=== PATIENT | female | born 1950 | race African-American/Black ===

== ENCOUNTER 2018-08-30 22:57 | Emergency (ER) | payer OTHER ==
[2018-08-31] MEDS ORDERED: FENTANYL CITR 100 MCG/2 ML ONE (00:19)
[2018-08-31 00:21] LABS: Basophils % 0.9 % (0-1.3); MPV 9.3 fL (7.6-11.3); RBC Red Blood Cell Count 4.08 M/uL (3.86-4.86)
[2018-08-31 00:29] LABS: Absolute Lymphocytes (CBC) 1.2 K/uL (0.7-4.9); Eosinophils % 2.1 % (0-4.4); Hematocrit 35.6 % (36.0-45.0); Monocytes % 8.2 % (3.3-12.3)
[2018-08-31 00:35] LABS: Albumin 3.1 g/dL (3.4-5.0); Bilirubin Direct 0.1 mg/dL (0-0.2); Bilirubin Total 0.3 mg/dL (0.2-1.0); Potassium 4.3 mmol/L (3.5-5.1)
--- NOTE | 2018-08-31 02:41 | EDPHYS ---
Physician Documentation [facility] Name: Cory Mancuso Age: 68 yrs Sex: Female : 1950 Arrival Date: 08/30/2018 Time: 22:59 Bed 15 Private MD: ED Physician Ricardo Roberts HPI: 08/31 05:17 This 68 yrs old Black Female presents to ER via Wheelchair with complaints of Abd Pain gs > 50 y/o. 05:17 The patient presents with abdominal pain in the lower abdomen. Onset: The gs symptoms/episode began/occurred 1 week(s) ago, and became persistent. Associated signs and symptoms: Pertinent positives: constipation, Pertinent negatives: fever, vomiting. The symptoms are described as crampy. Modifying factors: The symptoms are alleviated by nothing, the symptoms are aggravated by nothing. Severity of pain: At its worst the pain was moderate in the emergency department the pain is unchanged. The patient has experienced similar episodes in the past, a few times. The patient has been recently seen by a physician: with similar presenting complaints. Historical: - Allergies: 08/30 23:04 tramadol; la1 - PMHx: 23:04 Diabetes - NIDDM; CHF; Dialysis; Hypertension; High Cholesterol; la1 - Immunization history:: Adult Immunizations up to date. - Social history:: Smoking status: Patient/guardian denies using tobacco. - Ebola Screening: : No symptoms or risks identified at this time. ROS: 08/31 05:17 All other systems are negative. gs Exam: 05:17 Head/Face: Normocephalic, atraumatic. Eyes: Pupils equal round and reactive to light, gs extra-ocular motions intact. Lids and lashes normal. Conjunctiva and sclera are non-icteric and not injected. Cornea within normal limits. Periorbital areas with no swelling, redness, or edema. ENT: Nares patent. No nasal discharge, no septal abnormalities noted. Tympanic membranes are normal and external auditory canals are clear. Oropharynx with no redness, swelling, or masses, exudates, or evidence of obstruction, uvula midline. Mucous membranes moist. Neck: Trachea midline, no thyromegaly or masses palpated, and no cervical lymphadenopathy. Supple, full range of motion without nuchal rigidity, or vertebral point tenderness. No Meningismus. Chest/axilla: Normal chest wall appearance and motion. Nontender with no deformity. No lesions are appreciated. Cardiovascular: Regular rate and rhythm with a normal S1 and S2. No gallops, murmurs, or rubs. Normal PMI, no JVD. No pulse deficits. Respiratory: Lungs have equal breath sounds bilaterally, clear to auscultation and percussion. No rales, rhonchi or wheezes noted. No increased work of breathing, no retractions or nasal flaring. Back: No spinal tenderness. No costovertebral tenderness. Full range of motion. Skin: Warm, dry with normal turgor. Normal color with no rashes, no lesions, and no evidence of cellulitis. MS/ Extremity: Pulses equal, no cyanosis. Neurovascular intact. Full, normal range of motion. Neuro: Awake and alert, GCS 15, oriented to person, place, time, and situation. Cranial nerves II-XII grossly intact. Motor strength 5/5 in all extremities. Sensory grossly intact. Cerebellar exam normal. Normal gait. 05:17 Constitutional: The patient appears alert, awake. 05:17 Abdomen/GI: Palpation: mild abdominal tenderness, in all quadrants, rebound tenderness, is not appreciated. Vital Signs: 08/30 23:04 BP 219 / 96; Pulse 74; Resp 16; Temp 97.6; Pulse Ox 98% on R/A; Weight 55.34 kg; Height la1 5 ft. 5 in. (165.10 cm); Pain 10/10; 08/31 00:18 BP 212 / 94; Pulse 69; Resp 18; Pulse Ox 95% on R/A; ea 02:11 BP 208 / 96; Pulse 70; Resp 18; Pulse Ox 98% on R/A; ea 03:00 BP 187 / 65; Pulse 67; Resp 18; Temp 97.8; Pulse Ox 99% ; ea 08/30 23:04 Body Mass Index 20.30 (55.34 kg, 165.10 cm) la1 MDM: 00:01 Patient medically screened. 05:17 Data reviewed: vital signs, nurses notes, old medical records, lab test result(s), gs radiologic studies. Counseling: I had a detailed discussion with the patient and/or guardian regarding: the historical points, exam findings, and any diagnostic results supporting the discharge/admit diagnosis, the need for outpatient follow up. Response to treatment: the patient's symptoms have markedly improved after treatment, and as a result, I will discharge patient. 08/30 23:58 Order name: Basic Metabolic Panel; Complete Time: 00:40 ea 08/30 23:58 Order name: CBC with Diff; Complete Time: 00:40 ea 08/30 23:58 Order name: Creatinine for Radiology; Complete Time: 00:40 ea 08/30 23:58 Order name: Hepatic Function; Complete Time: 00:40 ea 08/30 23:58 Order name: Lipase; Complete Time: 00:40 ea 08/31 00:02 Order name: CT Stone Protocol 08/30 23:58 Order name: IV Saline Lock; Complete Time: 23:59 08/30 23:58 Order name: Labs collected and sent; Complete Time: 23:59 ea Administered Medications: 00:12 Drug: fentaNYL (PF) 50 mcg Route: IVP; Site: left forearm; ea 01:00 Follow up: Response: No adverse reaction; Pain is decreased ea 02:37 Drug: Dulcolax Suppository 10 mg Route: OR; ea 02:50 Follow up: Response: No adverse reaction ea 02:45 Drug: morphine 2 mg Route: IVP; Site: left forearm; ea 02:50 Follow up: Response: No adverse reaction; Medication administered at discharge. ea Disposition: 08/31/18 02:40 Discharged to Home. Impression: Constipation. - Condition is Stable. - Discharge Instructions: Constipation, Adult, [id number]. - Prescriptions for Miralax 17 gram/dose Oral - take 1 packet by ORAL route 2 times per day for 5 days then once daily dilute powder in 8 ounces of water or juice; 1 bottle. - Medication Reconciliation Form, Thank You Letter, Antibiotic Education, Prescription Opioid Use form. - Follow up: Benjamin Santos MD; When: 2 - 3 days; Reason: Re-evaluation by your physician. Signatures: Dispatcher [employer] EDEzekiel Rivera RN RN la1 Antunez, Elena, RN RN ea Starr, Gregory, MD MD gs Corrections: (The following items were deleted from the chart) 03:18 02:40 08/31/2018 02:40 Discharged to Home. Impression: Constipation. Condition is ea Stable. Forms are Medication Reconciliation Form, Thank You Letter, Antibiotic Education, Prescription Opioid Use. Follow up: Benjamin Santos; When: 2 - 3 days; Reason: Re-evaluation by your physician. gs
--- NOTE | 2018-08-31 02:41 | ER ---
Nurse's Notes [facility] Name: Cory Mancuso Age: 68 yrs Sex: Female : 1950 Arrival Date: 08/30/2018 Time: 22:59 Bed 15 Private MD: Diagnosis: Constipation Presentation: 08/30 23:02 Presenting complaint: Patient states: I was released from [facility] for la1 constipation on 08/29/2018 and told them I was hurting then but they still let me go. My whole abd is hurting badly again. Transition of care: patient was not received from another setting of care. Onset of symptoms was August 30, 2018. Risk Assessment: Do you want to hurt yourself or someone else? Patient reports no desire to harm self or others. Initial Sepsis Screen: Does the patient meet any 2 criteria? No. Patient's initial sepsis screen is negative. Does the patient have a suspected source of infection? No. Patient's initial sepsis screen is negative. Care prior to arrival: None. 23:02 Method Of Arrival: Wheelchair la1 23:02 Acuity: SHAKILA 2 la1 Historical: - Allergies: 23:04 tramadol; la1 - PMHx: 23:04 Diabetes - NIDDM; CHF; Dialysis; Hypertension; High Cholesterol; la1 - Immunization history:: Adult Immunizations up to date. - Social history:: Smoking status: Patient/guardian denies using tobacco. - Ebola Screening: : No symptoms or risks identified at this time. Screenin:33 Abuse screen: Denies threats or abuse. Nutritional screening: No deficits noted. ea Tuberculosis screening: No symptoms or risk factors identified. Fall Risk None identified. Assessment: 23:30 General: Appears uncomfortable, Behavior is restless. Pain: Complains of pain in right ea upper quadrant and left upper quadrant Pain radiates to posterior aspect of right lateral abdomen and anterior aspect of right lateral abdomen Pain currently is 10 out of 10 on a pain scale. Quality of pain is described as crampy, Pain began 2-3 days ago. Neuro: Level of Consciousness is awake, alert, obeys commands, Oriented to person, place, time, situation. Cardiovascular: Patient's skin is warm and dry. Respiratory: Airway is patent Respiratory effort is even, unlabored, Respiratory pattern is regular, symmetrical. GI: Abdomen is non-distended, Bowel sounds present X 4 quads. Derm: Skin is dry, Skin is normal, Skin temperature is warm. 08/31 00:18 Reassessment: Patient and/or family updated on plan of care and expected duration. Pain ea level reassessed. Patient is alert, oriented x 3, equal unlabored respirations, skin warm/dry/pink. Patient states symptoms have improved. 01:15 Reassessment: Patient and/or family updated on plan of care and expected duration. Pain ea level reassessed. Patient is alert, oriented x 3, equal unlabored respirations, skin warm/dry/pink. Awaiting on CT results. 02:58 Reassessment: Patient and/or family updated on plan of care and expected duration. Pain ea level reassessed. Patient is alert, oriented x 3, equal unlabored respirations, skin warm/dry/pink. Discharge instruction given to patient and family, verbalized the understanding of instruction. Pt left ED via wheelchair per family, pt tolerating well. Pt reports pain has decreased. Vital Signs: 08/30 23:04 BP 219 / 96; Pulse 74; Resp 16; Temp 97.6; Pulse Ox 98% on R/A; Weight 55.34 kg; Height la1 5 ft. 5 in. (165.10 cm); Pain 10/10; 08/31 00:18 BP 212 / 94; Pulse 69; Resp 18; Pulse Ox 95% on R/A; ea 02:11 BP 208 / 96; Pulse 70; Resp 18; Pulse Ox 98% on R/A; ea 03:00 BP 187 / 65; Pulse 67; Resp 18; Temp 97.8; Pulse Ox 99% ; ea 08/30 23:04 Body Mass Index 20.30 (55.34 kg, 165.10 cm) la1 ED Course: 08/30 22:59 Patient arrived in ED. as 23:03 Triage completed. la1 23:04 Arm band placed on left wrist. la1 23:24 Meseret Torres, REGINA is Primary Nurse. ea 23:33 Ricardo Roberts MD is Attending Physician. gs 23:33 Patient has correct armband on for positive identification. Bed in low position. Call ea light in reach. Side rails up X2. Pulse ox on. NIBP on. 23:33 Patient maintains SpO2 saturation greater than 95% on room air. ea 23:59 Inserted saline lock: 22 gauge in left forearm, using aseptic technique. ea 08/31 00:35 Notified ED physician of a critical lab result(s). creat 7.04. fc 01:24 CT Stone Protocol In Process Unspecified. EDMS 02:40 Benjamin Santos MD is Referral Physician. gs 02:58 IV discontinued, intact, bleeding controlled, No redness/swelling at site. Pressure ea dressing applied. 03:17 No provider procedures requiring assistance completed. ea Administered Medications: 00:12 Drug: fentaNYL (PF) 50 mcg Route: IVP; Site: left forearm; ea 01:00 Follow up: Response: No adverse reaction; Pain is decreased ea 02:37 Drug: Dulcolax Suppository 10 mg Route: LA; ea 02:50 Follow up: Response: No adverse reaction ea 02:45 Drug: morphine 2 mg Route: IVP; Site: left forearm; ea 02:50 Follow up: Response: No adverse reaction; Medication administered at discharge. ea Outcome: 02:40 Discharge ordered by . gs 03:17 Discharged to home via wheelchair, with family. ea 03:17 Condition: stable 03:17 Discharge instructions given to patient, Instructed on discharge instructions, follow up and referral plans. medication usage, Demonstrated understanding of instructions, follow-up care, medications, Prescriptions given X 1. 03:18 Patient left the ED. ea Signatures: Dispatcher [employer] EDCA Shari Parker RN RN fc Martinez, Amelia as Attema, Lee, RN RN la1 Antunez, Elena, RN RN ea Starr, Gregory, MD MD
[2018-08-31] MEDS ORDERED: BISACODYL 10 MG RECTAL SUPP ONE (02:48)
[2018-08-31] MEDS ORDERED: MORPHINE 2 MG/ML SYR ONE (03:05)
--- NOTE | 2018-09-01 11:16 | RAD REPORT ---
EXAM DESCRIPTION: CT abdomen and pelvis without IV contrast CLINICAL HISTORY: 60-year-old female with constipation and abdominal pain TECHNIQUE: Axial CT imaging of the abdomen and pelvis was performed without intravenous contrast. Sagittal and coronal reconstructed images were then performed. The CT study is performed according to ALARA (as low as reasonably achievable) or ALARA/IMAGE GENTLY, with automatic adjustment of mA and/o r kV according to patient size. Performed on: 08/31/2018 at 12:59 AM COMPARISON: None. FINDINGS: Lung bases: The lung bases are clear. There is bibasilar atelectasis and/or fibrosis. Ther e is a small to moderate pericardial effusion which measures approximately 1.1 cm in diameter anterio rly and 1.2 cm posteriorly. Liver: The liver is normal in size and configuration. No focal hepatic abnormalities are appreciated on this unenhanced scan. Liver attenuation is within normal limits. Spleen: The spleen is normal is size, configuration and attenuation. There is an approximately 1.4 x 1.5 cm focal area of decreased attenuation within the posterior spleen. This is nonspecific. This cou ld represent an incidental hemangioma. Evaluation is limited without intravenous contrast. Gallbladder and bile duct: The gallbladder is well visualized and is likely surgically absent. Ther e is mild dilatation of the common bile duct likely physiologic in nature following a cholecystectomy . Pancreas: The pancreas is grossly normal in size and configuration. Adrenal Glands: The right adrenal gland is grossly normal in size and configuration. There may be mil d generalized fullness of the left adrenal gland which is not well delineated on this examination. Kidneys: The kidneys are normal in size and configuration. There is no evidence of hydronephrosis. Th ere is a punctate nonobstructing calcification in the upper pole of the right kidney. There is a subt le area of increased attenuation along the anterior cortex of the midpole of the right kidney which i s nonspecific and could be related to a hyperdense cyst. Stomach: The stomach is grossly normal. There is no definite hiatal hernia. Bowel: The bowel gas pattern is non specific and non obstructive. There is moderate fecal residue sca ttered throughout the colon. Appendix: The appendix is normal. Free air: There is no evidence of free air. Free fluid: There is no evidence of free fluid. Vasculature: The aorta is normal in caliber and contour. There are moderate atherosclerotic calcifica tions along the abdominal aorta and major proximal branch vessels. The inferior vena cava is grossly unremarkable. Lymphadenopathy: No pathologic lymphadenopathy is identified. Bladder: The bladder is well distended and smooth in contour. Reproductive: The uterus is surgically absent. Bones: No acute osseous abnormalities are identified. Soft tissues: No focal soft tissue abnormalities are identified. There is a small fat-containing vent ral umbilical hernia. IMPRESSION: 1. Small to moderate pericardial effusion. 2. Moderate fecal residue scattered throughout the colon. The bowel gas pattern is nonspecific and no nobstructive. 3. Moderate atherosclerotic calcifications. 4. Suspect prior cholecystectomy and hysterectomy. 5. Approximately 1.5 cm nonspecific focal area of decreased attenuation within the posterior spleen. This could represent an incidental hemangioma. Evaluation is limited without intravenous contrast. 6. Punctate nonobstructing right renal calculus and possible hyperdense cyst along the anterior joe x of the midpole of the right kidney. Again, evaluation is limited without intravenous contrast. Electronically signed by: Arely Dhillon DO 08/31/2018 1:43 AM CDT Due to temporary technical issues with the PACS/Fluency reporting system, reports are being signed by the in house radiologist as a courtesy to ensure prompt reporting. The interpreting radiologist is f ully responsible for the content of the report.
== END 2018-08-31 03:18 | disposition home or self-care (01) ==
LOC: ER 22:57
DX: K59.00 Constipation, unspecified (principal); E11.9 Type 2 diabetes mellitus without complications; I11.0 Hypertensive heart disease with heart failure; I50.9 Heart failure, unspecified; E78.00 Pure hypercholesterolemia, unspecified
CPT/HCPCS: 85025; 80048; 36415; 80076; 83690; 76377; 74176; 96375; 96374; 99284; J3010; J2270

== ENCOUNTER 2019-01-27 10:20 | Observation (INO) | payer OTHER ==
[2019-01-27] MEDS ORDERED: MORPHINE 2 MG/ML SYR ONE (10:46)
[2019-01-27] MEDS ORDERED: PANTOPRAZOLE 40 MG INJ ONE (10:46)
[2019-01-27] MEDS ORDERED: ONDANSETRON 4 MG/2 ML VIAL ONE (10:46)
--- OUTSIDE RECORDS SUMMARY | 2019-01-27 11:15 | XMS REPORT | Continuity of Care Document ---
:1950 Author Organization [facility] Address [address] [place] [address] Phone Unavailable Care Team Providers Name Role Phone PHYSICIAN, NO Primary Care Physician Unavailable Insurance Providers Guarantor Komal Smith Address [address] [place] [address] Email NONE Payer Medicare Policy Number [id number] Subscriber's Name Komal Smith Relationship Self / Same As Patient Group Number NA Group Name NA Payer [facility] Policy Number [id number] Subscriber's Name Komal Smith Relationship Self / Same As Patient Group Number NA Group Name NA Payer Medicaid Policy Number [id number] Subscriber's Name Komal Smith Relationship Self / Same As Patient Group Number NA Group Name NA Advance Directives Directive Response Recorded Date/Time Advance Directives No 07/10/14 6:33pm Advance Directive on File No 01/17/18 11:46am Directive to Physicians/Living Will No 07/10/14 6:33pm Health Care Proxy No 07/10/14 6:33pm Organ Donor No 07/10/14 6:33pm Medical Power of Employment Educational Coord No 07/10/14 6:33pm Chief Complaint and Reason for Visit Chief Complaint General Complaint Reason for Visit HTN (hypertension) Hyperglycemia Chronic renal failure Problems Medical Problem Onset Date Status Abnormal renal function test Unknown Acute Acute on chronic renal insufficiency Unknown Acute Anxiety Unknown Chronic CAD (coronary artery disease) Unknown CKD (chronic kidney disease) stage 3, GFR 30-59 ml/min Unknown Chronic Cellulitis of left ankle Unknown Acute Clostridium difficile diarrhea Unknown Constipation Unknown Acute Dehydration Unknown Acute Diabetes mellitus Unknown Chronic Diarrhea Unknown Resolved Gastroenteritis Unknown Resolved HLD (hyperlipidemia) Unknown Chronic HTN (hypertension) Unknown Chronic Hematuria Unknown Acute Hyperglycemia Unknown Acute Hyperglycemia Unknown Acute Hypoglycemia Unknown Acute Hypokalemia Unknown Acute [id number] Unknown Acute Uncontrolled diabetes mellitus Unknown Acute Past Problems Medical Problem Onset Date Status Abdominal pain Unknown Acute Acute on chronic renal insufficiency Unknown Acute CHF (congestive heart failure) Unknown Acute Chronic renal failure Unknown Acute Congestive heart failure Unknown Acute Constipation Unknown Acute Dizzy Unknown Acute Hyperglycemia due to type 2 diabetes mellitus Unknown Acute Ketonuria Unknown Acute Malaise Unknown Acute Nausea Unknown Acute Nausea & vomiting Unknown Acute Nausea & vomiting Unknown Acute Renal failure Unknown Acute Renal insufficiency Unknown Acute UTI (urinary tract infection) Unknown Acute UTI (urinary tract infection) Unknown Acute Medications Current Home Medications Medication Dose Units Route Directions Days Qty Instructions Start Date Acetaminophen 1 Tab ORAL Twice Daily As 90 W/ Codeine #3 * Needed Tablet (Tylenol Codeine #3 300MG/30MG *) 1 Tab Tab Atorvastatin * 80 Mg ORAL Bedtime (Lipitor 80 Mg*) 80 Mg Tab Carvedilol 25 Mg ORAL Twice Daily 60 09/25/ (Coreg *) 25 Mg With Meals for Tablet 18 Tab Hypertension Clopidogrel 1 Tab ORAL Daily 90 Bisulfate Tablet (Plavix 75 Mg *) 75 Mg Tab Furosemide 1 Tab ORAL Twice A Day 90 (Lasix 20 Mg*) Tablet 20 Mg Tab Insulin 20 Units SUBCUTANEOUS Daily for 30 10/17/ Glargine Diabetes Days 18 (Lantus Solostar) 100 Unit/Ml Inj Metronidazole 1 Tab ORAL Twice A Day 20 10/18/ (Flagyl 500 for Colitis Tablet 18 Mg*) 500 Mg Tab Nifedipine 90 Mg ORAL Daily (Nifediac Cc 90 Mg*) 90 Mg Tab Past Home Medications Medication Directions Ordered Status Carvedilol (Coreg *) 3.125 Mg Tab, Twice A Day 06/08/12 Discontinued 3.125 Mg Oral Ciprofloxacin Hcl (Ciprofloxacin Twice A Day for Uti 03/29/17 Discontinued Hcl 250 Mg) 250 Mg Tab, 1 Tab Oral Clopidogrel Bisulfate (Plavix 75 Daily Discontinued Mg *) 75 Mg Tab, 75 Mg Oral Clotrimazole (Topical) Discontinued (Clotrimazole 1% Topical) 1 % Cre, Insulin Asp Prt/Insulin Aspart * Every Morning Discontinued (Novolog Mix 70/30 Flexpen *) Inj, 100 Units Subcutaneous Insulin Asp Prt/Insulin Aspart * Every Evening Discontinued (Novolog Mix 70/30 Flexpen *) Inj, 75 Units Subcutaneous Insulin Asp Prt/Insulin Aspart * Three Times Daily Before 04/21/13 Discontinued (Novolog Mix 70/30 Flexpen *) Inj, Meals 25 Units Subcutaneous Insulin Aspart (Novolog Mix 70/30 Before Breakfast Discontinued 100 Units/Ml Insulin *) 100 Units/ Inj, 15 Subcutaneous Insulin Glargine (Lantus Solostar) Every Morning Discontinued 100 Unit/Ml Inj, 50 Units Subcutaneous Insulin Human Isoph/Insulin Twice A Day Insulin Discontinued Regular (Novolin 70/30 100 Units/Ml Insulin *) 100 Units/ Inj, 15 UnitsSubcutaneous Insulin Human Isoph/Insulin Bedtime Discontinued Regular (Novolin 70/30 100 Units/Ml Insulin *) 100 Units/ Inj, 10Subcutaneous Labetalol Hcl (Trandate 200 Mg *) Twice A Day Discontinued 200 Mg Tab, 200 Mg Oral Lisinopril (Lisinopril/Hctz Daily Discontinued 20/12.5 Mg) 1 Tab Tab, 1 Tab Oral Lisinopril (Lisinopril 10 Mg) 10 Daily for Hypertension 03/29/17 Discontinued Mg Tab, 1 Tab Oral Lisinopril (Lisinopril/Hctz Daily Discontinued 20/12.5 Mg) 1 Tab Tab, 1 Tab Oral Lisinopril (Zestril/Prinivil *) 10 Daily Discontinued Mg Tab, 0 Oral Lisinopril & Hydrochlorothiazi * Daily Discontinued (Lisinopril/Hctz 20/25 Mg *) 1 Tab Tab, 1 Tab Oral Lisinopril & Hydrochlorothiazi * Daily Discontinued (Lisinopril/Hctz 20/25 Mg *) 1 Tab Tab, 1 Tab Oral Metformin Hcl (Glucophage *) 500 Twice A Day Discontinued Mg Tab, 0 Oral Metoprolol Tartrate (Lopressor *) Once Daily Discontinued 50 Mg Tab, 100 Mg Oral Nifedipine (Nifedipine 10 Mg Daily Discontinued (Procardia) *) 10 Mg Cap, 0 Oral Potassium Chloride (Potassium Daily Discontinued Chloride Cr 10 Meq) 10 Meq Tab, 10 Meq Oral Sodium Bicarbonate 325 Mg Tab, 325 Twice A Day for Acidosis 09/25/17 Discontinued Mg Oral Sodium Bicarbonate 325 Mg Tab, 325 Four Times Daily for Acidosis 09/25/17 Discontinued Mg Oral Social History Social History Problem Response Recorded Date/Time Onset Date Status Hx Physical Abuse No 01/17/2018 11:46am Not Applicable Not Applicable Smoking Status Start Date Stop Date Never smoker Hospital Discharge Instructions No hospital discharge instruction information available. Plan of Care Discharge Date 01/17/18 1:49pm Instructions/Education Provided Hyperglycemia, [id number] Chronic Kidney Disease, Adult, [id number] Hypertension, [id number] Forms Provided Prescription Opioid Use Portal Welcome Letter Prescriptions See Medication Section Referrals NO PHYSICIAN Additional Instructions/Education GO DIRECTLY TO DIALYSIS FOR TREATMENT Functional Status No functional status information available. Allergies, Adverse Reactions, Alerts Allergen Type Severity Reaction Status Last Updated Tramadol ([id number]) Allergy Severe Active 07/12/14 Immunizations No immunization information available. Vital Signs Acute Vital Signs Vital Response Date/Time Blood Pressure 193/87 mm Hg 01/17/2018 1:56pm Pulse Pulse Rate (adult) 61 beats per minute (60 - 100) 01/17/2018 1:56pm Respiratory Rate 18 breaths per minute (10 - 24) 01/17/2018 1:56pm Temperature Source Oral 01/17/2018 1:56pm Height 5 ft 5 in 01/17/2018 11:46am Weight 155 lb 01/17/2018 11:46am Body Mass Index 25.8 kg/m^2 01/17/2018 11:46am Results Laboratory Results Test Name Result Units Flags Reference Collection Result Comments Date/Time Date/Time White Blood Count 4.1 K/ul 4.0-11.5 01/17/2018 01/17/2018 12:35pm 12:39pm Red Blood Count 3.81 M/ul 3.80-5.20 01/17/2018 01/17/2018 12:35pm 12:39pm Hemoglobin 10.3 g/dl L 10.5-15.7 01/17/2018 01/17/2018 12:35pm 12:39pm Hematocrit 32.8 % L 34.0-50.0 01/17/2018 01/17/2018 12:35pm 12:39pm Mean Corpuscular 85.9 fl 78-98 01/17/2018 01/17/2018 Volume 12:35pm 12:39pm Mean Corpuscular 26.9 pg 26.2-33.4 01/17/2018 01/17/2018 Hemoglobin 12:35pm 12:39pm Mean Corpuscular 31.3 g/dl L 31.5-36.2 01/17/2018 01/17/2018 Hemoglobin Concent 12:35pm 12:39pm Red Cell 13.6 % 11.5-15.5 01/17/2018 01/17/2018 Distribution Width 12:35pm 12:39pm Platelet Count 85 K/ul L 137-338 01/17/2018 01/17/2018 12:35pm 12:39pm Mean Platelet 13.5 fl H 8.4-11.8 01/17/2018 01/17/2018 Volume 12:35pm 12:39pm Neutrophils (%) 58.1 % 44.4-80.1 01/17/2018 01/17/2018 (Auto) 12:35pm 12:39pm Lymphocytes (%) 33.0 % 10.0-50.0 01/17/2018 01/17/2018 (Auto) 12:35pm 12:39pm Monocytes (%) 5.6 % 3.6-12.04 01/17/2018 01/17/2018 (Auto) 12:35pm 12:39pm Eosinophils (%) 2.2 % 0.0-5.41 01/17/2018 01/17/2018 (Auto) 12:35pm 12:39pm Basophils (%) 1.1 % H 0.0-0.79 01/17/2018 01/17/2018 (Auto) 12:35pm 12:39pm POC Capillary 284 mg/dL H 70.0 - 110 01/17/2018 01/17/2018 Blood Glucose 1:26pm 1:27pm (Chem) Random Glucose 393 mg/dL H 82-115 01/17/2018 01/17/2018 12:35pm 1:05pm Blood Urea 55 mg/dL H 8-23 01/17/2018 01/17/2018 Nitrogen 12:35pm 1:05pm Serum Osmolality 300 280-300 01/17/2018 01/17/2018 12:35pm 1:05pm Creatinine 5.6 mg/dL H* 0.50-0.90 01/17/2018 01/17/2018 Results have been broadcasted to patient's location and 12:35pm 1:05pm called to ([facility] IN ER). By OZZY VIVAS 01/17/18 @[id number] Results read back for confirmation. Glomerular 9.16 L 01/17/2018 01/17/2018 GFR RESULTS ARE REPORTED IN mL /min/1.73m2. Filtration Rate 12:35pm 1:05pm Calc Normal GFR: >60mL/min Moderately decreased GFR: 30-59 mL/min Severely decreased GFR: 15-29 mL/min Kidney Failure (or Dialysis): <15 mL/min The calculated eGFR is not valid for patients younger than 18 years or older than 75 years. BUN/Creatinine 9.8 L 12-01/17/2018 01/17/2018 Ratio 12:35pm 1:05pm Sodium Level 134 mmol/L L 135-145 01/17/2018 01/17/2018 12:35pm 1:05pm Potassium Level 4.0 mmol/L 3.5-5.2 01/17/2018 01/17/2018 12:35pm 1:05pm Chloride Level 97 mmol/L L 98-108 01/17/2018 01/17/2018 12:35pm 1:05pm Carbon Dioxide 25 mmol/L 21-32 01/17/2018 01/17/2018 Level 12:35pm 1:05pm Anion Gap 16.0 mEq/L 12-01/17/2018 01/17/2018 12:35pm 1:05pm Calcium Level 8.8 mg/dL 8.8-10.2 01/17/2018 01/17/2018 12:35pm 1:05pm Total Protein 6.9 g/dL 6.6-8.7 01/17/2018 01/17/2018 12:35pm 1:05pm Albumin 3.4 g/dL L 3.5-5.2 01/17/2018 01/17/2018 12:35pm 1:05pm Globulin 3.5 gm/dL 01/17/2018 01/17/2018 12:35pm 1:05pm Albumin/Globulin 1.0 >1.0 01/17/2018 01/17/2018 Ratio 12:35pm 1:05pm Total Bilirubin 0.5 mg/dL 0.0-1.2 01/17/2018 01/17/2018 12:35pm 1:05pm Aspartate Amino 14 U/L L 15-32 01/17/2018 01/17/2018 Transf (AST/SGOT) 12:35pm 1:05pm Alanine 14 U/L 0-33 01/17/2018 01/17/2018 Aminotransferase 12:35pm 1:05pm (ALT/SGPT) Total Alkaline 108 U/L H 35-105 01/17/2018 01/17/2018 Phosphatase 12:35pm 1:05pm Procedures No procedure information available. Encounters Encounter Location Arrival/Admit Date Discharge/Depart Date Attending Provider Departed [place] 01/17/18 11:41am 01/17/18 1:49pm ANJALI MARTIN [facility] Recent Diagnosis
--- OUTSIDE RECORDS SUMMARY | 2019-01-27 11:15 | XMS REPORT ---
:1950 [facility] Address [address] [place] [address] Care Team Providers Name Role Phone DR JULI MCNAMARA Unavailable Unavailable Problems This patient has no known problems. Allergies, Adverse Reactions, Alerts This patient has no known allergies or adverse reactions. Medications This patient has no known medications. Encounters Start End Encounter Admission Attending Care Care Encounter Date/Time Date/Time Type Type Clinicians Facility Department ID 2017-11-08 2017-11-15 Inpatient C JULI MCNAMARA [facility] TELE [id number] 12:46:00 19:06:00 Results Test Description Test Time Test Comments Text Results Atomic Results Result Comments GLUCOMETER GLUCOSE- LAB USE ONLY 2017-11-15 11:11:00 Test Item Value Reference Range Comments GLUCOMETER (test code=GMG) 191 mg/dL 70-100 Meter ID: [id number]: 9527 JONATHAN LATHON GLUCOMETER GLUCOSE- LAB USE [id number] 05:26:00 Test Item Value Reference Range Comments GLUCOMETER (test code=GMG) 130 mg/dL 70-100 CLEANED METERMeter ID: [id number]: [id number] ALEN MAYELA GLUCOMETER GLUCOSE- LAB USE [id number] 20:08:00 Test Item Value Reference Range Comments GLUCOMETER (test code=GMG) 120 mg/dL 70-100 Meter ID: [id number]: 4074 ALEN MAYELA GLUCOMETER GLUCOSE- LAB USE [id number] 15:55:00 Test Item Value Reference Range Comments GLUCOMETER (test code=GMG) 195 mg/dL 70-100 Meter ID: [id number]: [id number] GROVER RUNNOLLS GLUCOMETER GLUCOSE- LAB USE [id number] 11:05:00 Test Item Value Reference Range Comments GLUCOMETER (test code=GMG) 227 mg/dL 70-100 Meter ID: [id number]: [id number] GROVER BALDWIN CBC (INCLUDES AUTOMATED DIFFERENTIAL)2017-11-14 10:39:00 Test Item Value Reference Range Comments WBC (test code=WBC) 4.5 10\S\3/uL 4.5-11.0 RBC (test code=RBC) 3.00 10\S\6/uL 3.80-5.80 HGB (test code=HBG) 8.1 g/dL 12.0-15.5 HCT (test code=HCT) 26.3 % 35.0-44.0 MCV (test code=MCV) 87.7 fL 81.0-99.0 MCH (test code=MCH) 27.0 pg 27.0-31.0 MCHC (test code=MCHC) 30.8 g/dL 32.0-36.0 RDW (test code=RDW) 14.8 % 11.5-14.5 PLT (test code=PLT) 97 10\S\3/uL 130-400 MPV (test code=MPV) 12.1 fL 9.4-12.4 NEUTROP # (test code=NE#) 2.8 10\S\3/uL 1.6-8.0 LYMPH # (test code=LY#) 1.1 10\S\3/uL 1.1-3.5 MONOCYTE # (test code=MO#) 0.4 10\S\3/uL 0.0-1.1 EOSINOPH # (test code=EO#) 0.2 10\S\3/uL 0.0-0.7 BASOPHIL # (test code=BA#) 0.0 10\S\3/uL 0.0-0.3 IG # (test code=IG#) 0.03 10\S\3/uL 0.00-0.06 NRBC # (test code=NRBC#) 0.00 10\S\3/uL 0.00-0.01 NEUTROPH % (test code=NE%) 62.4 % 35.0-73.0 LYMPH % (test code=LY%) 24.7 % 20.0-55.0 MONO % (test code=MO%) 8.7 % 2.5-10.0 EOSINOPH % (test code=EO%) 3.3 % 0.0-5.0 BASOPHIL % (test code=BA%) 0.2 % 0.0-2.0 IG % (test code=IG%) 0.7 % 0.0-0.8 NRBC% (test code=NRBC%) 0.0 % 0.0-0.2 MANDIFF (test code=MDIFF) NO NO RBC MORPH (test code=RBCMOR) NORMAL GLUCOMETER GLUCOSE- LAB USE [id number] 05:31:00 Test Item Value Reference Range Comments GLUCOMETER (test code=GMG) 119 mg/dL 70-100 CLEANED METERMeter ID: [id number]: [id number] ALEN MAYELA GLUCOMETER GLUCOSE- LAB USE [id number] 20:44:00 Test Item Value Reference Range Comments GLUCOMETER (test code=GMG) 192 mg/dL 70-100 CLEANED METERMeter ID: [id number]: 4074 ALEN MAYELA GLUCOMETER GLUCOSE- LAB USE [id number] 16:44:00 Test Item Value Reference Range Comments GLUCOMETER (test code=GMG) 123 mg/dL 70-100 Meter ID: [id number]: 9527 JONATHAN LATHON GLUCOMETER GLUCOSE- LAB USE [id number] 12:19:00 Test Item Value Reference Range Comments GLUCOMETER (test code=GMG) 193 mg/dL 70-100 Meter ID: [id number]: 9527 JONATHAN LATHON BASIC METABOLIC [id number] 08:44:00 Test Item Value Reference Range Comments GLUCOSE (test code=06D) 161 mg/dL 75-100 SODIUM (test code=01A) 141 mmol/L 136-145 POTASSIUM (test code=01B) 3.3 mmol/L 3.6-5.1 CHLORIDE (test code=04A) 108 mmol/L 98-107 CO2 (test code=02A) 22 mmol/L 22-32 ANION GAP (test code=ANG) 14.3 mmol/L BUN (test code=05D) 44 mg/dL 7-18 CREATININE (test code=03E) 3.9 mg/dL 0.4-1.1 BUN/CREA (test code=BCR) 11 12-20 CALCIUM (test code=09D) 8.2 mg/dL 8.3-9.5 PRO TIME AND [id number] 08:20:00 Test Item Value Reference Range Comments PT (test code=TT) 11.0 s 9.8-13.6 INR (test code=INR) 1.0 INRH (test code=INRH) SUGGESTED THERAPEUTIC RANGE FOR INR: 2.5 - 3.5 For Patients with Prosthetic Valves or Patients with recurrent Thromboembolic Events 2.0 - 3.0 For Most Other Applications PTT (test code=PTT) 30.2 s 20.2-38.0 PTTH (test code=PTTH) To monitor the effectiveness of heparin, we offer the Anti-Xa (Heparin Assay). It can be used for either unfractionated or LMW Heparin. Order Code is ANTI-XA CBC (INCLUDES AUTOMATED DIFFERENTIAL)2017-11-13 08:13:00 Test Item Value Reference Range Comments WBC (test code=WBC) 4.4 10\S\3/uL 4.5-11.0 RBC (test code=RBC) 3.37 10\S\6/uL 3.80-5.80 HGB (test code=HBG) 9.2 g/dL 12.0-15.5 HCT (test code=HCT) 29.1 % 35.0-44.0 MCV (test code=MCV) 86.4 fL 81.0-99.0 MCH (test code=MCH) 27.3 pg 27.0-31.0 MCHC (test code=MCHC) 31.6 g/dL 32.0-36.0 RDW (test code=RDW) 14.6 % 11.5-14.5 PLT (test code=PLT) 103 10\S\3/uL 130-400 MPV (test code=MPV) 12.3 fL 9.4-12.4 NEUTROP # (test code=NE#) 3.1 10\S\3/uL 1.6-8.0 LYMPH # (test code=LY#) 0.8 10\S\3/uL 1.1-3.5 MONOCYTE # (test code=MO#) 0.4 10\S\3/uL 0.0-1.1 EOSINOPH # (test code=EO#) 0.1 10\S\3/uL 0.0-0.7 BASOPHIL # (test code=BA#) 0.0 10\S\3/uL 0.0-0.3 IG # (test code=IG#) 0.02 10\S\3/uL 0.00-0.06 NRBC # (test code=NRBC#) 0.00 10\S\3/uL 0.00-0.01 NEUTROPH % (test code=NE%) 69.4 % 35.0-73.0 LYMPH % (test code=LY%) 18.8 % 20.0-55.0 MONO % (test code=MO%) 7.9 % 2.5-10.0 EOSINOPH % (test code=EO%) 2.9 % 0.0-5.0 BASOPHIL % (test code=BA%) 0.5 % 0.0-2.0 IG % (test code=IG%) 0.5 % 0.0-0.8 NRBC% (test code=NRBC%) 0.0 % 0.0-0.2 MANDIFF (test code=MDIFF) NO NO RBC MORPH (test code=RBCMOR) NORMAL GLUCOMETER GLUCOSE- LAB USE [id number] 05:20:00 Test Item Value Reference Range Comments GLUCOMETER (test code=GMG) 159 mg/dL 70-100 Meter ID: [id number]: 9541 [facility] GLUCOMETER GLUCOSE- LAB USE [id number] 20:23:00 Test Item Value Reference Range Comments GLUCOMETER (test code=GMG) 150 mg/dL 70-100 Meter ID: [id number]: 9541 [facility] GLUCOMETER GLUCOSE- LAB USE [id number] 11:38:00 Test Item Value Reference Range Comments GLUCOMETER (test code=GMG) 193 mg/dL 70-100 Meter ID: [id number]: 9527 [facility] GLUCOMETER GLUCOSE- LAB USE [id number] 04:55:00 Test Item Value Reference Range Comments GLUCOMETER (test code=GMG) 160 mg/dL 70-100 Meter ID: [id number]: 9541 [facility] GLUCOMETER GLUCOSE- LAB USE [id number] 20:51:00 Test Item Value Reference Range Comments GLUCOMETER (test code=GMG) 190 mg/dL 70-100 Meter ID: [id number]: 9541 [facility] GLUCOMETER GLUCOSE- LAB USE [id number] 16:39:00 Test Item Value Reference Range Comments GLUCOMETER (test code=GMG) 139 mg/dL 70-100 Meter ID: [id number]: 9543 FRANCESCO TEJADA HEPATITIS B CORE ANTIBODY,[id number] 14:52:00 Test Item Value Reference Range Comments HEPATITIS B CORE AB TOTAL REACTIVE NON-REACTIVE TEST PERFORMED AT:[facility] (test ngmg=[id number]) [facility] [address] [id number] RICHARDS M.D. INSERT TUNNELED CV ACCESS [id number] 14:21:52EXAMINATION: TUNNELED DIALYSIS CATHETER PLACEMENT.LOCATION: .HISTORY: Renal failure syndromeSEDATION: Under physician supervision, Versed and Fentanyl were administeredintravenously for moderate sedation. Pulse oximetry, heart rate, and BP werecontinuously monitored by an independent trained observer present. Thephysician spent 30 minutes of face to face sedation time with the patient.RADIATION DOSE: FLUOROSCOPY TIME: 5 seconds with 1 total number of images.ANTIBIOTICS: None. Not indicated.TECHNIQUE: The risks, benefits, and alternatives were discussed and informedconsent was obtained. Prior to beginning the procedure, Bentley Protocol wasused to confirm the patient's identity and planned procedure. Maximum sterilebarriers including cap, mask, hand hygiene, sterile gloves, sterile gown, largesterile drape and cutaneous antisepsis were used.The skin over the left internal jugular vein was sterilely prepped, draped, andinfiltrated with lidocaine.Prior to the procedure, the target vessel was evaluated by ultrasound. Animage of the patent vessel was recorded and saved to PACS. After sterile prep,this vessel was accessed with a micropuncture needle using real-time ultrasoundguidance. Aguidewire and catheter were then passed centrally using fluoroscopicguidance. The intravascular length from the access site to the right atriumwas assessed.After infiltrating the skin in the subclavicular region with lidocaine, a shorttransverse incision was made and the tunneled dialysis catheter was tunneled tothe access site and inserted through a peel-away sheath. The catheter wasflushed and secured to the skin. The incision in the lower neck was closed using 2-0 Vicryl suture. A steriledressing was applied.ESTIMATED BLOOD LOSS: Less than 30 milliliters.COMPLICATIONS: None.DISCHARGED TO: Inpatient unitFINDINGS: Ultrasound demonstrates a patent left internal jugular vein.The final fluoroscopic image demonstrates the catheter with its tip at thecavoatrial junction / upper right atrium. No complications are seen.IMPRESSION: Successful tunneled dialysis catheter placement via the leftinternal jugular vein vein.PLAN: The catheter is ready for immediate use. When treatment is completed,removal can be scheduled by calling Interventional Radiology.CBC ( INCLUDES AUTOMATED DIFFERENTIAL)2017-11-11 05:47:00 Test Item Value Reference Range Comments WBC (test code=WBC) 4.0 10\S\3/uL 4.5-11.0 RBC (test code=RBC) 3.04 10\S\6/uL 3.80-5.80 HGB (test code=HBG) 8.2 g/dL 12.0-15.5 HCT (test code=HCT) 26.0 % 35.0-44.0 MCV (test code=MCV) 85.5 fL 81.0-99.0 MCH (test code=MCH) 27.0 pg 27.0-31.0 MCHC (test code=MCHC) 31.5 g/dL 32.0-36.0 RDW (test code=RDW) 14.3 % 11.5-14.5 PLT (test code=PLT) 105 10\S\3/uL 130-400 MPV (test code=MPV) 13.8 fL 9.4-12.4 NEUTROP # (test code=NE#) 2.3 10\S\3/uL 1.6-8.0 LYMPH # (test code=LY#) 1.1 10\S\3/uL 1.1-3.5 MONOCYTE # (test code=MO#) 0.3 10\S\3/uL 0.0-1.1 EOSINOPH # (test code=EO#) 0.2 10\S\3/uL 0.0-0.7 BASOPHIL # (test code=BA#) 0.0 10\S\3/uL 0.0-0.3 IG # (test code=IG#) 0.04 10\S\3/uL 0.00-0.06 NRBC # (test code=NRBC#) 0.00 10\S\3/uL 0.00-0.01 NEUTROPH % (test code=NE%) 57.9 % 35.0-73.0 LYMPH % (test code=LY%) 28.0 % 20.0-55.0 MONO % (test code=MO%) 8.4 % 2.5-10.0 EOSINOPH % (test code=EO%) 4.2 % 0.0-5.0 BASOPHIL % (test code=BA%) 0.5 % 0.0-2.0 IG % (test code=IG%) 1.0 % 0.0-0.8 NRBC% (test code=NRBC%) 0.0 % 0.0-0.2 MANDIFF (test code=MDIFF) NO NO RBC MORPH (test code=RBCMOR) NORMAL GLUCOMETER GLUCOSE- LAB USE [id number] 05:38:00 Test Item Value Reference Range Comments GLUCOMETER (test code=GMG) 110 mg/dL 70-100 CLEANED METERMeter ID: [id number]: 9276 GURVINDER STEVENSON PRO TIME AND [id number] 05:30:00 Test Item Value Reference Range Comments PT (test code=TT) 11.4 s 9.8-13.6 INR (test code=INR) 1.0 INRH (test code=INRH) SUGGESTED THERAPEUTIC RANGE FOR INR: 2.5 - 3.5 For Patients with Prosthetic Valves or Patients with recurrent Thromboembolic Events 2.0 - 3.0 For Most Other Applications PTT (test code=PTT) 35.0 s 20.2-38.0 PTTH (test code=PTTH) To monitor the effectiveness of heparin, we offer the Anti-Xa (Heparin Assay). It can be used for either unfractionated or LMW Heparin. Order Code is ANTI-XA BASIC METABOLIC [id number] 05:29:00 Test Item Value Reference Range Comments GLUCOSE (test code=06D) 99 mg/dL 75-100 SODIUM (test code=01A) 144 mmol/L 136-145 POTASSIUM (test code=01B) 3.9 mmol/L 3.6-5.1 CHLORIDE (test code=04A) 112 mmol/L 98-107 CO2 (test code=02A) 20 mmol/L 22-32 ANION GAP (test code=ANG) 15.9 mmol/L BUN (test code=05D) 90 mg/dL 7-18 CREATININE (test code=03E) 6.0 mg/dL 0.4-1.1 BUN/CREA (test code=BCR) 15 12-20 CALCIUM (test code=09D) 8.1 mg/dL 8.3-9.5 GLUCOMETER GLUCOSE- LAB USE [id number] 22:32:00 Test Item Value Reference Range Comments GLUCOMETER (test code=GMG) 120 mg/dL 70-100 CLEANED METERMeter ID: [id number]: 4736 CATHERINE DYE GLUCOMETER GLUCOSE- LAB USE [id number] 20:42:00 Test Item Value Reference Range Comments GLUCOMETER (test code=GMG) 170 mg/dL 70-100 CLEANED METERMeter ID: [id number]: 9276 GURVINDER STEVENSON GLUCOMETER GLUCOSE- LAB USE [id number] 16:13:00 Test Item Value Reference Range Comments GLUCOMETER (test code=GMG) 146 mg/dL 70-100 Meter ID: [id number]: 9287 FRANCISCA OPENA GLUCOMETER GLUCOSE- LAB USE [id number] 10:45:00 Test Item Value Reference Range Comments GLUCOMETER (test code=GMG) 197 mg/dL 70-100 Meter ID: [id number]: 9287 FRANCISCA OPENA GLUCOMETER GLUCOSE- LAB USE [id number] 06:40:00 Test Item Value Reference Range Comments GLUCOMETER (test code=GMG) 141 mg/dL 70-100 CLEANED METERMeter ID: [id number]: 4736 CATHERINE DYE GLUCOMETER GLUCOSE- LAB USE [id number] 21:27:00 Test Item Value Reference Range Comments GLUCOMETER (test code=GMG) 168 mg/dL 70-100 CLEANED METERMeter ID: [id number]: 4736 CATHERINE DYE GLUCOMETER GLUCOSE- LAB USE [id number] 20:42:00 Test Item Value Reference Range Comments GLUCOMETER (test code=GMG) 157 mg/dL 70-100 CLEANED METERMeter ID: [id number]: 9276 GURVINDER STEVENSON GLUCOMETER GLUCOSE- LAB USE [id number] 16:27:00 Test Item Value Reference Range Comments GLUCOMETER (test code=GMG) 116 mg/dL 70-100 Meter ID: [id number]: 9287 FRANCISCA OPENA GLUCOMETER GLUCOSE- LAB USE [id number] 10:34:00 Test Item Value Reference Range Comments GLUCOMETER (test code=GMG) 198 mg/dL 70-100 Meter ID: [id number]: 9287 FRANCISCA OPENA HEPATITIS B SURFACE [id number] 09:50:00 Test Item Value Reference Range Comments HBSAB (test code=HBSAB) NON-REACTIVE REACTIVE CBC WITH MANUAL [id number] 09:15:00 Test Item Value Reference Range Comments WBC (test code=WBC) 4.3 10\S\3/uL 4.5-11.0 RBC (test code=RBC) 3.05 10\S\6/uL 3.80-5.80 HGB (test code=HBG) 8.3 g/dL 12.0-15.5 HCT (test code=HCT) 25.9 % 35.0-44.0 MCV (test code=MCV) 84.9 fL 81.0-99.0 MCH (test code=MCH) 27.2 pg 27.0-31.0 MCHC (test code=MCHC) 32.0 g/dL 32.0-36.0 RDW (test code=RDW) 14.2 % 11.5-14.5 PLT (test code=PLT) 110 10\S\3/uL 130-400 MPV (test code=MPV) 13.4 fL 9.4-12.4 NEUTROP # (test code=NE#) 2.5 10\S\3/uL 1.6-8.0 LYMPH # (test code=LY#) 1.2 10\S\3/uL 1.1-3.5 MONOCYTE # (test code=MO#) 0.4 10\S\3/uL 0.0-1.1 EOSINOPH # (test code=EO#) 0.2 10\S\3/uL 0.0-0.7 BASOPHIL # (test code=BA#) 0.0 10\S\3/uL 0.0-0.3 IG # (test code=IG#) 0.02 10\S\3/uL 0.00-0.06 NRBC # (test code=NRBC#) 0.00 10\S\3/uL 0.00-0.01 NEUTROPH % (test code=NE%) 59.2 % 35.0-73.0 LYMPH % (test code=LY%) 27.4 % 20.0-55.0 MONO % (test code=MO%) 8.9 % 2.5-10.0 EOSINOPH % (test code=EO%) 3.5 % 0.0-5.0 BASOPHIL % (test code=BA%) 0.5 % 0.0-2.0 IG % (test code=IG%) 0.5 % 0.0-0.8 NRBC% (test code=NRBC%) 0.0 % 0.0-0.2 MAN DIFF (test code=HMDIFF) MANUAL DIFFERENTIAL SEG (test code=SEG) 71 % 42-75 BAND (test code=BAND) 0 % 0-8 LYMPH (test code=LYMPH) 20 % 20-51 MONO (test code=MONO) 4 % 3-11 EOS (test code=EOS) 5 % 0-10 BASO (test code=BASO) 0 % 0-2 RBC MORPH (test code=RBCMORN) NORMAL NORMAL PLT EST (test code=PLTEST) DECREASED ADEQUATE PLT MORPH (test code=PLTMOR) LARGE (4-7 um) NORMAL HEPATITIS B SURFACE [id number] 08:31:00 Test Item Value Reference Range Comments HBSAG (test code=HBSAG) NON-REACTIVE NON-REACTIVE XR CHEST 1 VIEW [id number] 07:35:42EXAM: Portable chest x-rayLocation: [id number]: NoneINDICATION: N18.6: END STAGE RENAL DISEASEDISCUSSION:Central vascular congestion and mild interstitial opacity are noted. Noconsolidation is seen. A right-sided pleural effusion is not excluded. Thecardiac silhouette is within normal limits. No acute bony abnormalities areidentified.IMPRESSION:1. Central vascular congestion. Mild interstitial opacity could reflectsuperimposed mild pulmonary edema or viral/atypical pneumonia.2. No evidence of pneumonia. A right-sided pleural effusion is not excluded.[id number] 07:23:00 Test Item Value Reference Range Comments FERRITIN (test code=A19) 151.8 ng/mL 8.0-252.0 IRON/TIBC/IRON [id number] 07:23:00 Test Item Value Reference Range Comments IRON (test code=46B) 41 ug/dL 50-170 TIBC (test code=79B) 226 ug/dL 250-400 FE% SAT (test code=ISAT) 18.1 % 15.0-50.0 BASIC METABOLIC [id number] 06:31:00 Test Item Value Reference Range Comments GLUCOSE (test code=06D) 126 mg/dL 75-100 SODIUM (test code=01A) 142 mmol/L 136-145 POTASSIUM (test code=01B) 4.2 mmol/L 3.6-5.1 CHLORIDE (test code=04A) 110 mmol/L 98-107 CO2 (test code=02A) 20 mmol/L 22-32 ANION GAP (test code=ANG) 16.2 mmol/L BUN (test code=05D) 80 mg/dL 7-18 CREATININE (test code=03E) 6.3 mg/dL 0.4-1.1 BUN/CREA (test code=BCR) 13 12-20 CALCIUM (test code=09D) 8.0 mg/dL 8.3-9.5 PRO TIME AND [id number] 06:30:00 Test Item Value Reference Range Comments PT (test code=TT) 11.5 s 9.8-13.6 INR (test code=INR) 1.0 INRH (test code=INRH) SUGGESTED THERAPEUTIC RANGE FOR INR: 2.5 - 3.5 For Patients with Prosthetic Valves or Patients with recurrent Thromboembolic Events 2.0 - 3.0 For Most Other Applications PTT (test code=PTT) 32.9 s 20.2-38.0 PTTH (test code=PTTH) To monitor the effectiveness of heparin, we offer the Anti-Xa (Heparin Assay). It can be used for either unfractionated or LMW Heparin. Order Code is ANTI-XA GLUCOMETER GLUCOSE- LAB USE [id number] 05:15:00 Test Item Value Reference Range Comments GLUCOMETER (test code=GMG) 138 mg/dL 70-100 CLEANED METERMeter ID: [id number]: [id number] GURVINDER STEVENSON GLUCOMETER GLUCOSE- LAB USE [id number] 20:44:00 Test Item Value Reference Range Comments GLUCOMETER (test code=GMG) 171 mg/dL 70-100 CLEANED METERMeter ID: [id number]: 4736 CATHERINE DYE GLUCOMETER GLUCOSE- LAB USE [id number] 16:28:00 Test Item Value Reference Range Comments GLUCOMETER (test code=GMG) 216 mg/dL 70-100 Meter ID: [id number]: 9287 FRANCISCA CASTILLO
--- OUTSIDE RECORDS SUMMARY | 2019-01-27 11:15 | XMS REPORT | Continuity of Care Document ---
:1950 Author Organization [facility] Address [address] [place] [address] Phone Unavailable Care Team Providers Name Role Phone MAHAMED MORTON MD Primary Care Physician Insurance Providers Guarantor Komal Smith Address [address] [address] Email NONE Payer Medicare Policy Number [id number] Subscriber's Name Komal Smith Relationship Self / Same As Patient Group Number NA Group Name NA Payer [facility] Policy Number [id number] Subscriber's Name Komal Smith Relationship Self / Same As Patient Group Number NA Group Name NA Payer Medicaid Policy Number [id number] Subscriber's Name Komal Smith Relationship Self / Same As Patient Group Number NA Group Name NA Advance Directives Directive Response Recorded Date/Time Advance Directives No 07/10/14 6:33pm Advance Directive on File No 02/03/18 3:55pm Directive to Physicians/Living Will No 07/10/14 6:33pm Health Care Proxy No 07/10/14 6:33pm Organ Donor No 07/10/14 6:33pm Medical Power of Double End Tenoner Setter No 07/10/14 6:33pm Patient/Family Given Education Material R/T Y - 02/03/18..AW 02/03/18 4:48pm Directives? Chief Complaint and Reason for Visit Chief Complaint General Complaint Reason for Visit Hypertension, uncontrolled Diabetes mellitus ESRD on dialysis Problems Medical Problem Onset Date Status Abnormal renal function test Unknown Acute Acute on chronic renal insufficiency Unknown Acute Anxiety Unknown Chronic CAD (coronary artery disease) Unknown CKD (chronic kidney disease) stage 3, GFR 30-59 ml/min Unknown Chronic Cellulitis of left ankle Unknown Acute Clostridium difficile diarrhea Unknown Constipation Unknown Acute Dehydration Unknown Acute Diabetes mellitus Unknown Chronic Diarrhea Unknown Resolved ESRD on dialysis Unknown Acute Gastroenteritis Unknown Resolved HLD (hyperlipidemia) Unknown Chronic HTN (hypertension) Unknown Chronic Hematuria Unknown Acute Hyperglycemia Unknown Acute Hyperglycemia Unknown Acute Hypertension, uncontrolled Unknown Acute Hypoglycemia Unknown Acute Hypokalemia Unknown Acute [id number] Unknown Acute Uncontrolled diabetes mellitus Unknown Acute [...] Onset Date Status Hx Physical Abuse No 02/03/2018 3:55pm Not Applicable Not Applicable Smoking Status Start Date Stop Date Never smoker Hospital Discharge Instructions No hospital discharge instruction information available. Plan of Care Discharge Date 02/03/18 8:27pm Instructions/Education Provided Hypertension, [id number] End-Stage Kidney Disease Diabetes Mellitus and Nutrition Forms Provided Prescription Opioid Use Portal Welcome Letter Prescriptions See Medication Section Referrals MAHAMED MORTON MD Address: NEPHROLOGY [address] [address] Additional Instructions/Education see your doctor to have a review of your hypertension meds; within 2-3 days. Functional Status No functional status information available. Allergies, Adverse Reactions, Alerts Allergen Type Severity Reaction Status Last Updated Tramadol ([id number]) Allergy Severe Active 07/12/14 Immunizations No immunization information available. Vital Signs Acute Vital Signs Vital Response Date/Time Blood Pressure 124/65 mm Hg 02/03/2018 8:31pm Pulse Pulse Rate (adult) 62 beats per minute (60 - 100) 02/03/2018 8:31pm Respiratory Rate 15 breaths per minute (10 - 24) 02/03/2018 8:31pm Temperature Source Oral 02/03/2018 8:31pm Height 5 ft 5 in 02/03/2018 3:55pm Weight 154 lb 02/03/2018 3:55pm Body Mass Index 25.6 kg/m^2 02/03/2018 3:55pm Results Laboratory Results Test Name Result Units Flags Reference Collection Result Comments Date/Time Date/Time Total Protein 6.9 g/dL 6.6-8.7 01/17/2018 01/17/2018 [...] H 35-105 01/17/2018 01/17/2018 Phosphatase 12:35pm 1:05pm White Blood Count 5.3 K/ul 4.0-11.5 02/03/2018 02/03/2018 5:45pm 5:55pm Red Blood Count 4.82 M/ul 3.80-5.20 02/03/2018 02/03/2018 5:45pm 5:55pm Hemoglobin 12.9 g/dl 10.5-15.7 02/03/2018 02/03/2018 5:45pm 5:55pm Hematocrit 40.4 % # 34.0-50.0 02/03/2018 02/03/2018 5:45pm 5:55pm Mean Corpuscular 83.7 fl 78-98 02/03/2018 02/03/2018 Volume 5:45pm 5:55pm Mean Corpuscular 26.7 pg 26.2-33.4 02/03/2018 02/03/2018 Hemoglobin 5:45pm 5:55pm Mean Corpuscular 31.9 g/dl 31.5-36.2 02/03/2018 02/03/2018 Hemoglobin Concent 5:45pm 5:55pm Red Cell 14.1 % 11.5-15.5 02/03/2018 02/03/2018 Distribution Width 5:45pm 5:55pm Platelet Count 138 K/ul 137-338 02/03/2018 02/03/2018 5:45pm 5:55pm Mean Platelet 10.1 fl 8.4-11.8 02/03/2018 02/03/2018 Volume 5:45pm 5:55pm Neutrophils (%) 69.3 % 44.4-80.1 02/03/2018 02/03/2018 (Auto) 5:45pm 5:55pm Lymphocytes (%) 23.9 % 10.0-50.0 02/03/2018 02/03/2018 (Auto) 5:45pm 5:55pm Monocytes (%) 4.6 % 3.6-12.04 02/03/2018 02/03/2018 (Auto) 5:45pm 5:55pm Eosinophils (%) 1.2 % 0.0-5.41 02/03/2018 02/03/2018 (Auto) 5:45pm 5:55pm Basophils (%) 1.0 % H 0.0-0.79 02/03/2018 02/03/2018 (Auto) 5:45pm 5:55pm POC Capillary 197 mg/dL H 70.0 - 110 02/03/2018 02/03/2018 Blood Glucose 4:05pm 4:05pm (Chem) Random Glucose 209 mg/dL H 82-115 02/03/2018 02/03/2018 6:21pm 6:48pm Blood Urea 51 mg/dL H 8-23 02/03/2018 02/03/2018 Nitrogen 6:21pm 6:48pm Serum Osmolality 286 280-300 02/03/2018 02/03/2018 6:21pm 6:48pm Creatinine 4.9 mg/dL H* 0.50-0.90 02/03/2018 02/03/2018 Results have been broadcasted to patient's location and 6:21pm 6:48pm called to ([facility]). By BRIDGET GEORGE 02/03/18 @0455 Results read back for confirmation. Glomerular 10.69 L 02/03/2018 02/03/2018 GFR RESULTS ARE REPORTED IN mL/min/1.73m2. Filtration Rate 6:21pm 6:48pm Calc Normal GFR: >60mL/min Moderately decreased GFR: 30-59 mL/min Severely decreased GFR: 15-29 mL/min Kidney Failure (or Dialysis): <15 mL/min The calculated eGFR is not valid for patients younger than 18 years or older than 75 years. BUN/Creatinine 10.4 L 12-20 02/03/2018 02/03/2018 Ratio 6:21pm 6:48pm Sodium Level 133 mmol/L L 135-145 02/03/2018 02/03/2018 6:21pm 6:48pm Potassium Level 3.9 mmol/L 3.5-5.2 02/03/2018 02/03/2018 6:21pm 6:48pm Chloride Level 97 mmol/L L 98-108 02/03/2018 02/03/2018 6:21pm 6:48pm Carbon Dioxide 17 mmol/L L 21-32 02/03/2018 02/03/2018 Level 6:21pm 6:48pm Anion Gap 22.9 mEq/L H 12-20 02/03/2018 02/03/2018 6:21pm 6:48pm Calcium Level 8.4 mg/dL L 8.8-10.2 02/03/2018 02/03/2018 6:21pm 6:48pm Procedures Procedure Status Date Provider(s) EMERGENCY DEPT VISIT Completed 01/17/18 ASSAY GLUCOSE BLOOD QUANT Completed 01/17/18 ASSAY GLUCOSE BLOOD QUANT Completed 01/17/18 COMPLETE CBC W/AUTO DIFF WBC Completed 01/17/18 ROUTINE VENIPUNCTURE Completed 01/17/18 COMPREHEN METABOLIC PANEL Completed 01/17/18 INSULIN PER 5 UNITS INJ Completed 01/17/18 Encounters Encounter Location Arrival/Admit Date Discharge/Depart Date Attending Provider Registered [place] 02/03/18 3:18pm BERNABE GONZALEZ MD [facility] Departed [place] 01/17/18 11:41am 01/17/18 1:49pm ANJALI MARTIN [facility] Recent Diagnosis
--- OUTSIDE RECORDS SUMMARY | 2019-01-27 11:16 | XMS REPORT | Continuity of Care Document ---
:1950 Author Organization [facility] Address [address] [place] [address] Phone Unavailable Care Team Providers Name Role Phone MAHAMED MORTON MD Primary Care Physician Insurance Providers Guarantor Komal Smith Address [address] [address] Email NONE Payer Medicare Policy Number [id number] Subscriber's Name Komal Smith Relationship Self / Same As Patient Group Number NA Group Name NA Payer [facility] Policy Number [id number] Subscriber's Name Komal Smith Relationship Self / Same As Patient Group Number NA Group Name NA Payer Medicaid Policy Number [id number] Subscriber's Name Komal Smith Relationship Self / Same As Patient Group Number NA Group Name NA Advance Directives Directive Response Recorded Date/Time Advance Directives No 07/10/14 6:33pm Advance Directive on File No 03/05/18 1:52pm Directive to Physicians/Living Will No 07/10/14 6:33pm Health Care Proxy No 07/10/14 6:33pm Organ Donor No 07/10/14 6:33pm Medical Power of Forestry Patrolman No 07/10/14 6:33pm Patient/Family Given Education Material R/T Y - 03/05/18..AW 03/05/18 4:47pm Directives? Chief Complaint and Reason for Visit Chief Complaint General Complaint Reason for Visit Labile hypertension ESRD on dialysis Problems Medical Problem Onset [...] Acute Hypoglycemia Unknown Acute Hypokalemia Unknown Acute [id number] Unknown Acute Uncontrolled diabetes mellitus Unknown Acute Past Problems Medical Problem Onset Date Status Abdominal pain Unknown Acute Acute on chronic renal insufficiency Unknown Acute CHF (congestive heart failure) Unknown Acute Chronic renal failure Unknown Acute Congestive heart failure Unknown Acute Constipation Unknown Acute Dizzy Unknown Acute ESRD on dialysis Unknown Acute ESRD on dialysis Unknown Acute Hyperglycemia due to type 2 diabetes mellitus Unknown Acute Hypertension, uncontrolled Unknown Acute Ketonuria Unknown Acute Labile hypertension Unknown Acute Malaise Unknown Acute Nausea Unknown [...] Onset Date Status Hx Physical Abuse No 03/05/2018 1:52pm Not Applicable Not Applicable Smoking Status Start Date Stop Date Never smoker Hospital Discharge Instructions No hospital discharge instruction information available. Plan of Care Discharge Date 03/05/18 5:20pm Instructions/Education Provided Hypertension Forms Provided Prescription Opioid Use Portal Welcome Letter Prescriptions See Medication Section Referrals MAHAMED MORTON MD Address: NEPHROLOGY [address] [place] [address] Additional Instructions/Education YOU MUST SEE YOUR PCP OR CLERK CARRIER ( WITHIN 2-3 DAYS) FOR REVIEW ON YOUR BLOOD PRESSURE MEDICATIONS & FOR CONTINUITY OF CARE. NO BLOOD PRESSURE MEDICINE TODAY AT HOME SINCE BLOOD PRESSURE NOW CONTROLLED. RECOMMENCE YOUR BLOOD PRESSURE MEDICATIONS TOMORROW. Functional Status No functional status information available. Allergies, Adverse Reactions, Alerts Allergen Type Severity Reaction Status Last Updated Tramadol ([id number]) Allergy Severe Active 07/12/14 Immunizations No immunization information available. Vital Signs Acute Vital Signs Vital Response Date/Time Blood Pressure 127/58 mm Hg 03/05/2018 5:43pm Pulse Pulse Rate (adult) 68 beats per minute (60 - 100) 03/05/2018 5:43pm Respiratory Rate 16 breaths per minute (10 - 24) 03/05/2018 5:43pm Temperature Source Oral 03/05/2018 5:43pm Height 5 ft 5 in 03/05/2018 1:52pm Weight 146 lb 03/05/2018 1:52pm Body Mass Index 24.3 kg/m^2 03/05/2018 1:52pm Results Laboratory Results Test Name Result Units [...] called to ([facility]). By BRIDGET GEORGE 02/03/18 @7048 Results read back for confirmation. Glomerular 10.69 [...] INSULIN PER 5 UNITS INJ Completed 01/17/18 EMERGENCY DEPT VISIT Completed 02/03/18 THER/PROPH/DIAG INJ IV PUSH Completed 02/03/18 TX/PRO/DX INJ NEW DRUG ADDON Completed 02/03/18 ASSAY GLUCOSE BLOOD QUANT Completed 02/03/18 COMPLETE CBC W/AUTO DIFF WBC Completed 02/03/18 ROUTINE VENIPUNCTURE Completed 02/03/18 METABOLIC PANEL TOTAL CA Completed 02/03/18 METABOLIC PANEL TOTAL CA Completed 02/03/18 Encounters Encounter Location Arrival/Admit Date Discharge/Depart Date Attending Provider Departed [place] 03/05/18 1:43pm 03/05/18 5:20pm BERNABE GONZALEZ MD [facility] Departed [place] 02/03/18 3:18pm 02/03/18 8:27pm BERNABE GONZALEZ MD [facility] Departed [place] 01/17/18 11:41am 01/17/18 1:49pm ANJALI MARTIN [facility] Recent Diagnosis
--- OUTSIDE RECORDS SUMMARY | 2019-01-27 11:16 | XMS REPORT | Continuity of Care Document ---
:1950 Author Organization [facility] Address [address] [place] [address] Phone Unavailable Care Team Providers Name Role Phone PHYSICIAN, NO Primary Care Physician Unavailable Insurance Providers Guarantor Komal Smith Address [address] [address] Email NONE Payer Medicare Policy Number [id number] Subscriber's Name Komal Smith Relationship Self / Same As Patient Group Number NA Group Name NA Payer [facility] Policy Number [id number] Subscriber's Name Komal Smith Relationship Self / Same As Patient Group Number NA Group Name NA Advance Directives Directive Response Recorded Date/Time Advance Directives No 07/10/14 6:33pm Advance Directive on File No 04/04/18 7:25am Directive to Physicians/Living Will No 07/10/14 6:33pm Health Care Proxy No 07/10/14 6:33pm Organ Donor No 07/10/14 6:33pm Medical Power of Order Builder Loader No 07/10/14 6:33pm Patient/Family Given Education Material R/T Y - 04/04/18...[place] 04/04/18 9:27am Directives? Chief Complaint and Reason for Visit Chief Complaint Female Urogenital Problems Reason for Visit Urinary tract infectious disease Hypertension, uncontrolled Diabetes mellitus ESRD on dialysis [id number] Hemorrhage of cyst of [place] kidney Problems Medical Problem Onset Date Status Abnormal [...] Acute Hypoglycemia Unknown Acute Hypokalemia Unknown Acute [id number] Unknown Acute Uncontrolled diabetes mellitus Unknown Acute Past Problems Medical Problem Onset Date Status Abdominal pain Unknown Acute Acute on chronic renal insufficiency Unknown Acute CHF (congestive heart failure) Unknown Acute Chronic renal failure Unknown Acute Congestive heart failure Unknown Acute Constipation Unknown Acute Dizzy Unknown Acute ESRD on dialysis Unknown Acute ESRD on dialysis Unknown Acute ESRD on dialysis Unknown Acute Hemorrhage of cyst of [place] kidney Unknown Acute Hyperglycemia due to type 2 diabetes mellitus Unknown Acute Hypertension, uncontrolled Unknown Acute Hypertension, uncontrolled Unknown Acute Ketonuria Unknown Acute Labile hypertension Unknown Acute Malaise Unknown Acute Nausea Unknown Acute Nausea & vomiting Unknown Acute Nausea & vomiting Unknown Acute Renal cyst, right Unknown Acute Renal failure Unknown Acute Renal insufficiency Unknown Acute UTI (urinary tract infection) Unknown Acute UTI (urinary tract infection) Unknown Acute Upper respiratory infection Unknown Acute Urinary tract infectious disease Unknown Acute Medications Current Home Medications Medication Dose Units Route Directions Days Qty Instructions Start Date Atorvastatin * 80 Mg ORAL Bedtime (Lipitor *) 80 Mg Tab Carvedilol 25 Mg ORAL Twice Daily 60 09/25/ (Coreg *) 25 With Meals for Tablet 18 Mg Tab Hypertension Clopidogrel 1 Tab ORAL Daily 90 Bisulfate Tablet (Plavix 75 Mg *) 75 Mg Tab Furosemide 1 Tab ORAL Twice A Week 90 (Lasix 20 Mg*) Tablet 20 Mg Tab Hydroxyzine 1 Tab ORAL Every 8 Hours 30 30 Hcl (Atarax 50 for Anxiety Days Tablet Mg*) 50 Mg Tab Insulin 20 Units SUBCUTANEOUS Daily for 30 08/16/ Glargine Diabetes Days 18 (Lantus Solostar) 100 Unit/Ml Inj Isosorbide 1 Tab ORAL Twice A Day 30 30 Dinitrate for Chest Pain Days Tablet (Isosorbide Dinitrate 30 Mg*) 30 Mg Tab Labetalol Hcl 1 Tab ORAL Twice A Day 30 60 (Trandate 200 Days Tablet Mg*) 200 Mg Tab Trimethoprim/S 1 Tab ORAL Twice A Day 7 Days 14 // ulfamethoxazol for Infection Tablet 19 e (Bactrim Ds *) 800/160 Mg Tab Past Home Medications Medication Directions Ordered Status Acetaminophen W/ Codeine #3 * Twice Daily As Needed Discontinued (Tylenol Codeine #3 300MG/30MG *) 1 Tab Tab, 1 Tab Oral Azithromycin (Zithromax Z-Kumar) 250 As Directed for Sinus Allergy 03/28/18 Discontinued Mg Tab, 1 Dpr Oral Carvedilol (Coreg *) 3.125 Mg Tab, Twice [...] Discontinued 50 Mg Tab, 100 Mg Oral Metronidazole (Flagyl *) 500 Mg Twice A Day for Colitis 10/18/17 Discontinued Tab, 1 Tab Oral Nifedipine (Nifediac Cc 90 Mg*) 90 Daily Discontinued Mg Tab, 90 Mg Oral Nifedipine (Nifedipine 10 Mg Daily [...] Onset Date Status Hx Physical Abuse No 04/04/2018 7:25am Not Applicable Not Applicable Smoking Status Start Date Stop Date Never smoker Hospital Discharge Instructions No hospital discharge instruction information available. Plan of Care Discharge Date 04/04/18 3:01pm Instructions/Education Provided Hypertension Diabetes Mellitus and Nutrition Forms Provided Portal Welcome Letter Prescriptions See Medication Section Referrals NO PHYSICIAN Additional Instructions/Education BACTRIM-DS Rx. YOU MUST SEE YOUR ROLL FORMING SUPERVISOR, WITHIN 5 DAYS, FOR REVIEW OF HEMATURIA & RIGHT KIDNEY CYST NOTED CT SCAN OF ABDOMEN. CONTINUE YOUR SCHEDULED DIALYSIS & TAKE YOUR PRIOR HOME MEDS BEFORE Functional Status No functional status information available. Allergies, Adverse Reactions, Alerts Allergen Type Severity Reaction Status Last Updated Tramadol ([id number]) Allergy Severe Active 07/12/14 Immunizations No immunization information available. Vital Signs Acute Vital Signs Vital Response Date/Time Blood Pressure 161/77 mm Hg 04/04/2018 3:04pm Pulse Pulse Rate (adult) 71 beats per minute (60 - 100) 04/04/2018 3:04pm Respiratory Rate 16 breaths per minute (10 - 24) 04/04/2018 3:04pm Temperature Source Oral 04/04/2018 3:04pm Height 5 ft 5 in 04/04/2018 7:25am Weight 155 lb 04/04/2018 7:25am Body Mass Index 25.8 kg/m^2 04/04/2018 7:25am Results Laboratory Results Test Name Result Units Flags Reference Collection Result Comments Date/Time Date/Time White Blood Count 6.8 K/ul 4.0-11.5 04/04/2018 04/04/2018 8:08am 8:12am Red Blood Count 4.50 M/ul 3.80-5.20 04/04/2018 04/04/2018 8:08am 8:12am Hemoglobin 11.1 g/dl 10.5-15.7 04/04/2018 04/04/2018 8:08am 8:12am Hematocrit 37.0 % 34.0-50.0 04/04/2018 04/04/2018 8:08am 8:12am Mean Corpuscular 82.2 fl 78-98 04/04/2018 04/04/2018 Volume 8:08am 8:12am Mean Corpuscular 24.7 pg L 26.2-33.4 04/04/2018 04/04/2018 Hemoglobin 8:08am 8:12am Mean Corpuscular 30.0 g/dl L 31.5-36.2 04/04/2018 04/04/2018 Hemoglobin Concent 8:08am 8:12am Red Cell 13.9 % 11.5-15.5 04/04/2018 04/04/2018 Distribution Width 8:08am 8:12am Platelet Count 168 K/ul 137-338 04/04/2018 04/04/2018 8:08am 8:12am Mean Platelet 8.2 fl L 8.4-11.8 04/04/2018 04/04/2018 Volume 8:08am 8:12am Neutrophils (%) 75.8 % 44.4-80.1 04/04/2018 04/04/2018 (Auto) 8:08am 8:12am Lymphocytes (%) 14.2 % 10.0-50.0 04/04/2018 04/04/2018 (Auto) 8:08am 8:12am Monocytes (%) 7.6 % 3.6-12.04 04/04/2018 04/04/2018 (Auto) 8:08am 8:12am Eosinophils (%) 1.3 % 0.0-5.41 04/04/2018 04/04/2018 (Auto) 8:08am 8:12am Basophils (%) 1.1 % H 0.0-0.79 04/04/2018 04/04/2018 (Auto) 8:08am 8:12am Urine Color RED A 04/04/2018 04/04/2018 8:08am 8:17am Urine Appearance TURBID CLEAR 04/04/2018 04/04/2018 8:08am 8:17am Urine Glucose NEGATIVE NEGATIVE 04/04/2018 04/04/2018 8:08am 8:17am Urine Bilirubin LARGE H NEGATIVE 04/04/2018 04/04/2018 8:08am 8:17am Urine Ketones SMALL, 15 H NEGATIVE 04/04/2018 04/04/2018 MG/DL 8:08am 8:17am Urine Specific 1.015 1.003-1.030 04/04/2018 04/04/2018 [place] 8:08am 8:17am Urine Blood LARGE H NEGATIVE 04/04/2018 04/04/2018 8:08am 8:17am Urine pH 7.000 5-9 04/04/2018 04/04/2018 8:08am 8:17am Urine Protein 3+ (>300 H NEGATIVE 04/04/2018 04/04/2018 mg/dL) 8:08am 8:17am Urine Urobilinogen >=8.0 E.U./dL 0.2-1.0 04/04/2018 04/04/2018 8:08am 8:17am Urine Nitrate POSITIVE NEGATIVE 04/04/2018 04/04/2018 8:08am 8:17am Urine Leukocyte 3+ LARGE H NEGATIVE 04/04/2018 04/04/2018 Esterase 8:08am 8:17am Urine RBC TOO /hpf H 0-5 04/04/2018 04/04/2018 NUMEROUS 8:08am 8:17am TO CNT Urine WBC UNABLE TO /hpf 0-5 04/04/2018 04/04/2018 REPORT 8:08am 8:17am Urine Epithelial UNABLE TO /hpf 0-5 04/04/2018 04/04/2018 Cells REPORT 8:08am 8:17am Urine Bacteria U /hpf None Detect 04/04/2018 04/04/2018 8:08am 8:17am Urine Culture NO 04/04/2018 04/04/2018 Reflexed 8:08am 8:17am Random Glucose 249 mg/dL H 82-115 04/04/2018 04/04/2018 8:08am 8:30am Blood Urea 48 mg/dL H 8-23 04/04/2018 04/04/2018 Nitrogen 8:08am 8:30am Serum Osmolality 293 280-300 04/04/2018 04/04/2018 8:08am 8:31am Creatinine 7.5 mg/dL #H* 0.50-0.90 04/04/2018 04/04/2018 Results have been broadcasted to patient's location and 8:08am 8:30am called to ([facility]). By SMITH SANCHEZ 04/04/18 @0825 Results read back for confirmation. Glomerular 6.54 L 04/04/2018 04/04/2018 GFR RESULTS ARE REPORTED IN mL /min/1.73m2. Filtration Rate 8:08am 8:30am Calc Normal GFR: >60mL/min Moderately decreased GFR: 30-59 mL/min Severely decreased GFR: 15-29 mL/min Kidney Failure (or Dialysis): <15 mL/min The calculated eGFR is not valid for patients younger than 18 years or older than 75 years. BUN/Creatinine 6.4 L 02-2004/04/2018 04/04/2018 Ratio 8:08am 8:30am Sodium Level 136 mmol/L 135-145 04/04/2018 04/04/2018 8:08am 8:30am Potassium Level 4.2 mmol/L 3.5-5.2 04/04/2018 04/04/2018 8:08am 8:30am Chloride Level 92 mmol/L L 98-108 04/04/2018 04/04/2018 8:08am 8:30am Carbon Dioxide 23 mmol/L 21-32 04/04/2018 04/04/2018 Level 8:08am 8:30am Anion Gap 25.2 mEq/L H 12-20 04/04/2018 04/04/2018 8:08am 8:31am Calcium Level 8.6 mg/dL L 8.8-10.2 04/04/2018 04/04/2018 8:08am 8:30am Total Protein 7.9 g/dL 6.6-8.7 04/04/2018 04/04/2018 8:08am 8:30am Albumin 3.4 g/dL L 3.5-5.2 04/04/2018 04/04/2018 8:08am 8:30am Globulin 4.5 gm/dL 04/04/2018 04/04/2018 8:08am 8:31am Albumin/Globulin 0.8 >1.0 04/04/2018 04/04/2018 Ratio 8:08am 8:31am Total Bilirubin 0.4 mg/dL 0.0-1.2 04/04/2018 04/04/2018 8:08am 8:30am Aspartate Amino 10 U/L L 15-32 04/04/2018 04/04/2018 Transf (AST/SGOT) 8:08am 8:30am Alanine 10 U/L 0-33 04/04/2018 04/04/2018 Aminotransferase 8:08am 8:30am (ALT/SGPT) Total Alkaline 88 U/L 35-105 04/04/2018 04/04/2018 Phosphatase 8:08am 8:30am POC Capillary 197 mg/dL H 70.0 - 110 02/03/2018 02/03/2018 Blood Glucose 4:05pm 4:05pm (Chem) Procedures Procedure Status Date Provider(s) EMERGENCY DEPT VISIT Completed 03/05/18 THER/PROPH/DIAG INJ SC/IM Completed 03/05/18 EMERGENCY DEPT VISIT Completed 03/28/18 X-RAY EXAM CHEST 1 VIEW Completed 03/28/18 INFLUENZA ASSAY W/OPTIC Completed 03/28/18 EMERGENCY DEPT VISIT Completed 02/03/18 THER/PROPH/DIAG INJ IV PUSH Completed 02/03/18 TX/PRO/DX INJ NEW DRUG ADDON Completed 02/03/18 ASSAY GLUCOSE BLOOD QUANT Completed 02/03/18 COMPLETE CBC W/AUTO DIFF WBC Completed 02/03/18 ROUTINE VENIPUNCTURE Completed 02/03/18 METABOLIC PANEL TOTAL CA Completed 02/03/18 METABOLIC PANEL TOTAL CA Completed 02/03/18 X-ray of chest, single view Completed 03/28/18 RAMIN TUBBS NP Non-obstetrical transvaginal ultrasound of pelvis Completed 04/04/18 BERNABE GONZALEZ MD US renal Completed 04/04/[address] abdomen without then with contrast Completed 04/04/18 BERNABE GONZALEZ MD Encounters Encounter Location Arrival/Admit Date Discharge/Depart Date Attending Provider Departed [place] 04/04/18 7:20am 04/04/18 3:01pm BERNABE GONZALEZ MD [facility] Departed [place] 03/28/18 10:23am 03/28/18 1:02pm JAYDEN MENDEZ [facility] Departed [place] 03/05/18 1:43pm 03/05/18 5:20pm BERNABE GONZALEZ MD [facility] Departed [place] 02/03/18 3:18pm 02/03/18 8:27pm BERNABE GONZALEZ MD [facility] Recent Diagnosis
--- OUTSIDE RECORDS SUMMARY | 2019-01-27 11:16 | XMS REPORT | Continuity of Care Document ---
:1950 Author Organization [facility] Address [address] [place] [address] Phone Unavailable Care Team Providers Name Role Phone MAHAMED MORTON MD Primary Care Physician Insurance Providers Guarantor Komal Smith Address [address] [phone] Email NONE Payer Medicare Policy Number [id number] Subscriber's Name Komal Smith Relationship Self / Same As Patient Group Number NA Group Name NA Payer [facility] Policy Number [id number] Subscriber's Name Komal Smith Relationship Self / Same As Patient Group Number NA Group Name NA Payer Medicaid Policy Number [id number] Subscriber's Name Komal Smith Relationship Self / Same As Patient Group Number NA Group Name NA Advance Directives Directive Response Recorded Date/Time Advance Directives No 07/10/14 6:33pm Advance Directive on File No 03/28/18 10:30am Directive to Physicians/Living Will No 07/10/14 6:33pm Health Care Proxy No 07/10/14 6:33pm Name of Surrogate/Decision Maker NA 03/28/18 11:05am Organ Donor No 07/10/14 6:33pm Medical Power of Dust Collector Ore Crushing No 07/10/14 6:33pm Patient/Family Given Education Material R/T Y - KR....03/28/18 03/28/18 11: 05am Directives? Chief Complaint and Reason for Visit Chief Complaint General Complaint Reason for Visit Upper respiratory infection Problems Medical Problem Onset Date Status Abnormal [...] Acute Hypoglycemia Unknown Acute Hypokalemia Unknown Acute [id number] Unknown Acute Uncontrolled diabetes mellitus Unknown Acute [...] Unknown Acute Upper respiratory infection Unknown Acute Medications Current Home Medications Medication Dose Units Route Directions Days Qty Instructions Start Date Acetaminophen 1 Tab ORAL Twice Daily As 90 W/ Codeine #3 * Needed Tablet (Tylenol Codeine #3 300MG/30MG *) 1 Tab Tab Atorvastatin * 80 Mg ORAL Bedtime (Lipitor 80 Mg*) 80 Mg Tab Azithromycin 1 Dpr ORAL As Directed 5 Days 6 2 the first 03/28/ (Zithromax for Sinus Tablet day followed Z-Kumar) 250 Mg Allergy by 1 for days Tab 2-5 Carvedilol 25 Mg ORAL Twice Daily 60 [...] Onset Date Status Hx Physical Abuse No 03/28/2018 10:30am Not Applicable Not Applicable Smoking Status Start Date Stop Date Never smoker Hospital Discharge Instructions No hospital discharge instruction information available. Plan of Care Discharge Date 03/28/18 1:02pm Instructions/Education Provided Upper Respiratory Infection, Adult, Easy-to- Read Forms Provided Prescription Opioid Use Portal Welcome Letter Prescriptions See Medication Section Referrals MAHAMED MORTON MD Address: [place] [address] Additional Instructions/Education TAKE ALL MEDICATIONS PRESCRIBED ZPAK DIRECTED USE TYLENOL DIRECTED FOR PAIN/FEVER. RETURN TO THE ER IF YOUR SYMPTOMS WORSEN Functional Status No functional status information available. Allergies, Adverse Reactions, Alerts Allergen Type Severity Reaction Status Last Updated Tramadol ([id number]) Allergy Severe Active 07/12/14 Immunizations No immunization information available. Vital Signs Acute Vital Signs Vital Response Date/Time Blood Pressure 181/88 mm Hg 03/28/2018 1:02pm Pulse Pulse Rate (adult) 67 beats per minute (60 - 100) 03/28/2018 1:02pm Respiratory Rate 18 breaths per minute (10 - 24) 03/28/2018 1:02pm Temperature Source Oral 03/28/2018 1:02pm Height 5 ft 5 in 03/28/2018 10:30am Weight 151 lb 03/28/2018 10:30am Body Mass Index 25.1 kg/m^2 03/28/2018 10:30am Results Laboratory Results Test Name Result Units Flags Reference Collection Result Comments Date/Time Date/Time White Blood 5.3 K/ul 4.0-11.5 02/03/2018 02/03/2018 Count 5:45pm 5:55pm Red Blood Count 4.82 M/ul 3.80-5.20 02/03/2018 02/03/2018 5:45pm 5:55pm Hemoglobin 12.9 g/dl 10.5-15.7 02/03/2018 02/03/2018 5:45pm 5:55pm Hematocrit 40.4 % # 34.0-50.0 02/03/2018 02/03/2018 5:45pm 5:55pm Mean 83.7 fl 78-98 02/03/2018 02/03/2018 Corpuscular 5:45pm 5:55pm Volume Mean 26.7 pg 26.2-33.4 02/03/2018 02/03/2018 Corpuscular 5:45pm 5:55pm Hemoglobin Mean 31.9 g/dl 31.5-36.2 02/03/2018 02/03/2018 Corpuscular 5:45pm 5:55pm Hemoglobin Concent Red Cell 14.1 % 11.5-15.5 02/03/2018 02/03/2018 Distribution 5:45pm 5:55pm Width Platelet Count 138 K/ul 137-338 02/03/2018 02/03/2018 [...] 8-23 02/03/2018 02/03/2018 Nitrogen 6:21pm 6:48pm Serum 286 280-300 02/03/2018 02/03/2018 Osmolality 6:21pm 6:48pm Creatinine 4.9 mg/dL H* 0.50-0.90 02/03/2018 02/03/2018 Results have been broadcasted to patient's location and 6:21pm 6:48pm called to (LATONIA). By BRIDGET GEORGE 02/03/18 @1846 Results read back for confirmation. Glomerular 10.69 L 02/03/2018 02/03/2018 GFR RESULTS ARE REPORTED IN mL/min/1.73m2. Filtration Rate 6:21pm 6:48pm Calc Normal GFR: >60mL/min Moderately decreased GFR: 30-59 mL/min Severely decreased GFR: 15-29 mL/min Kidney Failure (or Dialysis): <15 mL/min The calculated eGFR is not valid for patients younger than 18 years or older than 75 years. BUN/Creatinine 10.4 L 02-2002/03/2018 02/03/2018 Ratio 6:21pm 6:48pm Sodium Level 133 mmol/L L 135-145 02/03/2018 02/03/2018 6:21pm 6:48pm Potassium Level 3.9 mmol/L 3.5-5.2 02/03/2018 02/03/2018 6:21pm 6:48pm Chloride Level 97 mmol/L L 98-108 02/03/2018 02/03/2018 6:21pm 6:48pm Carbon Dioxide 17 mmol/L L 21-32 02/03/2018 02/03/2018 Level 6:21pm 6:48pm Anion Gap 22.9 mEq/L H -02/03/2018 02/03/2018 6:21pm 6:48pm Calcium Level 8.4 mg/dL L 8.8-10.2 02/03/2018 02/03/2018 6:21pm 6:48pm Procedures Procedure Status Date Provider(s) EMERGENCY DEPT VISIT Completed 03/05/18 THER/PROPH/DIAG INJ SC/IM Completed 03/05/18 EMERGENCY DEPT VISIT Completed 02/03/18 THER/PROPH/DIAG INJ IV PUSH Completed 02/03/18 TX/PRO/DX INJ NEW DRUG ADDON Completed 02/03/18 ASSAY GLUCOSE BLOOD QUANT Completed 02/03/18 COMPLETE CBC W/AUTO DIFF WBC Completed 02/03/18 ROUTINE VENIPUNCTURE Completed 02/03/18 METABOLIC PANEL TOTAL CA Completed 02/03/18 METABOLIC PANEL TOTAL CA Completed 02/03/18 X-ray of chest, single view Completed 03/28/18 RAMIN TUBBS [place] Encounters Encounter Location Arrival/Admit Date Discharge/Depart Date Attending Provider Departed [place] 03/28/18 10:23am 03/28/18 1:02pm JAYDEN MENDEZ [facility] Departed [place] 03/05/18 1:43pm 03/05/18 5:20pm BERNABE GONZALEZ MD [facility] Departed [place] 02/03/18 3:18pm 02/03/18 8:27pm BERNABE GONZALEZ MD [facility] Recent Diagnosis
--- NOTE | 2019-01-27 11:17 | RAD REPORT ---
EXAM DESCRIPTION: RAD - Chest Single View - 01/27/2019 11:07 am CLINICAL HISTORY: COUGH Chest pain. COMPARISON: No comparisons FINDINGS: Portable technique limits examination quality. The lungs are underinflated with linear subsegmental atelectasis in both lower lobes. The heart is mi ldly enlarged in size. Right-sided venous catheter has tip in the right atrium.
--- OUTSIDE RECORDS SUMMARY | 2019-01-27 11:17 | XMS REPORT | Continuity of Care Document ---
:1950 Author Organization [facility] Address [address] [place] [address] Phone Unavailable Care Team Providers Name Role Phone PHYSICIAN, NO Primary Care Physician Unavailable Insurance Providers Guarantor Cory Smith Address [address] [address] Email NONE Payer Medicare Policy Number [id number] Subscriber's Name Cory Smith Relationship Self / Same As Patient Group Number NA Group Name NA Payer [facility] Policy Number [id number] Subscriber's Name Cory Smith Relationship Self / Same As Patient Group Number NA Group Name NA Payer Medicaid Policy Number [id number] Subscriber's Name Cory Smith Relationship Self / Same As Patient Group Number NA Group Name NA Advance Directives Directive Response Recorded Date/Time Advance Directives No 07/10/14 6:33pm Advance Directive on File No 07/25/18 4:51pm Directive to Physicians/Living Will No 07/10/14 6:33pm Health Care Proxy No 07/10/14 6:33pm Organ Donor No 07/10/14 6:33pm Medical Power of Sales Appointment Coordinator No 07/10/14 6:33pm Patient/Family Given Education Material R/T Y - 07/25/18..MA 07/25/18 4: 51pm Directives? Chief Complaint and Reason for Visit Chief Complaint Abdominal/GI/Nausea/Vomiting Reason for Visit Abdominal pain Esophagitis Problems Medical Problem Onset Date Status Abnormal [...] Acute Hypoglycemia Unknown Acute Hypokalemia Unknown Acute [id number] Unknown Acute Uncontrolled diabetes mellitus Unknown Acute Past Problems Medical Problem Onset Date Status Abdominal pain Unknown Acute Abdominal pain Unknown Acute Acute on chronic renal insufficiency Unknown Acute CHF (congestive heart failure) Unknown Acute Chronic renal failure Unknown Acute Congestive heart failure Unknown Acute Constipation Unknown Acute Degenerative arthritis of knee Unknown Acute Dizzy Unknown Acute ESRD (end stage renal disease) on dialysis Unknown Acute ESRD on dialysis Unknown Acute ESRD on dialysis Unknown Acute ESRD on dialysis Unknown Acute ESRD on dialysis Unknown Acute Esophagitis Unknown Acute Hemorrhage of cyst of [place] kidney Unknown Acute Hyperglycemia due to type 2 diabetes mellitus Unknown Acute Hypertension, uncontrolled Unknown Acute Hypertension, uncontrolled Unknown Acute Ketonuria Unknown Acute Labile hypertension Unknown Acute Left knee pain Unknown Acute Malaise Unknown Acute Moderate hypertension control Unknown Acute Nausea Unknown Acute Nausea & vomiting Unknown Acute Nausea & vomiting Unknown Acute Orthostatic hypotension Unknown Acute Renal cyst, right Unknown Acute [...] Carvedilol 25 Mg ORAL Twice Daily 60 07// (Coreg *) 25 With Meals for Tablet 18 Mg Tab Hypertension Clopidogrel 1 Tab ORAL Daily 90 Bisulfate Tablet (Plavix 75 Mg *) 75 Mg Tab Esomeprazole 1 Cap ORAL Daily for 30 30 Cap 07/25/ Magnesium * Reflux Days 19 (Nexium *) 40 Mg Cap Furosemide 1 Tab ORAL Twice A Week [...] 200 Days Tablet Mg*) 200 Mg Tab Sucralfate 10 Ml ORAL Four Times 30 1.2 before food 07/25/ (Carafate *) 1 Daily for Days 19 Gm/10 Ml Laury Esophagitis Trimethoprim/S 1 Tab ORAL Twice A Day 7 Days 14 04/04/ ulfamethoxazol for Infection Tablet 19 e (Bactrim Ds *) 800/160 Mg Tab Past Home Medications Medication Directions Ordered Status Acetaminophen W/ Codeine #3 * Twice Daily As Needed Discontinued (Tylenol Codeine #3 300MG/30MG *) 1 Tab Tab, 1 Tab Oral Azithromycin (Zithromax Z-Kumar *) As Directed for Sinus Allergy 03/28/18 Discontinued 250 Mg Tab, 1 Dpr Oral Carvedilol (Coreg [...] Oral Nifedipine (Nifedipine 10 Mg Daily Discontinued (Procardia)) 10 Mg Cap, 0 Oral Potassium Chloride [...] Onset Date Status Hx Physical Abuse No 07/25/2018 4:51pm Not Applicable Not Applicable Smoking Status Start Date Stop Date Never smoker Hospital Discharge Instructions No hospital discharge instruction information available. Plan of Care Discharge Date 07/25/18 8:32pm Instructions/Education Provided Abdominal Pain, Adult, Lmrt-nx-Aesf Esophagitis Forms Provided Portal Welcome Letter Prescriptions See Medication Section Referrals NO PHYSICIAN Additional Instructions/Education Recommend that you take the Nexium 40 mg every morning, and also take Carafate 1 gm/ ten mL and take it 4 times daily to help protect your stomach. Recommend that you follow up with either Dr. Lomas or 1 of the other general surgeons to have an upper endoscopy scope performed on your upper GI tract. Functional Status No functional status information available. Allergies, Adverse Reactions, Alerts Allergen Type Severity Reaction Status Last Updated Tramadol ([id number]) Allergy Severe Active 07/12/14 Immunizations No immunization information available. Vital Signs Acute Vital Signs Vital Response Date/Time Blood Pressure 178/74 mm Hg 07/25/2018 8:30pm Pulse Pulse Rate (adult) 85 beats per minute (60 - 100) 07/25/2018 8:30pm Respiratory Rate 18 breaths per minute (10 - 24) 07/25/2018 8:30pm Temperature Source Oral 07/25/2018 8:30pm Height 5 ft 5 in 07/25/2018 4:51pm Weight 123.13 lb 07/25/2018 4:51pm Body Mass Index 20.5 kg/m^2 07/25/2018 4:51pm Results Laboratory Results Test Name Result Units Flags Reference Collection Result Comments Date/Time Date/Time White Blood Count 4.9 K/ul 4.0-11.5 07/25/2018 07/25/2018 5:44pm 5:51pm Red Blood Count 4.11 M/ul 3.80-5.20 07/25/2018 07/25/2018 5:44pm 5:51pm Hemoglobin 11.6 g/dl 10.5-15.7 07/25/2018 07/25/2018 5:44pm 5:51pm Hematocrit 37.5 % 34.0-50.0 07/25/2018 07/25/2018 5:44pm 5:51pm Mean Corpuscular 91.2 fl 78-98 07/25/2018 07/25/2018 Volume 5:44pm 5:51pm Mean Corpuscular 28.3 pg 26.2-33.4 07/25/2018 07/25/2018 Hemoglobin 5:44pm 5:51pm Mean Corpuscular 31.1 g/dl L 31.5-36.2 07/25/2018 07/25/2018 Hemoglobin Concent 5:44pm 5:51pm Red Cell 14.2 % 11.5-15.5 07/25/2018 07/25/2018 Distribution Width 5:44pm 5:51pm Platelet Count 132 K/ul L 137-338 07/25/2018 07/25/2018 5:44pm 5:51pm Mean Platelet 9.0 fl 8.4-11.8 07/25/2018 07/25/2018 Volume 5:44pm 5:51pm Neutrophils (%) 68.2 % 44.4-80.1 07/25/2018 07/25/2018 (Auto) 5:44pm 5:51pm Lymphocytes (%) 22.9 % 10.0-50.0 07/25/2018 07/25/2018 (Auto) 5:44pm 5:51pm Monocytes (%) 4.8 % 3.6-12.04 07/25/2018 07/25/2018 (Auto) 5:44pm 5:51pm Eosinophils (%) 2.4 % 0.0-5.41 07/25/2018 07/25/2018 (Auto) 5:44pm 5:51pm Basophils (%) 1.6 % H 0.0-0.79 07/25/2018 07/25/2018 (Auto) 5:44pm 5:51pm Random Glucose 161 mg/dL H 82-115 07/25/2018 07/25/2018 5:44pm 6:12pm Blood Urea 34 mg/dL H 8-23 07/25/2018 07/25/2018 Nitrogen 5:44pm 6:12pm Serum Osmolality 285 280-300 07/25/2018 07/25/2018 5:44pm 6:12pm Creatinine 5.0 mg/dL #H* 0.50-0.90 07/25/2018 07/25/2018 Results have been broadcasted to patient's location and 5:44pm 6:12pm called to (MARTINEZ Rowell.R.). By BRIDGET GEORGE 07/25/18 @1691 Results read back for confirmation. Glomerular 10.41 L 07/25/2018 07/25/2018 GFR RESULTS ARE REPORTED IN mL/min/1.73m2. Filtration Rate 5:44pm 6:12pm Calc Normal GFR: >60mL/min Moderately decreased GFR: 30-59 mL/min Severely decreased GFR: 15-29 mL/min Kidney Failure (or Dialysis): <15 mL/min The calculated eGFR is not valid for patients younger than 18 years or older than 75 years. BUN/Creatinine 6.8 L 12-20 07/25/2018 07/25/2018 Ratio 5:44pm 6:12pm Sodium Level 137 mmol/L 135-145 07/25/2018 07/25/2018 5:44pm 6:12pm Potassium Level 4.0 mmol/L 3.5-5.2 07/25/2018 07/25/2018 5:44pm 6:12pm Chloride Level 97 mmol/L L 98-108 07/25/2018 07/25/2018 5:44pm 6:12pm Carbon Dioxide 23 mmol/L 21-32 07/25/2018 07/25/2018 Level 5:44pm 6:12pm Anion Gap 21.0 mEq/L H 12-20 07/25/2018 07/25/2018 5:44pm 6:12pm Calcium Level 8.6 mg/dL L 8.8-10.2 07/25/2018 07/25/2018 5:44pm 6:12pm Total Protein 7.5 g/dL 6.6-8.7 07/25/2018 07/25/2018 5:44pm 6:12pm Albumin 3.8 g/dL 3.5-5.2 07/25/2018 07/25/2018 5:44pm 6:12pm Globulin 3.7 gm/dL 07/25/2018 07/25/2018 5:44pm 6:12pm Albumin/Globulin 1.0 >1.0 07/25/2018 07/25/2018 Ratio 5:44pm 6:12pm Total Bilirubin 0.3 mg/dL 0.0-1.2 07/25/2018 07/25/2018 5:44pm 6:12pm Aspartate Amino 18 U/L 15-32 07/25/2018 07/25/2018 Transf (AST/SGOT) 5:44pm 6:12pm Alanine 15 U/L 0-33 07/25/2018 07/25/2018 Aminotransferase 5:44pm 6:12pm (ALT/SGPT) Total Alkaline 87 U/L 35-105 07/25/2018 07/25/2018 Phosphatase 5:44pm 6:12pm Creatine Kinase 62 U/L 20-180 07/25/2018 07/25/2018 5:44pm 6:12pm Troponin I < 0.30 ng/mL 0.0-0.5 07/25/2018 07/25/2018 Published clinical studies have shown elevations of cTnI in 5:44pm 6:10pm patients with myocardial injury, as seen in unstable angina pectoris, cardiac contusions, and heart transplants. Elevations have also been seen in patients with rhabdomyolysis and polymyositis. Elevated troponin levels point to myocardial injury, but are not necessarily indicative of an ischemic mechanism. The term MD should be used when there is evidence of cardiac damage, as detected by marker proteins in a clinical setting consistent with myocardial ischemia. If the clinical circumstance suggests that an ischemic mechanism is unlikely, other causes of cardiac injury should be considered. For diagnostic purposes, the results should always be assessed in conjunction with the patient's medical history, clinical examination and other findings. Creatine Kinase MB 3.5 ng/ml 0.0-3.6 07/25/2018 07/25/2018 5:44pm 6:10pm DIAGNOSTIC CITERIA: CKMB CKMB RELATIVE INDEX SUGGESTIVE OF NON-AMI < or=5 N/A DANIEL ZONE (INCONCLUSIVE) > 5 < or=4 SUGGESTIVE OF AMI >5 > 4 Procedures Procedure Status Date Provider(s) Computed tomography of abdomen and pelvis Completed 07/25/18 JAYDEN MENDEZ MD without contrast Encounters Encounter Location Arrival/Admit Date Discharge/Depart Date Attending Provider Departed [place] 07/25/18 4:39pm 07/25/18 8:32pm JAYDEN MENDEZ [facility] Recent Diagnosis
--- OUTSIDE RECORDS SUMMARY | 2019-01-27 11:17 | XMS REPORT | Continuity of Care Document ---
:1950 Author Organization [facility] Address [address] [place] [address] Phone Unavailable Care Team Providers Name Role Phone PHYSICIAN, NO Primary Care Physician Unavailable Insurance Providers Guarantor Komal Smith Address [address] [address] Email NONE Payer Medicare Policy Number [id number] Subscriber's Name Komal Smith Relationship Self / Same As Patient Group Number NA Group Name NA Payer [facility] Policy Number [id number] Subscriber's Name Komal Smith Relationship Self / Same As Patient Group Number NA Group Name NA Payer Medicaid Policy Number [id number] Subscriber's Name Komal Smith Relationship Self / Same As Patient Group Number NA Group Name NA Advance Directives Directive Response Recorded Date/Time Advance Directives No 07/10/14 6:33pm Advance Directive on File No 04/30/18 9:04am Directive to Physicians/Living Will No 07/10/14 6:33pm Health Care Proxy No 07/10/14 6:33pm Organ Donor No 07/10/14 6:33pm Medical Power of Water Main Installer Helper No 07/10/14 6:33pm Patient/Family Given Education Material R/T Y - 04/30/18....SBM 04/30/18 9: 04am Directives? Chief Complaint and Reason for Visit Chief Complaint Extremity Pain/Injury Reason for Visit Moderate hypertension control Degenerative arthritis of knee ESRD on dialysis Left knee pain Problems Medical Problem Onset Date Status Abnormal [...] Acute Hypoglycemia Unknown Acute Hypokalemia Unknown Acute [id number] Unknown Acute Uncontrolled diabetes mellitus Unknown Acute Past Problems Medical Problem Onset Date Status Abdominal pain Unknown Acute Acute on chronic renal insufficiency Unknown Acute CHF (congestive heart failure) Unknown Acute Chronic renal failure Unknown Acute Congestive heart failure Unknown Acute Constipation Unknown Acute Degenerative arthritis of knee Unknown Acute Dizzy Unknown Acute ESRD on dialysis Unknown Acute ESRD on dialysis Unknown Acute ESRD on dialysis Unknown Acute ESRD on dialysis Unknown Acute Hemorrhage of cyst of [place] kidney Unknown Acute Hyperglycemia due to type [...] Onset Date Status Hx Physical Abuse No 04/30/2018 9:04am Not Applicable Not Applicable Smoking Status Start Date Stop Date Never smoker Hospital Discharge Instructions No hospital discharge instruction information available. Plan of Care Discharge Date 04/30/18 11:38am Instructions/Education Provided Hypertension, Pmxs-pr-Jedb Knee Pain, Adult, Xhdt-gl-Tomn Hemodialysis, Hlat-um-Xnpv Prescriptions See Medication Section Referrals NO PHYSICIAN Additional Instructions/Education ENSURE COMPLIANCE WITH YOUR BLOOD PRESSURE MEDS. CONTINUE YOUR SCHEDULED DIALYSIS SEE YOUR DOCTOR (WITHIN 2 DAYS) FOR FURTHER EVALUATION & CARE OF YOUR LEFT KNEE PAIN & ARTHRITIS Functional Status No functional status information available. Allergies, Adverse Reactions, Alerts Allergen Type Severity Reaction Status Last Updated Tramadol ([id number]) Allergy Severe Active 07/12/14 Immunizations No immunization information available. Vital Signs Acute Vital Signs Vital Response Date/Time Blood Pressure 100/60 mm Hg 04/30/2018 11:37am Pulse Pulse Rate (adult) 62 beats per minute (60 - 100) 04/30/2018 11:37am Respiratory Rate 20 breaths per minute (10 - 24) 04/30/2018 11:37am Temperature Source Oral 04/30/2018 11:37am Height 5 ft 5 in 04/30/2018 9:04am Weight 130 lb 04/30/2018 9:04am Body Mass Index 21.6 kg/m^2 04/30/2018 9:04am Results Laboratory Results Test Name Result Units [...] 8:17am Urine Specific 1.015 1.003-1.030 04/04/2018 04/04/2018 [place] 8:08am 8:17am Urine Blood LARGE H NEGATIVE [...] ([place] IN ED). By SMITH SANCHEZ 04/04/18 @0840 Results read back for confirmation. Glomerular 6.54 [...] U/L 35-105 04/04/2018 04/04/2018 Phosphatase 8:08am 8:30am Microbiology Results Procedure Source Organism/Result Collection Result Result Date/Time Date/Time Status Urine Culture Urine,Clean ESCHERICHIA COLI 04/04/2018 04/06/2018 Final [place]atch 8:08am 8:20am Procedures Procedure Status Date Provider(s) EMERGENCY DEPT VISIT Completed 03/05/18 THER/PROPH/DIAG INJ SC/IM Completed 03/05/18 EMERGENCY DEPT VISIT Completed 03/28/18 X-RAY EXAM CHEST 1 VIEW Completed 03/28/18 INFLUENZA ASSAY W/OPTIC Completed 03/28/18 EMERGENCY DEPT VISIT Completed 04/04/18 CT ABDOMEN W/O & W/DYE Completed 04/04/18 THER/PROPH/DIAG IV INF INIT Completed 04/04/18 TRANSVAGINAL US NON-OB Completed 04/04/18 COMPLETE CBC W/AUTO DIFF WBC Completed 04/04/18 URINE CULTURE/COLONY COUNT Completed 04/04/18 URINALYSIS AUTO W/SCOPE Completed 04/04/18 ROUTINE VENIPUNCTURE Completed 04/04/18 COMPREHEN METABOLIC PANEL Completed 04/04/18 CULTURE AEROBIC IDENTIFY Completed 04/04/18 MICROBE SUSCEPTIBLE AYLIN Completed 04/04/18 URINE BACTERIA CULTURE Completed 04/04/18 US EXAM ABDO BACK WALL CLARKE Completed 04/04/18 INJECTION, CEFTRIAXONE SODIUM, PER 250 MG Completed 04/04/18 X-ray of chest, single view Completed 03/28/18 RAMIN TUBBS NP Non-obstetrical transvaginal ultrasound of pelvis Completed 04/04/18 BERNABE GONZALEZ MD US renal Completed 04/04/[address] abdomen without then with contrast Completed 04/04/18 BERNABE GONZALEZ MD X-ray left knee, AP/lateral Completed 04/30/18 BERNABE GONZALEZ MD Encounters Encounter Location Arrival/Admit Date Discharge/Depart Date Attending Provider Departed [place] 04/30/18 8:56am 04/30/18 11:38am BERNABE GONZALEZ MD [facility] Departed [place] 04/04/18 7:20am 04/04/18 3:01pm BERNABE GONZALEZ MD [facility] Departed [place] 03/28/18 10:23am 03/28/18 1:02pm JAYDEN MENDEZ [facility] Departed [place] 03/05/18 1:43pm 03/05/18 5:20pm BERNABE GONZALEZ MD [facility] Recent Diagnosis
--- OUTSIDE RECORDS SUMMARY | 2019-01-27 11:17 | XMS REPORT | Continuity of Care Document ---
:1950 Author Organization [facility] Address [address] [place] [address] Phone Unavailable Care Team Providers Name Role Phone PHYSICIAN, NO Primary Care Physician Unavailable Insurance Providers Guarantor Komal Smith Address [address] [place] [phone] Email NONE Payer Medicare Policy Number [id number] Subscriber's Name Komal Smith Relationship Self / Same As Patient Group Number NA Group Name NA Payer [facility] Policy Number [id number] Subscriber's Name Komal Smith Relationship Self / Same As Patient Group Number NA Group Name NA Advance Directives Directive Response Recorded Date/Time Advance Directives No 07/10/14 6:33pm Advance Directive on File No 05/02/18 1:02pm Directive to Physicians/Living Will No 07/10/14 6:33pm Health Care Proxy No 07/10/14 6:33pm Organ Donor No 07/10/14 6:33pm Medical Power of Multi Slide Machine Tender No 07/10/14 6:33pm Patient/Family Given Education Material R/T Y - 05/02/18...MK 05/02/18 3: 23pm Directives? Chief Complaint and Reason for Visit Chief Complaint General Complaint Reason for Visit Orthostatic hypotension ESRD (end stage renal disease) on dialysis Problems Medical Problem Onset Date [...] Acute Hypoglycemia Unknown Acute Hypokalemia Unknown Acute [id number] Unknown Acute Uncontrolled diabetes mellitus Unknown Acute [...] dialysis Unknown Acute Hemorrhage of cyst of the [place] kidney Unknown Acute Hyperglycemia due to type [...] Onset Date Status Hx Physical Abuse No 05/02/2018 1:02pm Not Applicable Not Applicable Smoking Status Start Date Stop Date Never smoker Hospital Discharge Instructions No hospital discharge instruction information available. Plan of Care Discharge Date 05/02/18 4:01pm Instructions/Education Provided Orthostatic Hypotension Forms Provided Prescription Opioid Use Portal Welcome Letter Prescriptions See Medication Section Referrals NO PHYSICIAN Additional Instructions/Education FOLLOW UP WITH A PRIMARY CARE PROVIDER IN 2- 3 DAYS CONTINUE WITH DIALYSIS SCHEDULED CHANGE POSITIONS SLOWLY.CHECK YOUR BLOOD PRESSURE PRIOR TO TAKING HER DAILY BLOOD PRESSURE MEDICATIONS IF SYSTOLIC LESS THAN 110 DO NOT TAKE YOUR BLOOD PRESSURE MEDICATIONS THIS MAY CAUSE HYPOTENSION RESULTING IN THE CURRENT SYMPTOMS YOU ARE EXPERIENCING. RETURN TO THE ER IF YOUR SYMPTOMS WORSEN Functional Status No functional status information available. Allergies, Adverse Reactions, Alerts Allergen Type Severity Reaction Status Last Updated Tramadol ([id number]) Allergy Severe Active 07/12/14 Immunizations No immunization information available. Vital Signs Acute Vital Signs Vital Response Date/Time Blood Pressure 132/65 mm Hg 05/02/2018 4:21pm Pulse Pulse Rate (adult) 63 beats per minute (60 - 100) 05/02/2018 4:21pm Respiratory Rate 14 breaths per minute (10 - 24) 05/02/2018 4:21pm Temperature Source Oral 05/02/2018 1:02pm Height 5 ft 5 in 05/02/2018 1:02pm Weight 140 lb 05/02/2018 1:02pm Body Mass Index 23.3 kg/m^2 05/02/2018 1:02pm Results Laboratory Results Test Name Result Units Flags Reference Collection Result Comments Date/Time Date/Time White Blood Count 6.0 K/ul 4.0-11.5 05/02/2018 05/02/2018 1:37pm 1:50pm Red Blood Count 4.48 M/ul 3.80-5.20 05/02/2018 05/02/2018 1:37pm 1:50pm Hemoglobin 11.4 g/dl 10.5-15.7 05/02/2018 05/02/2018 1:37pm 1:50pm Hematocrit 38.1 % 34.0-50.0 05/02/2018 05/02/2018 1:37pm 1:50pm Mean Corpuscular 84.9 fl 78-98 05/02/2018 05/02/2018 Volume 1:37pm 1:50pm Mean Corpuscular 25.4 pg L 26.2-33.4 05/02/2018 05/02/2018 Hemoglobin 1:37pm 1:50pm Mean Corpuscular 29.9 g/dl L 31.5-36.2 05/02/2018 05/02/2018 Hemoglobin Concent 1:37pm 1:50pm Red Cell 17.3 % H 11.5-15.5 05/02/2018 05/02/2018 Distribution Width 1:37pm 1:50pm Platelet Count 145 K/ul 137-338 05/02/2018 05/02/2018 1:37pm 1:50pm Mean Platelet 8.7 fl 8.4-11.8 05/02/2018 05/02/2018 Volume 1:37pm 1:50pm Neutrophils (%) 70.1 % 44.4-80.1 05/02/2018 05/02/2018 (Auto) 1:37pm 1:50pm Lymphocytes (%) 21.1 % 10.0-50.0 05/02/2018 05/02/2018 (Auto) 1:37pm 1:50pm Monocytes (%) 6.4 % 3.6-12.04 05/02/2018 05/02/2018 (Auto) 1:37pm 1:50pm Eosinophils (%) 1.7 % 0.0-5.41 05/02/2018 05/02/2018 (Auto) 1:37pm 1:50pm Basophils (%) 0.8 % H 0.0-0.79 05/02/2018 05/02/2018 (Auto) 1:37pm 1:50pm Urine Color YELLOW 05/02/2018 05/02/2018 3:16pm 3:40pm Urine Appearance HAZY A CLEAR 05/02/2018 05/02/2018 3:16pm 3:40pm Urine Glucose NEGATIVE NEGATIVE 05/02/2018 05/02/2018 3:16pm 3:40pm Urine Bilirubin NEGATIVE NEGATIVE 05/02/2018 05/02/2018 3:16pm 3:40pm Urine Ketones NEGATIVE NEGATIVE 05/02/2018 05/02/2018 3:16pm 3:40pm Urine Specific 1.015 1.003-1.03 05/02/2018 05/02/2018 [place] 0 3:16pm 3:40pm Urine Blood NEGATIVE NEGATIVE 05/02/2018 05/02/2018 3:16pm 3:40pm Urine pH 5.000 5-9 05/02/2018 05/02/2018 3:16pm 3:40pm Urine Protein 2+ (100 H NEGATIVE 05/02/2018 05/02/2018 mg/dL) 3:16pm 3:40pm Urine Urobilinogen 0.2 E.U./dL 0.2-1.0 05/02/2018 05/02/2018 3:16pm 3:40pm Urine Nitrate NEGATIVE NEGATIVE 05/02/2018 05/02/2018 3:16pm 3:40pm Urine Leukocyte 1+ SMALL H NEGATIVE 05/02/2018 05/02/2018 Esterase 3:16pm 3:40pm Urine RBC 0-3 /hpf 0-5 05/02/2018 05/02/2018 3:16pm 3:40pm Urine WBC 6-10 /hpf H 0-5 05/02/2018 05/02/2018 3:16pm 3:40pm Urine Epithelial 11-25 /hpf H 0-5 05/02/2018 05/02/2018 Cells 3:16pm 3:40pm Urine Bacteria TRACE /hpf None 05/02/2018 05/02/2018 Detect 3:16pm 3:40pm Urine Casts COARSE /lpf None 05/02/2018 05/02/2018 GRANULAR Detect 3:16pm 3:40pm 0-5 Urine Culture NO. 05/02/2018 05/02/2018 >10 EPITHELIAL CELLS/HPF. INDICATIVE OF CONTAMINATED URINE. Reflexed CONTAMINAT 3:16pm 3:40pm CULTURE WILL NOT BE PERFORMED. PLEASE RECOLLECT IF CULTURE ED. IS DEEMED NECESSARY. Random Glucose 166 mg/dL H 82-115 05/02/2018 05/02/2018 1:37pm 2:06pm Blood Urea 47 mg/dL H 8-23 05/02/2018 05/02/2018 Nitrogen 1:37pm 2:06pm Serum Osmolality 296 280-300 05/02/2018 05/02/2018 1:37pm 2:06pm Creatinine 8.4 mg/dL H* 0.50-0.90 05/02/2018 05/02/2018 Results have been broadcasted to patient's location and 1:37pm 2:06pm called to (DOM SCHWARTZ). By KAMARI TRENT 05/02/18 @9086 Results read back for confirmation. Glomerular 5.74 L 05/02/2018 05/02/2018 GFR RESULTS ARE REPORTED IN mL /min/1.73m2. Filtration Rate 1:37pm 2:06pm Calc Normal GFR: >60mL/min Moderately decreased GFR: 30-59 mL/min Severely decreased GFR: 15-29 mL/min Kidney Failure (or Dialysis): <15 mL/min The calculated eGFR is not valid for patients younger than 18 years or older than 75 years. BUN/Creatinine 5.6 L 12-20 05/02/2018 05/02/2018 Ratio 1:37pm 2:06pm Sodium Level 140 mmol/L 135-145 05/02/2018 05/02/2018 1:37pm 2:06pm Potassium Level 3.7 mmol/L 3.5-5.2 05/02/2018 05/02/2018 1:37pm 2:06pm Chloride Level 94 mmol/L L 98-108 05/02/2018 05/02/2018 1:37pm 2:06pm Carbon Dioxide 25 mmol/L 21-32 05/02/2018 05/02/2018 Level 1:37pm 2:06pm Anion Gap 24.7 mEq/L H 12-20 05/02/2018 05/02/2018 1:37pm 2:06pm Calcium Level 8.9 mg/dL 8.8-10.2 05/02/2018 05/02/2018 1:37pm 2:06pm Total Protein 7.6 g/dL 6.6-8.7 05/02/2018 05/02/2018 1:37pm 2:06pm Albumin 3.6 g/dL 3.5-5.2 05/02/2018 05/02/2018 1:37pm 2:06pm Globulin 4.0 gm/dL 05/02/2018 05/02/2018 1:37pm 2:06pm Albumin/Globulin 0.9 >1.0 05/02/2018 05/02/2018 Ratio 1:37pm 2:06pm Total Bilirubin 0.4 mg/dL 0.0-1.2 05/02/2018 05/02/2018 1:37pm 2:06pm Aspartate Amino 12 U/L L 15-32 05/02/2018 05/02/2018 Transf (AST/SGOT) 1:37pm 2:06pm Alanine 12 U/L 0-33 05/02/2018 05/02/2018 Aminotransferase 1:37pm 2:06pm (ALT/SGPT) Total Alkaline 77 U/L 35-105 05/02/2018 05/02/2018 Phosphatase 1:37pm 2:06pm Microbiology Results Procedure Source Organism/Result Collection Result [...] CULTURE AEROBIC IDENTIFY Completed 04/04/18 MICROBE SUSCEPTIBLE YALIN Completed 04/04/18 URINE BACTERIA CULTURE Completed 04/04/18 US EXAM ABDO BACK WALL CLARKE Completed 04/04/18 INJECTION, CEFTRIAXONE SODIUM, PER 250 MG Completed 04/04/18 EMERGENCY DEPT VISIT Completed 04/30/18 X-RAY EXAM OF KNEE 1 OR 2 Completed 04/30/18 X-ray of chest, single view Completed 03/28/18 RAMIN TUBBS NP Non-obstetrical transvaginal ultrasound of pelvis Completed 04/04/18 BERNABE GONZALEZ MD US renal Completed 04/04/[address] abdomen without then with contrast Completed 04/04/18 BERNABE GONZALEZ MD X-ray left knee, AP/lateral Completed 04/30/18 BERNABE GONZALEZ MD Encounters Encounter Location Arrival/Admit Date Discharge/Depart Date Attending Provider Departed [place] 05/02/18 12:54pm 05/02/18 4:01pm JAYDEN MENDEZ [facility] Departed [place] 04/30/18 8:56am 04/30/18 11:38am BERNABE GONZALEZ MD [facility] Departed [place] 04/04/18 7:20am 04/04/18 3:01pm BERNABE GONZALEZ MD [facility] Departed [place] 03/28/18 10:23am 03/28/18 1:02pm JAYDEN MENDEZ [facility] Departed [place] 03/05/18 1:43pm 03/05/18 5:20pm BERNABE GONZALEZ MD [facility] Recent Diagnosis
--- OUTSIDE RECORDS SUMMARY | 2019-01-27 11:18 | XMS REPORT | Continuity of Care Document ---
:1950 Author Organization [facility] Address [address] [place] [address] Phone Unavailable Care Team Providers Name Role Phone FERNANDO HINOJOSA Primary Care Physician Insurance Providers Guarantor Cory Smith Address [address] [place] [address] Email NONE Payer Medicare Policy Number [id number] Subscriber's Name Cory Smith Marixa Relationship Self / Same As Patient Group Number NA Group Name NA Payer [facility] Policy Number [id number] Subscriber's Name Cory Smith Marixa Relationship Self / Same As Patient Group Number NA Group Name NA Payer Medicaid Policy Number [id number] Subscriber's Name Cory Smith Marixa Relationship Self / Same As Patient Group Number NA Group Name NA Advance Directives Directive Response Recorded Date/Time Advance Directives No 07/10/14 6:33pm Advance Directive on File No 08/03/18 11:06am Resuscitation Status Full Code 08/03/18 5:08pm Directive to Physicians/Living Will No 07/10/14 6:33pm Health Care Proxy No 07/10/14 6:33pm Organ Donor No 07/10/14 6:33pm Medical Power of Buffing Wheel Former Automatic No 07/10/14 6:33pm Patient/Family Given Education Material R/T Y - 08/03/18.....SBM 08/03/18 11:06am Directives? Chief Complaint and Reason for Visit Chief Complaint DIALYSIS, UTI Reason for Visit Diarrhea Diabetes mellitus Anxiety ESRD on dialysis Diabetes mellitus Abdominal pain Uncontrolled hypertension Problems Medical Problem Onset Date Status Abdominal pain Unknown Acute Abnormal renal function test Unknown Acute Acute on chronic renal insufficiency Unknown Acute Anxiety Unknown Chronic CAD (coronary artery disease) Unknown CKD (chronic kidney disease) stage 3, GFR 30-59 ml/min Unknown Chronic Cellulitis of left ankle Unknown Acute Clostridium difficile diarrhea Unknown Constipation Unknown Acute Dehydration Unknown Acute Diabetes mellitus Unknown Chronic Diarrhea Unknown Acute Gastroenteritis Unknown Resolved HLD (hyperlipidemia) Unknown Chronic HTN (hypertension) Unknown Chronic Hematuria Unknown Acute Hyperglycemia Unknown Acute Hyperglycemia Unknown Acute Hypoglycemia Unknown Acute Hypokalemia Unknown Acute [id number] Unknown Acute UTI (urinary tract infection) Unknown Uncontrolled diabetes mellitus Unknown Acute Uncontrolled hypertension Unknown Acute Past Problems Medical Problem Onset Date Status Abdominal pain Unknown Acute Abdominal pain Unknown Acute Acute on chronic renal insufficiency Unknown Acute CHF (congestive heart failure) Unknown Acute Chronic renal failure Unknown Acute Congestive heart failure Unknown Acute Constipation Unknown Acute Degenerative arthritis of knee Unknown Acute Dizzy Unknown Acute ESRD (end stage renal disease) on dialysis Unknown Acute ESRD needing dialysis Unknown Acute ESRD on dialysis Unknown Acute ESRD on dialysis Unknown Acute ESRD on dialysis Unknown Acute ESRD on dialysis Unknown Acute Esophagitis Unknown Acute Hemorrhage of cyst of [place] kidney Unknown Acute Hyperglycemia due to type [...] Upper respiratory infection Unknown Acute Urinary tract infection Unknown Acute Urinary tract infectious disease Unknown Acute Medications Current Home Medications Medication Dose Units Route Directions Days Qty Instructions Start Date Acetamin/Codeine 1 Tab ORAL Every 6 Hours 20 Tablet // 300/30 Mg * As Needed as 19 (Tylenol With needed for Codeine #3 300/30 Mg *) 300/30 Mg Tab Acetaminophen/Co 6.25 Ml ORAL Every 4 Hrs As 5 240 deine Phosphate Needed as Days Milliliter (Tylenol #3 *) needed for Pain 30 Mg/12.5 Ml Ml Carvedilol 25 Mg ORAL Twice Daily 60 Tablet 09/25/ (Coreg *) 25 Mg With Meals for 18 Tab Hypertension Ciprofloxacin 500 Mg ORAL Twice A Day for 7 14 Tablet 08/05/ Hcl (Cipro *) Infection Days 19 500 Mg Tab Clonidine Hcl 0.2 Mg ORAL Once Dose At 30 Tablet 08/05/ (Catapres *) 0.2 0400 as needed 19 Mg Tab for Elevated Bp Clonidine Hcl 1 Patch TOPICAL Every 7 Days 28 4 Patch (Catapres Tts-3 Days 0.3 Mg/24HR *) 0.3 Mg/24 Hr Dis Clopidogrel 1 Tab ORAL Daily 90 Tablet Bisulfate (Plavix 75 Mg *) 75 Mg Tab Ergocalciferol 1 Units ORAL Every 7 Days (Vitamin D) 50,000 Unit Cap Esomeprazole 1 Cap ORAL Daily for 30 30 Cap 07/25/ Magnesium * Reflux Days 19 (Nexium *) 40 Mg Cap Gabapentin 100 Mg ORAL Twice A Day (Neurontin *) 100 Mg Cap Hydralazine Hcl 50 Mg ORAL Three Times A 30 90 Tablet (Apresoline *) Day Days 50 Mg Tab Isosorbide 1 Tab ORAL Twice A Day for 30 30 Tablet Dinitrate Chest Pain Days (Isosorbide Dinitrate 30 Mg*) 30 Mg Tab Labetalol Hcl 1 Tab ORAL Twice A Day 30 60 Tablet (Trandate 200 Days Mg*) 200 Mg Tab Metronidazole 1 Tab ORAL Three Times A 7 21 Tablet 08/05/ (Flagyl *) 500 Day for Days 19 Mg Tab Enterocolitis Sucralfate 1 Gm ORAL Before Meals 30 120 Tablet (Carafate *) 1 And At Bedtime Days Gm Tab Past Home Medications Medication Directions Ordered Status Acetaminophen W/ Codeine #3 * Twice Daily As Needed Discontinued (Tylenol Codeine #3 300MG/30MG *) 1 Tab Tab, 1 Tab Oral Atorvastatin * (Lipitor *) 80 Mg Bedtime Discontinued Tab, 80 Mg Oral Azithromycin (Zithromax Z-Kumar *) As Directed [...] Discontinued (Clotrimazole 1% Topical) 1 % Cre, Furosemide (Lasix 20 Mg*) 20 Mg Twice A Week Discontinued Tab, 1 Tab Oral Hydroxyzine Hcl (Atarax 50 Mg*) 50 Every 8 Hours for Anxiety Discontinued Mg Tab, 1 Tab Oral Insulin Asp Prt/Insulin Aspart * Every Morning [...] Inj, 15 Subcutaneous Insulin Glargine (Lantus Solostar) Daily for Diabetes 10/17/17 Discontinued 100 Unit/Ml Inj, 20 Units Subcutaneous Insulin Glargine (Lantus Solostar) Every Morning [...] Daily for Acidosis 09/25/17 Discontinued Mg Oral Sucralfate (Carafate *) 1 Gm/10 Ml Four Times Daily for 07/25/18 Discontinued [place], 10 Ml Oral Esophagitis Sucralfate (Sucralfate 1 Gm) 1 Gm Three Times A Day Discontinued Tab, 1 Tab Oral Trimethoprim/Sulfamethoxazole Twice A Day for Infection 04/04/18 Discontinued (Bactrim Ds *) 800/160 Mg Tab, 1 Tab Oral Social History Social History Problem Response Recorded Date/Time Onset Date Status Hx Physical Abuse No 08/03/2018 11:13am Not Applicable Not Applicable Smoking Status Start Date Stop Date Never smoker Hospital Discharge Instructions No hospital discharge instruction information available. Plan of Care Discharge Date 08/05/18 4:55pm Disposition PATIENT DISCHARGE HOME OR SELF Instructions/Education Provided Urinary Tract Infection, Adult, [id number]-[id number] Ciprofloxacin tablets Clonidine tablets End-Stage Kidney Disease Metronidazole tablets or capsules Forms Provided Portal Welcome Letter Prescriptions See Medication Section Functional Status No functional status information available. Allergies, Adverse Reactions, Alerts Allergen Type Severity Reaction Status Last Updated Tramadol ([id number]) Allergy Intermediate Active 08/05/18 Immunizations No immunization information available. Vital Signs Acute Vital Signs Vital Response Date/Time Blood Pressure 140/70 mm Hg 08/05/2018 4:16pm Pulse Pulse Rate (adult) 66 beats per minute (60 - 100) 08/05/2018 4:16pm Respiratory Rate 18 breaths per minute (10 - 24) 08/05/2018 4:16pm Temperature Source Tympanic 08/05/2018 12:12pm Height 5 ft 5 in 08/03/2018 7:14am Weight 112.13 lb 08/05/2018 5:28am Body Mass Index 18.7 kg/m^2 08/05/2018 5:28am Results Laboratory Results Test Name Result Units Flags Reference Collection Result Comments Date/Time Date/Time White Blood Count 4.3 K/ul 4.0-11.5 08/05/2018 08/05/2018 3:40am 4:34am Red Blood Count 3.90 M/ul 3.80-5.20 08/05/2018 08/05/2018 3:40am 4:34am Hemoglobin 10.9 g/dl 10.5-15.7 08/05/2018 08/05/2018 3:40am 4:34am Hematocrit 35.6 % 34.0-50.0 08/05/2018 08/05/2018 3:40am 4:34am Mean Corpuscular 91.4 fl 78-98 08/05/2018 08/05/2018 Volume 3:40am 4:34am Mean Corpuscular 28.0 pg 26.2-33.4 08/05/2018 08/05/2018 Hemoglobin 3:40am 4:34am Mean Corpuscular 30.7 g/dl L 31.5-36.2 08/05/2018 08/05/2018 Hemoglobin Concent 3:40am 4:34am Red Cell 14.2 % 11.5-15.5 08/05/2018 08/05/2018 Distribution Width 3:40am 4:34am Platelet Count 120 K/ul L 137-338 08/05/2018 08/05/2018 3:40am 4:34am Mean Platelet 9.5 fl 8.4-11.8 08/05/2018 08/05/2018 Volume 3:40am 4:34am Neutrophils (%) 68.7 % 44.4-80.1 08/05/2018 08/05/2018 (Auto) 3:40am 4:34am Lymphocytes (%) 16.8 % 10.0-50.0 08/05/2018 08/05/2018 (Auto) 3:40am 4:34am Monocytes (%) 11.5 % 3.6-12.0 08/05/2018 08/05/2018 (Auto) 3:40am 4:34am Eosinophils (%) 1.6 % 0.0-5.4 08/05/2018 08/05/2018 (Auto) 3:40am 4:34am Basophils (%) 1.3 % H 0.0-0.79 08/05/2018 08/05/2018 (Auto) 3:40am 4:34am Urine Color YELLOW 08/03/2018 08/03/2018 7:47am 7:58am Urine Appearance CLOUDY A CLEAR 08/03/2018 08/03/2018 7:47am 7:58am Urine Glucose NEGATIVE NEGATIVE 08/03/2018 08/03/2018 7:47am 7:58am Urine Bilirubin NEGATIVE NEGATIVE 08/03/2018 08/03/2018 7:47am 7:58am Urine Ketones NEGATIVE NEGATIVE 08/03/2018 08/03/2018 7:47am 7:58am Urine Specific 1.020 1.003-1.03 08/03/2018 08/03/2018 [place] 0 7:47am 7:58am Urine Blood SMALL H NEGATIVE 08/03/2018 08/03/2018 7:47am 7:58am Urine pH 5.500 5-9 08/03/2018 08/03/2018 7:47am 7:58am Urine Protein 3+ (>300 H NEGATIVE 08/03/2018 08/03/2018 mg/dL) 7:47am 7:58am Urine Urobilinogen 0.2 E.U./d 0.2-1.0 08/03/2018 08/03/2018 L 7:47am 7:58am Urine Nitrate POSITIVE NEGATIVE 08/03/2018 08/03/2018 7:47am 7:58am Urine Leukocyte TRACE H NEGATIVE 08/03/2018 08/03/2018 Esterase 7:47am 7:58am Urine RBC 15-19 /hpf 0-5 08/03/2018 08/03/2018 7:47am 7:58am Urine WBC 15-19 /hpf H 0-5 08/03/2018 08/03/2018 7:47am 7:58am Urine Epithelial 0-5 /hpf 0-5 08/03/2018 08/03/2018 Cells 7:47am 7:58am Urine Bacteria LARGE /hpf H None 08/03/2018 08/03/2018 Detect 7:47am 7:58am Urine Culture YES 08/03/2018 08/03/2018 Reflexed 7:47am 7:58am Urine Crystals Calcium /hpf A None 08/03/2018 08/03/2018 oxalate Detect 7:47am 7:58am 4+ POC Capillary 107 mg/dL 70.0 - 110 08/05/2018 08/05/2018 Blood Glucose 11:52am 11:56am (Chem) Lactic Acid Level 1.27 mmoL/L 0.5-2.2 08/03/2018 08/03/2018 7:59am 8:24am Random Glucose 133 mg/dL H 82-115 08/05/2018 08/05/2018 3:40am 5:32am Blood Urea 71 mg/dL #H 8-23 08/05/2018 08/05/2018 Nitrogen 3:40am 5:32am Serum Osmolality 302 H 280-300 08/05/2018 08/05/2018 3:40am 5:32am Creatinine 6.8 mg/dL #H* 0.50-0.90 08/05/2018 08/05/2018 Results have been broadcasted to patient's location and 3:40am 5:32am called to (NOR[facility]). By ABNER MILLER 08/05/18 @0527 Results read back for confirmation. Glomerular 7.30 L 08/05/2018 08/05/2018 GFR RESULTS ARE REPORTED IN mL /min/1.73m2. Filtration Rate 3:40am 5:32am Calc Normal GFR: >60mL/min Moderately decreased GFR: 30-59 mL/min Severely decreased GFR: 15-29 mL/min Kidney Failure (or Dialysis): <15 mL/min The calculated eGFR is not valid for patients younger than 18 years or older than 75 years. BUN/Creatinine 10.4 L 12-20 08/05/2018 08/05/2018 Ratio 3:40am 5:32am Sodium Level 140 mmol/L 135-145 08/05/2018 08/05/2018 3:40am 5:32am Potassium Level 3.4 mmol/L L 3.5-5.2 08/05/2018 08/05/2018 3:40am 5:32am Chloride Level 100 mmol/L 98-108 08/05/2018 08/05/2018 3:40am 5:32am Carbon Dioxide 17 mmol/L L 21-32 08/05/2018 08/05/2018 Level 3:40am 5:32am Anion Gap 26.4 mEq/L H 12-20 08/05/2018 08/05/2018 3:40am 5:32am Calcium Level 7.6 mg/dL L 8.8-10.2 08/05/2018 08/05/2018 3:40am 5:32am Total Protein 6.4 g/dL L 6.6-8.7 08/05/2018 08/05/2018 3:40am 5:32am Albumin 3.1 g/dL L 3.5-5.2 08/05/2018 08/05/2018 3:40am 5:32am Globulin 3.3 gm/dL 08/05/2018 08/05/2018 3:40am 5:32am Albumin/Globulin 0.9 >1.0 08/05/2018 08/05/2018 Ratio 3:40am 5:32am Total Bilirubin < 0.3 mg/dL 0.0-1.2 08/05/2018 08/05/2018 3:40am 5:32am Aspartate Amino 13 U/L L 15-32 08/05/2018 08/05/2018 Transf (AST/SGOT) 3:40am 5:32am Alanine 10 U/L 0-33 08/05/2018 08/05/2018 Aminotransferase 3:40am 5:32am (ALT/SGPT) Lipase 10 U/L L 13-60 08/03/2018 08/03/2018 7:30am 8:00am EN-Jei-I-Type 60422 pg/mL H 0-125 08/05/2018 08/05/2018 Natriuretic 3:40am 5:04am Peptide Total Alkaline 66 U/L 35-105 08/05/2018 08/05/2018 Phosphatase 3:40am 5:32am Creatine Kinase 34 U/L 20-180 08/03/2018 08/03/2018 5:21pm 5:45pm Troponin I < 0.30 ng/mL 0.0-0.5 08/03/2018 08/03/2018 Published clinical studies have shown elevations of cTnI in 5:21pm 5:49pm patients with myocardial injury, as seen in unstable angina pectoris, cardiac contusions, and heart transplants. Elevations have also been seen in patients with rhabdomyolysis and polymyositis. Elevated troponin levels point to myocardial injury, but are not necessarily indicative of an ischemic mechanism. The term NH should be used when there is evidence [...] examination and other findings. Creatine Kinase MB 2.4 ng/ml 0.0-3.6 08/03/2018 08/03/2018 5:21pm 5:49pm DIAGNOSTIC CITERIA: CKMB CKMB RELATIVE INDEX SUGGESTIVE OF NON-AMI < or=5 N/A DANIEL ZONE (INCONCLUSIVE) > 5 < or=4 SUGGESTIVE OF AMI >5 > 4 Procedures Procedure Status Date Provider(s) EMERGENCY DEPT VISIT Completed 07/25/18 CT ABD & PELVIS W/O CONTRAST Completed 07/25/18 THER/PROPH/DIAG INJ IV PUSH Completed 07/25/18 TX/PRO/DX INJ NEW DRUG ADDON Completed 07/25/18 HYDRATE IV INFUSION ADD-ON Completed 07/25/18 COMPLETE CBC W/AUTO DIFF WBC Completed 07/25/18 CREATINE MB FRACTION Completed 07/25/18 ASSAY OF CK (CPK) Completed 07/25/18 ROUTINE VENIPUNCTURE Completed 07/25/18 ASSAY OF TROPONIN QUANT Completed 07/25/18 COMPREHEN METABOLIC PANEL Completed 07/25/18 TX/PRO/DX INJ SAME DRUG EMBEDDED DEVELOPER Completed 07/25/18 Completed 07/25/18 MORPHINE SULFATE INJECTION Completed 07/25/18 Computed tomography of abdomen and pelvis Completed 07/25/18 JAYDEN MENDEZ MD without contrast Computed tomography of abdomen and pelvis Completed 08/03/18 JAYDEN MENDEZ MD without contrast Encounters Encounter Location Arrival/Admit Date Discharge/Depart Date Attending Provider Discharged [place] 08/03/18 8:24am 08/05/18 4:55pm HAWK RUIZ Inpatient ([facility] Departed [place] 07/25/18 4:39pm 07/25/18 8:32pm JAYDEN MENDEZ [facility] Recent Diagnosis Diarrhea Diabetes mellitus Anxiety ESRD on dialysis Diabetes mellitus Abdominal pain Uncontrolled hypertension
--- OUTSIDE RECORDS SUMMARY | 2019-01-27 11:18 | XMS REPORT | Continuity of Care Document ---
:1950 Author Organization [facility] Address [address] [place] [address] Phone Unavailable Care Team Providers Name Role Phone FERNANDO HINOJOSA Primary Care Physician Insurance Providers Guarantor Cory Smith Address [address] [place] [phone] Email NONE Payer Medicare Policy Number [id number] Subscriber's Name Cory Smith Relationship Self / Same As Patient Group Number NA Group Name NA Payer [facility] Policy Number [id number] Subscriber's Name Cory Smith Relationship Self / Same As Patient Group Number NA Group Name NA Payer Medicaid Policy Number [id number] Subscriber's Name Cory Smith Relationship Self / Same As Patient Group Number NA Group Name NA Advance Directives Directive Response Recorded Date/Time Advance Directives No 07/10/14 6:33pm Advance Directive on File No 08/10/18 11:22pm Directive to Physicians/Living Will No 07/10/14 6:33pm Health Care Proxy No 07/10/14 6:33pm Organ Donor No 07/10/14 6:33pm Medical Power of Oil [employer] Drafter No 07/10/14 6:33pm Patient/Family Given Education Material R/T Y - 08/10/18..MA 08/11/18 12: 11am Directives? Chief Complaint and Reason for Visit Chief Complaint General Complaint Reason for Visit Abdominal pain Problems Medical Problem Onset Date Status Abdominal [...] Acute Hypoglycemia Unknown Acute Hypokalemia Unknown Acute [id number] Unknown Acute UTI (urinary tract infection) Unknown [...] Esophagitis Unknown Acute Hemorrhage of cyst of [place] kidney Unknown Acute Hyperglycemia due to type [...] Tab ORAL Every 6 Hours 20 Tablet 08/05/ 300/30 Mg * As Needed as 19 [...] Onset Date Status Hx Physical Abuse No 08/10/2018 11:22pm Not Applicable Not Applicable Smoking Status Start Date Stop Date Never smoker Hospital Discharge Instructions No hospital discharge instruction information available. Plan of Care Discharge Date 08/11/18 4:55am Instructions/Education Provided Abdominal Pain, Adult, Ejlf-[id number] Hypertension, Gvqc-sk-Bnsm Forms Provided Prescription Opioid Use Portal Welcome Letter Prescriptions See Medication Section Referrals FERNANDO HINOJOSA Address: [address] [place] [phone] Additional Instructions/Education TAKE MEDICATIONS PRESCRIBED. FOLLOW UP WITH PRIMARY CARE DOCTOR IN 2-3 DAYS. RETURN TO ER FOR ANY FURTHER EMERGENCIES. PRESCRIPTIONS: TYLENOL #3 ONE TO TWO TABLETS Q4H PRN #20 TABLETS PEPCID 40MG ONE TABLET QID #10 TABLETS ZOFRAN 4MG ODT ONE TO TWO TABLETS Q4H PRN #20 TABLETS Functional Status No functional status information available. Allergies, Adverse Reactions, Alerts Allergen Type Severity Reaction Status Last Updated Tramadol ([id number]) Allergy Intermediate Active 08/05/18 Immunizations No immunization information available. Vital Signs Acute Vital Signs Vital Response Date/Time Blood Pressure 173/75 mm Hg 08/11/2018 5:04am Pulse Pulse Rate (adult) 67 beats per minute (60 - 100) 08/11/2018 5:04am Respiratory Rate 11 breaths per minute (10 - 24) 08/11/2018 5:04am Temperature Source Oral 08/11/2018 5:04am Height 5 ft 5 in 08/10/2018 11:22pm Weight 123 lb 08/10/2018 11:22pm Body Mass Index 20.5 kg/m^2 08/10/2018 11:22pm Results Laboratory Results Test Name Result Units Flags Reference Collection Result Comments Date/Time Date/Time Urine Color YELLOW 08/03/2018 08/03/2018 7:47am 7:58am Urine Appearance CLOUDY A CLEAR 08/03/2018 08/03/2018 7:47am 7:58am Urine Glucose NEGATIVE NEGATIVE 08/03/2018 08/03/2018 7:47am 7:58am Urine Bilirubin NEGATIVE NEGATIVE 08/03/2018 08/03/2018 7:47am 7:58am Urine Ketones NEGATIVE NEGATIVE 08/03/2018 08/03/2018 7:47am 7:58am Urine Specific 1.020 1.003-1.03 08/03/2018 08/03/2018 [place] 0 7:47am 7:58am Urine Blood SMALL H [...] 1.27 mmoL/L 0.5-2.2 08/03/2018 08/03/2018 7:59am 8:24am HQ-Qbi-P-Type 64882 pg/mL H 0-125 08/05/2018 08/05/2018 Natriuretic 3:40am 5:04am Peptide White Blood Count 9.3 K/ul 4.0-11.5 08/11/2018 08/11/2018 12:42am 1:01am Red Blood Count 3.10 M/ul L 3.80-5.20 08/11/2018 08/11/2018 12:42am 1:01am Hemoglobin 8.5 g/dl L 10.5-15.7 08/11/2018 08/11/2018 12:42am 1:01am Hematocrit 27.4 % #L 34.0-50.0 08/11/2018 08/11/2018 12:42am 1:01am Mean Corpuscular 88.5 fl 78-98 08/11/2018 08/11/2018 Volume 12:42am 1:01am Mean Corpuscular 27.3 pg 26.2-33.4 08/11/2018 08/11/2018 Hemoglobin 12:42am 1:01am Mean Corpuscular 30.9 g/dl L 31.5-36.2 08/11/2018 08/11/2018 Hemoglobin Concent 12:42am 1:01am Red Cell 13.8 % 11.5-15.5 08/11/2018 08/11/2018 Distribution Width 12:42am 1:01am Platelet Count 232 K/ul 137-338 08/11/2018 08/11/2018 12:42am 1:01am Mean Platelet 8.4 fl 8.4-11.8 08/11/2018 08/11/2018 Volume 12:42am 1:01am Neutrophils (%) 77.2 % 44.4-80.1 08/11/2018 08/11/2018 (Auto) 12:42am 1:01am Lymphocytes (%) 14.8 % 10.0-50.0 08/11/2018 08/11/2018 (Auto) 12:42am 1:01am Monocytes (%) 6.7 % 3.6-12.0 08/11/2018 08/11/2018 (Auto) 12:42am 1:01am Eosinophils (%) 0.8 % 0.0-5.4 08/11/2018 08/11/2018 (Auto) 12:42am 1:01am Basophils (%) 0.5 % 0.0-0.79 08/11/2018 08/11/2018 (Auto) 12:42am 1:01am Random Glucose 183 mg/dL H 82-115 08/11/2018 08/11/2018 12:42am 1:22am Blood Urea 68 mg/dL H 8-23 08/11/2018 08/11/2018 Nitrogen 12:42am 1:22am Serum Osmolality 300 280-300 08/11/2018 08/11/2018 12:42am 1:22am Creatinine 6.9 mg/dL H* 0.50-0.90 08/11/2018 08/11/2018 Results have been broadcasted to patient's location and 12:42am 1:22am called to (LEONARDO). By PRICILA MCKINNEY 08/11/18 @0121 Results read back for confirmation. Glomerular 7.18 L 08/11/2018 08/11/2018 GFR RESULTS ARE REPORTED IN mL /min/1.73m2. Filtration Rate 12:42am 1:22am Calc Normal GFR: >60mL/min Moderately decreased GFR: 30-59 mL/min Severely decreased GFR: 15-29 mL/min Kidney Failure (or Dialysis): <15 mL/min The calculated eGFR is not valid for patients younger than 18 years or older than 75 years. BUN/Creatinine 9.9 L 12-20 08/11/2018 08/11/2018 Ratio 12:42am 1:22am Sodium Level 138 mmol/L 135-145 08/11/2018 08/11/2018 12:42am 1:22am Potassium Level 4.3 mmol/L 3.5-5.2 08/11/2018 08/11/2018 12:42am 1:22am Chloride Level 97 mmol/L L 98-108 08/11/2018 08/11/2018 12:42am 1:22am Carbon Dioxide 25 mmol/L 21-32 08/11/2018 08/11/2018 Level 12:42am 1:22am Anion Gap 20.3 mEq/L H 12-20 08/11/2018 08/11/2018 12:42am 1:22am Calcium Level 9.5 mg/dL 8.8-10.2 08/11/2018 08/11/2018 12:42am 1:22am Total Protein 7.7 g/dL 6.6-8.7 08/11/2018 08/11/2018 12:42am 1:22am Albumin 3.5 g/dL 3.5-5.2 08/11/2018 08/11/2018 12:42am 1:22am Globulin 4.2 gm/dL 08/11/2018 08/11/2018 12:42am 1:22am Albumin/Globulin 0.8 >1.0 08/11/2018 08/11/2018 Ratio 12:42am 1:22am Total Bilirubin < 0.3 mg/dL 0.0-1.2 08/11/2018 08/11/2018 12:42am 1:22am Aspartate Amino 14 U/L L 15-32 08/11/2018 08/11/2018 Transf (AST/SGOT) 12:42am 1:22am Alanine 11 U/L 0-33 08/11/2018 08/11/2018 Aminotransferase 12:42am 1:22am (ALT/SGPT) Lipase 24 U/L 13-60 08/11/2018 08/11/2018 12:42am 1:47am Total Alkaline 122 U/L H 35-105 08/11/2018 08/11/2018 Phosphatase 12:42am 1:22am Creatine Kinase 46 U/L 20-180 08/11/2018 08/11/2018 12:42am 1:22am Troponin I < 0.30 ng/mL 0.0-0.5 08/11/2018 08/11/2018 Published clinical studies have shown elevations of cTnI in 12:42am 1:19am patients with myocardial injury, as seen in unstable angina pectoris, cardiac contusions, and heart transplants. Elevations have also been seen in patients with rhabdomyolysis and polymyositis. Elevated troponin levels point to myocardial injury, but are not necessarily indicative of an ischemic mechanism. The term NJ should be used when there is evidence [...] examination and other findings. Creatine Kinase MB 2.6 ng/ml 0.0-3.6 08/11/2018 08/11/2018 12:42am 1:19am DIAGNOSTIC CITERIA: CKMB CKMB RELATIVE INDEX SUGGESTIVE OF NON-AMI < or=5 N/A DANIEL ZONE (INCONCLUSIVE) > 5 < or=4 SUGGESTIVE OF AMI >5 > 4 Myoglobin 122 ng/mL H 25-58 08/11/2018 08/11/2018 12:42am 1:18am Microbiology Results Procedure Source Organism/Result Collection Result Result Date/Time Date/Time Status Urine Culture Urine,Clean ESCHERICHIA COLI 08/03/2018 08/06/2018 Final Catch 7:47am 8:56am Procedures Procedure Status Date Provider(s) EMERGENCY DEPT [...] PANEL Completed 07/25/18 TX/PRO/DX INJ SAME DRUG LEARNING AND DEVELOPMENT DIRECTOR Completed 07/25/18 Completed 07/25/18 MORPHINE SULFATE INJECTION Completed 07/25/18 COMPLETE CBC W/AUTO DIFF WBC Completed 08/03/18 CREATINE MB FRACTION Completed 08/03/18 CREATINE MB FRACTION Completed 08/03/18 CLOSTRIDIUM AG IA Completed 08/03/18 ASSAY OF CK (CPK) Completed 08/03/18 ASSAY OF CK (CPK) Completed 08/03/18 URINE CULTURE/COLONY COUNT Completed 08/03/18 ASSAY GLUCOSE BLOOD QUANT Completed 08/03/18 ASSAY GLUCOSE BLOOD QUANT Completed 08/03/18 ASSAY GLUCOSE BLOOD QUANT Completed 08/03/18 ASSAY GLUCOSE BLOOD QUANT Completed 08/03/18 ASSAY OF LACTIC ACID Completed 08/03/18 ASSAY OF LIPASE Completed 08/03/18 OVA AND PARASITES SMEARS Completed 08/03/18 URINALYSIS AUTO W/SCOPE Completed 08/03/18 ROUTINE VENIPUNCTURE Completed 08/03/18 ASSAY OF TROPONIN QUANT Completed 08/03/18 ASSAY OF TROPONIN QUANT Completed 08/03/18 COMPREHEN METABOLIC PANEL Completed 08/03/18 SHIGA-LIKE TOXIN AG IA Completed 08/03/18 CULTURE AEROBIC IDENTIFY Completed 08/03/18 MICROBE SUSCEPTIBLE AYLIN Completed 08/03/18 FECES CULTURE AEROBIC BACT Completed 08/03/18 STOOL CULTR AEROBIC BACT EA Completed 08/03/18 STOOL CULTR AEROBIC BACT EA Completed 08/03/18 STOOL CULTR AEROBIC BACT EA Completed 08/03/18 URINE BACTERIA CULTURE Completed 08/03/18 LACTOFERRIN FECAL (QUAL) Completed 08/03/18 C DIFF AMPLIFIED PROBE Completed 08/03/18 C DIFF AMPLIFIED PROBE Completed 08/03/18 AGENT NOS ASSAY W/OPTIC Completed 08/03/18 STOOL CULTR AEROBIC BACT EA Completed 08/03/18 CT ABD & PELVIS W/O CONTRAST Completed 08/03/18 EMERGENCY DEPT VISIT Completed 08/03/18 EMERGENCY DEPT VISIT Completed 08/03/18 THER/PROPH/DIAG IV INF INIT Completed 08/03/18 TX/PRO/DX INJ NEW DRUG ADDON Completed 08/03/18 HYDRATE IV INFUSION ADD-ON Completed 08/03/18 ELECTROCARDIOGRAM TRACING Completed 08/03/18 TX/PRO/DX INJ NEW DRUG ADDON Completed 08/03/18 TX/PROPH/DG ADDL SEQ IV INF Completed 08/03/18 TX/PRO/DX INJ SAME DRUG LEARNING AND DEVELOPMENT DIRECTOR Completed 08/03/18 COMPLETE CBC W/AUTO DIFF WBC Completed 08/03/18 ASSAY GLUCOSE BLOOD QUANT Completed 08/03/18 ASSAY GLUCOSE BLOOD QUANT Completed 08/03/18 ASSAY GLUCOSE BLOOD QUANT Completed 08/03/18 ASSAY GLUCOSE BLOOD QUANT Completed 08/03/18 ROUTINE VENIPUNCTURE Completed 08/03/18 METABOLIC PANEL TOTAL CA Completed 08/03/18 TX/PROPH/DG ADDL SEQ IV INF Completed 08/03/18 TX/PRO/DX INJ SAME DRUG LEARNING AND DEVELOPMENT DIRECTOR Completed 08/03/18 COMPLETE CBC W/AUTO DIFF WBC Completed 08/03/18 ASSAY GLUCOSE BLOOD QUANT Completed 08/03/18 ASSAY GLUCOSE BLOOD QUANT Completed 08/03/18 ROUTINE VENIPUNCTURE Completed 08/03/18 COMPREHEN METABOLIC PANEL Completed 08/03/18 ASSAY OF NATRIURETIC PEPTIDE Completed 08/03/18 TX/PRO/DX INJ SAME DRUG LEARNING AND DEVELOPMENT DIRECTOR Completed 08/03/18 Completed 08/03/18 MORPHINE SULFATE INJECTION Completed 08/03/18 MORPHINE SULFATE INJECTION Completed 08/03/18 HOSPITAL OBSERVATION SERVICES PER HOUR Completed 08/03/18 Completed 08/03/18 DIALYSIS ON ESRD PT Completed 08/03/18 DIALYSIS ON ESRD PT Completed 08/03/18 Computed tomography of abdomen and pelvis Completed 07/25/18 JAYDEN MENDEZ MD without contrast Computed tomography of abdomen and pelvis Completed 08/03/18 JAYDEN MENDEZ MD without contrast Encounters Encounter Location Arrival/Admit Date Discharge/Depart Date Attending Provider Departed [facility] 08/10/18 10:58pm 08/11/18 4:55am ANDRE VARELA Emergency [facility] Discharged [facility] 08/03/18 8:24am 08/05/18 4:55pm HAWK RUIZ Inpatient (obs[facility] Departed [facility] 07/25/18 4:39pm 07/25/18 8:32pm JAYDEN MENDEZ Emergency Room [facility] Recent Diagnosis
--- OUTSIDE RECORDS SUMMARY | 2019-01-27 11:19 | XMS REPORT | Encounter Summary ---
:1950 Author Reason for Visit Follow up transitional care from hospital discharge admited on Instructions 1. Malignant hypertension 2. End stage renal failure on dialysis 3. Vitamin D deficiency calcium + phosphate, serum 4. Type II diabetes mellitus uncontrolled HbA1c (hemoglobin A1c), blood BMP, serum or plasma CBC lipid panel, serum TSH, serum or plasma lipid panel, blood 5. Chronic constipation constipation: care instructions Discussion Note Advised to take all medications as instructed monitor BP regularly keep a diary and bring next visit . Heart healthy diet discussed in detail . Plan of Care Patient Instructions We've given her Linzess 290 mg from office samples Lot # [id number] , Reminders Provider Appointments FOLLOW-UP PIERRE Mckeon 08/29/2018 9:00AM Lab Calcium + [facility] Phosphate, Serum 08/14/2018 [facility] (Labs) (Xray) HbA1C [facility] (Hemoglobin a1C), 08/14/2018 [facility] (Labs) Blood (Xray) BMP, Serum [facility] or Plasma 08/14/2018 [facility] (Labs) (Xray) Cbc [facility] 08/14/2018 [facility] (Labs) (Xray) Lipid Panel, [facility] Serum 08/14/2018 [facility] (Labs) (Xray) TSH, Serum [facility] or Plasma 08/14/2018 [facility] (Labs) (Xray) Lipid Panel, [facility] Blood 08/14/2018 [facility] (Labs) (Xray) Referral None recorded. Procedures None recorded. Surgeries None recorded. Imaging None recorded. Medications Name Start Date acetaminophen 300 mg-codeine 30 mg tablet atorvastatin 80 mg tablet carvedilol 25 mg tablet ciprofloxacin 500 mg tablet 08/14/2018 clonidine 0.2 mg/24 hr weekly transdermal patch clonidine HCl 0.2 mg tablet esomeprazole magnesium 40 mg capsule,delayed release famotidine 40 mg tablet furosemide 20 mg tablet hydralazine 50 mg tablet labetalol 200 mg tablet Lantus U-100 Insulin 100 unit/mL subcutaneous solution metronidazole 500 mg tablet nitrofurantoin macrocrystal 100 mg capsule sucralfate 1 gram tablet Medications Administered None recorded. Vitals Height Weight BMI Blood Pressure 65 in 116 lbs 9.6 oz 19.4 kg/m2 186/77 mm[Hg] Lab Results Date Name Specimen Result Interpretation Description Value Range Status Address 08/10/2018 CBC W/ Normal White 9.3 K/uL 4.0-11.5 Final [facility] Auto Diff Blood Count K/uL [facility] (Lab): [address] [place] [address] Low Red Blood 3.10 M/uL 3.80-5.20 Final [facility] Count M/uL [facility] (Lab): [address] [place] [address] Low Hemoglobin 8.5 g/dL 10.5-15.7 Final [facility] g/dL [facility] (Lab): [address] [place] [address] Normal Hematocrit 27.4 % 34.0-50.0 Final [facility] % [facility] (Lab): [address] [place] [address] Normal Mean 88.5 fL 78-98 fL Final [facility] Corpuscular [facility] Volume [facility] (Lab): [address] [place] [address] Normal Mean 27.3 pg 26.2-33.4 Final [facility] Corpuscular pg [facility] Hemoglobin [facility] (Lab): [address] [place] [address] Low Mean 30.9 g/dL 31.5-36.2 Final [facility] Corpuscular g/dL [facility] HGB [facility] (Lab): [address] [place] [address] Normal Red Cell 13.8 % 11.5-15.5 Final [facility] Distributio % [facility] n [facility] (Lab): [address] [place] [address] Normal Platelet 232 K/uL 137-338 Final [facility] Count K/uL [facility] (Lab): [address] [place] [address] Normal Mean 8.4 fL 8.4-11.8 Final [facility] Platelet fL [facility] (Lab): [address] [place] [address] Normal Neutrophil 77.2 % 44.4-80.1 Corrected [facility] s % % [facility] (Lab): [address] [place] [address] Normal Lymphocyte 14.8 % 10.0-50.0 Final [facility] % % [facility] (Lab): [address] [place] [address] [facility] % 6.7 % 3.6-12.0 Final [facility] % [facility] (Lab): [address] [place] [address] Normal Eos % 0.8 % 0.0-5.4 % Final [facility] (Lab): [address] [place] [address] Normal Basophil % 0.5 % 0.0-0.79 Final [facility] % [facility] (Lab): [address] [place] [address] 08/10/2018 Differenti Normal Neutrophil Incomplete [facility] al Panel, s [facility] Blood [facility] (Lab): [address] [place] [address] Normal Band Incomplete [facility] (Lab): [address] [place] [address] Normal Lymphocyte Incomplete [facility] (Lab): [address] [place] [address] Normal Atypical Incomplete [facility] Lymph [facility] (Lab): [address] [place] [address] Normal Monocyte Incomplete [facility] (Lab): [address] [place] [address] Normal Eosinophil Incomplete [facility] (Lab): [address] [place] [address] Normal Basophil Incomplete [facility] (Lab): [address] [place] [address] Normal Metamyeloc Incomplete [facility] yte [facility] (Lab): [address] [place] [address] Normal Myelocyte Incomplete [facility] (Lab): [address] [place] [address] Normal Platelet Incomplete [facility] Estimate [facility] (Lab): [address] [place] [address] Normal Platelet Incomplete [facility] Morphology [facility] (Lab): [address] [place] [address] Normal Poikilocyt Incomplete [facility] osis [facility] (Lab): [address] [place] [address] Normal Anisocytos Incomplete [facility] is [facility] (Lab): [address] [place] [address] Normal Macrocytos Incomplete [facility] is [facility] (Lab): [address] [place] [address] Normal Toxic Incomplete [facility] Granulation [facility] (Lab): [address] [place] [address] Normal Hypersegme Incomplete [facility] nted Polys [facility] (Lab): [address] [place] [address] Normal Smudge Incomplete [facility] Cells [facility] (Lab): [address] [place] [address] 08/10/2018 Troponin Normal Cardiac <0.30 0.0-0.5 Final [facility] I, Troponin I NG/mL NG/mL [facility] Cardiac, Medical Quant, Center Blood (Lab): [address] [place] [address] 08/10/2018 CK-mb, Normal Mass 2.6 NG/mL 0.0-3.6 Final [facility] Blood Creatinine NG/mL [facility] Kinase-mb [facility] (Lab): [address] [place] [address] 08/10/2018 Myoglobin, High Myoglobin 122 NG/mL 25-58 Final [facility] Serum or NG/mL [facility] Plasma [facility] (Lab): [address] [place] [address] 08/10/2018 CMP, Serum High Glucose 183 mg/dL 82-115 Final [facility] or Plasma mg/dL [facility] (Lab): [address] [place] [address] High Blood Urea 68 mg/dL 8-23 Final [facility] Nitrogen mg/dL [facility] (Lab): [address] [place] [address] Normal Osmolality 300 280-300 Final [facility] Calculated, [facility] Serum [facility] (Lab): [address] [place] [address] CRITICAL Creatinine 6.9 mg/dL 0.50-0.90 Final [facility] HIGH mg/dL [facility] (Lab): [address] [place] [address] Low Glomerular 7.18 Final [facility] Filtration [facility] (Lab): [address] [place] [address] Low BUN/creati 9.9 12-20 Final [facility] nine Ratio [facility] (Lab): [address] [place] [address] Normal Sodium 138 135-145 Final [facility] Level mmol/L mmol/L [facility] (Lab): [address] [place] [address] Normal Potassium 4.3 3.5-5.2 Final [facility] Level mmol/L mmol/L [facility] (Lab): [address] [place] [address] Low Chloride 97 mmol/L 98-108 Final [facility] Level mmol/L [facility] (Lab): [address] [place] [address] Normal Co2 25 mmol/L 21-32 Final [facility] mmol/L [facility] (Lab): [address] [place] [address] High Anion Gap 20.3 12-20 Final [facility] mEq/L mEq/L [facility] (Lab): [address] [place] [address] Normal Calcium 9.5 mg/dL 8.8-10.2 Final [facility] Level mg/dL [facility] (Lab): [address] [place] [address] Normal Total 7.7 g/dL 6.6-8.7 Final [facility] Protein g/dL [facility] (Lab): [address] [place] [address] Normal Albumin 3.5 g/dL 3.5-5.2 Final [facility] g/dL [facility] (Lab): [address] [place] [address] Normal Globulin 4.2 gm/dL Final [facility] (Lab): [address] [place] [address] Normal A/g Ratio 0.8 >1.0 Final [facility] (Lab): [address] [place] [address] Normal Bilirubin, <0.3 0.0-1.2 Final [facility] total mg/dL mg/dL [facility] (Lab): [address] [place] [address] Low AST/SGOT 14 U/L 15-32 U/L Final [facility] (Lab): [address] [place] [address] Normal ALT/SGPT 11 U/L 0-33 U/L Final [facility] (Lab): [address] [place] [address] High Alkaline 122 U/L 35-105 Final [facility] Phosphatase U/L [facility] (Lab): [address] [place] [address] 08/10/2018 CK Normal Creatine 46 U/L 20-180 Final [facility] (Creatine Kinase U/L [facility] Serum (Lab): [address] [place] [address] 08/10/2018 Lipase, Normal Lipase 24 U/L 13-60 U/L Final [facility] Serum or [facility] Plasma [facility] (Lab): [address] [place] [address] 08/04/2018 CBC W/ Low White 3.5 K/uL 4.0-11.5 Final [facility] Auto Diff Blood Count K/uL [facility] (Lab): [address] [place] [address] Low Red Blood 3.52 M/uL 3.80-5.20 Final [facility] Count M/uL [facility] (Lab): [address] [place] [address] Low Hemoglobin 10.0 g/dL 10.5-15.7 Final [facility] g/dL [facility] (Lab): [address] [place] [address] Low Hematocrit 32.2 % 34.0-50.0 Final [facility] % [facility] (Lab): [address] [place] [address] Normal Mean 91.3 fL 78-98 fL Final [facility] Corpuscular [facility] Volume [facility] (Lab): [address] [place] [address] Normal Mean 28.4 pg 26.2-33.4 Final [facility] Corpuscular pg [facility] Hemoglobin [facility] (Lab): [address] [place] [address] Low Mean 31.1 g/dL 31.5-36.2 Final [facility] Corpuscular g/dL [facility] (Lab): [address] [place] [address] Normal Red Cell 14.2 % 11.5-15.5 Final [facility] Distributio % [facility] n [facility] (Lab): [address] [place] [address] Low Platelet 91 K/uL 137-338 Final [facility] Count K/uL [facility] (Lab): [address] [place] [address] Normal Mean 10.0 fL 8.4-11.8 Final [facility] Platelet fL [facility] (Lab): [address] [place] [address] Normal Neutrophil 70.0 % 44.4-80.1 Corrected [facility] s % % [facility] (Lab): [address] [place] [address] Normal Lymphocyte 16.6 % 10.0-50.0 Final [facility] % % [facility] (Lab): [address] [place] [address] [facility] % 11.3 % 3.6-12.0 Final [facility] % [facility] (Lab): [address] [place] [address] Normal Eos % 0.5 % 0.0-5.4 % Final [facility] (Lab): [address] [place] [address] High Basophil % 1.7 % 0.0-0.79 Final [facility] % [facility] (Lab): [address] [place] [address] 08/04/2018 BMP, Serum High Glucose 144 mg/dL 82-115 Final [facility] or Plasma mg/dL [facility] (Lab): [address] [place] [address] CRITICAL Blood Urea 103 mg/dL 8-23 Final [facility] HIGH Nitrogen mg/dL [facility] (Lab): [address] [place] [address] High Osmolality 315 280-300 Final [facility] Calculated, [facility] Serum [facility] (Lab): [address] [place] [address] CRITICAL Creatinine 9.0 mg/dL 0.50-0.90 Final [facility] HIGH mg/dL [facility] (Lab): [address] [place] [address] Low Glomerular 5.28 Final [facility] Filtration [facility] (Lab): [address] [place] [address] Low BUN/creati 11.4 12-20 Final [facility] nine Ratio [facility] (Lab): [address] [place] [address] Normal Sodium 140 135-145 Final [facility] Level mmol/L mmol/L [facility] (Lab): [address] [place] [address] Normal Potassium 3.7 3.5-5.2 Final [facility] Level mmol/L mmol/L [facility] (Lab): [address] [place] [address] Normal Chloride 103 98-108 Final [facility] Level mmol/L mmol/L [facility] (Lab): [address] [place] [address] Low Co2 15 mmol/L 21-32 Final [facility] mmol/L [facility] (Lab): [address] [place] [address] High Anion Gap 25.7 12-20 Final [facility] mEq/L mEq/L [facility] (Lab): [address] [place] [address] Low Calcium 7.4 mg/dL 8.8-10.2 Final [facility] Level mg/dL [facility] (Lab): [address] [place] [address] 08/03/2018 CBC W/ Normal White 4.5 K/uL 4.0-11.5 Final [facility] Auto Diff Blood Count K/uL [facility] (Lab): [address] [place] [address] Normal Red Blood 4.06 M/uL 3.80-5.20 Final [facility] Count M/uL [facility] (Lab): [address] [place] [address] Normal Hemoglobin 11.2 g/dL 10.5-15.7 Final [facility] g/dL [facility] (Lab): [address] [place] [address] Normal Hematocrit 36.6 % 34.0-50.0 Final [facility] % [facility] (Lab): [address] [place] [address] Normal Mean 90.2 fL 78-98 fL Final [facility] Corpuscular [facility] (Lab): [address] [place] [address] Normal Mean 27.6 pg 26.2-33.4 Final [facility] Corpuscular pg [facility] Hemoglobin [facility] (Lab): [address] [place] [address] Low Mean 30.6 g/dL 31.5-36.2 Final [facility] Corpuscular g/dL [facility] (Lab): [address] [place] [address] Normal Red Cell 14.2 % 11.5-15.5 Final [facility] Distributio % [facility] n [facility] (Lab): [address] [place] [address] Low Platelet 101 K/uL 137-338 Final [facility] Count K/uL [facility] (Lab): [address] [place] [address] Normal Mean 9.3 fL 8.4-11.8 Final [facility] Platelet fL [facility] Volume [facility] (Lab): [address] [place] [address] High Neutrophil 80.7 % 44.4-80.1 Corrected [facility] s % % [facility] (Lab): [address] [place] [address] Normal Lymphocyte 10.4 % 10.0-50.0 Final [facility] % % [facility] (Lab): [address] [place] [address] [facility] % 7.9 % 3.6-12.04 Final [facility] % [facility] (Lab): [address] [place] [address] Normal Eos % 0.2 % 0.0-5.41 Final [facility] % [facility] (Lab): [address] [place] [address] High Basophil % 0.8 % 0.0-0.79 Final [facility] % [facility] (Lab): [address] [place] [address] 08/03/2018 Differenti Normal Neutrophil Incomplete [facility] al Panel, s [facility] Blood [facility] (Lab): [address] [place] [address] Normal Lymphocyte Incomplete [facility] (Lab): [address] [place] [address] Normal Monocyte Incomplete [facility] (Lab): [address] [place] [address] Normal Platelet Incomplete [facility] Estimate [facility] (Lab): [address] [place] [address] 08/03/2018 Urinalysis Normal Color, yellow Final [facility] , Complete Urine [facility] (Lab): [address] [place] [address] ABNORMAL Appearance cloudy clear Final [facility] , Urine [facility] (Lab): [address] [place] [address] Normal Urine negative negative Final [facility] Glucose [facility] (Lab): [address] [place] [address] Normal Bilirubin, negative negative Final [facility] Urine [facility] (Lab): [address] [place] [address] Normal Ketone, negative negative Final [facility] Urine [facility] (Lab): [address] [place] [address] Normal Specific 1.020 1.003-1.0 Final [facility] [place],uri 30 [facility] (Lab): [address] [place] [address] Blood small negative Final [facility] Urine [facility] (Lab): [address] [place] [address] Normal pH,urine 5.500 5-9 Final [facility]erm[facility] (Lab): [address] [place] [address] Protein =3+ (>300 negative Final [facility] Urine (UA) [facility] (Lab): [address] [place] [address] Normal Urobilinog 0.2 0.2-1.0 Final [facility] en, Urine E.U./dL E.U./dL [facility] [place] (Lab): [address] [place] [address] Normal Nitrate, positive negative Final [facility] Urine [facility] (Lab): [address] [place] [address] Urine trace negative Final [facility] Leukocyte [facility] (Lab): [address] [place] [address] Normal RBC, Urine =15-19 0-5 Final [facility] /[hpf] /[hpf] [facility] (Lab): [address] [place] [address] High WBC, Urine =15-19 0-5 Final [facility] /[hpf] /[hpf] [facility] [place] (Lab): [address] [place] [address] Normal Epithelial =0-5 0-5 Final [facility] Cell /[hpf] /[hpf] [facility] (Lab): [address] [place] [address] Bacteria, large none Final [facility] Urine /[hpf] detect Regional /[hpf] [facility] (Lab): [address] [place] [address] Normal Urine yes Final [facility] Culture [facility] (Lab): [address] [place] [address] ABNORMAL Urine calcium none Final [facility] Crystals oxalate 4 detect Regional /[hpf] /[hpf] [facility] (Lab): [address] [place] [address] 08/03/2018 CMP, Serum High Glucose 166 mg/dL 82-115 Final [facility] or Plasma mg/dL [facility] (Lab): [address] [place] [address] Normal Blood Urea 93 mg/dL 8-23 Final [facility] Nitrogen mg/dL [facility] (Lab): [address] [place] [address] High Osmolality 312 280-300 Final [facility] Calculated, [facility] Serum [facility] (Lab): [address] [place] [address] Normal Creatinine 8.8 mg/dL 0.50-0.90 Final [facility] mg/dL [facility] (Lab): [address] [place] [address] Low Glomerular 5.42 Final [facility] Filtration [facility] (Lab): [address] [place] [address] Low BUN/creati 10.6 12-20 Final [facility] nine Ratio [facility] (Lab): [address] [place] [address] Normal Sodium 140 135-145 Final [facility] Level mmol/L mmol/L [facility] (Lab): [address] [place] [address] Normal Potassium 3.5 3.5-5.2 Final [facility] Level mmol/L mmol/L [facility] (Lab): [address] [place] [address] Normal Chloride 101 98-108 Final [facility] Level mmol/L mmol/L [facility] (Lab): [address] [place] [address] Low Co2 19 mmol/L 21-32 Final [facility] mmol/L [facility] (Lab): [address] [place] [address] High Anion Gap 23.5 12-20 Final [facility] mEq/L mEq/L [facility] (Lab): [address] [place] [address] Low Calcium 8.5 mg/dL 8.8-10.2 Final [facility] Level mg/dL [facility] (Lab): [address] [place] [address] Normal Total 7.4 g/dL 6.6-8.7 Final [facility] Protein g/dL [facility] (Lab): [address] [place] [address] Normal Albumin 3.8 g/dL 3.5-5.2 Final [facility] g/dL [facility] (Lab): [address] [place] [address] Normal Globulin 3.6 gm/dL Final Jerm[facility] (Lab): [address] [place] [address] Normal A/g Ratio 1.1 >1.0 Final [facility]erm[facility] (Lab): [address] [place] [address] Normal Bilirubin, 0.4 mg/dL 0.0-1.2 Final [facility] total mg/dL [facility] (Lab): [address] [place] [address] Low AST/SGOT 12 U/L 15-32 U/L Final [facility] (Lab): [address] [place] [address] Normal ALT/SGPT 11 U/L 0-33 U/L Final [facility] (Lab): [address] [place] [address] Normal Alkaline 78 U/L 35-105 Final [facility] Phosphatase U/L [facility] , Total [facility] (Lab): [address] [place] [address] 08/03/2018 Lipase, Low Lipase 10 U/L 13-60 U/L Final [facility] Serum or [facility] Plasma [facility] (Lab): [address] [place] [address] 08/03/2018 CK Normal Creatine 46 U/L 20-180 Final [facility] (Creatine Kinase U/L Regional Kinase), [facility] Total, [place] Serum (Lab): [address] [place] [address] 08/03/2018 Troponin Normal Cardiac <0.30 0.0-0.5 Final [facility] I, Troponin I NG/mL NG/mL [facility] Cardiac, Medical Quant, Center Blood (Lab): [address] [place] [address] 08/03/2018 CK-mb, Normal Mass 2.9 NG/mL 0.0-3.6 Final [facility] Blood Creatinine NG/mL [facility] (Lab): [address] [place] [address] 08/03/2018 Lactic Normal Lactic 1.27 0.5-2.2 Final [facility] Acid, Acid mmol/L mmol/L [facility] Blood [facility] (Lab): [address] [place] [address] 08/03/2018 C Diff Results Final [facility] Toxin A+B, [facility] [facility] e, Stool Center (Lab): [address] [place] [address] 08/03/2018 Mcdiff Results Final Jermyn Toxin [facility] (Lab): [address] [place] [address] 08/03/2018 CK Normal Creatine 34 U/L 20-180 Final Jermyn (Creatine Kinase U/L Regional Kinase), Medical Total, [place] Serum (Lab): [address] [place] [address] 08/03/2018 Troponin Normal Cardiac <0.30 0.0-0.5 Final Jermyn I, Troponin I NG/mL NG/mL [facility] Cardiac, Medical Quant, Center Blood (Lab): [address] [place] [address] 08/03/2018 CK-mb, Normal Mass 2.4 NG/mL 0.0-3.6 Final Jermyn Blood Creatinine NG/mL [facility] (Lab): [address] [place] [address] 08/03/2018 Culture, Bacteria Final Jermyn Urine Ur Cult [facility] (Lab): [address] [place] [address] 08/03/2018 Wbc, Stool Results Final [facility] Center (Lab): [address] [place] [address] 08/03/2018 Antibiotic Susceptible Gentamicin <4 ug/mL Not Jermyn Sensitivit Islt Magdi Reported [facility] y Testing, Medical Isolate Center (Lab): [address] [place] [address] Resistant Ampicillin >16 ug/mL Not Jermyn Islt Magdi Reported [facility] (Lab): [address] [place] [address] Resistant Cefazolin >16 ug/mL Not Jermyn Islt Magdi Reported [facility] (Lab): [address] [place] [address] Resistant Tmp Smx =2/38 Not Jermyn Islt Magdi ug/mL Reported [facility] (Lab): [address] [place] [address] Resistant Tetracycli >8 ug/mL Not Jermyn ne Islt Magdi Reported [facility] (Lab): [address] [place] [address] Intermediate Amoxicilli =16/8 Not Jermyn n+clav Islt ug/mL Reported [facility] (Lab): [address] [place] [address] Resistant Tobramycin >8 ug/mL Not Jermyn Islt Magdi Reported [facility] (Lab): [address] [place] [address] Susceptible Nitrofuran <32 ug/mL Not Jermyn toin Islt Reported [facility] (Lab): [address] [place] [address] Resistant Cefepime <8 ug/mL Not Jermyn Islt Magdi Reported [facility] (Lab): [address] [place] [address] Resistant Levofloxac >4 ug/mL Not Jermyn in Islt Magdi Reported [facility] (Lab): [address] [place] [address] Susceptible Pip+tazo <16 ug/mL Not Jermyn Islt Magdi Reported [facility] (Lab): [address] [place] [address] Resistant Ciprofloxa >2 ug/mL Not Jermyn paola Islt Reported [facility] (Lab): [address] [place] [address] Susceptible Imipenem <4 ug/mL Not Jermyn Islt Magdi Reported [facility] (Lab): [address] [place] [address] Intermediate Ampicillin =16/8 Not Jermyn +sulbac ug/mL Reported [facility] (Lab): [address] [place] [address] Susceptible Ertapenem <2 ug/mL Not Jermyn Islt Magdi [facility] (Lab): [address] [place] [address] Resistant Aztreonam <8 ug/mL Not Jermyn Islt Magdi Reported [facility] (Lab): [address] [place] [address] Resistant [id number] >16 ug/mL Not Jermyn Reported [facility] (Lab): [address] [place] [address] Susceptible Meropenem <4 ug/mL Not Jermyn Islt Magdi Reported [facility] (Lab): [address] [place] [address] 08/03/2018 Ova + O+P Xxx final Final Jermyn Parasites, Micro report [facility] Unspecifie Medical d Specimen Center (Lab): [address] [place] [address] Allergies Code Code System Name Reaction Severity Status Onset 33380 RxNorm Tramadol Rash Moderate to Active Severe Problems Name Status Onset Date Source Diabetes Mellitus Active 08/14/2018 Hypertensive Disorder Active 08/14/2018 Renal Failure Syndrome Active 08/14/2018 Procedures Date Name Performed by Cataract Surgery Complex Information not available Cholecystectomy Information not available Appendectomy Information not available Hysterectomy Information not available Vaccine List Vaccine Type influenza, injectable, quadrivalent 03/04/2018 pneumococcal polysaccharide [id number] 03/04/2018 Social History Smoking Status Former Smoker Past Encounters 08/14/2018 Malignant Hypertension; End Stage Renal Failure on Dialysis; Vitamin D Deficiency; Type II Diabetes Mellitus Uncontrolled; Chronic Constipation PIERRE Mckeon: [address], [address], [place] [address], Ph. History of Present Illness Diabetes F/U Reported By: Patient HPI: Context: normal range of home blood sugars (in the low 100s), seeing eye doctor regularly, checking feet regularly, taking aspirin daily, not missing doses of medications, no side effects from medications. Associated Symptoms: no weight gain, no weight loss, no dizziness, no sweats, no headaches, no confusion, no increased thirst, no increased appetite, no increased urination, no blurred vision, no numbness of feet, no calluses on feet Constipation Reported By: Patient HPI: Quality: worsening, hard, straining, painful, decreased frequency. Severity: severe. Duration: present for 6-12 months. Onset/Timing: less than once a week. Context no recent opiates, no recent surgery, no anemia, normal toileting ability, no history of IBS, no history of Hirschsprung's, no family history of colon polyps or cancer, no history of Diverticulosis, no abnormal imaging, stress, history of chronic idiopathic constipation, history of colonoscopy. Alleviating Factors: ; get minimal relief with laxitives . Associated Symptoms: abdominal pain, excess gas, bloating, cramping Hypertension F/U Reported By: Patient HPI: Lifestyle: limiting/avoiding salt. Medications: taking medications as directed, no side effects from medication Note: Ms. Mancuso says that she is feeling ok since her discharge but need something to help her have aBM ; no BM in the last 6 days usually has to take a laxative but even they only help a liitle . Review of Systems General Adult ROS Reported By: Patient Constitutional: Constitutional: no fever, no night sweats, no significant weight gain, no significant weight loss, exercise intolerance Cardiovascular: Cardiovascular: no chest pain, no arm pain on exertion, no shortness of breath when walking, no shortness of breath when lying down, no palpitations, no known heart murmur Respiratory: Respiratory: no cough, no wheezing, no shortness of breath, no coughing up blood Gastrointestinal: Gastrointestinal: no abdominal pain, no vomiting, normal appetite, no diarrhea, not vomiting blood Genitourinary: Genitourinary: no incontinence, no difficulty urinating, no hematuria, no increased frequency Musculoskeletal: Musculoskeletal: no muscle aches, no muscle weakness, no arthralgias/joint pain, no back pain, no swelling in the extremities Psychiatric: Psych: no depression, feeling safe in relationship, no alcohol abuse Physical Exam General Adult Exam - Female Reported By: Patient Constitutional: General Appearance: healthy-appearing, well-nourished, well-developed. Level of Distress: NAD. Ambulation: ambulating normally Psychiatric: Insight: good judgement. Mental Status: active and alert, normal mood, normal affect. Orientation: to time, to place, to person. Memory: recent memory normal, remote memory normal Neck: Neck: supple, trachea midline, no masses, FROM, no carotid bruits. Lymph Nodes: no cervical LAD, no supraclavicular LAD, no axillary LAD, no inguinal LAD. Thyroid: no enlargement, non-tender, no nodules Lungs: Respiratory effort: no dyspnea. Percussion: no dullness, flatness, or hyperresonance. Auscultation: breath sounds normal, good air movement, CTA except as noted, no wheezing, no rales/crackles, no rhonchi Cardiovascular: Apical Impulse: not displaced. Heart Auscultation: RRR, normal S1, normal S2, no murmurs, no rubs, no gallops. Neck vessels: no carotid bruits. Pulses including femoral / pedal: normal throughout Abdomen: Bowel Sounds: normal. Inspection and Palpation: soft, non-distended, no tenderness, no guarding, no rebound tenderness, no masses, no CVA tenderness. Liver: non-tender, no hepatomegaly. Spleen: non-tender, no splenomegaly. Hernia: none palpable Neurologic: Gait and Station: normal gait, normal station. Cranial Nerves: grossly intact. Sensation: grossly intact, monofilament test intact. Coordination and Cerebellum: no tremor
--- OUTSIDE RECORDS SUMMARY | 2019-01-27 11:19 | XMS REPORT | Continuity of Care Document ---
:1950 Author Organization [facility] Address [address] [place] [address] Phone Unavailable Care Team Providers Name Role Phone FERNANDO HINOJOSA Primary Care Physician Insurance Providers Guarantor Cory Smith Address [address] [place] [address] Email NONE Payer Medicare Policy Number [id number] Subscriber's Name Cory Smith Relationship Self / Same As Patient Group Number NA Group Name NA Payer [facility] Policy Number [id number] Subscriber's Name Cory Smith Relationship Self / Same As Patient Group Number NA Group Name NA Advance Directives Directive Response Recorded Date/Time Advance Directives No 07/10/14 6:33pm Advance Directive on File No 08/18/18 7:45am Directive to Physicians/Living Will No 07/10/14 6:33pm Health Care Proxy No 07/10/14 6:33pm Organ Donor No 07/10/14 6:33pm Medical Power of Supervisor Gas Meter Repair No 07/10/14 6:33pm Patient/Family Given Education Material R/T Y - 08/18/18...[place] 08/18/18 8: 41am Directives? Chief Complaint and Reason for Visit Chief Complaint Trauma Reason for Visit Contusion of left chest wall ESRD on dialysis Left knee pain Hip pain, left Fall Musculoskeletal strain Problems Medical Problem Onset Date Status Abdominal [...] Acute Hypoglycemia Unknown Acute Hypokalemia Unknown Acute [id number] Unknown Acute UTI (urinary tract infection) Unknown Uncontrolled diabetes mellitus Unknown Acute Uncontrolled hypertension Unknown Acute Past Problems Medical Problem Onset Date Status Abdominal pain Unknown Acute Abdominal pain Unknown Acute Acute on chronic renal insufficiency Unknown Acute CHF (congestive heart failure) Unknown Acute Chronic renal failure Unknown Acute Congestive heart failure Unknown Acute Constipation Unknown Acute Contusion of left chest wall Unknown Acute Degenerative arthritis of knee Unknown Acute Dizzy Unknown Acute ESRD (end stage renal disease) on dialysis Unknown Acute ESRD needing dialysis Unknown Acute ESRD on dialysis Unknown Acute ESRD on dialysis Unknown Acute ESRD on dialysis Unknown Acute ESRD on dialysis Unknown Acute ESRD on dialysis Unknown Acute Esophagitis Unknown Acute Fall Unknown Acute Hemorrhage of cyst of [place] kidney Unknown Acute Hip pain, left Unknown Acute Hyperglycemia due to type 2 diabetes mellitus Unknown Acute Hypertension, uncontrolled Unknown Acute Hypertension, uncontrolled Unknown Acute Ketonuria Unknown Acute Labile hypertension Unknown Acute Left knee pain Unknown Acute Left knee pain Unknown Acute Malaise Unknown Acute Moderate hypertension control Unknown Acute Musculoskeletal strain Unknown Acute Nausea Unknown Acute Nausea & [...] Onset Date Status Hx Physical Abuse No 08/18/2018 7:45am Not Applicable Not Applicable Smoking Status Start Date Stop Date Never smoker Hospital Discharge Instructions No hospital discharge instruction information available. Plan of Care Discharge Date 08/18/18 10:40am Instructions/Education Provided Fall Prevention in the Home, [id number] Musculoskeletal Pain Chest Contusion, Adult Knee Pain, Adult, [id number] Forms Provided Portal Welcome Letter Prescriptions See Medication Section Referrals FERNANDO HINOJOSA Address: [address] [place] [address] Additional Instructions/Education CONTINUE YOUR DIALYSIS & PAIN MEDS. SEE YOUR PCP FOR RECHECK IF NOT BETTER WITHIN 4 DAYS Functional Status No functional status information available. Allergies, Adverse Reactions, Alerts Allergen Type Severity Reaction Status Last Updated Tramadol ([id number]) Allergy Intermediate Active 08/05/18 Immunizations No immunization information available. Vital Signs Acute Vital Signs Vital Response Date/Time Blood Pressure 180/66 mm Hg 08/18/2018 10:41am Pulse Pulse Rate (adult) 58 beats per minute (60 - 100) 08/18/2018 10:41am Respiratory Rate 18 breaths per minute (10 - 24) 08/18/2018 10:41am Temperature Source Oral 08/18/2018 7:45am Height 5 ft 5 in 08/18/2018 7:45am Weight 120 lb 08/18/2018 7:45am Body Mass Index 20.0 kg/m^2 08/18/2018 7:45am Results Laboratory Results Test Name Result Units Flags Reference Collection Result Comments Date/Time Date/Time Urine Color YELLOW 08/03/2018 08/03/2018 7:47am 7:58am Urine Appearance CLOUDY A CLEAR 08/03/2018 08/03/2018 7:47am 7:58am Urine Glucose NEGATIVE NEGATIVE 08/03/2018 08/03/2018 7:47am 7:58am Urine Bilirubin NEGATIVE NEGATIVE 08/03/2018 08/03/2018 7:47am 7:58am Urine Ketones NEGATIVE NEGATIVE 08/03/2018 08/03/2018 7:47am 7:58am Urine Specific 1.020 1.003-1.03 08/03/2018 08/03/2018 [place] 0 7:47am 7:58am Urine Blood SMALL H [...] 1.27 mmoL/L 0.5-2.2 08/03/2018 08/03/2018 7:59am 8:24am KS-Rna-U-Type 61858 pg/mL H 0-125 08/05/2018 08/05/2018 Natriuretic 3:40am 5:04am Peptide Total Protein 7.7 g/dL 6.6-8.7 08/11/2018 08/11/2018 [...] indicative of an ischemic mechanism. The term ND should be used when there is evidence [...] ng/mL H 25-58 08/11/2018 08/11/2018 12:42am 1:18am White Blood Count 7.3 K/ul 4.0-11.5 08/14/2018 08/14/2018 12:15pm 3:33pm Red Blood Count 4.28 M/ul 3.80-5.20 08/14/2018 08/14/2018 12:15pm 3:33pm Hemoglobin 11.8 g/dl 10.5-15.7 08/14/2018 08/14/2018 12:15pm 3:33pm Hematocrit 38.6 % # 34.0-50.0 08/14/2018 08/14/2018 12:15pm 3:33pm Mean Corpuscular 90.1 fl 78-98 08/14/2018 08/14/2018 Volume 12:15pm 3:33pm Mean Corpuscular 27.5 pg 26.2-33.4 08/14/2018 08/14/2018 Hemoglobin 12:15pm 3:33pm Mean Corpuscular 30.5 g/dl L 31.5-36.2 08/14/2018 08/14/2018 Hemoglobin Concent 12:15pm 3:33pm Red Cell 13.8 % 11.5-15.5 08/14/2018 08/14/2018 Distribution Width 12:15pm 3:33pm Platelet Count 150 K/ul 137-338 08/14/2018 08/14/2018 12:15pm 3:33pm Mean Platelet 8.0 fl L 8.4-11.8 08/14/2018 08/14/2018 Volume 12:15pm 3:33pm Neutrophils (%) 80.1 % 44.4-80.1 08/14/2018 08/14/2018 (Auto) 12:15pm 3:33pm Lymphocytes (%) 13.4 % 10.0-50.0 08/14/2018 08/14/2018 (Auto) 12:15pm 3:33pm Monocytes (%) 5.7 % 3.6-12.0 08/14/2018 08/14/2018 (Auto) 12:15pm 3:33pm Eosinophils (%) 0.6 % 0.0-5.4 08/14/2018 08/14/2018 (Auto) 12:15pm 3:33pm Basophils (%) 0.2 % 0.0-0.79 08/14/2018 08/14/2018 (Auto) 12:15pm 3:33pm Random Glucose 181 mg/dL H 82-115 08/14/2018 08/14/2018 12:15pm 3:51pm Blood Urea 52 mg/dL H 8-23 08/14/2018 08/14/2018 Nitrogen 12:15pm 3:51pm Serum Osmolality 293 280-300 08/14/2018 08/14/2018 12:15pm 3:51pm Creatinine 5.9 mg/dL H* 0.50-0.90 08/14/2018 08/14/2018 Results have been broadcasted to patient's location and 12:15pm 3:51pm called to ( LINDA. By KAMARI TRENT 08/14/18 @7896 Results read back for confirmation. Glomerular 8.60 L 08/14/2018 08/14/2018 GFR RESULTS ARE REPORTED IN mL /min/1.73m2. Filtration Rate 12:15pm 3:51pm Calc Normal GFR: >60mL/min Moderately decreased GFR: 30-59 mL/min Severely decreased GFR: 15-29 mL/min Kidney Failure (or Dialysis): <15 mL/min The calculated eGFR is not valid for patients younger than 18 years or older than 75 years. BUN/Creatinine 8.8 L 02-2008/14/2018 08/14/2018 Ratio 12:15pm 3:51pm Sodium Level 137 mmol/L 135-145 08/14/2018 08/14/2018 12:15pm 3:51pm Potassium Level 4.8 mmol/L 3.5-5.2 08/14/2018 08/14/2018 12:15pm 3:51pm Chloride Level 95 mmol/L L 98-108 08/14/2018 08/14/2018 12:15pm 3:51pm Carbon Dioxide 23 mmol/L 21-32 08/14/2018 08/14/2018 Level 12:15pm 3:51pm Anion Gap 23.8 mEq/L H -08/14/2018 08/14/2018 12:15pm 3:51pm Calcium Level 9.8 mg/dL 8.8-10.2 08/14/2018 08/14/2018 12:15pm 3:51pm Phosphorus Level 3.8 mg/dL 2.5-4.5 08/14/2018 08/14/2018 12:15pm 3:51pm Hemoglobin A1c 6.1 % H 4.0-6.0 08/14/2018 08/14/2018 12:15pm 3:40pm Cholesterol Level 176 mg/dL 150-200 08/14/2018 08/14/2018 12:15pm 3:51pm Triglycerides 190 mg/dL H <150 08/14/2018 08/14/2018 Level 12:15pm 3:51pm HDL Cholesterol 53 mg/dL L >65 08/14/2018 08/14/2018 HDL EXPECTED VALUES : 12:15pm 3:51pm FEMALES: >65 mg/dL NO RISK 45-65 mg/dL MODERATE RISK <45 mg/dL HIGH RISK MALES: >55 mg/dL NO RISK 35-55 mg/dL MODERATE RISK <35 mg/dL HIGH RISK LDL Cholesterol 94 mg/dL <100 08/14/2018 08/14/2018 LDL Expected Values : 12:15pm 3:51pm Optimal <100 mg/dL Near optimal/above optimal 100-129 mg/dL Borderline high 130-159 mg/dL High 160-189 mg/dL Very high >190 mg/dL Coronary Heart 3.320 08/14/2018 08/14/2018 NATIONAL CHOLESTEROL GUIDELINES Disease Risk Ratio 12:15pm 3:51pm [facility] ([facility]) guidelines for classificaton, testing and management of cholesterol levels in adults over 20 years of age. This new classification creates three categories of risk for coronary heart disease, regardless of age or sex, according to total and LDL cholesterols levels: Based on total cholesterol level Desirable <200 mg/dl Borderline-high 200-239 mg/dl High >=240 mg/dl Based on cholesterol ratio CHD RISK CHOL/HDL RATIO MALE FEMALE 0.5 x Average 3.4 3.3 1.0 x Average 5.0 4.4 2.0 x Average 9.6 7.1 3.0 x Average 13.5 11.0 Thyroid 2.26 uIU/mL 0.36-3.74 08/14/2018 08/14/2018 Stimulating 12:15pm 3:52pm Hormone (TSH) Microbiology Results Procedure Source Organism/Result Collection Result [...] PANEL Completed 07/25/18 TX/PRO/DX INJ SAME DRUG SUSHI CHEF Completed 07/25/18 Completed 07/25/18 MORPHINE SULFATE INJECTION [...] INF Completed 08/03/18 TX/PRO/DX INJ SAME DRUG SUSHI CHEF Completed 08/03/18 COMPLETE CBC W/AUTO DIFF WBC Completed 08/03/18 ASSAY GLUCOSE BLOOD QUANT Completed 08/03/18 ASSAY GLUCOSE BLOOD QUANT Completed 08/03/18 ASSAY GLUCOSE BLOOD QUANT Completed 08/03/18 ASSAY GLUCOSE BLOOD QUANT Completed 08/03/18 ROUTINE VENIPUNCTURE Completed 08/03/18 METABOLIC PANEL TOTAL CA Completed 08/03/18 TX/PROPH/DG ADDL SEQ IV INF Completed 08/03/18 TX/PRO/DX INJ SAME DRUG SUSHI CHEF Completed 08/03/18 COMPLETE CBC W/AUTO DIFF WBC Completed 08/03/18 ASSAY GLUCOSE BLOOD QUANT Completed 08/03/18 ASSAY GLUCOSE BLOOD QUANT Completed 08/03/18 ROUTINE VENIPUNCTURE Completed 08/03/18 COMPREHEN METABOLIC PANEL Completed 08/03/18 ASSAY OF NATRIURETIC PEPTIDE Completed 08/03/18 TX/PRO/DX INJ SAME DRUG SUSHI CHEF Completed 08/03/18 Completed 08/03/18 MORPHINE SULFATE INJECTION Completed 08/03/18 MORPHINE SULFATE INJECTION Completed 08/03/18 HOSPITAL OBSERVATION SERVICES PER HOUR Completed 08/03/18 Completed 08/03/18 DIALYSIS ON ESRD PT Completed 08/03/18 DIALYSIS ON ESRD PT Completed 08/03/18 EMERGENCY DEPT VISIT Completed 08/10/18 THER/PROPH/DIAG INJ IV PUSH Completed 08/10/18 TX/PRO/DX INJ NEW DRUG ADDON Completed 08/10/18 TX/PRO/DX INJ SAME DRUG SUSHI CHEF Completed 08/10/18 COMPLETE CBC W/AUTO DIFF WBC Completed 08/10/18 CREATINE MB FRACTION Completed 08/10/18 ASSAY OF CK (CPK) Completed 08/10/18 ASSAY OF LIPASE Completed 08/10/18 ASSAY OF MYOGLOBIN Completed 08/10/18 ROUTINE VENIPUNCTURE Completed 08/10/18 ASSAY OF TROPONIN QUANT Completed 08/10/18 COMPREHEN METABOLIC PANEL Completed 08/10/18 ELECTROCARDIOGRAM TRACING Completed 08/10/18 Completed 08/10/18 Completed 08/10/18 ASSAY THYROID STIM HORMONE Completed 08/14/18 LIPID PANEL Completed 08/14/18 GLYCOSYLATED HEMOGLOBIN TEST Completed 08/14/18 METABOLIC PANEL TOTAL CA Completed 08/14/18 COMPLETE CBC W/AUTO DIFF WBC Completed 08/14/18 ASSAY OF PHOSPHORUS Completed 08/14/18 ROUTINE VENIPUNCTURE Completed 08/14/18 Computed tomography of abdomen and pelvis Completed 07/25/18 JAYDEN MENDEZ MD without contrast Computed tomography of abdomen and pelvis Completed 08/03/18 JAYDEN MENDEZ MD without contrast X-ray of left knee, three views Completed 08/18/18 BERNABE GONZALEZ MD X-ray of left ribs, two views Completed 08/18/18 BERNABE GONZALEZ MD X-ray of pelvis and both hips Completed 08/18/18 BERNABE GONZALEZ MD Encounters Encounter Location Arrival/Admit Date Discharge/Depart Date Attending Provider Departed [place] 08/18/18 7:37am 08/18/18 10:40am BERNABE GONZALEZ MD Emergency Room Formerly [facility] Registered [place] 08/14/18 11:58am FERNANDO HINOJOSA [facility] Departed [place] 08/10/18 10:58pm 08/11/18 4:55am ANDRE VARELA Emergency Room [facility]ly [facility] Discharged [place] 08/03/18 8:24am 08/05/18 4:55pm HAWK RUIZ Inpatient (obs) Formerly [facility] Departed [place] 07/25/18 4:39pm 07/25/18 8:32pm JAYDEN MENDEZ Emergency Room [facility]ly [facility] Recent Diagnosis
--- OUTSIDE RECORDS SUMMARY | 2019-01-27 11:20 | XMS REPORT | Continuity of Care Document ---
:1950 Author Organization [facility] Address [address] [place] [address] Phone Unavailable Care Team Providers Name Role Phone FERNANDO HINOJOSA Primary Care Physician Insurance Providers Guarantor Shakeel Smith Address [address] [place] [address] Email NONE Payer Medicare Policy Number [id number] Subscriber's Name Sonia Smithdonnie Calvin Relationship Self / Same As Patient Group Number NA Group Name NA Payer [facility] Policy Number [id number] Subscriber's Name Sonia Smithdonnie Calvin Relationship Self / Same As Patient Group Number NA Group Name NA Payer Medicaid Policy Number [id number] Subscriber's Name BartolomeSoniadonnie Calvin Relationship Self / Same As Patient Group Number NA Group Name NA Advance Directives Directive Response Recorded Date/Time Advance Directives No 07/10/14 6:33pm Advance Directive on File No 08/26/18 6:32pm Resuscitation Status Full Code 08/27/18 12:34am Directive to Physicians/Living Will No 07/10/14 6:33pm Health Care Proxy No 07/10/14 6:33pm Name of Surrogate/Decision Maker NA 08/26/18 9:03am Organ Donor No 07/10/14 6:33pm Medical Power of Rpg Programmer No 07/10/14 6:33pm Patient/Family Given Education Material R/T Directives? No 08/26/18 6:32pm Chief Complaint and Reason for Visit Chief Complaint SBDOMINAL PAIN,CONSTIPATION BY DELAYED COLONIC TRA Reason for Visit Diabetes mellitus Abdominal pain Uncontrolled hypertension Constipation by delayed colonic transit ESRD (end stage renal disease) Problems Medical Problem Onset Date Status Abdominal pain Unknown Acute Abnormal renal function test Unknown Acute Acute on chronic renal insufficiency Unknown Acute Anxiety Unknown Chronic CAD (coronary artery disease) Unknown CKD (chronic kidney disease) stage 3, GFR 30-59 ml/min Unknown Chronic Cellulitis of left ankle Unknown Acute Clostridium difficile diarrhea Unknown Constipation Unknown Acute Constipation by delayed colonic transit Unknown Acute Dehydration Unknown Acute Diabetes mellitus Unknown Chronic Diarrhea Unknown Acute ESRD (end stage renal disease) Unknown Chronic Gastroenteritis Unknown Resolved HLD (hyperlipidemia) Unknown Chronic HTN (hypertension) Unknown Chronic Hematuria Unknown Acute Hyperglycemia Unknown Acute Hyperglycemia Unknown Acute Hypoglycemia Unknown Acute Hypokalemia Unknown Acute [id number] Unknown Acute UTI (urinary tract infection) Unknown [...] Fall Unknown Acute Hemorrhage of cyst of [place] kidney Unknown Acute Hip pain, left Unknown [...] Route Directions Days Qty Instructions Start Date Carvedilol 25 Mg ORAL Twice Daily 60 Tablet (Coreg *) 25 Mg With Meals for 8 Tab Hypertension Clonidine Hcl 0.2 Mg ORAL Once Dose At 30 Tablet (Catapres *) 0400 as needed 9 0.2 Mg Tab for Elevated Bp Esomeprazole 1 Cap ORAL Daily for 30 30 Cap Magnesium * Reflux Days 9 (Nexium *) 40 Mg Cap Famotidine 40 Mg ORAL Once Daily 30 30 Tablet (Pepcid *) 40 Days Mg Tab Hydralazine Hcl 50 Mg ORAL Three Times A 30 90 Tablet (Apresoline *) Day Days 50 Mg Tab Hydrocodone-Rui 1 Tab ORAL Twice Daily As 30 60 Tablet taminophen Needed as Days 9 10/325MG * needed for Pain ([place] 10/325MG *) 1 Tab Tab Labetalol Hcl 200 Mg ORAL Twice A Day (Trandate 200 Mg*) 200 Mg Tab Linaclotide * 1 Cap ORAL Daily 30 30 Cap (Linzess 290 Days Mcg *) 290 Mcg Cap Magnesium 5 Ml ORAL Twice A Day for 7 Days 100 Hydroxide (Milk Constipation Milliliter 9 Of Magnesia 400 Mg/5ML) 1 Laury Laury Metronidazole 1 Tab ORAL Three Times A 7 Days 21 Tablet (Flagyl *) 500 Day for 9 Mg Tab Enterocolitis Sucralfate 1 Gm ORAL Before Meals 30 120 Tablet (Carafate *) 1 And At Bedtime Days Gm Tab Past Home Medications Medication Directions Ordered Status Acetamin/Codeine 300/30 Mg * Every 6 Hours As Needed as 08/05/18 Discontinued (Tylenol With Codeine #3 300/30 Mg needed for *) 300/30 Mg Tab, 1 Tab Oral Acetaminophen W/ Codeine #3 * Twice Daily As Needed Discontinued (Tylenol Codeine #3 300MG/30MG *) 1 Tab Tab, 1 Tab Oral Acetaminophen/Codeine Phosphate Every 4 Hrs As Needed as Discontinued (Tylenol #3 *) 30 Mg/12.5 Ml Ml, needed for Pain 6.25 Ml Oral Atorvastatin * (Lipitor *) 80 Mg Bedtime Discontinued Tab, 80 Mg Oral Azithromycin (Zithromax Z-Kumar *) As Directed for Sinus Allergy 03/28/18 Discontinued 250 Mg Tab, 1 Dpr Oral Carvedilol (Coreg *) 3.125 Mg Tab, Twice A Day 06/08/12 Discontinued 3.125 Mg Oral Ciprofloxacin Hcl (Cipro *) 500 Mg Twice A Day for Infection 08/05/18 Discontinued Tab, 500 Mg Oral Ciprofloxacin Hcl (Ciprofloxacin Twice A Day for Uti 03/29/17 Discontinued Hcl 250 Mg) 250 Mg Tab, 1 Tab Oral Clonidine Hcl (Catapres Tts-3 0.3 Every 7 Days Discontinued Mg/24HR *) 0.3 Mg/24 Hr Dis, 1 Patch Topical Clopidogrel Bisulfate (Plavix 75 Daily Discontinued Mg *) 75 Mg Tab, 1 Tab Oral Clopidogrel Bisulfate (Plavix 75 Daily Discontinued Mg *) 75 Mg Tab, 75 Mg Oral Clotrimazole (Topical) Discontinued (Clotrimazole 1% Topical) 1 % Cre, Ergocalciferol (Vitamin D) 50,000 Every 7 Days Discontinued Unit Cap, 1 Units Oral Furosemide (Lasix 20 Mg*) 20 Mg Twice A Week Discontinued Tab, 1 Tab Oral Gabapentin (Neurontin *) 100 Mg Twice A Day Discontinued Cap, 100 Mg Oral Hydroxyzine Hcl (Atarax 50 Mg*) 50 [...] Units/Ml Insulin *) 100 Units/ Inj, 10Subcutaneous Isosorbide Dinitrate (Isosorbide Twice A Day for Chest Pain Discontinued Dinitrate 30 Mg*) 30 Mg Tab, 1 Tab Oral Labetalol Hcl (Trandate 200 Mg*) Twice A Day Discontinued 200 Mg Tab, 1 Tab Oral Labetalol Hcl (Trandate 200 Mg *) Twice [...] Onset Date Status Hx Physical Abuse No 08/26/2018 6:20pm Not Applicable Not Applicable Smoking Status Start Date Stop Date Never smoker Hospital Discharge Instructions No hospital discharge instruction information available. Plan of Care Discharge Date 08/28/18 8:06pm Disposition PATIENT DISCHARGE HOME OR SELF Instructions/Education Provided Acetaminophen; Hydrocodone tablets or capsules Abdominal Pain, Adult, [id number] Chronic Kidney Disease, Adult, [id number]-Iytv Constipation, Adult, [id number] Hypertension, Uhgs-ct-[id number] Diabetes Mellitus and Nutrition Aluminum Hydroxide; Magnesium Hydroxide oral suspension Forms Provided Portal Welcome Letter Prescriptions See Medication Section Care Plan and Goals OK TO DC IV AND DC HOME FOLLOW-UP WITH PRIMARY CARE PROVIDER IN 1-2 WEEKS FOLLOW-UP WITH NEPHROLOGY IN 1-2 WEEKS RETURN TO THE ER IF Symptoms worsen CALL DR. MERCADO AT [phone] IF ANY QUESTIONS REGARDING HOSPITAL STAY. PLEASE CALL THE FLOOR AT [phone] IF ANY MEDICATION OR NURSING QUESTIONS Functional Status No functional status information available. Allergies, Adverse Reactions, Alerts Allergen Type Severity Reaction Status Last Updated Tramadol ([id number]) Allergy Intermediate Active 08/05/18 Immunizations No immunization information available. Vital Signs Acute Vital Signs Vital Response Date/Time Blood Pressure 177/80 mm Hg 08/28/2018 7:59pm Pulse Pulse Rate (adult) 74 beats per minute (60 - 100) 08/28/2018 8:05pm Respiratory Rate 16 breaths per minute (10 - 24) 08/28/2018 8:05pm Temperature Source Oral 08/28/2018 7:25pm Height 5 ft 5 in 08/26/2018 8:09am Weight 115.38 lb 08/28/2018 4:25am Body Mass Index 19.1 kg/m^2 08/28/2018 4:25am Results Laboratory Results Test Name Result Units Flags Reference Collection Result Comments Date/Time Date/Time Urine Color YELLOW 08/03/2018 08/03/2018 7:47am 7:58am Urine Appearance CLOUDY A CLEAR 08/03/2018 08/03/2018 7:47am 7:58am Urine Glucose NEGATIVE NEGATIVE 08/03/2018 08/03/2018 7:47am 7:58am Urine Bilirubin NEGATIVE NEGATIVE 08/03/2018 08/03/2018 7:47am 7:58am Urine Ketones NEGATIVE NEGATIVE 08/03/2018 08/03/2018 7:47am 7:58am Urine Specific 1.020 1.003-1.03 08/03/2018 08/03/2018 [place] 0 7:47am 7:58am Urine Blood SMALL H [...] 08/03/2018 08/03/2018 oxalate Detect 7:47am 7:58am 4+ Lactic Acid Level 1.27 mmoL/L 0.5-2.2 08/03/2018 08/03/2018 7:59am 8:24am TQ-Aoj-I-Type 52172 pg/mL H 0-125 08/05/2018 08/05/2018 Natriuretic 3:40am 5:04am Peptide Creatine Kinase 46 U/L 20-180 08/11/2018 08/11/2018 [...] ng/mL H 25-58 08/11/2018 08/11/2018 12:42am 1:18am Phosphorus Level 3.8 mg/dL 2.5-4.5 08/14/2018 08/14/2018 [...] 08/14/2018 08/14/2018 Stimulating 12:15pm 3:52pm Hormone (TSH) White Blood Count 5.1 K/ul 4.0-11.5 08/28/2018 08/28/2018 10:01am 10:13am Red Blood Count 4.30 M/ul 3.80-5.20 08/28/2018 08/28/2018 10:01am 10:13am Hemoglobin 11.5 g/dl 10.5-15.7 08/28/2018 08/28/2018 10:01am 10:13am Hematocrit 38.0 % 34.0-50.0 08/28/2018 08/28/2018 10:01am 10:13am Mean Corpuscular 88.4 fl 78-98 08/28/2018 08/28/2018 Volume 10:01am 10:13am Mean Corpuscular 26.7 pg 26.2-33.4 08/28/2018 08/28/2018 Hemoglobin 10:01am 10:13am Mean Corpuscular 30.2 g/dl L 31.5-36.2 08/28/2018 08/28/2018 Hemoglobin Concent 10:01am 10:13am Red Cell 14.3 % 11.5-15.5 08/28/2018 08/28/2018 Distribution Width 10:01am 10:13am Platelet Count 178 K/ul 137-338 08/28/2018 08/28/2018 10:01am 10:13am Mean Platelet 8.0 fl L 8.4-11.8 08/28/2018 08/28/2018 Volume 10:01am 10:13am Neutrophils (%) 69.4 % 44.4-80.1 08/28/2018 08/28/2018 (Auto) 10:01am 10:13am Lymphocytes (%) 18.9 % 10.0-50.0 08/28/2018 08/28/2018 (Auto) 10:01am 10:13am Monocytes (%) 8.3 % 3.6-12.0 08/28/2018 08/28/2018 (Auto) 10:01am 10:13am Eosinophils (%) 2.5 % 0.0-5.4 08/28/2018 08/28/2018 (Auto) 10:01am 10:13am Basophils (%) 0.9 % H 0.0-0.79 08/28/2018 08/28/2018 (Auto) 10:01am 10:13am POC Capillary 195 mg/dL H 70.0 - 110 08/28/2018 08/28/2018 Blood Glucose 7:50pm 7:51pm (Chem) Random Glucose 207 mg/dL H 82-115 08/28/2018 08/28/2018 10:01am 10:44am Blood Urea 38 mg/dL H 8-23 08/28/2018 08/28/2018 Nitrogen 10:01am 10:44am Serum Osmolality 280 280-300 08/28/2018 08/28/2018 10:01am 10:44am Creatinine 5.2 mg/dL H* 0.50-0.90 08/28/2018 08/28/2018 Results have been broadcasted to patient's location and 10:01am 10:44am called to ([facility]). By KAMARI MARCINRobby 08/28/18 @7845 Results read back for confirmation. Glomerular 9.95 L 08/28/2018 08/28/2018 GFR RESULTS ARE REPORTED IN mL /min/1.73m2. Filtration Rate 10:01am 10:44am Calc Normal GFR: >60mL/min Moderately decreased GFR: 30-59 mL/min Severely decreased GFR: 15-29 mL/min Kidney Failure (or Dialysis): <15 mL/min The calculated eGFR is not valid for patients younger than 18 years or older than 75 years. BUN/Creatinine 7.3 L -08/28/2018 08/28/2018 Ratio 10:01am 10:44am Sodium Level 132 mmol/L L 135-145 08/28/2018 08/28/2018 10:01am 10:44am Potassium Level 5.1 mmol/L 3.5-5.2 08/28/2018 08/28/2018 10:01am 10:44am Chloride Level 94 mmol/L L 98-108 08/28/2018 08/28/2018 10:01am 10:44am Carbon Dioxide 22 mmol/L 21-32 08/28/2018 08/28/2018 Level 10:01am 10:44am Anion Gap 21.1 mEq/L H -08/28/2018 08/28/2018 10:01am 10:44am Calcium Level 8.7 mg/dL L 8.8-10.2 08/28/2018 08/28/2018 10:01am 10:44am Total Protein 7.6 g/dL 6.6-8.7 08/26/2018 08/26/2018 9:00am 9:35am Albumin 3.4 g/dL L 3.5-5.2 08/26/2018 08/26/2018 9:00am 9:35am Globulin 4.2 gm/dL 08/26/2018 08/26/2018 9:00am 9:35am Albumin/Globulin 0.8 >1.0 08/26/2018 08/26/2018 Ratio 9:00am 9:35am Total Bilirubin 0.4 mg/dL 0.0-1.2 08/26/2018 08/26/2018 9:00am 9:35am Aspartate Amino 14 U/L L 15-32 08/26/2018 08/26/2018 Transf (AST/SGOT) 9:00am 9:35am Alanine 11 U/L 0-33 08/26/2018 08/26/2018 Aminotransferase 9:00am 9:35am (ALT/SGPT) Lipase 16 U/L 13-60 08/26/2018 08/26/2018 9:00am 9:35am Total Alkaline 85 U/L 35-105 08/26/2018 08/26/2018 Phosphatase 9:00am 9:35am Microbiology Results Procedure Source Organism/Result Collection Result [...] PANEL Completed 07/25/18 TX/PRO/DX INJ SAME DRUG PLANT BREEDER Completed 07/25/18 Completed 07/25/18 MORPHINE SULFATE INJECTION [...] INF Completed 08/03/18 TX/PRO/DX INJ SAME DRUG PLANT BREEDER Completed 08/03/18 COMPLETE CBC W/AUTO DIFF WBC Completed 08/03/18 ASSAY GLUCOSE BLOOD QUANT Completed 08/03/18 ASSAY GLUCOSE BLOOD QUANT Completed 08/03/18 ASSAY GLUCOSE BLOOD QUANT Completed 08/03/18 ASSAY GLUCOSE BLOOD QUANT Completed 08/03/18 ROUTINE VENIPUNCTURE Completed 08/03/18 METABOLIC PANEL TOTAL CA Completed 08/03/18 TX/PROPH/DG ADDL SEQ IV INF Completed 08/03/18 TX/PRO/DX INJ SAME DRUG PLANT BREEDER Completed 08/03/18 COMPLETE CBC W/AUTO DIFF WBC Completed 08/03/18 ASSAY GLUCOSE BLOOD QUANT Completed 08/03/18 ASSAY GLUCOSE BLOOD QUANT Completed 08/03/18 ROUTINE VENIPUNCTURE Completed 08/03/18 COMPREHEN METABOLIC PANEL Completed 08/03/18 ASSAY OF NATRIURETIC PEPTIDE Completed 08/03/18 TX/PRO/DX INJ SAME DRUG PLANT BREEDER Completed 08/03/18 Completed 08/03/18 MORPHINE SULFATE INJECTION Completed 08/03/18 MORPHINE SULFATE INJECTION Completed 08/03/18 HOSPITAL OBSERVATION SERVICES PER HOUR Completed 08/03/18 Completed 08/03/18 DIALYSIS ON ESRD PT Completed 08/03/18 DIALYSIS ON ESRD PT Completed 08/03/18 EMERGENCY DEPT VISIT Completed 08/10/18 THER/PROPH/DIAG INJ IV PUSH Completed 08/10/18 TX/PRO/DX INJ NEW DRUG ADDON Completed 08/10/18 TX/PRO/DX INJ SAME DRUG PLANT BREEDER Completed 08/10/18 COMPLETE CBC W/AUTO DIFF WBC [...] PHOSPHORUS Completed 08/14/18 ROUTINE VENIPUNCTURE Completed 08/14/18 EMERGENCY DEPT VISIT Completed 08/18/18 X-RAY EXAM RIBS UNI 2 VIEWS Completed 08/18/18 X-RAY EXAM OF KNEE 3 Completed 08/18/18 X-RAY EXAM HIPS BI 2 VIEWS Completed 08/18/18 Computed tomography of abdomen and pelvis Completed 07/25/18 JAYDEN MENDEZ MD without contrast Computed tomography of abdomen and pelvis Completed 08/03/18 JAYDEN MENDEZ MD without contrast X-ray of left knee, three views Completed 08/18/18 BERNABE GONZALEZ MD X-ray of left ribs, two views Completed 08/18/18 BERNABE GONZALEZ MD X-ray of pelvis and both hips Completed 08/18/18 BERNABE GONZALEZ MD Computed tomography of abdomen and pelvis Completed 08/26/18 PASCUAL GARG MD without contrast Encounters Encounter Location Arrival/Admit Date Discharge/Depart Date Attending Provider Admitted [place] 08/26/18 2:15pm TRACY MERCADO [facility]patient (obs) [facility] Departed [place] 08/18/18 7:37am 08/18/18 10:40am BERNABE GONZALEZ MD Emergency Room [facility] Registered [place] 08/14/18 11:58am FERNANDO HINOJOSA [facility] Departed [place] 08/10/18 10:58pm 08/11/18 4:55am ANDRE VARELA Emergency Room [facility] Discharged [place] 08/03/18 8:24am 08/05/18 4:55pm HAWK RUIZ Inpatient (obs) [facility] Departed [place] 07/25/18 4:39pm 07/25/18 8:32pm JAYDEN MENDEZ [facility] Recent Diagnosis Diabetes mellitus Abdominal pain Uncontrolled hypertension Constipation by delayed colonic transit ESRD (end stage renal disease)
--- OUTSIDE RECORDS SUMMARY | 2019-01-27 11:21 | XMS REPORT | Encounter Summary ---
:1950 Author Reason for Visit Follow up transitional care from hospital discharge admited on Instructions 1. Drug-induced constipation Amitiza 24 mcg capsule 2. Hypertensive disorder 3. Renal failure syndrome 4. End stage renal failure on dialysis 5. Type 2 diabetes mellitus without complication Discussion Note: None recorded.Patient educational handouts: No information available. Plan of Care Reminders Provider Appointments FOLLOW-UP 09/10/2018 PIERRE Mckeon 2:30PM Lab None recorded. Referral None recorded. Procedures None recorded. Surgeries None recorded. Imaging None recorded. Medications Name Start Date Amitiza 24 mcg capsule Take 1 capsule twice a day by oral route as directed for 30 days. clonidine HCl 0.2 mg tablet esomeprazole magnesium 40 mg capsule,delayed release famotidine 40 mg tablet furosemide 20 mg tablet hydralazine 50 mg tablet hydrocodone 10 mg-acetaminophen 325 mg tablet labetalol 200 mg tablet Lantus U-100 Insulin 100 unit/mL subcutaneous solution metronidazole 500 mg tablet sucralfate 1 gram tablet Medications Administered None recorded. Vitals Height Weight BMI Blood Pressure 65 in 114 lbs 14.4 oz 19.1 kg/m2 117/70 mm[Hg] Lab Results Date Name Specimen Result Interpretation Description Value Range Status Address 08/28/2018 CBC W/ Auto Normal White Blood 5.1 4.0-11.5 Final [place] Diff Count K/uL K/uL [facility] (Lab): 104 [facility] Normal Red Blood 4.30 3.80-5.20 Final [place] Count M/uL M/uL [facility] (Lab): [address] [facility] Normal Hemoglobin 11.5 10.5-15.7 Final [place] g/dL g/dL [facility] (Lab): 104 [facility] Normal Hematocrit 38.0 34.0-50.0 Final [place] % % [facility] (Lab): 104 [facility] Normal Mean 88.4 78-98 fL Final [place] Corpuscular fL [facility] (Lab): [address] [place] [address] Normal Mean 26.7 26.2-33.4 Final [place] Corpuscular pg pg [facility] Hemoglobin [facility] (Lab): [address] [place] [address] Low Mean 30.2 31.5-36.2 Final [place] Corpuscular HGB g/dL g/dL [facility] (Lab): [address] [place] [address] Normal Red Cell 14.3 11.5-15.5 Final [place] Distribution % % [facility] (Lab): [address] [place] [address] Normal Platelet Count 178 137-338 Final [place] K/uL K/uL [facility] (Lab): [address] [place] [address] Low Mean Platelet 8.0 8.4-11.8 Final [place] Volume fL [facility] (Lab): [address] [place] [address] Normal Neutrophils % 69.4 44.4-80.1 Corrected [place] % % [facility] (Lab): [address] [place] [address] Normal Lymphocyte% 18.9 10.0-50.0 Final [place] % % [facility] (Lab): [address] [place] [address] Normal [place] % 8.3 % 3.6-12.0 Final [place] % [facility] (Lab): [address] [place] [address] Normal Eos % 2.5 % 0.0-5.4 % Final [place] [facility] (Lab): [address] [place] [address] High Basophil % 0.9 % 0.0-0.79 Final [place] % [facility] (Lab): [address] [place] [address] 08/28/2018 Differential Normal Neutrophils Incomplete [place] Panel, Blood [facility] (Lab): [address] [place] [address] Normal Lymphocyte Incomplete [facility] (Lab): [address] [place] [address] Normal Monocyte Incomplete [facility] (Lab): [address] [place] [address] Normal Eosinophil Incomplete [facility] (Lab): [address] [place] [address] Normal Nucleated Red Incomplete [place] Blood Cell [facility] (Lab): [address] [place] [address] Normal Platelet Incomplete [place] Estimate [facility] (Lab): [address] [place] [address] Normal Target Cells Incomplete [facility] (Lab): [address] [place] [address] Normal Giant Incomplete [place] Platelets [facility] (Lab): [address] [place] [address] Normal Sickle Cells Incomplete [place] [facility] (Lab): [address] [place] [address] 08/28/2018 BMP, Serum or High Glucose 207 82-115 Final [place] Plasma mg/dL mg/dL [facility] (Lab): [address] [place] [address] High Blood Urea 38 8-23 Final [place] Nitrogen mg/dL mg/dL [facility] (Lab): [address] [place] [address] Normal Osmolality 280 280-300 Final [place] Calculated, [facility] Serum [facility] (Lab): [address] [place] [address] CRITICAL Creatinine 5.2 0.50-0.90 Final [place] HIGH mg/dL mg/dL [facility] (Lab): [address] [place] [address] Low Glomerular 9.95 Final [place] Filtration Rate [facility] (Lab): [address] [place] [address] Low BUN/creatinine 7.3 12-20 Final [place] Ratio [facility] (Lab): [address] [place] [address] Low Sodium Level 132 135-145 Final [place] mmol/ mmol/L [facility] (Lab): [address] [place] [address] Normal Potassium 5.1 3.5-5.2 Final [place] Level mmol/ mmol/L [facility] (Lab): [address] [place] [address] Low Chloride Level 94 98-108 Final [place] mmol/ mmol/L [facility] (Lab): [address] [place] [address] Normal Co2 22 21-32 Final [place] mmol/ mmol/L [facility] (Lab): [address] [place] [address] High Anion Gap 21.1 12-20 Final [place] mEq/L mEq/L [facility] (Lab): [address] [place] [address] Low Calcium Level 8.7 8.8-10.2 Final [place] mg/dL mg/dL [facility] (Lab): [address] [place] [address] 08/26/2018 CBC W/ Auto Normal White Blood 5.4 4.0-11.5 Final [place] Diff Count K/uL K/uL [facility] (Lab): [address] [place] [address] Normal Red Blood 4.00 3.80-5.20 Final [place] Count M/uL M/uL [facility] (Lab): [address] [place] [address] Normal Hemoglobin 11.0 10.5-15.7 Final [place] g/dL g/dL [facility] (Lab): [address] [place] [address] Normal Hematocrit 36.0 34.0-50.0 Final [place] % % [facility] (Lab): [address] [place] [address] Normal Mean 89.9 78-98 fL Final [place] Corpuscular fL [facility] (Lab): [address] [place] [address] Normal Mean 27.5 26.2-33.4 Final [place] Corpuscular pg pg [facility] Hemoglobin [facility] (Lab): [address] [place] [address] Low Mean 30.6 31.5-36.2 Final [place] Corpuscular HGB g/dL g/dL [facility] Conc [facility] (Lab): [address] [place] [address] Normal Red Cell 14.4 11.5-15.5 Final [place] Distribution % % [facility] (Lab): [address] [place] [address] Normal Platelet Count 169 137-338 Final [place] K/uL K/uL [facility] (Lab): [address] [place] [address] Low Mean Platelet 8.0 8.4-11.8 Final [place] Volume fL fL [facility] (Lab): [address] [place] [address] Normal Neutrophils % 65.9 44.4-80.1 Corrected [place] % % [facility] (Lab): [address] [place] [address] Normal Lymphocyte% 24.1 10.0-50.0 Final [place] % % [facility] (Lab): [address] [place] [address] Normal [place] % 6.6 % 3.6-12.0 Final [place] % [facility] (Lab): [address] [place] [address] Normal Eos % 2.1 % 0.0-5.4 % Final [place] [facility] (Lab): [address] [place] [address] High Basophil % 1.2 % 0.0-0.79 Final [place] % [facility] (Lab): [address] [place] [address] 08/26/2018 CMP, Serum or High Glucose 152 82-115 Final [place] Plasma mg/dL mg/dL [facility] (Lab): [address] [place] [address] High Blood Urea 55 8-23 Final [place] Nitrogen mg/dL mg/dL [facility] (Lab): [address] [place] [address] Normal Osmolality 292 280-300 Final [place] Calculated, [facility] Serum [facility] (Lab): [address] [place] [address] CRITICAL Creatinine 6.4 0.50-0.90 Final [place] HIGH mg/dL mg/dL [facility] (Lab): [address] [place] [address] Low Glomerular 7.83 Final [place] Filtration Rate [facility] (Lab): [address] [place] [address] Low BUN/creatinine 8.6 12-20 Final [place] Ratio [facility] (Lab): [address] [place] [address] Normal Sodium Level 137 135-145 Final [place] mmol/ mmol/L [facility] (Lab): [address] [place] [address] Normal Potassium 4.7 3.5-5.2 Final [place] Level mmol/ mmol/L [facility] (Lab): [address] [place] [address] Low Chloride Level 96 98-108 Final [place] mmol/ mmol/L [facility] (Lab): [address] [place] [address] Normal Co2 22 21-32 Final [place] mmol/ mmol/L [facility] (Lab): [address] [place] [address] High Anion Gap 23.7 12-20 Final [place] mEq/L mEq/L [facility] (Lab): [address] [place] [address] Normal Calcium Level 8.9 8.8-10.2 Final [place] mg/dL mg/dL [facility] (Lab): [address] [place] [address] Normal Total Protein 7.6 6.6-8.7 Final [place] g/dL g/dL [facility] (Lab): [address] [place] [address] Low Albumin 3.4 3.5-5.2 Final [place] g/dL g/dL [facility] (Lab): [address] [place] [address] Normal Globulin 4.2 Final [place] gm/dL [facility] (Lab): [address] [place] [address] Normal A/g Ratio 0.8 >1.0 Final [place] [facility] (Lab): [address] [place] [address] Normal Bilirubin,tota 0.4 0.0-1.2 Final [place] l mg/dL mg/dL [facility] (Lab): [address] [place] [address] Low AST/SGOT 14 15-32 U/L Final [place] U/L [facility] (Lab): [address] [place] [address] Normal ALT/SGPT 11 0-33 U/L Final [place] U/L [facility] (Lab): [address] [place] [address] Normal Alkaline 85 35-105 Final [place] Phosphatase, U/L U/L [facility] Total [facility] (Lab): [address] [place] [address] 08/26/2018 Lipase, Serum Normal Lipase 16 13-60 U/L Final [place] or Plasma U/L [facility] (Lab): [address] [place] [address] 08/14/2018 CBC W/ Auto Normal White Blood 7.3 4.0-11.5 Final [place] Diff Count K/uL K/uL [facility] (Lab): [address] [place] [address] Normal Red Blood 4.28 3.80-5.20 Final [place] Count M/uL M/uL [facility] (Lab): [address] [place] [address] Normal Hemoglobin 11.8 10.5-15.7 Final [place] g/dL g/dL [facility] (Lab): [address] [place] [address] Normal Hematocrit 38.6 34.0-50.0 Final [place] % % [facility] (Lab): [address] [place] [address] Normal Mean 90.1 78-98 fL Final [place] Corpuscular fL [facility] Volume [facility] (Lab): [address] [place] [address] Normal Mean 27.5 26.2-33.4 Final [place] Corpuscular pg pg [facility] Hemoglobin [facility] (Lab): [address] [place] [address] Low Mean 30.5 31.5-36.2 Final [place] Corpuscular HGB g/dL g/dL [facility] Conc [facility] (Lab): [address] [place] [address] Normal Red Cell 13.8 11.5-15.5 Final [place] Distribution % % [facility] Width [facility] (Lab): [address] [place] [address] Normal Platelet Count 150 137-338 Final [place] K/uL K/uL [facility] (Lab): [address] [place] [address] Low Mean Platelet 8.0 8.4-11.8 Final [place] Volume fL fL [facility] (Lab): [address] [place] [address] Normal Neutrophils % 80.1 44.4-80.1 Corrected [place] % % [facility] (Lab): [address] [place] [address] Normal Lymphocyte% 13.4 10.0-50.0 Final [place] % % [facility] (Lab): [address] [place] [address] Normal [place] % 5.7 % 3.6-12.0 Final [place] % [facility] (Lab): [address] [place] [address] Normal Eos % 0.6 % 0.0-5.4 % Final [place] [facility] (Lab): [address] [place] [address] Normal Basophil % 0.2 % 0.0-0.79 Final [place] % [facility] (Lab): [address] [place] [address] 08/14/2018 Differential Normal Neutrophils Incomplete [facility] Blood [facility] (Lab): [address] [place] [address] Normal Lymphocyte Incomplete [facility] (Lab): [address] [place] [address] Normal Atypical Lymph Incomplete [facility] (Lab): [address] [place] [address] Normal Monocyte Incomplete [facility] (Lab): [address] [place] [address] Normal Eosinophil Incomplete [facility] (Lab): [address] [place] [address] Normal Platelet Incomplete [place] Estimate [facility] (Lab): [address] [place] [address] Normal Platelet Incomplete [place] Morphology [facility] (Lab): [address] [place] [address] Normal Smudge Cells Incomplete [facility] (Lab): [address] [place] [address] 08/14/2018 Hemoglobin High Hemoglobin a1C 6.1 % 4.0-6.0 % Final [place] a1C, [facility] [address] [place] [address] 08/14/2018 BMP, Serum or High Glucose 181 82-115 Final [place] Plasma mg/dL mg/dL [facility] (Lab): [address] [place] [address] High Blood Urea 52 8-23 Final [place] Nitrogen mg/dL mg/dL [facility] (Lab): [address] [place] [address] Normal Osmolality 293 280-300 Final [place] Calculated, [facility] Serum [facility] (Lab): [address] [place] [address] CRITICAL Creatinine 5.9 0.50-0.90 Final [place] HIGH mg/dL mg/dL [facility] (Lab): [address] [place] [address] Low Glomerular 8.60 Final [place] Filtration Rate [facility] (Lab): [address] [place] [address] Low BUN/creatinine 8.8 12-20 Final [place] Ratio [facility] (Lab): [address] [place] [address] Normal Sodium Level 137 135-145 Final [place] mmol/ mmol/L [facility] (Lab): [address] [place] [address] Normal Potassium 4.8 3.5-5.2 Final [place] Level mmol/ mmol/L [facility] (Lab): [address] [place] [address] Low Chloride Level 95 98-108 Final [place] mmol/ mmol/L [facility] (Lab): [address] [place] [address] Normal Co2 23 21-32 Final [place] mmol/ mmol/L [facility] (Lab): [address] [place] [address] High Anion Gap 23.8 12-20 Final [place] mEq/L mEq/L [facility] (Lab): [address] [place] [address] Normal Calcium Level 9.8 8.8-10.2 Final [place] mg/dL mg/dL [facility] (Lab): [address] [place] [address] 08/14/2018 Phosphorus, Normal Phosphorous 3.8 2.5-4.5 Final [place] Serum or Level mg/dL mg/dL [facility] Plasma [facility] (Lab): [address] [place] [address] 08/14/2018 Lipid Panel, Normal Cholesterol 176 150-200 Final [place] Serum Level mg/dL mg/dL [facility] (Lab): [address] [place] [address] High Triglycerides 190 <150 Final [place] Level mg/dL mg/dL [facility] (Lab): [address] [place] [address] Low HDL 53 >65 mg/dL Final [place] Cholesterol mg/dL [facility] (Lab): [address] [place] [address] Normal LDL 94 <100 Final [place] Cholesterol mg/dL mg/dL [facility] Direct [facility] (Lab): [address] [place] [address] Normal Cholesterol 3.320 Final [place] Risk Ratio [facility] (Lab): [address] [place] [address] 08/14/2018 TSH, Serum or Normal Thyroid 2.26 0.36-3.74 Final [place] Plasma Stimulating uIU/m uIU/mL [facility] (Lab): [address] [place] [address] 08/14/2018 Lipid Panel, No observation [place] Blood recorded. [facility]: [address] [place] [address] 08/10/2018 CBC W/ Auto Normal White Blood 9.3 4.0-11.5 Final [place] Diff Count K/uL K/uL [facility] (Lab): [address] [place] [address] Low Red Blood 3.10 3.80-5.20 Final [place] Count M/uL M/uL [facility] (Lab): [address] [place] [address] Low Hemoglobin 8.5 10.5-15.7 Final [place] g/dL g/dL [facility] (Lab): [address] [place] [address] Normal Hematocrit 27.4 34.0-50.0 Final [place] % % [facility] (Lab): [address] [place] [address] Normal Mean 88.5 78-98 fL Final [place] Corpuscular fL [facility] (Lab): [address] [place] [address] Normal Mean 27.3 26.2-33.4 Final [place] Corpuscular pg pg [facility] Hemoglobin [facility] (Lab): [address] [place] [address] Low Mean 30.9 31.5-36.2 Final [place] Corpuscular HGB g/dL g/dL [facility] Conc [facility] (Lab): [address] [place] [address] Normal Red Cell 13.8 11.5-15.5 Final [place] Distribution % % [facility] (Lab): [address] [place] [address] Normal Platelet Count 232 137-338 Final [place] K/uL K/uL [facility] (Lab): [address] [place] [address] Normal Mean Platelet 8.4 8.4-11.8 Final [place] Volume fL fL [facility] (Lab): [address] [place] [address] Normal Neutrophils % 77.2 44.4-80.1 Corrected [place] % % [facility] (Lab): [address] [place] [address] Normal Lymphocyte% 14.8 10.0-50.0 Final [place] % % [facility] (Lab): 104 [facility] Normal [place] % 6.7 % 3.6-12.0 Final [place] % [facility] (Lab): 104 [facility] Normal Eos % 0.8 % 0.0-5.4 % Final [facility] (Lab): [address] [place] [address] Normal Basophil % 0.5 % 0.0-0.79 Final [place] [facility] (Lab): [address] [place] [address] 08/10/2018 Differential Normal Neutrophils [facility] Blood [facility] (Lab): [address] [place] [address] Normal Band [facility] (Lab): [address] [place] [address] Normal Lymphocyte [facility] (Lab): [address] [place] [address] Normal Atypical Lymph [facility] (Lab): [address] [place] [address] Normal Monocyte [facility] (Lab): [address] [place] [address] Normal Eosinophil [facility] (Lab): [address] [place] [address] Normal Basophil [facility] (Lab): [address] [place] [address] Normal Metamyelocyte [facility] (Lab): [address] [place] [address] Normal Myelocyte [facility] (Lab): [address] [place] [address] Normal Platelet [facility] Estimate [facility] (Lab): [address] [place] [address] Normal Platelet [facility] Morphology [facility] (Lab): [address] [place] [address] Normal Poikilocytosis [facility] (Lab): [address] [place] [address] Normal Anisocytosis [facility] (Lab): [address] [place] [address] Normal Macrocytosis [facility] (Lab): [address] [place] [address] Normal Toxic [facility] (Lab): [address] [place] [address] Normal Hypersegmented [facility] (Lab): [address] [place] [address] Normal Smudge Cells [facility] (Lab): [address] [place] [address] 08/10/2018 Troponin I, Normal Cardiac <0.30 0.0-0.5 Final [place] Cardiac, Troponin I NG/mL NG/mL [facility] (Lab): [address] [place] [address] 08/10/2018 CK-mb, Blood Normal Mass 2.6 0.0-3.6 Final [place] Creatinine NG/mL NG/mL [facility] Kinase-mb [facility] (Lab): [address] [place] [address] 08/10/2018 Myoglobin, High Myoglobin 122 25-58 Final [place] Serum or NG/mL NG/mL [facility] Plasma [facility] (Lab): [address] [place] [address] 08/10/2018 CMP, Serum or High Glucose 183 82-115 Final [place] Plasma mg/dL mg/dL [facility] (Lab): [address] [place] [address] High Blood Urea 68 8-23 Final [place] Nitrogen mg/dL mg/dL [facility] (Lab): [address] [place] [address] Normal Osmolality 300 280-300 Final [place] Calculated, [facility] (Lab): [address] [place] [address] CRITICAL Creatinine 6.9 0.50-0.90 Final [place] HIGH mg/dL mg/dL [facility] (Lab): [address] [place] [address] Low Glomerular 7.18 Final [place] Filtration Rate [facility] (Lab): [address] [place] [address] Low BUN/creatinine 9.9 12-20 Final [place] Ratio [facility] (Lab): [address] [place] [address] Normal Sodium Level 138 135-145 Final [place] mmol/ mmol/L [facility] L [facility] (Lab): [address] [place] [address] Normal Potassium 4.3 3.5-5.2 Final [place] Level mmol/ mmol/L [facility] L [facility] (Lab): [address] [place] [address] Low Chloride Level 97 98-108 Final [place] mmol/ mmol/L [facility] L [facility] (Lab): [address] [place] [address] Normal Co2 25 21-32 Final [place] mmol/ mmol/L [facility] (Lab): [address] [place] [address] High Anion Gap 20.3 12-20 Final [place] mEq/L mEq/L [facility] (Lab): [address] [place] [address] Normal Calcium Level 9.5 8.8-10.2 Final [place] mg/dL mg/dL [facility] (Lab): [address] [place] [address] Normal Total Protein 7.7 6.6-8.7 Final [place] g/dL g/dL [facility] (Lab): [address] [place] [address] Normal Albumin 3.5 3.5-5.2 Final [place] g/dL g/dL [facility] (Lab): [address] [place] [address] Normal Globulin 4.2 Final [place] gm/dL [facility] (Lab): [address] [place] [address] Normal A/g Ratio 0.8 >1.0 Final [place] [facility] (Lab): [address] [place] [address] Normal Bilirubin,tota <0.3 0.0-1.2 Final [place] l mg/dL mg/dL [facility] (Lab): [address] [place] [address] Low AST/SGOT 14 15-32 U/L Final [place] U/L [facility] (Lab): [address] [place] [address] Normal ALT/SGPT 11 0-33 U/L Final [place] U/L [facility] (Lab): [address] [place] [address] High Alkaline 122 35-105 Final [place] Phosphatase, U/L U/L [facility] (Lab): [address] [place] [address] 08/10/2018 CK (Creatine Normal Creatine 46 20-180 Final [place] Kinase), Kinase U/L U/L [facility] (Lab): [address] [place] [address] 08/10/2018 Lipase, Serum Normal Lipase 24 13-60 U/L Final [place] or Plasma U/L [facility] (Lab): [address] [place] [address] 08/04/2018 CBC W/ Auto Low White Blood 3.5 4.0-11.5 Final [place] Diff Count K/uL K/uL [facility] (Lab): [address] [place] [address] Low Red Blood 3.52 3.80-5.20 Final [place] Count M/uL M/uL [facility] (Lab): [address] [place] [address] Low Hemoglobin 10.0 10.5-15.7 Final [place] g/dL g/dL [facility] (Lab): [address] [place] [address] Low Hematocrit 32.2 34.0-50.0 Final [place] % % [facility] (Lab): [address] [place] [address] Normal Mean 91.3 78-98 fL Final [place] Corpuscular fL [facility] Volume [facility] (Lab): [address] [place] [address] Normal Mean 28.4 26.2-33.4 Final [place] Corpuscular pg pg [facility] Hemoglobin [facility] (Lab): [address] [place] [address] Low Mean 31.1 31.5-36.2 Final [place] Corpuscular HGB g/dL g/dL [facility] Conc [facility] (Lab): [address] [place] [address] Normal Red Cell 14.2 11.5-15.5 Final [place] Distribution % % [facility] (Lab): [address] [place] [address] Low Platelet Count 91 137-338 Final [place] K/uL K/uL [facility] (Lab): [address] [place] [address] Normal Mean Platelet 10.0 8.4-11.8 Final [place] Volume fL fL [facility] (Lab): [address] [place] [address] Normal Neutrophils % 70.0 44.4-80.1 Corrected [place] % % [facility] (Lab): [address] [place] [address] Normal Lymphocyte% 16.6 10.0-50.0 Final [place] % % [facility] (Lab): [address] [place] [address] Normal [place] % 11.3 3.6-12.0 Final [place] % % [facility] (Lab): [address] [place] [address] Normal Eos % 0.5 % 0.0-5.4 % Final [place] [facility] (Lab): [address] [place] [address] High Basophil % 1.7 % 0.0-0.79 Final [place] % [facility] (Lab): [address] [place] [address] 08/04/2018 BMP, Serum or High Glucose 144 82-115 Final [place] Plasma mg/dL mg/dL [facility] (Lab): [address] [place] [address] CRITICAL Blood Urea 103 8-23 Final [place] HIGH Nitrogen mg/dL mg/dL [facility] (Lab): [address] [place] [address] High Osmolality 315 280-300 Final [place] Calculated, [facility] Serum [facility] (Lab): [address] [place] [address] CRITICAL Creatinine 9.0 0.50-0.90 Final [place] HIGH mg/dL mg/dL [facility] (Lab): [address] [place] [address] Low Glomerular 5.28 Final [place] Filtration Rate [facility] (Lab): [address] [place] [address] Low BUN/creatinine 11.4 12-20 Final [place] Ratio [facility] (Lab): [address] [place] [address] Normal Sodium Level 140 135-145 Final [place] mmol/ mmol/L [facility] (Lab): [address] [place] [address] Normal Potassium 3.7 3.5-5.2 Final [place] Level mmol/ mmol/L [facility] (Lab): [address] [place] [address] Normal Chloride Level 103 98-108 Final [place] mmol/ mmol/L [facility] (Lab): [address] [place] [address] Low Co2 15 21-32 Final [place] mmol/ mmol/L [facility] (Lab): [address] [place] [address] High Anion Gap 25.7 12-20 Final [place] mEq/L mEq/L [facility] (Lab): [address] [place] [address] Low Calcium Level 7.4 8.8-10.2 Final [place] mg/dL mg/dL [facility] (Lab): [address] [place] [address] Allergies Code Code System Name Reaction Severity Status Onset 48713 RxNorm Tramadol Rash Moderate to Active Severe [...] History Smoking Status Former Smoker Past Encounters 09/03/2018 Drug-induced Constipation; Hypertensive Disorder; Renal Failure Syndrome; End Stage Renal Failure on Dialysis; Type 2 Diabetes Mellitus without Complication PIERRE Mckeon: [address] [place] [address], [address], [place] [address], Ph. 08/14/2018 Malignant Hypertension; End Stage Renal Failure on Dialysis; Vitamin D Deficiency; Type II Diabetes Mellitus Uncontrolled; Chronic Constipation PIERRE Mckeon: [address], [address], [place] [address], Ph. History of Present Illness Constipation Reported By: Patient HPI: Quality: worsening, hard, straining, small amount, painful, decreased frequency, decreased amount. Severity: severe. Duration: present for 1-6 months. Onset/Timing: once a week. Context no recent surgery, normal toileting ability, no history of IBS, no history of chronic idiopathic constipation, no history of Hirschsprung's, no family history of colon polyps or cancer, recent opiates, stress, anemia, history of colonoscopy, history of Diverticulosis, abnormal imaging. Alleviating Factors: having bowel movement, Milk of Magnesia. Aggravating Factors: eating, stress. Associated Symptoms: no abdominal pain, no excess gas, no fever, no rash, no joint pain, no vomiting, no heartburn, no blood in stool, no mucus in stool, no black or tarry stools, weight loss (2.0 lbs), nausea, weakness, nutrient deficiency Note: Ms. Mancuso presents to the clinic following up hospital discharge for Abdominal pain which was unremakable except for retained stool throughout the colon , small bilateral pleural effusions and small pericardial effusion there is also a 10 mm lesion seen in the right kidney Review of Systems General Adult ROS Reported By: Patient Constitutional: Constitutional: no fever, no night sweats, no significant weight gain, weight loss (2.0 lbs), exercise intolerance Cardiovascular: Cardiovascular: no chest pain, no arm pain on exertion, no shortness of breath when walking, no shortness of breath when lying down, no palpitations, no known heart murmur Respiratory: Respiratory: no cough, no wheezing, no shortness of breath, no coughing up blood Gastrointestinal: Gastrointestinal: no abdominal pain, no vomiting, normal appetite, not vomiting blood, change in appetite Genitourinary: Genitourinary: no incontinence, no difficulty urinating, no hematuria, no increased frequency Musculoskeletal: Musculoskeletal: no muscle aches, no muscle weakness, no arthralgias/joint pain, no back pain, no swelling in the extremities Integumentary: Skin: no abnormal mole, no jaundice, no rashes Neurologic: Neurologic: no loss of consciousness, no seizures, no dizziness, no headaches, weakness Psychiatric: Psych: no depression, feeling safe in relationship, no alcohol abuse Endocrine: Endocrine: fatigue Hematologic/Lymphatic: Hematologic/Lymphatic no swollen glands, no bruising Allergic/Immunologic: Allergy/Immunologic: no runny nose, no sinus pressure, no itching, no hives, no frequent sneezing Physical Exam General Adult Exam - Female Reported By: Patient Constitutional: General Appearance: cachectic. Level of Distress: NAD. Ambulation: limited ambulation, ambulation with cane Psychiatric: Insight: good judgement. Mental Status: active [...] Spleen: non-tender, no splenomegaly. Hernia: none palpable Musculoskeletal:: Motor Strength and Tone: normal motor strength, normal tone. Joints, Bones, and Muscles: normal movement of all extremities, no bony abnormalities, no contractures, no malalignment, no tenderness. Extremities: no cyanosis, no edema, no varicosities, no palpable cord Neurologic: Gait and Station: normal gait, normal station. Cranial Nerves: grossly intact. Sensation: grossly intact. Reflexes: DTRs 2+ bilaterally throughout. Coordination and Cerebellum: no tremor Skin: Inspection and palpation: no rash, no lesions, no ulcer, no abnormal nevi, no induration, no nodules, no jaundice, decreased turgor. Nails: normal
--- OUTSIDE RECORDS SUMMARY | 2019-01-27 11:21 | XMS REPORT | Continuity of Care Document ---
:1950 Author Organization [facility] Address [address] [place] [address] Phone Unavailable Care Team Providers Name Role Phone FERNANDO HNIOJOSA Primary Care Physician Insurance Providers Guarantor Shakeel Smith Address [address] [place] [address] Email NONE Payer Medicare Policy Number [id number] Subscriber's Name Shakeel Smith Relationship Self / Same As Patient Group Number NA Group Name NA Payer [facility] Policy Number [id number] Subscriber's Name Shakeel Smith Relationship Self / Same As Patient Group Number NA Group Name [employer] Payer Medicaid Policy Number [id number] Subscriber's Name Shakeel Smith Relationship Self / Same As Patient Group Number NA Group Name NA Advance Directives Directive Response Recorded Date/Time Advance Directives No 07/10/14 6:33pm Advance Directive on File No 09/07/18 7:39am Directive to Physicians/Living Will No 07/10/14 6:33pm Health Care Proxy No 07/10/14 6:33pm Name of Surrogate/Decision Maker NA 09/07/18 8:03am Organ Donor No 07/10/14 6:33pm Medical Power of Facilities Coordinator No 07/10/14 6:33pm Patient/Family Given Education Material R/T Y - KR...09/07/18 09/07/18 8: 03am Directives? Chief Complaint and Reason for Visit Chief Complaint General Complaint Reason for Visit HTN (hypertension) [id number] Problems Medical Problem Onset Date Status Abdominal [...] Acute Hypoglycemia Unknown Acute Hypokalemia Unknown Acute [id number] Unknown Acute UTI (urinary tract infection) Unknown Uncontrolled diabetes mellitus Unknown Acute Uncontrolled hypertension Unknown Acute Past Problems Medical Problem Onset Date Status Abdominal pain Unknown Acute Abdominal pain Unknown Acute Acute on chronic renal insufficiency Unknown Acute Back spasm Unknown Acute CHF (congestive heart failure) Unknown Acute Chronic renal failure Unknown Acute Congestive heart failure Unknown Acute Constipation Unknown Acute Constipation by delayed colonic transit Unknown Acute Contusion of left chest wall [...] Fall Unknown Acute Hemorrhage of cyst of [place] Unknown Acute Hip pain, left Unknown [...] Days 9 10/325MG * needed for Pain ([place] 10/325MG *) 1 Tab Tab Labetalol Hcl 200 Mg ORAL Twice A Day (Trandate 200 Mg*) 200 Mg Tab Linaclotide * 1 Cap ORAL Daily 30 30 Cap (Linzess 290 Days Mcg *) 290 Mcg Cap Magnesium 5 Ml ORAL Twice A Day for 7 Days 100 Hydroxide (Milk Constipation Milliliter 9 Of Magnesia 400 Mg/5ML) 1 Laury Alury Metronidazole 1 Tab ORAL Three Times A [...] Onset Date Status Hx Physical Abuse No 09/07/2018 7:39am Not Applicable Not Applicable Smoking Status Start Date Stop Date Never smoker Hospital Discharge Instructions No hospital discharge instruction information available. Plan of Care Discharge Date 09/07/18 2:10pm Instructions/Education Provided Muscle Cramps and Spasms, Quos-ka-Elpr Hypertension, Vasy-xt-Xudf Forms Provided Prescription Opioid Use Portal Welcome Letter Prescriptions See Medication Section Referrals FERNANDO HINOJOSA Address: [place] [address] Additional Instructions/Education Valuim 5mg 1 tab every 6hrs as needed FOLLOW UP WITH PCP TOMORROW Functional Status No functional status information available. Allergies, Adverse Reactions, Alerts Allergen Type Severity Reaction Status Last Updated Tramadol ([id number]) Allergy Intermediate Active 08/05/18 Immunizations No immunization information available. Vital Signs Acute Vital Signs Vital Response Date/Time Blood Pressure 123/62 mm Hg 09/07/2018 2:11pm Pulse Pulse Rate (adult) 66 beats per minute (60 - 100) 09/07/2018 2:11pm Respiratory Rate 14 breaths per minute (10 - 24) 09/07/2018 2:11pm Temperature Source Oral 09/07/2018 7:39am Results Laboratory Results Test Name Result Units Flags Reference Collection Result Comments Date/Time Date/Time Urine Color YELLOW 08/03/2018 08/03/2018 7:47am 7:58am Urine Appearance CLOUDY A CLEAR 08/03/2018 08/03/2018 7:47am 7:58am Urine Glucose NEGATIVE NEGATIVE 08/03/2018 08/03/2018 7:47am 7:58am Urine Bilirubin NEGATIVE NEGATIVE 08/03/2018 08/03/2018 7:47am 7:58am Urine Ketones NEGATIVE NEGATIVE 08/03/2018 08/03/2018 7:47am 7:58am Urine Specific 1.020 1.003-1.03 08/03/2018 08/03/2018 [place] 0 7:47am 7:58am Urine Blood SMALL H [...] 1.27 mmoL/L 0.5-2.2 08/03/2018 08/03/2018 7:59am 8:24am UN-Uid-D-Type 62111 pg/mL H 0-125 08/05/2018 08/05/2018 Natriuretic 3:40am 5:04am Peptide Creatine Kinase 46 U/L 20-180 08/11/2018 08/11/2018 12:42am 1:22am Creatine Kinase MB 2.6 ng/ml 0.0-3.6 08/11/2018 [...] 08/14/2018 08/14/2018 Stimulating 12:15pm 3:52pm Hormone (TSH) POC Capillary 195 mg/dL H 70.0 - 110 08/28/2018 08/28/2018 Blood Glucose 7:50pm 7:51pm (Chem) Lipase 16 U/L 13-60 08/26/2018 08/26/2018 9:00am 9:35am White Blood Count 6.6 K/ul 4.0-11.5 09/07/2018 09/07/2018 8:30am 8:51am Red Blood Count 4.25 M/ul 3.80-5.20 09/07/2018 09/07/2018 8:30am 8:51am Hemoglobin 11.3 g/dL 10.5-15.7 09/07/2018 09/07/2018 8:30am 8:51am Hematocrit 38.4 % 34.0-50.0 09/07/2018 09/07/2018 8:30am 8:51am Mean Corpuscular 90.4 fl 86-100 09/07/2018 09/07/2018 Volume 8:30am 8:51am Mean Corpuscular 26.6 pg 26.2-33.4 09/07/2018 09/07/2018 Hemoglobin 8:30am 8:51am Mean Corpuscular 29.4 g/dL L 30-34 09/07/2018 09/07/2018 Hemoglobin Concent 8:30am 8:51am Red Cell 14.5 % 12.0-15.5 09/07/2018 09/07/2018 Distribution Width 8:30am 8:51am Platelet Count 179 K/uL 165-450 09/07/2018 09/07/2018 8:30am 8:51am Mean Platelet 10.5 fL 9.4-12.6 09/07/2018 09/07/2018 Volume 8:30am 8:51am Neutrophils (%) 78.0 % 44.4-80.1 09/07/2018 09/07/2018 (Auto) 8:30am 8:51am Immature 0.9 % H 0.0-0.4 09/07/2018 09/07/2018 Granulocyte % 8:30am 8:51am (Auto) Lymphocytes (%) 12.9 % 10.0-50.0 09/07/2018 09/07/2018 (Auto) 8:30am 8:51am Monocytes (%) 6.5 % 3.6-12.0 09/07/2018 09/07/2018 (Auto) 8:30am 8:51am Eosinophils (%) 1.2 % 0.0-5.4 09/07/2018 09/07/2018 (Auto) 8:30am 8:51am Basophils (%) 0.5 % 0.1-1.2 09/07/2018 09/07/2018 (Auto) 8:30am 8:51am Neutrophils # 5.15 K/uL 1.56-6.13 09/07/2018 09/07/2018 (Auto) 8:30am 8:51am Absolute Immature 0.1 K/uL H 0.0-0.03 09/07/2018 09/07/2018 Granulocyte (auto 8:30am 8:51am Lymphocytes # 0.9 K/uL L 1.18-3.74 09/07/2018 09/07/2018 (Auto) 8:30am 8:51am Monocytes # (Auto) 0.43 K/uL 0.24-0.86 09/07/2018 09/07/2018 8:30am 8:51am Eosinophils # 0.08 K/uL 0.04-0.36 09/07/2018 09/07/2018 (Auto) 8:30am 8:51am Basophils # (Auto) 0.03 K/uL 0.01-0.08 09/07/2018 09/07/2018 8:30am 8:51am Nucleated Red 0 /100 0-0.2 09/07/2018 09/07/2018 Blood Cells % WBC 8:30am 8:51am Nucleated Red 0 K/uL 0 09/07/2018 09/07/2018 Blood Cells # 8:30am 8:51am Random Glucose 259 mg/dL H 82-115 09/07/2018 09/07/2018 8:30am 9:33am Blood Urea 56 mg/dL H 8-23 09/07/2018 09/07/2018 Nitrogen 8:30am 9:33am Serum Osmolality 297 280-300 09/07/2018 09/07/2018 8:30am 9:33am Creatinine 7.1 mg/dL H* 0.50-0.90 09/07/2018 09/07/2018 Results have been broadcasted to patient's location and 8:30am 9:33am called to (NIA). By NAGI WREN 09/07/18 @0986 Results read back for confirmation. Glomerular 6.95 L 09/07/2018 09/07/2018 GFR RESULTS ARE REPORTED IN mL /min/1.73m2. Filtration Rate 8:30am 9:33am Calc Normal GFR: >60mL/min Moderately decreased GFR: 30-59 mL/min Severely decreased GFR: 15-29 mL/min Kidney Failure (or Dialysis): <15 mL/min The calculated eGFR is not valid for patients younger than 18 years or older than 75 years. BUN/Creatinine 7.9 L 12-09/07/2018 09/07/2018 Ratio 8:30am 9:33am Sodium Level 136 mmol/L 135-145 09/07/2018 09/07/2018 8:30am 9:33am Potassium Level 4.8 mmol/L 3.5-5.2 09/07/2018 09/07/2018 8:30am 9:33am Chloride Level 97 mmol/L L 98-108 09/07/2018 09/07/2018 8:30am 9:33am Carbon Dioxide 27 mmol/L 21-32 09/07/2018 09/07/2018 Level 8:30am 9:33am Anion Gap 16.8 mEq/L 12-09/07/2018 09/07/2018 8:30am 9:33am Calcium Level 10.0 mg/dL 8.8-10.2 09/07/2018 09/07/2018 8:30am 9:33am Total Protein 7.9 g/dL 6.6-8.7 09/07/2018 09/07/2018 8:30am 9:33am Albumin 3.6 g/dL 3.5-5.2 09/07/2018 09/07/2018 8:30am 9:33am Globulin 4.3 gm/dL 09/07/2018 09/07/2018 8:30am 9:33am Albumin/Globulin 0.8 >1.0 09/07/2018 09/07/2018 Ratio 8:30am 9:33am Total Bilirubin 0.3 mg/dL 0.0-1.2 09/07/2018 09/07/2018 8:30am 9:33am Aspartate Amino 15 U/L 15-32 09/07/2018 09/07/2018 Transf (AST/SGOT) 8:30am 9:33am Alanine 11 U/L 0-33 09/07/2018 09/07/2018 Aminotransferase 8:30am 9:33am (ALT/SGPT) Total Alkaline 137 U/L H 35-105 09/07/2018 09/07/2018 Phosphatase 8:30am 9:33am Troponin I < 0.30 ng/mL 0.0-0.5 09/07/2018 09/07/2018 Published clinical studies have shown elevations of cTnI in 8:30am 9:33am patients with myocardial injury, as seen in unstable angina pectoris, cardiac contusions, and heart transplants. Elevations have also been seen in patients with rhabdomyolysis and polymyositis. Elevated troponin levels point to myocardial injury, but are not necessarily indicative of an ischemic mechanism. The term NE should be used when there is evidence of cardiac damage, as detected by marker proteins in a clinical setting consistent with myocardial ischemia. If the clinical circumstance suggests that an ischemic mechanism is unlikely, other causes of cardiac injury should be considered. For diagnostic purposes, the results should always be assessed in conjunction with the patient's medical history, clinical examination and other findings. Microbiology Results Procedure Source Organism/Result Collection Result [...] PANEL Completed 07/25/18 TX/PRO/DX INJ SAME DRUG WELL DIGGER Completed 07/25/18 Completed 07/25/18 MORPHINE SULFATE INJECTION [...] INF Completed 08/03/18 TX/PRO/DX INJ SAME DRUG WELL DIGGER Completed 08/03/18 COMPLETE CBC W/AUTO DIFF WBC Completed 08/03/18 ASSAY GLUCOSE BLOOD QUANT Completed 08/03/18 ASSAY GLUCOSE BLOOD QUANT Completed 08/03/18 ASSAY GLUCOSE BLOOD QUANT Completed 08/03/18 ASSAY GLUCOSE BLOOD QUANT Completed 08/03/18 ROUTINE VENIPUNCTURE Completed 08/03/18 METABOLIC PANEL TOTAL CA Completed 08/03/18 TX/PROPH/DG ADDL SEQ IV INF Completed 08/03/18 TX/PRO/DX INJ SAME DRUG WELL DIGGER Completed 08/03/18 COMPLETE CBC W/AUTO DIFF WBC Completed 08/03/18 ASSAY GLUCOSE BLOOD QUANT Completed 08/03/18 ASSAY GLUCOSE BLOOD QUANT Completed 08/03/18 ROUTINE VENIPUNCTURE Completed 08/03/18 COMPREHEN METABOLIC PANEL Completed 08/03/18 ASSAY OF NATRIURETIC PEPTIDE Completed 08/03/18 TX/PRO/DX INJ SAME DRUG WELL DIGGER Completed 08/03/18 Completed 08/03/18 MORPHINE SULFATE INJECTION Completed 08/03/18 MORPHINE SULFATE INJECTION Completed 08/03/18 HOSPITAL OBSERVATION SERVICES PER HOUR Completed 08/03/18 Completed 08/03/18 DIALYSIS ON ESRD PT Completed 08/03/18 DIALYSIS ON ESRD PT Completed 08/03/18 EMERGENCY DEPT VISIT Completed 08/10/18 THER/PROPH/DIAG INJ IV PUSH Completed 08/10/18 TX/PRO/DX INJ NEW DRUG ADDON Completed 08/10/18 TX/PRO/DX INJ SAME DRUG WELL DIGGER Completed 08/10/18 COMPLETE CBC W/AUTO DIFF WBC [...] EXAM HIPS BI 2 VIEWS Completed 08/18/18 EMERGENCY DEPT VISIT Completed 08/26/18 CT ABD & PELVIS W/O CONTRAST Completed 08/26/18 THER/PROPH/DIAG INJ IV PUSH Completed 08/26/18 TX/PRO/DX INJ NEW DRUG ADDON Completed 08/26/18 ASSAY GLUCOSE BLOOD QUANT Completed 08/26/18 COMPLETE CBC W/AUTO DIFF WBC Completed 08/26/18 ASSAY OF LIPASE Completed 08/26/18 ROUTINE VENIPUNCTURE Completed 08/26/18 COMPREHEN METABOLIC PANEL Completed 08/26/18 TX/PRO/DX INJ SAME DRUG WELL DIGGER Completed 08/26/18 ASSAY GLUCOSE BLOOD QUANT Completed 08/26/18 ASSAY GLUCOSE BLOOD QUANT Completed 08/26/18 ASSAY GLUCOSE BLOOD QUANT Completed 08/26/18 ROUTINE VENIPUNCTURE Completed 08/26/18 TX/PRO/DX INJ SAME DRUG WELL DIGGER Completed 08/26/18 ASSAY GLUCOSE BLOOD QUANT Completed 08/26/18 ASSAY GLUCOSE BLOOD QUANT Completed 08/26/18 ASSAY GLUCOSE BLOOD QUANT Completed 08/26/18 ASSAY GLUCOSE BLOOD QUANT Completed 08/26/18 COMPLETE CBC W/AUTO DIFF WBC Completed 08/26/18 ROUTINE VENIPUNCTURE Completed 08/26/18 METABOLIC PANEL TOTAL CA Completed 08/26/18 Completed 08/26/18 Completed 08/26/18 MORPHINE SULFATE INJECTION Completed 08/26/18 MORPHINE SULFATE INJECTION Completed 08/26/18 HOSPITAL OBSERVATION SERVICES PER HOUR Completed 08/26/18 DIALYSIS ON ESRD PT Completed 08/26/18 MORPHINE SULFATE INJECTION Completed 08/26/18 MORPHINE SULFATE INJECTION Completed 08/26/18 MORPHINE SULFATE INJECTION Completed 08/26/18 MORPHINE SULFATE INJECTION Completed 08/26/18 Computed tomography of abdomen and pelvis Completed [...] Completed 08/26/18 PASCUAL GARG MD without contrast X-ray of chest, single view Completed 09/07/18 ANDRE VARELA Encounters Encounter Location Arrival/Admit Date Discharge/Depart Date Attending Provider Departed [place] 09/07/18 7:33am 09/07/18 2:10pm ANDRE VARELA [facility] Discharged [place] 08/26/18 2:15pm 08/28/18 8:06pm TRACY MERCADO Inpatient (obs) [facility] Departed [place] 08/18/18 7:37am 08/18/18 10:40am EBRNABE GONZALEZ MD Emergency Room [facility] Registered [place] 08/14/18 11:58am FERNANDO HINOJOSA [facility] Departed [place] 08/10/18 10:58pm 08/11/18 4:55am ANDRE VARELA Emergency Room [facility] Discharged [place] 08/03/18 8:24am 08/05/18 4:55pm HAWK RUIZ Inpatient (obs) [facility] Departed [place] 07/25/18 4:39pm 07/25/18 8:32pm JAYDEN MENDEZ [facility] Recent Diagnosis
[2019-01-27 11:22] LABS: Absolute Lymphocytes (CBC) 1.1 K/uL (0.7-4.9); Basophils % 0.6 % (0-1.3); Hematocrit 30.4 % (36.0-45.0); Lymphocytes % 13.9 % (15.3-44.8); MPV 8.5 fL (7.6-11.3); RBC Red Blood Cell Count 3.65 M/uL (3.86-4.86)
--- OUTSIDE RECORDS SUMMARY | 2019-01-27 11:22 | XMS REPORT | Continuity of Care Document ---
:1950 Author Organization [facility] Address [address] [place] [address] Phone Unavailable Care Team Providers Name Role Phone FERNANDO HINOJOSA Primary Care Physician Insurance Providers Guarantor Cory Smith Address [address] [place] [address] Email NONE Payer Medicare Policy Number [id number] Subscriber's Name Cory Smith Relationship Self / Same As Patient Group Number NA Group Name NA Payer [facility] Policy Number [id number] Subscriber's Name Cory Smith Relationship Self / Same As Patient Group Number NA Group Name [employer] Payer Medicaid Policy Number [id number] Subscriber's Name Cory Smith Relationship Self / Same As Patient Group Number NA Group Name NA Advance Directives Directive Response Recorded Date/Time Advance Directives No 07/10/14 6:33pm Advance Directive on File No 10/27/18 9:25am Directive to Physicians/Living Will No 07/10/14 6:33pm Health Care Proxy No 07/10/14 6:33pm Organ Donor No 07/10/14 6:33pm Medical Power of Dealer Sales Rep No 07/10/14 6:33pm Chief Complaint and Reason for Visit Chief Complaint General Complaint Reason for Visit Right-sided chest wall pain ESRD (end stage renal disease) on dialysis Problems Medical Problem Onset Date Status Abdominal [...] Acute Hypoglycemia Unknown Acute Hypokalemia Unknown Acute [id number] Unknown Acute Infectious diarrhea Unknown UTI (urinary tract infection) Unknown Uncontrolled diabetes [...] renal disease) on dialysis Unknown Acute ESRD (end stage renal disease) on dialysis Unknown Acute ESRD needing dialysis Unknown Acute ESRD on dialysis Unknown Acute ESRD on dialysis Unknown Acute ESRD on dialysis Unknown Acute ESRD on dialysis Unknown Acute ESRD on dialysis Unknown Acute Esophagitis Unknown Acute Fall Unknown Acute Hemorrhage of cyst of [place] kidney Unknown Acute Hip pain, left Unknown [...] failure Unknown Acute Renal insufficiency Unknown Acute Right-sided chest wall pain Unknown Acute UTI (urinary tract infection) Unknown [...] Days 9 10/325MG * needed for Pain ([place] 10/325MG *) 1 Tab Tab Labetalol Hcl [...] Onset Date Status Hx Physical Abuse No 10/27/2018 9:25am Not Applicable Not Applicable Smoking Status Start Date Stop Date Never smoker Hospital Discharge Instructions No hospital discharge instruction information available. Plan of Care Discharge Date 10/27/18 11:08am Instructions/Education Provided Chest Wall Pain, Hteq-[id number] Forms Provided Prescription Opioid Use Portal Welcome Letter Prescriptions See Medication Section Referrals FERNANDO HINOJOSA Address: [address] [place] [phone] Additional Instructions/Education take your talwin for pain follow up with PCP if no improvement in 2 days return for new or worsening of symptoms Functional Status No functional status information available. Allergies, Adverse Reactions, Alerts Allergen Type Severity Reaction Status Last Updated Tramadol ([id number]) Allergy Intermediate Active 08/05/18 Immunizations No immunization information available. Vital Signs Acute Vital Signs Vital Response Date/Time Blood Pressure 189/88 mm Hg 10/27/2018 11:07am Pulse Pulse Rate (adult) 72 beats per minute (60 - 100) 10/27/2018 11:07am Respiratory Rate 18 breaths per minute (10 - 24) 10/27/2018 11:07am Temperature Source Oral 10/27/2018 11:07am Height 5 ft 5 in 10/27/2018 9:25am Weight 170 lb 10/27/2018 9:25am Body Mass Index 28.3 kg/m^2 10/27/2018 9:25am Results Laboratory Results Test Name Result Units Flags Reference Collection Result Comments Date/Time Date/Time POC Capillary 195 mg/dL H 70.0 - 110 08/28/2018 08/28/2018 Blood Glucose 7:50pm 7:51pm (Chem) Lipase 16 U/L 13-60 08/26/2018 08/26/2018 9:00am 9:35am Troponin I < 0.30 ng/mL 0.0-0.5 09/07/2018 09/07/2018 Published clinical studies have shown elevations of cTnI in 8:30am 9:33am patients with myocardial injury, as seen in unstable angina pectoris, cardiac contusions, and heart transplants. Elevations have also been seen in patients with rhabdomyolysis and polymyositis. Elevated troponin levels point to myocardial injury, but are not necessarily indicative of an ischemic mechanism. The term PR should be used when there is evidence of cardiac damage, as detected by marker proteins in a clinical setting consistent with myocardial ischemia. If the clinical circumstance suggests that an ischemic mechanism is unlikely, other causes of cardiac injury should be considered. For diagnostic purposes, the results should always be assessed in conjunction with the patient's medical history, clinical examination and other findings. White Blood Count 5.5 K/ul 4.0-11.5 10/20/2018 10/20/2018 12:46pm 12:57pm Red Blood Count 3.63 M/ul L 3.80-5.20 10/20/2018 10/20/2018 12:46pm 12:57pm Hemoglobin 9.6 g/dL L 10.5-15.7 10/20/2018 10/20/2018 12:46pm 12:57pm Hematocrit 31.2 % L 34.0-50.0 10/20/2018 10/20/2018 12:46pm 12:57pm Mean Corpuscular 86.0 fl 86-100 10/20/2018 10/20/2018 Volume 12:46pm 12:57pm Mean Corpuscular 26.4 pg 26.2-33.4 10/20/2018 10/20/2018 Hemoglobin 12:46pm 12:57pm Mean Corpuscular 30.8 g/dL 30-34 10/20/2018 10/20/2018 Hemoglobin Concent 12:46pm 12:57pm Red Cell 15.0 % 12.0-15.5 10/20/2018 10/20/2018 Distribution Width 12:46pm 12:57pm Platelet Count 177 K/uL 165-450 10/20/2018 10/20/2018 12:46pm 12:57pm Mean Platelet 10.7 fL 9.4-12.6 10/20/2018 10/20/2018 Volume 12:46pm 12:57pm Neutrophils (%) 62.1 % 44.4-80.1 10/20/2018 10/20/2018 (Auto) 12:46pm 12:57pm Immature 0.5 % H 0.0-0.4 10/20/2018 10/20/2018 Granulocyte % 12:46pm 12:57pm (Auto) Lymphocytes (%) 18.3 % 10.0-50.0 10/20/2018 10/20/2018 (Auto) 12:46pm 12:57pm Monocytes (%) 8.9 % 3.6-12.0 10/20/2018 10/20/2018 (Auto) 12:46pm 12:57pm Eosinophils (%) 9.8 % H 0.0-5.4 10/20/2018 10/20/2018 (Auto) 12:46pm 12:57pm Basophils (%) 0.4 % 0.1-1.2 10/20/2018 10/20/2018 (Auto) 12:46pm 12:57pm Neutrophils # 3.44 K/uL 1.56-6.13 10/20/2018 10/20/2018 (Auto) 12:46pm 12:57pm Absolute Immature 0.0 K/uL 0.0-0.03 10/20/2018 10/20/2018 Granulocyte (auto 12:46pm 12:57pm Lymphocytes # 1.0 K/uL L 1.18-3.74 10/20/2018 10/20/2018 (Auto) 12:46pm 12:57pm Monocytes # (Auto) 0.49 K/uL 0.24-0.86 10/20/2018 10/20/2018 12:46pm 12:57pm Eosinophils # 0.54 K/uL H 0.04-0.36 10/20/2018 10/20/2018 (Auto) 12:46pm 12:57pm Basophils # (Auto) 0.02 K/uL 0.01-0.08 10/20/2018 10/20/2018 12:46pm 12:57pm Nucleated Red 0 /100 0-0.2 10/20/2018 10/20/2018 Blood Cells % WBC 12:46pm 12:57pm Nucleated Red 0 K/uL 0 10/20/2018 10/20/2018 Blood Cells # 12:46pm 12:57pm Random Glucose 169 mg/dL H 82-115 10/20/2018 10/20/2018 12:46pm 1:20pm Blood Urea 103 mg/dL #H* 8-23 10/20/2018 10/20/2018 Results have been broadcasted to patient's location and Nitrogen 12:46pm 1:20pm called to (DR NELSON). By KAMARI TRENT 10/20/18 @1316 Results read back for confirmation. Serum Osmolality 325 H 280-300 10/20/2018 10/20/2018 12:46pm 1:20pm Creatinine 8.5 mg/dL H* 0.50-0.90 10/20/2018 10/20/2018 Results have been broadcasted to patient's location and 12:46pm 1:20pm called to (DR NELSON). By KAMARI TRENT 10/20/18 @1316 Results read back for confirmation. Glomerular 5.65 L 10/20/2018 10/20/2018 GFR RESULTS ARE REPORTED IN mL /min/1.73m2. Filtration Rate 12:46pm 1:20pm Calc Normal GFR: >60mL/min Moderately decreased GFR: 30-59 mL/min Severely decreased GFR: 15-29 mL/min Kidney Failure (or Dialysis): <15 mL/min The calculated eGFR is not valid for patients younger than 18 years or older than 75 years. BUN/Creatinine 12.1 12-10/20/2018 10/20/2018 Ratio 12:46pm 1:20pm Sodium Level 145 mmol/L 135-145 10/20/2018 10/20/2018 12:46pm 1:20pm Potassium Level 4.0 mmol/L 3.5-5.2 10/20/2018 10/20/2018 12:46pm 1:20pm Chloride Level 106 mmol/L 98-108 10/20/2018 10/20/2018 12:46pm 1:20pm Carbon Dioxide 21 mmol/L 21-32 10/20/2018 10/20/2018 Level 12:46pm 1:20pm Anion Gap 22.0 mEq/L H 1210/20/2018 10/20/2018 12:46pm 1:20pm Calcium Level 8.8 mg/dL 8.8-10.2 10/20/2018 10/20/2018 12:46pm 1:20pm Total Protein 6.6 g/dL 6.6-8.7 10/20/2018 10/20/2018 12:46pm 1:20pm Albumin 2.9 g/dL L 3.5-5.2 10/20/2018 10/20/2018 12:46pm 1:20pm Globulin 3.7 gm/dL 10/20/2018 10/20/2018 12:46pm 1:20pm Albumin/Globulin 0.8 >1.0 10/20/2018 10/20/2018 Ratio 12:46pm 1:20pm Total Bilirubin 0.3 mg/dL 0.0-1.2 10/20/2018 10/20/2018 12:46pm 1:20pm Aspartate Amino 18 U/L 15-10/20/2018 10/20/2018 Transf (AST/SGOT) 12:46pm 1:20pm Alanine 6 U/L 0-33 10/20/2018 10/20/2018 Aminotransferase 12:46pm 1:20pm (ALT/SGPT) Total Alkaline 126 U/L H 35-105 10/20/2018 10/20/2018 Phosphatase 12:46pm 1:20pm Procedures Procedure Status Date Provider(s) EMERGENCY DEPT VISIT Completed 08/26/18 CT ABD & PELVIS W/O CONTRAST Completed 08/26/18 THER/PROPH/DIAG INJ IV PUSH Completed 08/26/18 TX/PRO/DX INJ NEW DRUG ADDON Completed 08/26/18 ASSAY GLUCOSE BLOOD QUANT Completed 08/26/18 COMPLETE CBC W/AUTO DIFF WBC Completed 08/26/18 ASSAY OF LIPASE Completed 08/26/18 ROUTINE VENIPUNCTURE Completed 08/26/18 COMPREHEN METABOLIC PANEL Completed 08/26/18 TX/PRO/DX INJ SAME DRUG HAY RAKE OPERATOR Completed 08/26/18 ASSAY GLUCOSE BLOOD QUANT Completed 08/26/18 ASSAY GLUCOSE BLOOD QUANT Completed 08/26/18 ASSAY GLUCOSE BLOOD QUANT Completed 08/26/18 ROUTINE VENIPUNCTURE Completed 08/26/18 TX/PRO/DX INJ SAME DRUG HAY RAKE OPERATOR Completed 08/26/18 ASSAY GLUCOSE BLOOD QUANT Completed [...] Completed 08/26/18 MORPHINE SULFATE INJECTION Completed 08/26/18 EMERGENCY DEPT VISIT Completed 09/07/18 THER/PROPH/DIAG INJ IV PUSH Completed 09/07/18 X-RAY EXAM CHEST 1 VIEW Completed 09/07/18 TX/PRO/DX INJ NEW DRUG ADDON Completed 09/07/18 COMPLETE CBC W/AUTO DIFF WBC Completed 09/07/18 ROUTINE VENIPUNCTURE Completed 09/07/18 ASSAY OF TROPONIN QUANT Completed 09/07/18 COMPREHEN METABOLIC PANEL Completed 09/07/18 TX/PRO/DX INJ SAME DRUG HAY RAKE OPERATOR Completed 09/07/18 ELECTROCARDIOGRAM TRACING Completed 09/07/18 COMPREHEN METABOLIC PANEL Completed 10/13/18 COMPLETE CBC W/AUTO DIFF WBC Completed 10/13/18 ROUTINE VENIPUNCTURE Completed 10/13/18 COMPREHEN METABOLIC PANEL Completed 10/20/18 COMPLETE CBC W/AUTO DIFF WBC Completed 10/20/18 ROUTINE VENIPUNCTURE Completed 10/20/18 Computed tomography of abdomen and pelvis Completed 08/26/18 PASCUAL GARG MD without contrast X-ray of chest, single view Completed 09/07/18 ANDRE VARELA X-ray of chest, single view Completed 10/27/18 ANJALI MARTIN MD Encounters Encounter Location Arrival/Admit Date Discharge/Depart Date Attending Provider Departed [place] 10/27/18 9:24am 10/27/18 11:08am ANJALI MARTIN Emergency Room [facility] Registered [place] 10/20/18 12:39pm MO NELSON [facility] Registered [place] 10/13/18 1:04pm MO NELSON [facility] Departed [place] 09/07/18 7:33am 09/07/18 2:10pm ANDRE VARELA [facility] Discharged [place] 08/26/18 2:15pm 08/28/18 8:06pm TRACY MERCADO Inpatient (obs) [facility] Recent Diagnosis
--- OUTSIDE RECORDS SUMMARY | 2019-01-27 11:22 | XMS REPORT | Continuity of Care Document ---
:1950 Author Organization [facility] Address [address] [place] [address] Phone Unavailable Care Team Providers Name Role Phone FERNANDO HINOJOSA Primary Care Physician Insurance Providers Guarantor Cory Smith Address [address] [place] [address] Email NONE Payer Medicare Policy Number [id number] Subscriber's Name Cory Smith Relationship Self / Same As Patient Group Number NA Group Name NA Payer [facility] Policy Number [id number] Subscriber's Name Cory Smith Relationship Self / Same As Patient Group Number NA Group Name [employer] Payer Medicaid Policy Number [id number] Subscriber's Name Cory Smith Relationship Self / Same As Patient Group Number NA Group Name NA Advance Directives Directive Response Recorded Date/Time Advance Directives No 07/10/14 6:33pm Advance Directive on File No 11/03/18 5:04pm Directive to Physicians/Living Will No 07/10/14 6:33pm Health Care Proxy No 07/10/14 6:33pm Organ Donor No 07/10/14 6:33pm Medical Power of Bow Making Machine Operator No 07/10/14 6:33pm Chief Complaint and Reason for Visit Chief Complaint General Complaint Reason for Visit Visit for wound check Problems Medical Problem Onset Date Status Abdominal [...] Acute Hypoglycemia Unknown Acute Hypokalemia Unknown Acute [id number] Unknown Acute Infectious diarrhea Unknown UTI (urinary [...] Fall Unknown Acute Hemorrhage of cyst of [place] kidney Unknown Acute Hip pain, left Unknown [...] Acute Urinary tract infectious disease Unknown Acute Visit for wound check Unknown Acute Medications Current Home Medications Medication Dose Units Route Directions Days Qty Instructions Start Date Acetamin/Codein 1 Tab ORAL Every 6 Hours 5 Days 15 Tablet Do not combine 11/03/ e 300/30 Mg * As Needed as with other 19 (Tylenol With needed for Pain products that Codeine #3 contain 300/30 Mg *) Tylenol 300/30 Mg Tab (acetaminophen ). Carvedilol 25 Mg ORAL Twice Daily 60 Tablet 09/25/ (Coreg *) 25 Mg With Meals for 18 Tab Hypertension Clonidine Hcl 0.2 Mg ORAL Once Dose At 30 Tablet 08/05/ (Catapres *) 0400 as needed 19 0.2 Mg Tab for Elevated Bp Esomeprazole 1 Cap ORAL Daily for 30 30 Cap 07/25/ Magnesium * Reflux Days 19 (Nexium *) 40 Mg Cap Famotidine 40 Mg ORAL Once Daily 30 30 Tablet (Pepcid *) 40 Days Mg Tab Hydralazine Hcl 50 Mg ORAL Three Times A 30 90 Tablet (Apresoline *) Day Days 50 Mg Tab Hydrocodone-Rui 1 Tab ORAL Twice Daily As 30 60 Tablet 08/28/ taminophen Needed as Days 19 10/325MG * needed for Pain ([place] 10/325MG *) 1 Tab Tab Labetalol Hcl 200 Mg ORAL Twice A Day (Trandate 200 Mg*) 200 Mg Tab Linaclotide * 1 Cap ORAL Daily 30 30 Cap (Linzess 290 Days Mcg *) 290 Mcg Cap Magnesium 5 Ml ORAL Twice A Day for 7 Days 100 08/28/ Hydroxide (Milk Constipation Milliliter 19 Of Magnesia 400 Mg/5ML) 1 Laury Laury Metronidazole 1 Tab ORAL Three Times A 7 Days 21 Tablet 08/05/ (Flagyl *) 500 Day for 19 Mg Tab Enterocolitis Sucralfate 1 Gm [...] Onset Date Status Hx Physical Abuse No 11/03/2018 5:04pm Not Applicable Not Applicable Smoking Status Start Date Stop Date Never smoker Hospital Discharge Instructions No hospital discharge instruction information available. Plan of Care Discharge Date 11/03/18 6:35pm Instructions/Education Provided Central Line, Adult, [id number] Forms Provided Prescription Opioid Use Portal Welcome Letter Prescriptions See Medication Section Referrals FERNANDO HINOJOSA Address: [place] [address] Additional Instructions/Education Tylenol #3 1 tab. every 4-6 hours as needed for pain FOLLOW UP WITH PCP IN 2 DAYS Functional Status No functional status information available. Allergies, Adverse Reactions, Alerts Allergen Type Severity Reaction Status Last Updated Tramadol ([id number]) Allergy Intermediate Active 08/05/18 Immunizations No immunization information available. Vital Signs Acute Vital Signs Vital Response Date/Time Blood Pressure 157/64 mm Hg 11/03/2018 6:35pm Pulse Pulse Rate (adult) 63 beats per minute (60 - 100) 11/03/2018 6:35pm Respiratory Rate 16 breaths per minute (10 - 24) 11/03/2018 6:35pm Temperature Source Oral 11/03/2018 6:35pm Results Laboratory Results Test Name Result Units Flags Reference Collection Result Comments Date/Time Date/Time Troponin I < 0.30 ng/mL 0.0-0.5 09/07/2018 09/07/2018 Published clinical studies have shown elevations of cTnI in 8:30am 9:33am patients with myocardial injury, as seen in unstable angina pectoris, cardiac contusions, and heart transplants. Elevations have also been seen in patients with rhabdomyolysis and polymyositis. Elevated troponin levels point to myocardial injury, but are not necessarily indicative of an ischemic mechanism. The term [place] should be used when there is evidence of cardiac damage, as detected by marker proteins in a clinical setting consistent with myocardial ischemia. If the clinical circumstance suggests that an ischemic mechanism is unlikely, other causes of cardiac injury should be considered. For diagnostic purposes, the results should always be assessed in conjunction with the patient's medical history, clinical examination and other findings. Total Protein 6.6 g/dL 6.6-8.7 10/20/2018 10/20/2018 12:46pm 1:20pm Albumin 2.9 g/dL L 3.5-5.2 10/20/2018 10/20/2018 12:46pm 1:20pm Globulin 3.7 gm/dL 10/20/2018 10/20/2018 12:46pm 1:20pm Albumin/Globulin 0.8 >1.0 10/20/2018 10/20/2018 Ratio 12:46pm 1:20pm Total Bilirubin 0.3 mg/dL 0.0-1.2 10/20/2018 10/20/2018 12:46pm 1:20pm Aspartate Amino 18 U/L 15-32 10/20/2018 10/20/2018 Transf (AST/SGOT) 12:46pm 1:20pm Alanine 6 U/L 0-33 10/20/2018 10/20/2018 Aminotransferase 12:46pm 1:20pm (ALT/SGPT) Total Alkaline 126 U/L H 35-105 10/20/2018 10/20/2018 Phosphatase 12:46pm 1:20pm White Blood Count 6.1 K/ul 4.0-11.5 11/03/2018 11/03/2018 5:30pm 5:46pm Red Blood Count 3.71 M/ul L 3.80-5.20 11/03/2018 11/03/2018 5:30pm 5:46pm Hemoglobin 9.9 g/dL L 10.5-15.7 11/03/2018 11/03/2018 5:30pm 5:46pm Hematocrit 32.3 % L 34.0-50.0 11/03/2018 11/03/2018 5:30pm 5:46pm Mean Corpuscular 87.1 fl 86-100 11/03/2018 11/03/2018 Volume 5:30pm 5:46pm Mean Corpuscular 26.7 pg 26.2-33.4 11/03/2018 11/03/2018 Hemoglobin 5:30pm 5:46pm Mean Corpuscular 30.7 g/dL 30-34 11/03/2018 11/03/2018 Hemoglobin Concent 5:30pm 5:46pm Red Cell 16.4 % H 12.0-15.5 11/03/2018 11/03/2018 Distribution Width 5:30pm 5:46pm Platelet Count 176 K/uL 165-450 11/03/2018 11/03/2018 5:30pm 5:46pm Mean Platelet 10.3 fL 9.4-12.6 11/03/2018 11/03/2018 Volume 5:30pm 5:46pm Neutrophils (%) 70.7 % 44.4-80.1 11/03/2018 11/03/2018 (Auto) 5:30pm 5:46pm Immature 0.5 % H 0.0-0.4 11/03/2018 11/03/2018 Granulocyte % 5:30pm 5:46pm (Auto) Lymphocytes (%) 12.7 % 10.0-50.0 11/03/2018 11/03/2018 (Auto) 5:30pm 5:46pm Monocytes (%) 6.4 % 3.6-12.0 11/03/2018 11/03/2018 (Auto) 5:30pm 5:46pm Eosinophils (%) 8.7 % H 0.0-5.4 11/03/2018 11/03/2018 (Auto) 5:30pm 5:46pm Basophils (%) 1.0 % 0.1-1.2 11/03/2018 11/03/2018 (Auto) 5:30pm 5:46pm Neutrophils # 4.28 K/uL 1.56-6.13 11/03/2018 11/03/2018 (Auto) 5:30pm 5:46pm Absolute Immature 0.0 K/uL 0.0-0.03 11/03/2018 11/03/2018 Granulocyte (auto 5:30pm 5:46pm Lymphocytes # 0.8 K/uL L 1.18-3.74 11/03/2018 11/03/2018 (Auto) 5:30pm 5:46pm Monocytes # (Auto) 0.39 K/uL 0.24-0.86 11/03/2018 11/03/2018 5:30pm 5:46pm Eosinophils # 0.53 K/uL H 0.04-0.36 11/03/2018 11/03/2018 (Auto) 5:30pm 5:46pm Basophils # (Auto) 0.06 K/uL 0.01-0.08 11/03/2018 11/03/2018 5:30pm 5:46pm Nucleated Red 0 /100 0-0.2 11/03/2018 11/03/2018 Blood Cells % WBC 5:30pm 5:46pm Nucleated Red 0 K/uL 0 11/03/2018 11/03/2018 Blood Cells # 5:30pm 5:46pm Random Glucose 179 mg/dL H 82-115 11/03/2018 11/03/2018 5:30pm 6:12pm Blood Urea 39 mg/dL #H 8-23 11/03/2018 11/03/2018 Nitrogen 5:30pm 6:12pm Serum Osmolality 292 280-300 11/03/2018 11/03/2018 5:30pm 6:12pm Creatinine 3.7 mg/dL H 0.50-0.90 11/03/2018 11/03/2018 5:30pm 6:12pm Glomerular 14.74 L 11/03/2018 11/03/2018 GFR RESULTS ARE REPORTED IN mL/min/1.73m2. Filtration Rate 5:30pm 6:12pm Calc Normal GFR: >60mL/min Moderately decreased GFR: 30-59 mL/min Severely decreased GFR: 15-29 mL/min Kidney Failure (or Dialysis): <15 mL/min The calculated eGFR is not valid for patients younger than 18 years or older than 75 years. BUN/Creatinine 10.5 L 12-11/03/2018 11/03/2018 Ratio 5:30pm 6:12pm Sodium Level 139 mmol/L 135-145 11/03/2018 11/03/2018 5:30pm 6:12pm Potassium Level 3.4 mmol/L L 3.5-5.2 11/03/2018 11/03/2018 5:30pm 6:12pm Chloride Level 99 mmol/L 98-108 11/03/2018 11/03/2018 5:30pm 6:12pm Carbon Dioxide 24 mmol/L 21-32 11/03/2018 11/03/2018 Level 5:30pm 6:12pm Anion Gap 19.4 mEq/L -11/03/2018 11/03/2018 5:30pm 6:12pm Calcium Level 8.3 mg/dL L 8.8-10.2 11/03/2018 11/03/2018 5:30pm 6:12pm Procedures Procedure Status Date Provider(s) EMERGENCY DEPT VISIT Completed 09/07/18 THER/PROPH/DIAG INJ IV PUSH Completed 09/07/18 X-RAY EXAM CHEST 1 VIEW Completed 09/07/18 TX/PRO/DX INJ NEW DRUG ADDON Completed 09/07/18 COMPLETE CBC W/AUTO DIFF WBC Completed 09/07/18 ROUTINE VENIPUNCTURE Completed 09/07/18 ASSAY OF TROPONIN QUANT Completed 09/07/18 COMPREHEN METABOLIC PANEL Completed 09/07/18 TX/PRO/DX INJ SAME DRUG HOME ASSESSMENT NURSE Completed 09/07/18 ELECTROCARDIOGRAM TRACING Completed 09/07/18 COMPREHEN METABOLIC PANEL Completed 10/13/18 COMPLETE CBC W/AUTO DIFF WBC Completed 10/13/18 ROUTINE VENIPUNCTURE Completed 10/13/18 COMPREHEN METABOLIC PANEL Completed 10/20/18 COMPLETE CBC W/AUTO DIFF WBC Completed 10/20/18 ROUTINE VENIPUNCTURE Completed 10/20/18 EMERGENCY DEPT VISIT Completed 10/27/18 X-RAY EXAM CHEST 1 VIEW Completed 10/27/18 X-ray of chest, single view Completed 09/07/18 ANDRE VARELA X-ray of chest, single view Completed 10/27/18 ANJALI MARTIN MD Encounters Encounter Location Arrival/Admit Date Discharge/Depart Date Attending Provider Departed [place] 11/03/18 5:05pm 11/03/18 6:35pm JAYDEN MENEDZ [facility] Departed [place] 10/27/18 9:24am 10/27/18 11:08am ANJALI MARTIN [facility] Registered [place] 10/20/18 12:39pm MO NELSON [facility] Registered [place] 10/13/18 1:04pm MO NELSON [facility] Departed [place] 09/07/18 7:33am 09/07/18 2:10pm ANDRE VARELA [facility] Recent Diagnosis
[2019-01-27 11:23] LABS: Protime INR 1.31
--- OUTSIDE RECORDS SUMMARY | 2019-01-27 11:23 | XMS REPORT | Encounter Summary ---
:1950 Author Care Team Providers Name Role Phone [place] Primary Care Provider [phone] [facility] OTHER [phone] Reason for Visit medication refill; Patient Returns to The Clinic following up HTN Instructions 1. Malignant hypertension 2. Persistent insomnia Restoril 15 mg capsule 3. Hyperlipidemia 4. End stage renal failure on dialysis 5. Malignant hypertensive chronic kidney disease Discussion Note Ms. Mancuso's daughter is going to monitor her blood pressure and kep a diary , we re-emphasize low sodium low cholesterol low fat heart and diabetic diet . Patient educational handouts: No information available. Plan of Care Reminders Provider Appointments Return to on or around Colten Osei, Office 11/20/2018 PA FOLLOW-UP 12/18/2018 [place]sei, 9:30AM PA Lab None recorded. Referral None recorded. Procedures None recorded. Surgeries None recorded. Imaging None recorded. Medications Name Start Date acetaminophen 300 mg-codeine 30 mg tablet Take 1 tablet every 8 hours by oral route as needed for 15 days. carvedilol 25 mg tablet Take 1 tablet twice a day by oral route as directed for 90 days. clonidine HCl 0.2 mg tablet Take 1 tablet 3 times a day by oral route as directed for 90 days. furosemide 20 mg tablet Klor-Con 10 mEq tablet,extended release Take 1 tablet every day by oral route. labetalol 200 mg tablet Lantus U-100 Insulin 100 unit/mL subcutaneous solution meropenem 500 mg intravenous solution Restoril 15 mg capsule Take 1 capsule every day by oral route at bedtime for 30 days. sucralfate 1 gram tablet Medications Administered None recorded. Vitals Height Weight BMI Blood Pressure 65 in 169/94 mm[Hg] Lab Results Date Name Specimen Result Interpretation Description Value Range Status Address 11/05/2018 CBC W/ Auto Normal White Blood 6.4 4.0-11.5 Final [place] Diff Count K/uL K/uL [facility] (Lab): [address] [facility] Low Red Blood 3.42 3.80-5.20 Final [place] Count M/uL M/uL [facility] (Lab): [address] [place] [address] Low Hemoglobin 9.2 10.5-15.7 Final [place] g/dL g/dL [facility] (Lab): [address] [place] [address] Low Hematocrit 29.3 34.0-50.0 Final [place] % % [facility] (Lab): [address] [place] [address] Low Mean 85.7 86-100 fL Final [place] Corpuscular fL [facility] (Lab): [address] [place] [address] Normal Mean 26.9 26.2-33.4 Final [place] Corpuscular pg pg [facility] Hemoglobin [facility] (Lab): [address] [place] [address] Normal Mean 31.4 30-34 Final [place] Corpuscular g/dL g/dL [facility] (Lab): [address] [place] [address] Red Cell 16.4 12.0-15.5 Final [place] Distribution % % [facility] (Lab): [address] [place] [address] Normal Platelet 180 165-450 Final [place] Count K/uL K/uL [facility] (Lab): [address] [place] [address] Normal Mean Platelet 11.3 9.4-12.6 Final [place] Volume fL fL [facility] (Lab): [address] [place] [address] Normal Neutrophils % 68.1 44.4-80.1 Corrected [place] % % [facility] (Lab): [address] [place] [address] Normal Ig% 0.3 % 0.0-0.4 % Corrected [place] [facility] (Lab): [address] [place] [address] Normal Lymphocyte% 16.8 10.0-50.0 Final [place] % % [facility] (Lab): [address] [place] [address] Normal Dickenson % 6.1 % 3.6-12.0 Final [place] % [facility] (Lab): [address] [place] [address] High Eos % 8.2 % 0.0-5.4 % Final [place] [facility] (Lab): [address] [place] [address] Normal Basophil % 0.5 % 0.1-1.2 % Final [place] [facility] (Lab): [address] [place] [address] Normal Absolute 4.38 1.56-6.13 Final [place] Neutrophil K/uL K/uL [facility] (Lab): [address] [place] [address] Normal Ig# 0.0 0.0-0.03 Corrected [place] K/uL K/uL [facility] (Lab): [address] [place] [address] Low Lymph # 1.1 1.18-3.74 Corrected [place] K/uL K/uL [facility] (Lab): [address] [place] [address] Normal Dickenson # 0.39 0.24-0.86 Final [place] K/uL K/uL [facility] (Lab): [address] [place] [address] High Eos # 0.53 0.04-0.36 Final [place] K/uL K/uL [facility] (Lab): [address] [place] [address] Normal Basophil # 0.03 0.01-0.08 Corrected [place] K/uL K/uL [facility] (Lab): [address] [place] [address] Normal Nrbc% 0 0-0.2 Final [place] /100 /100 WBC [facility] WBC [facility] (Lab): [address] [place] [address] Nrbc# 0 0 K/uL Final [place] K/uL [facility] (Lab): [address] [place] [address] 11/05/2018 CMP, Serum or High Glucose 180 82-115 Final [place] Plasma mg/dL mg/dL [facility] (Lab): [address] [place] [address] Normal Blood Urea 75 8-23 Final [place] Nitrogen mg/dL mg/dL [facility] (Lab): [address] [place] [address] High Osmolality 308 280-300 Final [place] Calculated, [facility] (Lab): [address] [place] [address] Normal Creatinine 6.4 0.50-0.90 Final [place] mg/dL mg/dL [facility] (Lab): [address] [place] [address] Low Glomerular 7.83 Final [place] Filtration [facility] (Lab): [address] [place] [address] Low BUN/creatinin 11.7 12-20 Final [place] e Ratio [facility] (Lab): [address] [place] [address] Normal Sodium Level 141 135-145 Final [place] mmol/ mmol/L [facility] (Lab): [address] [place] [address] Normal Potassium 4.0 3.5-5.2 Final [place] Level mmol/ mmol/L [facility] (Lab): [address] [place] [address] Normal Chloride 99 98-108 Final [place] Level mmol/ mmol/L [facility] (Lab): [address] [place] [address] Normal Co2 24 21-32 Final [place] mmol/ mmol/L [facility] (Lab): [address] [place] [address] High Anion Gap 22.0 12-20 Final [place] mEq/L mEq/L [facility] (Lab): [address] [place] [address] Normal Calcium Level 9.5 8.8-10.2 Final [place] mg/dL mg/dL [facility] (Lab): [address] [place] [address] Normal Total Protein 7.1 6.6-8.7 Final [place] g/dL g/dL [facility] (Lab): [address] [place] [address] Low Albumin 3.2 3.5-5.2 Final [place] g/dL g/dL [facility] (Lab): [address] [place] [address] Normal Globulin 3.9 Final [place] gm/dL [facility] (Lab): [address] [place] [address] Normal A/g Ratio 0.8 >1.0 Final [place] [facility] (Lab): [address] [place] [address] Normal Bilirubin,tot 0.3 0.0-1.2 Final [place] al mg/dL mg/dL [facility] (Lab): [address] [place] [address] Normal AST/SGOT 30 15-32 U/L Final [place] U/L [facility] (Lab): [address] [place] [address] Normal ALT/SGPT 17 0-33 U/L Final [place] U/L [facility] (Lab): [address] [place] [address] High Alkaline 156 35-105 Final [place] Phosphatase, U/L U/L [facility] (Lab): [address] [place] [address] 11/03/2018 CBC W/ Auto Normal White Blood 6.1 4.0-11.5 Final [place] Diff Count K/uL K/uL [facility] (Lab): [address] [place] [address] Red Blood 3.71 3.80-5.20 Final [place] Count M/uL M/uL [facility] (Lab): [address] [place] [address] Low Hemoglobin 9.9 10.5-15.7 Final [place] g/dL g/dL [facility] (Lab): [address] [place] [address] Low Hematocrit 32.3 34.0-50.0 Final [place] % % [facility] (Lab): [address] [place] [address] Normal Mean 87.1 86-100 fL Final [place] Corpuscular fL [facility] Volume [facility] (Lab): [address] [place] [address] Normal Mean 26.7 26.2-33.4 Final [place] Corpuscular pg pg [facility] Hemoglobin [facility] (Lab): [address] [place] [address] Normal Mean 30.7 30-34 Final [place] Corpuscular g/dL g/dL [facility] (Lab): [address] [place] [address] Red Cell 16.4 12.0-15.5 Final [place] Distribution % % [facility] (Lab): [address] [place] [address] Normal Platelet 176 165-450 Final [place] Count K/uL K/uL [facility] (Lab): [address] [place] [address] Normal Mean Platelet 10.3 9.4-12.6 Final [place] Volume fL fL [facility] (Lab): [address] [place] [address] Normal Neutrophils % 70.7 44.4-80.1 Corrected [place] % % [facility] (Lab): [address] [place] [address] Ig% 0.5 % 0.0-0.4 % Corrected [place] [facility] (Lab): [address] [place] [address] Normal Lymphocyte% 12.7 10.0-50.0 Final [place] % % [facility] (Lab): [address] [place] [address] Normal Dickenson % 6.4 % 3.6-12.0 Final [place] % [facility] (Lab): [address] [place] [address] Eos % 8.7 % 0.0-5.4 % Final [place] [facility] (Lab): [address] [place] [address] Normal Basophil % 1.0 % 0.1-1.2 % Final [place] [facility] (Lab): [address] [place] [address] Normal Absolute 4.28 1.56-6.13 Final [place] Neutrophil K/uL K/uL [facility] (Lab): [address] [place] [address] Normal Ig# 0.0 0.0-0.03 Corrected [place] K/uL K/uL [facility] (Lab): [address] [place] [address] Low Lymph # 0.8 1.18-3.74 Corrected [place] K/uL K/uL [facility] (Lab): [address] [place] [address] Normal Dickenson # 0.39 0.24-0.86 Final [place] K/uL K/uL [facility] (Lab): [address] [place] [address] High Eos # 0.53 0.04-0.36 Final [place] K/uL K/uL [facility] (Lab): [address] [place] [address] Normal Basophil # 0.06 0.01-0.08 Corrected [place] K/uL K/uL [facility] (Lab): [address] [place] [address] Normal Nrbc% 0 0-0.2 Final [place] /100 /100 WBC [facility] WBC [facility] (Lab): [address] [place] [address] Normal Nrbc# 0 0 K/uL Final [place] K/uL [facility] (Lab): [address] [place] [address] 11/03/2018 Differential Normal Neutrophils Incomplete [place] Panel, Blood [facility] (Lab): [address] [place] [address] Normal Band Incomplete [facility] (Lab): [address] [place] [address] Normal Lymphocyte Incomplete [facility] (Lab): [address] [place] [address] Normal Atypical Incomplete [place] Lymph [facility] (Lab): [address] [place] [address] Normal Monocyte Incomplete [facility] (Lab): [address] [place] [address] Normal Eosinophil Incomplete [facility] (Lab): [address] [place] [address] Normal Basophil Incomplete [facility] (Lab): [address] [place] [address] Normal Blasts Incomplete [facility] (Lab): [address] [place] [address] Normal Nucleated Red Incomplete [place] Blood Cell [facility] (Lab): [address] [place] [address] Normal Other Cell Incomplete [place] Type [facility] (Lab): [address] [place] [address] Normal Platelet Incomplete [place] Estimate [facility] (Lab): [address] [place] [address] Normal Platelet Incomplete [place] Morphology [facility] (Lab): [address] [place] [address] Normal Hypochromasia [facility] (Lab): [address] [place] [address] Normal Anisocytosis [facility] (Lab): [address] [place] [address] Normal Microcytosis [facility] (Lab): [address] [place] [address] Normal Toxic Incomplete [place] Granulation [facility] (Lab): [address] [place] [address] 11/03/2018 BMP, Serum or High Glucose 179 82-115 Final [place] Plasma mg/dL mg/dL [facility] (Lab): [address] [place] [address] Normal Blood Urea 39 8-23 Final [place] Nitrogen mg/dL mg/dL [facility] (Lab): [address] [place] [address] Normal Osmolality 292 280-300 Final [place] Calculated, [facility] (Lab): [address] [place] [address] High Creatinine 3.7 0.50-0.90 Final [place] mg/dL mg/dL [facility] (Lab): [address] [place] [address] Low Glomerular 14.74 Final [place] Filtration [facility] (Lab): [address] [place] [address] Low BUN/creatinin 10.5 12-20 Final [place] e Ratio [facility] (Lab): [address] [place] [address] Normal Sodium Level 139 135-145 Final [place] mmol/ mmol/L [facility] (Lab): [address] [place] [address] Low Potassium 3.4 3.5-5.2 Final [place] Level mmol/ mmol/L [facility] (Lab): [address] [place] [address] Normal Chloride 99 98-108 Final [place] Level mmol/ mmol/L [facility] (Lab): [address] [place] [address] Normal Co2 24 21-32 Final [place] mmol/ mmol/L [facility] (Lab): [address] [place] [address] Normal Anion Gap 19.4 12-20 Final [place] mEq/L mEq/L [facility] (Lab): [address] [place] [address] Low Calcium Level 8.3 8.8-10.2 Final [place] mg/dL mg/dL [facility] (Lab): [address] [place] [address] 10/20/2018 CBC W/ Auto Normal White Blood 5.5 4.0-11.5 Final [place] Diff Count K/uL K/uL [facility] (Lab): [address] [place] [address] Low Red Blood 3.63 3.80-5.20 Final [place] Count M/uL M/uL [facility] (Lab): [address] [place] [address] Low Hemoglobin 9.6 10.5-15.7 Final [place] g/dL g/dL [facility] (Lab): [address] [place] [address] Hematocrit 31.2 34.0-50.0 Final [place] % % [facility] (Lab): [address] [place] [address] Normal Mean 86.0 86-100 fL Final [place] Corpuscular fL [facility] Volume [facility] (Lab): [address] [place] [address] Normal Mean 26.4 26.2-33.4 Final [place] Corpuscular pg pg [facility] Hemoglobin [facility] (Lab): [address] [place] [address] Normal Mean 30.8 30-34 Final [place] Corpuscular g/dL g/dL [facility] (Lab): [address] [place] [address] Normal Red Cell 15.0 12.0-15.5 Final [place] Distribution % % [facility] (Lab): [address] [place] [address] Normal Platelet 177 165-450 Final [place] Count K/uL K/uL [facility] (Lab): [address] [place] [address] Normal Mean Platelet 10.7 9.4-12.6 Final [place] Volume fL fL [facility] (Lab): [address] [place] [address] Normal Neutrophils % 62.1 44.4-80.1 Corrected [place] % % [facility] (Lab): [address] [place] [address] High Ig% 0.5 % 0.0-0.4 % Corrected [place] [facility] (Lab): [address] [place] [address] Normal Lymphocyte% 18.3 10.0-50.0 Final [place] % % [facility] (Lab): [address] [place] [address] Normal Dickenson % 8.9 % 3.6-12.0 Final [place] % [facility] (Lab): [address] [place] [address] High Eos % 9.8 % 0.0-5.4 % Final [place] [facility] (Lab): [address] [place] [address] Normal Basophil % 0.4 % 0.1-1.2 % Final [facility] (Lab): [address] [place] [address] Normal Absolute 3.44 1.56-6.13 Final [place] Neutrophil K/uL K/uL [facility] (Lab): [address] [place] [address] Normal Ig# 0.0 0.0-0.03 Corrected [place] K/uL K/uL [facility] (Lab): [address] [place] [address] Low Lymph # 1.0 1.18-3.74 Corrected [place] K/uL K/uL [facility] (Lab): [address] [place] [address] Normal Dickenson # 0.49 0.24-0.86 Final [place] K/uL K/uL [facility] (Lab): [address] [place] [address] High Eos # 0.54 0.04-0.36 Final [place] K/uL K/uL [facility] (Lab): [address] [place] [address] Normal Basophil # 0.02 0.01-0.08 Corrected [place] K/uL K/uL [facility] (Lab): [address] [place] [address] Normal Nrbc% 0 0-0.2 Final [place] /100 /100 WBC [facility] WBC [facility] (Lab): [address] [place] [address] Normal Nrbc# 0 0 K/uL Final [place] K/uL [facility] (Lab): [address] [place] [address] 10/20/2018 Differential Normal Neutrophils Incomplete [place] Panel, Blood [facility] (Lab): [address] [place] [address] Normal Band Incomplete [facility] (Lab): [address] [place] [address] Normal Lymphocyte Incomplete [facility] (Lab): [address] [place] [address] Normal Monocyte Incomplete [facility] (Lab): [address] [place] [address] Normal Eosinophil Incomplete [facility] (Lab): [address] [place] [address] Normal Basophil Incomplete [facility] (Lab): [address] [place] [address] Normal Metamyelocyte Incomplete [facility] (Lab): [address] [place] [address] Normal Differential Incomplete [place] Comment [facility] (Lab): [address] [place] [address] Normal Platelet Incomplete [place] Estimate [facility] (Lab): [address] [place] [address] Normal Platelet Incomplete [place] Morphology [facility] (Lab): [address] [place] [address] Normal Polychromasia Incomplete [facility] (Lab): [address] [place] [address] Normal Spherocyte Incomplete [facility] (Lab): [address] [place] [address] Normal Schistocytes Incomplete [facility] (Lab): [address] [place] [address] Normal Target Cells Incomplete [facility] (Lab): [address] [place] [address] Normal Tear Drop Incomplete [place] Cells [facility] (Lab): [address] [place] [address] Normal Ovalocytes Incomplete [facility] (Lab): [address] [place] [address] Normal Dohle Bodies Incomplete [facility] (Lab): [address] [place] [address] Normal [place] Cells [facility] (Lab): [address] [place] [address] Normal Acanthocytes Incomplete [facility] (Lab): [address] [place] [address] Normal Differential Incomplete [place] comment-P [facility] (Lab): [address] [place] [address] 10/20/2018 CMP, Serum or High Glucose 169 82-115 Final [place] Plasma mg/dL mg/dL [facility] (Lab): [address] [place] [address] Normal Blood Urea 103 8-23 Final [place] Nitrogen mg/dL mg/dL [facility] (Lab): [address] [place] [address] High Osmolality 325 280-300 Final [place] Calculated, [facility] Serum [facility] (Lab): [address] [place] [address] CRITICAL Creatinine 8.5 0.50-0.90 Final [place] HIGH mg/dL mg/dL [facility] (Lab): [address] [place] [address] Low Glomerular 5.65 Final [place] Filtration [facility] (Lab): [address] [place] [address] Normal BUN/creatinin 12.1 12-20 Final [place] e Ratio [facility] (Lab): [address] [place] [address] Normal Sodium Level 145 135-145 Final [place] mmol/ mmol/L [facility] (Lab): [address] [place] [address] Normal Potassium 4.0 3.5-5.2 Final [place] Level mmol/ mmol/L [facility] (Lab): [address] [place] [address] Normal Chloride 106 98-108 Final [place] Level mmol/ mmol/L [facility] (Lab): [address] [place] [address] Normal Co2 21 21-32 Final [place] mmol/ mmol/L [facility] (Lab): [address] [place] [address] High Anion Gap 22.0 12-20 Final [place] mEq/L mEq/L [facility] (Lab): [address] [place] [address] Normal Calcium Level 8.8 8.8-10.2 Final [place] mg/dL mg/dL [facility] (Lab): [address] [place] [address] Normal Total Protein 6.6 6.6-8.7 Final [place] g/dL g/dL [facility] (Lab): [address] [place] [address] Low Albumin 2.9 3.5-5.2 Final [place] g/dL g/dL [facility] (Lab): [address] [place] [address] Normal Globulin 3.7 Final [place] gm/dL [facility] (Lab): [address] [place] [address] Normal A/g Ratio 0.8 >1.0 Final [place] [facility] (Lab): [address] [place] [address] Normal Bilirubin,tot 0.3 0.0-1.2 Final [place] al mg/dL mg/dL [facility] (Lab): [address] [place] [address] Normal AST/SGOT 18 15-32 U/L Final [place] U/L [facility] (Lab): [address] [place] [address] Normal ALT/SGPT 6 U/L 0-33 U/L Final [place] [facility] (Lab): [address] [place] [address] High Alkaline 126 35-105 Final [place] Phosphatase, U/L U/L [facility] (Lab): [address] [place] [address] Allergies Code Code System Name Reaction Severity Status Onset 8002 RxNorm [place] Other Active 71507 RxNorm Tramadol Rash Moderate to Active Severe Problems Name Status Onset Date Source Diabetes Mellitus Active 08/14/2018 Hypertensive Disorder Active 08/14/2018 Renal Failure Syndrome Active 08/14/2018 Procedures Date Name Performed by Cataract Surgery Complex Information not available Cholecystectomy Information not available Appendectomy Information not available Hysterectomy Information not available Vaccine List Vaccine Type influenza, injectable, quadrivalent 03/04/2018 pneumococcal polysaccharide PPV23 03/04/2018 Social History Tobacco Smoking Status Former Smoker Past Encounters 11/20/2018 Malignant Hypertension; Persistent Insomnia; Hyperlipidemia; End Stage Renal Failure on Dialysis; Malignant Hypertensive Chronic Kidney Disease PIERRE Mckeon: [address] [place] [address] [address], [place] [address], Ph. History of Present Illness Insomnia Reported By: Patient HPI: Severity: same, moderate. Duration: intermittent. Associated Symptoms: no anxiety, no snoring, no depression, no known sleep apnea, no pain, no dyspnea, no urinary frequency, legs do not feel restless Note: Ms. Mancuso is here with her daughter stating that she she feeling much better no more constipation , still having persistant Insomnia . Did not take BP med This morning . Review of Systems General Adult ROS Reported By: Patient Constitutional: Constitutional: no fever, no night sweats, exercise intolerance; having difficulty falling asleep and staying asleep Cardiovascular: Cardiovascular: no chest pain, no arm pain on exertion, no shortness of breath when walking, no shortness of breath when lying down, no palpitations, no known heart murmur Respiratory: Respiratory: no cough, no wheezing, no shortness of breath, no coughing up blood Gastrointestinal: Gastrointestinal: no abdominal pain, no vomiting, normal appetite, no diarrhea, not vomiting blood Musculoskeletal: Musculoskeletal: no muscle aches, no muscle weakness, no arthralgias/joint pain, no back pain, no swelling in the extremities Integumentary: Skin: no abnormal mole, no jaundice, no rashes; Poor turgor Neurologic: Neurologic: no loss of consciousness, no seizures, no dizziness, no headaches, weakness Psychiatric: Psych: no depression, feeling safe in relationship, no alcohol abuse Physical Exam General Adult Exam - Female Reported By: Patient Constitutional: General Appearance: cachectic. Level of Distress: NAD. Ambulation: limited ambulation Psychiatric: Insight: good judgement. Mental Status: active and alert, normal mood, normal affect. Orientation: to time, to place, to person. Memory: recent memory normal, remote memory normal Lungs: Respiratory effort: no dyspnea. Percussion: no dullness, flatness, or hyperresonance. Auscultation: breath sounds normal, good air movement, CTA except as noted, no wheezing, no rales/crackles, no rhonchi Cardiovascular: Apical Impulse: not displaced. Heart Auscultation: RRR, normal S1, normal S2, no murmurs, no rubs, no gallops. Neck vessels: no carotid bruits. Pulses including femoral / pedal: normal throughout Musculoskeletal:: Motor Strength and Tone: abnormal motor strength, hypotonicity. Joints, Bones, and Muscles: no bony abnormalities, no contractures, no malalignment, limited ROM. Extremities: no cyanosis, no edema, no varicosities, no palpable cord Neurologic: Gait and Station: ; Unable to stand and walk. Cranial Nerves: grossly intact. Sensation: grossly intact
--- OUTSIDE RECORDS SUMMARY | 2019-01-27 11:23 | XMS REPORT | Encounter Summary ---
:1950 Author Reason for Visit TCM (Transitional Care Management) Instructions 1. Persistent insomnia Restoril 15 mg capsule 2. Chronic thoracic back pain pentazocine 50 mg-naloxone 0.5 mg tablet 3. Malignant hypertension clonidine HCl 0.2 mg tablet carvedilol 25 mg tablet Discussion Note: None recorded.Patient educational handouts: No information available. Plan of Care Patient Instructions Increase water 2-3 L per Day Reminders Provider Appointments FOLLOW-UP 11/13/2018 PIERRE Mckeon 9:30AM Lab None recorded. Referral None recorded. Procedures [...] oral route as directed for 90 days. diazepam 5 mg tablet Take 1 tablet every day by oral route as needed. famotidine 40 mg tablet furosemide 20 mg tablet labetalol 200 mg tablet Lantus U-100 Insulin 100 unit/mL subcutaneous solution pentazocine 50 mg-naloxone 0.5 mg tablet Take 1 tablet every 6-8 hours by oral route as needed for 10 days. Restoril 15 mg capsule Take 1 capsule every day by oral route at bedtime for 30 days. sucralfate 1 gram tablet vancomycin 125 mg capsule vancomycin 250 mg capsule Medications Administered None recorded. Vitals Height Weight BMI Blood Pressure 65 in 193/96 mm[Hg] Lab Results Date Name Specimen Result Interpretation Description Value Range Status Address 10/20/2018 CBC W/ Auto Normal White Blood 5.5 4.0-11.5 Final [place] Diff Count K/uL K/uL [facility] (Lab): [address] [facility] Low Red Blood 3.63 3.80-5.20 Final [place] Count M/uL M/uL [facility] (Lab): [address] [place] [address] Low Hemoglobin 9.6 10.5-15.7 Final [place] g/dL g/dL [facility] (Lab): [address] [place] [address] Low Hematocrit 31.2 34.0-50.0 Final [place] % % [facility] (Lab): [address] [place] [address] Normal Mean 86.0 86-100 fL Final [place] Corpuscular fL [facility] Volume [facility] (Lab): [address] [place] [address] Normal Mean 26.4 26.2-33.4 Final [place] Corpuscular pg pg [facility] Hemoglobin [facility] (Lab): [address] [place] [address] Normal Mean 30.8 30-34 Final [place] Corpuscular g/dL g/dL [facility] (Lab): [address] [place] [address] Normal Red Cell 15.0 12.0-15.5 Final [place] Distribution % % [facility] Width [facility] (Lab): [address] [place] [address] Normal Platelet 177 165-450 Final [place] Count K/uL K/uL [facility] (Lab): [address] [place] [address] Normal Mean Platelet 10.7 9.4-12.6 Final [place] Volume fL fL [facility] (Lab): [address] [place] [address] Normal Neutrophils % 62.1 44.4-80.1 Corrected [place] % % [facility] (Lab): [address] [place] [address] Ig% 0.5 % 0.0-0.4 % Corrected [place] [facility] (Lab): [address] [place] [address] Normal Lymphocyte% 18.3 10.0-50.0 Final [place] % % [facility] (Lab): [address] [place] [address] Normal Toombs % 8.9 % 3.6-12.0 Final [place] % [facility] (Lab): [address] [place] [address] High Eos % 9.8 % 0.0-5.4 % Final [place] [facility] (Lab): [address] [place] [address] Normal Basophil % 0.4 % 0.1-1.2 % Final [place] [facility] (Lab): [address] [place] [address] Normal Absolute 3.44 1.56-6.13 Final [place] Neutrophil K/uL K/uL [facility] (Lab): [address] [place] [address] Normal Ig# 0.0 0.0-0.03 Corrected [place] K/uL K/uL [facility] (Lab): [address] [place] [address] Low Lymph # 1.0 1.18-3.74 Corrected [place] K/uL K/uL [facility] (Lab): [address] [place] [address] Normal Toombs # 0.49 0.24-0.86 Final [place] K/uL K/uL [facility] (Lab): [address] [place] [address] High Eos # 0.54 0.04-0.36 Final [place] K/uL K/uL [facility] (Lab): [address] [place] [address] Normal Basophil # 0.02 0.01-0.08 Corrected [place] K/uL K/uL [facility] (Lab): [address] [place] [address] Normal Nrbc% 0 0-0.2 Final [place] /100 /100 WBC [facility] WBC [facility] (Lab): [address] [place] [address] Normal Nrbc# 0 0 K/uL Final [place] K/uL [facility] (Lab): [address] [place] [address] 10/20/2018 Differential Normal Neutrophils Incomplete [place] Panel, Blood [facility] (Lab): [address] [place] [address] Normal Band Incomplete [facility] (Lab): [address] [place] [address] Normal Lymphocyte Incomplete [facility] (Lab): [address] [place] [address] Normal Monocyte Incomplete [facility] (Lab): [address] [place] [address] Normal Eosinophil Incomplete [facility] (Lab): [address] [place] [address] Normal Basophil Incomplete [facility] (Lab): [address] [place] [address] Normal Metamyelocyte Incomplete [facility] (Lab): [address] [place] [address] Normal Differential Incomplete [place] Comment [facility] (Lab): [address] [place] [address] Normal Platelet Incomplete [place] Estimate [facility] (Lab): [address] [place] [address] Normal Platelet Incomplete [place] Morphology [facility] (Lab): [address] [place] [address] Normal Polychromasia Incomplete [facility] (Lab): [address] [place] [address] Normal Spherocyte Incomplete [facility] (Lab): [address] [place] [address] Normal Schistocytes Incomplete [facility] (Lab): [address] [place] [address] Normal Target Cells Incomplete [facility] (Lab): [address] [place] [address] Normal Tear Drop Incomplete [place] Cells [facility] (Lab): [address] [place] [address] Normal Ovalocytes Incomplete [facility] (Lab): [address] [place] [address] Normal Dohle Bodies Incomplete [facility] (Lab): [address] [place] [address] Normal Gypsy Cells Incomplete [facility] (Lab): [address] [place] [address] Normal Acanthocytes Incomplete [facility] (Lab): [address] [place] [address] Normal Differential Incomplete [place] comment-P [facility] (Lab): [address] [place] [address] 10/20/2018 CMP, Serum or High Glucose 169 82-115 Final [place] Plasma mg/dL mg/dL [facility] (Lab): [address] [place] [address] Normal Blood Urea 103 8-23 Final [place] Nitrogen mg/dL mg/dL [facility] (Lab): [address] [place] [address] High Osmolality 325 280-300 Final [place] Calculated, [facility] Serum [facility] (Lab): [address] [place] [address] CRITICAL Creatinine 8.5 0.50-0.90 Final [place] HIGH mg/dL mg/dL [facility] (Lab): [address] [place] [address] Low Glomerular 5.65 Final [place] Filtration [facility] (Lab): [address] [place] [address] Normal BUN/creatinin 12.1 12-20 Final [place] e Ratio [facility] (Lab): [address] [place] [address] Normal Sodium Level 145 135-145 Final [place] mmol/ mmol/L [facility] L [facility] (Lab): [address] [place] [address] Normal Potassium 4.0 3.5-5.2 Final [place] Level mmol/ mmol/L [facility] (Lab): [address] [place] [address] Normal Chloride 106 98-108 Final [place] Level mmol/ mmol/L [facility] (Lab): [address] [place] [address] Normal Co2 21 21-32 Final [place] mmol/ mmol/L [facility] (Lab): [address] [place] [address] High Anion Gap 22.0 12-20 Final [place] mEq/L mEq/L [facility] (Lab): [address] [place] [address] Normal Calcium Level 8.8 8.8-10.2 Final [place] mg/dL mg/dL [facility] (Lab): [address] [place] [address] Normal Total Protein 6.6 6.6-8.7 Final [place] g/dL g/dL [facility] (Lab): [address] [place] [address] Low Albumin 2.9 3.5-5.2 Final [place] g/dL g/dL [facility] (Lab): [address] [place] [address] Normal Globulin 3.7 Final [place] gm/dL [facility] (Lab): [address] [place] [address] Normal A/g Ratio 0.8 >1.0 Final [place] [facility] (Lab): [address] [place] [address] Normal Bilirubin,tot 0.3 0.0-1.2 Final [place] al mg/dL mg/dL [facility] (Lab): [address] [place] [address] Normal AST/SGOT 18 15-32 U/L Final [place] U/L [facility] (Lab): [address] [place] [address] Normal ALT/SGPT 6 U/L 0-33 U/L [facility] [address] [place] [address] High Alkaline 126 35-105 Final [place] Phosphatase, U/L U/L [facility] (Lab): [address] [place] [address] 10/13/2018 CBC W/ Auto Normal White Blood 6.7 4.0-11.5 Final [place] Diff Count K/uL K/uL [facility] (Lab): [address] [place] [address] Low Red Blood 3.78 3.80-5.20 Final [place] Count M/uL M/uL [facility] (Lab): [address] [place] [address] Low Hemoglobin 9.9 10.5-15.7 Final [place] g/dL g/dL [facility] (Lab): [address] [place] [address] Low Hematocrit 32.4 34.0-50.0 Final [place] % % [facility] (Lab): [address] [place] [address] Low Mean 85.7 86-100 fL Final [place] Corpuscular fL [facility] ([facility]): [address] [place] [address] Normal Mean 26.2 26.2-33.4 Final [place] Corpuscular pg pg [facility] Hemoglobin [facility] (Lab): [address] [place] [address] Normal Mean 30.6 30-34 Final [place] Corpuscular g/dL g/dL [facility] (Lab): [address] [place] [address] Normal Red Cell 14.2 12.0-15.5 Final [place] Distribution % % [facility] Width [facility] (Lab): [address] [place] [address] Normal Platelet 167 165-450 Final [place] Count K/uL K/uL [facility] (Lab): [address] [place] [address] Normal Mean Platelet 10.4 9.4-12.6 Final [place] Volume fL fL [facility] (Lab): [address] [place] [address] Normal Neutrophils % 75.4 44.4-80.1 Corrected [place] % % [facility] (Lab): [address] [place] [address] High Ig% 0.9 % 0.0-0.4 % Corrected [place] [facility] (Lab): [address] [place] [address] Normal Lymphocyte% 12.5 10.0-50.0 Final [place] % % [facility] (Lab): [address] [place] [address] Normal Toombs % 5.4 % 3.6-12.0 Final [place] % [facility] (Lab): [address] [place] [address] Normal Eos % 5.4 % 0.0-5.4 % Final [place] [facility] (Lab): [address] [place] [address] Normal Basophil % 0.4 % 0.1-1.2 % Final [place] [facility] (Lab): [address] [place] [address] Normal Absolute 5.05 1.56-6.13 Final [place] Neutrophil K/uL K/uL [facility] Count [facility] (Lab): [address] [place] [address] High Ig# 0.1 0.0-0.03 Corrected [place] K/uL K/uL [facility] (Lab): [address] [place] [address] Low Lymph # 0.8 1.18-3.74 Corrected [place] K/uL K/uL [facility] (Lab): [address] [place] [address] Normal Toombs # 0.36 0.24-0.86 Final [place] K/uL K/uL [facility] (Lab): [address] [place] [address] Normal Eos # 0.36 0.04-0.36 Final [place] K/uL K/uL [facility] (Lab): [address] [place] [address] Normal Basophil # 0.03 0.01-0.08 Corrected [place] K/uL K/uL [facility] (Lab): [address] [place] [address] Normal Nrbc% 0 0-0.2 Final [place] /100 /100 WBC [facility] (Lab): [address] [place] [address] Normal Nrbc# 0 0 K/uL Final [place] K/uL [facility] (Lab): [address] [place] [address] 10/13/2018 CMP, Serum or High Glucose 204 82-115 Final [place] Plasma mg/dL mg/dL [facility] (Lab): [address] [place] [address] High Blood Urea 76 8-23 Final [place] Nitrogen mg/dL mg/dL [facility] (Lab): [address] [place] [address] High Osmolality 314 280-300 Final [place] Calculated, [facility] Serum [facility] (Lab): [address] [place] [address] CRITICAL Creatinine 8.0 0.50-0.90 Final [place] HIGH mg/dL mg/dL [facility] (Lab): [address] [place] [address] Low Glomerular 6.[address] [place] [address] [facility] (Lab): [address] [place] [address] Low BUN/creatinin 9.5 12-20 Final [place] e Ratio [facility] (Lab): [address] [place] [address] Normal Sodium Level 143 135-145 Final [place] mmol/ mmol/L [facility] L [facility] (Lab): [address] [place] [address] Normal Potassium 4.6 3.5-5.2 Final [place] Level mmol/ mmol/L [facility] L [facility] (Lab): [address] [place] [address] Normal Chloride 104 98-108 Final [place] Level mmol/ mmol/L [facility] L [facility] (Lab): [address] [place] [address] Low Co2 20 21-32 Final [place] mmol/ mmol/L [facility] (Lab): [address] [place] [address] High Anion Gap 23.6 12-20 Final [place] mEq/L mEq/L [facility] (Lab): [address] [place] [address] Low Calcium Level 8.4 8.8-10.2 Final [place] mg/dL mg/dL [facility] (Lab): [address] [place] [address] Low Total Protein 6.4 6.6-8.7 Final [place] g/dL g/dL [facility] (Lab): [address] [place] [address] Low Albumin 2.6 3.5-5.2 Final [place] g/dL g/dL [facility] (Lab): [address] [place] [address] Normal Globulin 3.8 Final [place] gm/dL [facility] (Lab): [address] [place] [address] Normal A/g Ratio 0.7 >1.0 Final [place] [facility] (Lab): [address] [place] [address] Normal Bilirubin,tot 0.3 0.0-1.2 Final [place] al mg/dL mg/dL [facility] (Lab): [address] [place] [address] Normal AST/SGOT 18 15-32 U/L Final [place] U/L [facility] (Lab): [address] [place] [address] Normal ALT/SGPT 6 U/L 0-33 U/L [facility] [address] [place] [address] High Alkaline 119 35-105 Final [place] Phosphatase, U/L U/L [facility] (Lab): [address] [place] [address] Allergies Code Code System Name Reaction Severity Status Onset 88481 RxNorm Tramadol Rash Moderate to Active Severe [...] Tobacco Smoking Status Former Smoker Past Encounters 10/16/2018 Persistent Insomnia; Chronic Thoracic Back Pain; Malignant Hypertension PIERRE Mckeon: [address] [place] [address], [address], [place] [address], Ph. History of Present Illness Hypertension F/U Reported By: Patient HPI: Associated Symptoms: no dizziness, no lightheadedness, no chest pain, no shortness of breath, no palpitations, no edema, no calf pain with exertion. Lifestyle: limiting/avoiding salt, not exercising regularly. Medications: taking medications as directed, no side effects from medication Back Pain Reported By: Patient HPI: Location: pain is not radiating. Quality: dull. Severity: worsening, pain level 8/10. Duration: acute. Alleviating Factors: rest. Aggravating Factors: movement/positioning, twisting, flexing back, extending back. Associated Symptoms: no fever, no weak limbs, no numbness of the legs/feet, no tingling, no incontinence, no shortness of breath Insomnia Reported By: Patient HPI: Quality: symptoms worse in the evening. Severity: worsening, moderate. Duration: frequent, present for 1 week. Onset/Timing: gradual onset. Associated Symptoms: anxiety, generalized pain Note: c/o Ms. Mancuso Presents to the clinic with c/o persistent Insomnia chronic upper back pain nd HTN . She was hospitalize earlier this month 09/26/18 and discharged on 10/29/18 with Chest and abdominalpain . states that she is feeling a lot better todayReview of Systems: ROS as noted in the HPI Review of Systems General Adult ROS Reported [...] no diarrhea, not vomiting blood Musculoskeletal: Musculoskeletal: muscle aches, back pain Integumentary: Skin: no abnormal mole, no jaundice, no rashes Neurologic: Neurologic: no loss of consciousness, no weakness, no numbness, no seizures, no dizziness, no headaches Psychiatric: Psych: no depression, feeling safe in relationship, no alcohol abuse Endocrine: Endocrine: no fatigue Physical Exam General Adult Exam - Female Reported By: Patient Constitutional: General Appearance: healthy-appearing, well-nourished, well-developed. Level of Distress: NAD. Ambulation: ambulating normally Lungs: Respiratory effort: no dyspnea. Percussion: no dullness, flatness, or hyperresonance. Auscultation: breath sounds normal, good air movement, CTA except as noted, no wheezing, no rales/crackles, no rhonchi Cardiovascular: Apical Impulse: not displaced. Heart Auscultation: RRR, normal S1, normal S2, no murmurs, no rubs, no gallops. Neck vessels: no carotid bruits. Pulses including femoral / pedal: normal throughout Musculoskeletal:: Motor Strength and Tone: normal motor strength, normal tone. Joints, Bones, and Muscles: normal movement of all extremities, no bony abnormalities, no contractures, no malalignment, tenderness. Extremities: no cyanosis, no edema, no varicosities, no palpable cord Skin: Inspection and palpation: no rash, no lesions, no ulcer, no abnormal nevi, no induration, no nodules, no jaundice, decreased turgor. Nails: normal Back: Thoracolumbar Appearance: normal curvature
--- OUTSIDE RECORDS SUMMARY | 2019-01-27 11:24 | XMS REPORT | Continuity of Care Document ---
:[address] [facility] Address [address] [place] [address] Allergies, Adverse Reactions, Alerts Allergen Type Severity Reaction Last Updated Verified Status Naloxone ([id number]) Allergy Unknown December 29, 2018 Yes Active Pentazocine Allergy Unknown December 29, 2018 Yes Active ([id number]) Tramadol ([id number]) Allergy Moderate August 05, 2018 Yes Active Medications Medication Status Dose Units Route Sig Qty Days Start End Date Instructions Date Acetamin/Co Discontinue 1 ORAL Every 6 15 November Do not combine with other products that contain Tylenol deine d Hours 2018 r , 300/30 Mg * As 6:06pm 2018 (acetaminophen). Needed as needed for Pain Carvedilol Discontinued 25 ORAL Twice Daily With Meals 60 September 25, 2017 for Hypertension 4:58pm (One-Time) Clonidine Hcl Active 0.2 ORAL Three Times A Day Esomeprazole Discontinued 1 ORAL Daily for 30 July Magnesium * Reflux 2018 2019 6:33pm Furosemide Active 20 ORAL Twice A Day 60 30 Hydrocodone-Acet Discontinued 1 ORAL Twice Daily 60 August aminophen As Needed as , 10/325MG * needed for 2018 2018 Pain 6:59pm Labetalol Hcl Active 200 ORAL Twice A Day Sucralfate Active 1 ORAL Four Times 120 30 Daily Temazepam Active 1 ORAL At Bedtime 30 30 As Needed as needed for Sleep Acetamin/Codeine Discontinued 1 ORAL Every 6 August 300/30 Mg * Hours As , Needed as 2018 2018 needed for 4:29pm Acetaminophen W/ Discontinued 1 ORAL Twice Daily Codeine #3 * As Needed y 2018 Acetaminophen/Co Discontinued 6.25 ORAL Every 4 Hrs 240 06 August deine Phosphate As Needed as , needed for 2019 Pain Atorvastatin Discontinued 80 ORAL Bedtime Maddie Calcium 2018 Azithromycin Discontinued 1 ORAL As Directed 6 Marchr 2 the for Sinus , y , first Allergy 2019 2018 day 12:43pm followe d by 1 for days 2-5 Carvedilol Discontinued 3.12 ORAL Twice A Day 60 June 5 7th, y 2012 11:21am Ciprofloxacin Discontinued 500 ORAL Twice A Day 14 August Hcl for , , Infection 2018 2018 3:17pm Ciprofloxacin Discontinued 1 ORAL Twice A Day 10 March Hcl for Uti , 2017 4:14pm Clonidine Hcl Discontinued 0.2 ORAL Once Dose At August 0400 as , , needed for 2018 2018 Elevated Bp 3:17pm Clonidine Hcl Discontinued 1 TOPICAL Every 7 Days 4 August 27, 2018 Clopidogrel Discontinued 1 ORAL Daily August Bisulfate 2018 Clopidogrel Discontinued 75 ORAL Daily March Bisulfate 2017 Clotrimazole Discontinued September (Topical) 2017 Ergocalciferol Discontinued 1 ORAL Every 7 Days August 27, 2018 Famotidine Discontinued 40 ORAL Once Daily December 24, 2018 Furosemide Discontinued 1 ORAL Twice A Week August 05, 2018 Gabapentin Discontinued 100 ORAL Twice A Day August 27, 2018 Hydralazine Hcl Discontinued 50 ORAL Three Times 90 31 December A 2018 Hydroxyzine Hcl Discontinued 1 ORAL Every August Hours for 2018 Insulin Asp Discontinued 100 SUBCUTANEOU Every September Prt/Insulin S Morning , Aspart * 2017 Insulin Asp Discontinued 75 SUBCUTANEOU Every September Prt/Insulin S Evening , Aspart * 2017 Insulin Asp Discontinued 25 SUBCUTANEOU Three Times 90 May Prt/Insulin S Daily Before y , Aspart * Meals 2013 2014 10:47am Insulin Aspart Discontinued 15 SUBCUTANEOU Before Februar S Breakfast y 2013 Insulin Glargine Discontinued 20 SUBCUTANEOU Daily for October * S Diabetes 2017 11:00am Insulin Glargine Discontinued 50 SUBCUTANEOU Every October * S Morning 2017 Insulin Human Discontinued 15 SUBCUTANEOU Twice A Day Februar Isoph/Insulin S Insulin y , Regular 2013 Insulin Human Discontinued 10 SUBCUTANEOU Bedtime Februar Isoph/Insulin S y , 2013 Isosorbide Discontinued 1 ORAL Twice A Day 30 31 August Dinitrate for Chest 2018 Labetalol Hcl Discontinued 1 ORAL Twice A Day 60 August 27, 2018 Labetalol Hcl Discontinued 200 ORAL Twice A Day June 01, 2014 Linaclotide * Discontinued 1 ORAL Daily 30 December 24, 2018 Lisinopril Discontinued 1 ORAL Daily September 25, 2017 Lisinopril Discontinued 1 ORAL Daily for March Hypertension 2017 1:17pm Lisinopril Discontinued 1 ORAL Daily March 29, 2017 Lisinopril Discontinued 0 ORAL Daily Februar y 2013 Lisinopril & Discontinued 1 ORAL Daily 30 September Hydrochlorothiaz * 2017 Lisinopril & Discontinued 1 ORAL Daily March Hydrochlorothiaz 2017 Magnesium Discontinued 5 ORAL Twice A Day 100 August Hydroxide for , Constipation 2018 2018 6:58pm Metformin Hcl Discontinued 0 ORAL Twice A Day 2013 Metoprolol Discontinued 100 ORAL Once Daily September Tartrate 2017 Metronidazole Discontinued 1 ORAL Three Times 21 August A Day for , Enterocoliti 2018 2018 s 3:17pm Metronidazole Discontinued 1 ORAL Twice A Day Octoberr for Colitis , y 2017 2:17pm Nifedipine Discontinued 90 ORAL Daily 2018 Nifedipine Discontinued 0 ORAL Daily 2013 Potassium Discontinued 10 ORAL Daily October Chloride 2017 Sodium Discontinued 325 ORAL Twice A Day 60 September Bicarbonate for Acidosis 2017 5:02pm Sodium Discontinued 325 ORAL Four Times 120 September Bicarbonate Daily for , Acidosis 2017 2017 4:58pm Sucralfate Discontinued 1 ORAL Before Meals 120 31 December And At , Bedtime 2018 Sucralfate Discontinued 10 ORAL Four Times 1.2 July before Daily for , food Esophagitis 2018 2018 6:33pm Sucralfate Discontinued 1 ORAL Three Times 90 31 August A Day 2018 Trimethoprim/Sul Discontinued 1 ORAL Twice A Day 14 7 August famethoxazole for y , , Infection 2018 2018 1:28pm Problems Active Problems Medical Problem Onset Date Status Abdominal pain Active Abnormal renal function test Active Acute on chronic renal insufficiency Active Anxiety Active CAD (coronary artery disease) Active CKD (chronic kidney disease) stage 3, GFR 30-59 ml/min Active Cellulitis of left ankle Active Clostridium difficile diarrhea Active Constipation Active Dehydration Active Diabetes mellitus Active Diarrhea Active ESRD (end stage renal disease) Active Gastroenteritis Resolved HLD (hyperlipidemia) Active HTN (hypertension) Active Hematuria Active Hyperglycemia Active Hyperglycemia Active Hypoglycemia Active Hypokalemia Active [id number] Active Infectious diarrhea Active Sacral decubitus ulcer Active UTI (urinary tract infection) Active Uncontrolled diabetes mellitus Active Uncontrolled hypertension Active Inactive/Resolved Problems Medical Problem Onset Date Status Abdominal pain Resolved Abdominal pain Resolved Acute on chronic renal insufficiency Resolved Back spasm Resolved CHF (congestive heart failure) Resolved Chronic renal failure Resolved Congestive heart failure Resolved Constipation Resolved Constipation by delayed colonic transit Resolved Contusion of left chest wall Resolved Degenerative arthritis of knee Resolved Diabetes Resolved Dialysis complication Resolved Dizzy Resolved ESRD (end stage renal disease) on dialysis Resolved ESRD (end stage renal disease) on dialysis Resolved ESRD needing dialysis Resolved ESRD on dialysis Resolved ESRD on dialysis Resolved ESRD on dialysis Resolved ESRD on dialysis Resolved ESRD on dialysis Resolved Esophagitis Resolved Fall Resolved Hemorrhage of cyst of [place] kidney Resolved Hip pain, left Resolved Hyperglycemia due to type 2 diabetes mellitus Resolved Hypertension, uncontrolled Resolved Hypertension, uncontrolled Resolved Ketonuria Resolved Labile hypertension Resolved Left knee pain Resolved Left knee pain Resolved Malaise Resolved Moderate hypertension control Resolved Musculoskeletal strain Resolved Nausea Resolved Nausea & vomiting Resolved Nausea & vomiting Resolved Orthostatic hypotension Resolved Pneumonia Resolved Renal cyst, right Resolved Renal failure Resolved Renal insufficiency Resolved Right-sided chest wall pain Resolved UTI (urinary tract infection) Resolved UTI (urinary tract infection) Resolved Upper respiratory infection Resolved Urinary tract infection Resolved Urinary tract infectious disease Resolved Visit for wound check Resolved Procedures Procedure Date Performed Status EMERGENCY DEPT VISIT November 03, 2018 completed COMPLETE CBC W/AUTO DIFF WBC November 03, 2018 completed ROUTINE VENIPUNCTURE November 03, 2018 completed METABOLIC PANEL TOTAL CA November 03, 2018 completed COMPREHEN METABOLIC PANEL November 05, 2018 completed COMPLETE CBC W/AUTO DIFF WBC November 05, 2018 completed ROUTINE VENIPUNCTURE November 05, 2018 completed MICROBE SUSCEPTIBLE AYLIN December 17, 2018 completed MICROBE SUSCEPTIBLE AYLIN December 17, 2018 completed MICROBE SUSCEPTIBLE AYILN December 17, 2018 completed CULTURE OTHR SPECIMN AEROBIC December 17, 2018 completed CULTURE AEROBIC IDENTIFY December 17, 2018 completed CULTURE AEROBIC IDENTIFY December 17, 2018 completed CULTURE AEROBIC IDENTIFY December 17, [address] thorax wo contrast December 24, 2018 completed Computed tomography of abdomen and pelvis without December 24, 2018 completed contrast X-ray of chest, single view December 26, 2018 completed Relevant Diagnostic Tests and/or Laboratory Data Laboratory Results Test Date/Time Result Interpretation Reference Result Comment Performing Range Site White Blood December 7.7 4.0-11.5 [facility], [address] [facility] Count 2018 12:07pm [place] [address] Red Blood Count December 4.10 3.80-5.20 [facility], [address] [facility] 2018 12:07pm [place] [address] Hemoglobin December 11.0 10.5-15.7 [facility], [address] [facility] 2018 12:07pm [place] [address] Hematocrit December 36.2 34.0-50.0 [facility], [address] [facility] 2018 12:07pm [place] [address] Mean December 88.3 86-100 [facility], [address] [facility] Corpuscular 2018 Volume 12:07pm [place] [address] Mean December 26.8 26.2-33.4 [facility], [address] [facility] Corpuscular 2018 Hemoglobin 12:07pm [place] [address] Mean December 30.4 30-34 [facility], [address] [facility] Corpuscular 2018 Hemoglobin 12:07pm [facility] [address] Concent Red Cell December 14.1 12.0-15.5 [facility], [address] [facility] Distribution 2018 Width 12:07pm [place] [address] Platelet Count December 264 165-450 [facility], [address] [facility] 2018 12:07pm [place] [address] Mean Platelet December 9.6 9.4-12.6 [facility], [address] [facility] Volume 2018 12:07pm [place] [address] Neutrophils (%) December 75.0 44.4-80.1 [facility], [address] [facility] (Auto) 2018 12:07pm [place] [address] Immature December 3.0 0.0-0.4 [facility], [address] [facility] Granulocyte % 2018 (Auto) 12:07pm [place] [address] Lymphocytes (%) December 12.1 10.0-50.0 [facility], [address] [facility] (Auto) 2018 12:07pm [place] [address] Monocytes (%) December 6.9 3.6-12.0 [facility], [address] [facility] (Auto) 2018 12:07pm [facility] [address] Eosinophils (%) December 2.3 0.0-5.4 [facility], [address] [facility] (Auto) 2018 12:07pm [place] [address] Basophils (%) December 0.7 0.1-1.2 [facility], [address] [facility] (Auto) 2018 12:07pm [place] [address] Neutrophils # October 5.77 1.56-6.13 [facility], [address] [facility] [address] (Auto) 2018 12:07pm [place] [address] Absolute October 0.2 0.0-0.03 [facility], [address] [facility] Immature 2018 Granulocyte 12:07pm [facility] [address] (auto Lymphocytes # October 0.9 1.18-3.74 [facility], [address] [facility] (Auto) 2018 12:07pm [place] [address] Monocytes # December 0.53 0.24-0.86 [facility], [address] [facility] (Auto) 2018 12:07pm [place] [address] Eosinophils # December 0.18 0.04-0.36 [facility], [address] [facility] (Auto) 2018 12:07pm [place] [address] Basophils # October 0.05 0.01-0.08 [facility], [address] [facility] (Auto) 2018 12:07pm [facility] [address] Nucleated Red October 0 0-0.2 [facility], [address] [place] [address] Blood Cells % 2018 12:07pm [facility] [address] Nucleated Red October 0 0 [facility], [address] [place] [address] Blood Cells # 2018 12:07pm [facility] [address] Prothrombin December 11.3 10.3-12.3 THERAPEUTIC [facility], [address] [place] [address] Time 2018 LEVEL: 1.5 to 8:20am 1.9 times [place] [address] normal range of PT Prothromb Time December 1.05 Recommended [facility], [address] [place] [address] International 2018 therapeutic Ratio 8:20am range for [place] [address] patients receiving warfarin (coumadin) therapy: INR is 2.0 to 3.0Recommended range for patients with mechanical prosthetic heart valves: INR is 2.5 to 3.5 Activated December 35.6 22.5-37.0 [facility], [address] [facility] Partial 2018 Thromboplast 8:20am [facility] [address] Time Urine Color October [facility], 104 2018 8:19pm [facility] [address] Urine October TURBID CLEAR [facility], 104 Appearance 2018 8:19pm [facility] [address] Urine Glucose October NEGATIVE NEGATIVE [facility], 104 (UA) 2018 8:19pm [facility] [address] Urine Bilirubin October SMALL NEGATIVE [facility], 104 2018 8:19pm [facility] [address] Urine Ictotest December NEGATIVE NEGATIVE [facility], 104 2018 8:19pm [facility] [address] Urine Ketones December NEGATIVE NEGATIVE [facility], 104 2018 8:19pm [facility] [address] Urine Specific October 1.020 1.003-1.03 [facility], 104 2018 0 8:19pm [facility] [address] Urine Blood October LARGE NEGATIVE [facility], 104 2018 8:19pm [facility] [address] Urine pH December 8.000 5-9 [facility], 104 2018 8:19pm [facility] [address] Urine Protein December 2+ (100 NEGATIVE [facility], 104 2018 mg/dL) 8:19pm [facility] [address] Urine October 0.2 0.2-1.0 [facility], 104 Urobilinogen 2018 8:19pm [facility] [address] Urine Nitrate October POSITIVE NEGATIVE [facility], 104 2018 8:19pm [facility] [address] Urine Leukocyte December 3+ LARGE NEGATIVE [facility], 104 Esterase 2018 8:19pm [facility] [address] Urine RBC October 6-10 0-5 [facility], 104 2018 8:19pm [facility] [address] Urine WBC December TOO 0-5 [facility], 104 2018 NUMEROUS 8:19pm TO CNT [facility] [address] Urine October 0-5 0-5 [facility], 104 2018 Cells 8:pm [facility] [address] Urine Bacteria December TNTC (4+) None [facility], 104 2018 Detect 8:19pm [facility] [address] Urine Culture December YES [facility], [address] Reflexed 2018 8:19pm [facility] [address] POC Capillary December 185 70.0 - 110 [facility], [address] Blood Glucose 2018 (Chem) 11:12am [facility] [address] Lactic Acid December 1.69 0.5-2.2 [facility], [address] Level 2018 8:20am [facility] [address] Random Glucose December 163 82-115 [facility], [address] 2018 12:07pm [facility] [address] Blood Urea December 47 8-23 [facility], [address] Nitrogen 2018 12:07pm [facility] [address] Serum December 290 280-300 [facility], [address] Osmolality 2018 12:07pm [facility] [address] Creatinine December 4.6 0.50-0.90 Results have [facility], [address] 2018 been 12:07pm broadcasted to [place] [address] patient's location and called to (IRINA CRUZ). By EMMETT NGUYEN 12/29/18 @[address] [place] [address] read back for confirmation. Glomerular December GFR RESULTS ARE [facility], [address] Filtration Rate 2018 REPORTED IN Calc 12:07pm mL/min/1.73m2.N [facility] [address] ormal GFR: >60mL/minModera tely decreased GFR: 30-59 mL/minSeverely decreased GFR: 15-29 mL/minKidney Failure (or Dialysis): <15 mL/minThe calculated eGFR is not valid for patients younger than 18 years or older than 75 years. BUN/Creatinine December 10.2 12-20 [facility], [address] Ratio 2018 12:07pm [facility] [address] Sodium Level December 137 135-145 [facility], [address] [facility] 2018 12:07pm [facility] [address] Potassium Level December 3.4 3.5-5.2 [facility], [address] 2018 12:07pm [facility] [address] Chloride Level December 95 98-108 [facility], [address] [facility] 2018 12:07pm [facility] [address] Carbon Dioxide December 22 -32 [facility], [address] Level 2018 12:07pm [facility] [address] Anion Gap December 23.4 12-20 [facility], [address] [facility] 2018 12:07pm [facility] [address] Calcium Level December 9.3 8.8-10.2 [facility], [address] [facility] 2018 12:07pm [facility] [address] Total Protein December 7.7 6.6-8.7 [facility], [address] [facility] 2018 8:20am [place] [id number] Albumin October 3.1 3.5-5.2 [facility], [address] [facility] 2018 8:20[place] [id number] Globulin October 4.6 [facility], [address] [facility] 2018 8:20[place] [id number] Albumin/Globuli December 0.7 >1.0 [facility], [address] [facility] n Ratio 2018 8:20[place] [id number] Total Bilirubin December 0.4 0.0-1.2 [facility], [address] [facility] 2018 8:20am [place] [id number] Aspartate Amino December 12 15-32 [facility], [address] [facility] Transf 2018 (AST/SGOT) 8:20am [place] [id number] Alanine December 12 0-33 [facility], [address] [facility] Aminotransferas 2018 e (ALT/SGPT) 8:20[place] [id number] AS-Nui-I-Type December > 65235 0-125 [facility], [facility] Natriuretic 2018 Peptide 8:20[place] [id number] Total Alkaline December 70 35-105 [facility], [facility] Phosphatase 2018 8:20am [place] [id number] Creatine Kinase December 33 20-180 [facility], [address] [facility] 2018 8:20am [place] [id number] Troponin I December < 0.30 0.0-0.5 Published [facility], [address] [facility] 2018 clinical 8:20am studies have [place] [address] shown elevations of cTnI in patients with myocardial injury, as seen in unstable angina pectoris, cardiac contusions, and heart transplants. Elevations have also been seen in patients with rhabdomyolysis and polymyositis.El evated troponin levels point to myocardial injury, but are not necessarily indicative of an ischemic mechanism. The term WI should be used when there is evidence of cardiac damage, as detected by marker proteins in a clinical setting consistent with myocardial ischemia. If the clinical circumstance suggests that an ischemic mechanism is unlikely, other causes of cardiac injury should be considered.For diagnostic purposes, the results should always be assessed in conjunction with the patient's medical history, clinical examination and other findings. Creatine Kinase December 1.9 0.0-3.6 DIAGNOSTIC [facility] [address] MB 2018 CITERIA: 8:20am CKMB [place] [address] CKMB RELATIVE INDEX -----SUGGESTIVE OF NON-AMI < or=5 N/AGRAY ZONE (INCONCLUSIVE) > 5 < or=4SUGGESTIVE OF AMI >5 > 4 Microbiology Results Procedure Source Result Collection Result Result Performing Date/Time Date/Time Comment Site Blood BLOOD SPECIMEN HAS December [address]TH ST Culture BEEN RECEIVED 2018 IN LAB AND IS 9:35pm [place] [address] IN PROGRESS. Wound ULCER, ENTEROCOCCUS December 17December [facility], [address] Culture ULCER FAECALIS 2018 11:00am 2018 10:48am [place] 467274 ULCER, ESCHERICHIA December 17December [facility], [address] ULCER COLI 2018 11:00am 2018 10:48am [place] [address] ULCER, KLEBSIELLA December 17December [facility], [address] ULCER OXYTOCA 2018 11:002018 10:48am [place] [address] Wound BUTTOCK ESCHERICHIA December 25December [facility], [address] Culture COLI ESBL 2018 1:52pm 2018 12:01pm [place] [address] Diagnostic Imaging Reports Report Dictated Date/Time Dictated By Status December 24, 2018 8:59am MARSHALL MURRIETA MD completed Patient: SHAKEEL SMITH MR#: [id number] : 1950 Ordering DrPatricia: GEE BUI MD Pt Status: [facility] ER Pt Location: [facility] Date/Time: 12/24/18 [facility] Primary Care Physician: FERNANDO JAY Technologist(s): SHELDON EUGENE Procedure(s): [id number] CT/CT CHEST WO CONTRAST Signed Procedure: CT CHEST WO CONTRAST Exam Date: 12/24/2018 Ordering Provider: MD BUI Clinical Indication: Fever, cough Comparison: 10/27/2018 chest x-ray TECHNIQUE: 2.5 mm images were taken through the chest without intravenous contrast material. Coronal and sagittal reformatted images were generated. This exam was performed according to our departmental dose optimization program which includes use of automated exposure control, adjustment of the mA and/or kV according to patient size and/or use of iterative reconstruction technique. FINDINGS: Lungs and large airways: Large volume atelectasis and/or consolidation in the left upper and lower lobes. Mild infiltrate in the right upper, middle and lower lobes. Pleura: Small bilateral pleural effusions. No pneumothorax. Mediastinum and kevin: Evaluation of hilar lymphadenopathy is limited without IV contrast. No mediastinal lymphadenopathy. Heart and great vessels: Cardiomegaly. Small pericardial effusion. No aortic aneurysm. Dilatation of the main pulmonary artery suggesting pulmonary arterial hypertension. Aortic and coronary artery calcifications. Chest wall, lower neck, axillae: No axillary lymphadenopathy. Upper abdomen: Nonacute Bones: Age-indeterminate compression deformity of the T5 vertebral body with 5 mm retropulsed fragments. IMPRESSION: 1. Findings likely representing multifocal pneumonia. This is most significant in the left lower lobe. 2. Small bilateral pleural effusions. 3. Small pericardial effusion. 4. Dilatation of the main pulmonary artery suggesting pulmonary arterial hypertension. 5. Age-indeterminate compression deformity of the T5 vertebral body with 5 mm retropulsed fragments. This can be further evaluated with MRI if clinically indicated. 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1950 Requested By: MD BUI Order Number: [id number] Reading MD: Chata Rey Measurements Intervals [place] Rate: 90 P: 22 HI: 147 QRS: -28 QRSD: 77 T: 70 QT: 406 QTc: 497 Interpretive Statements Sinus rhythm Abnormal R-wave progression, late transition Consider left ventricular hypertrophy Borderline T abnormalities, lateral leads Borderline prolonged QT interval Electronically Signed On 12-25-2018 3:14:25 CDT by Chata Rey Transcribed By: [employer] SIGNED <electronically signed by AMRIPOSA PENA MD> 3 3 MARIPOSA PENA MD December 24, 2018 2:00pm JULYMARSHALL MD completed Patient: SHAKEEL SMITH MR#: [id number] : [address] GEE BUI MD [id number] Pt Location: [facility] Date/Time: 12/24/18 1111 Primary Care Physician: FERNANDO JAY Technologist(s): TESSIE BOWMAN Procedure(s): [id number] CT/CT ABD & PELVIS W/O Signed Procedure: CT ABD & PELVIS W/O Exam Date: 12/24/2018 Ordering Provider: MD BUI Clinical Indication: Abdominal pain Comparison: 08/26/2018 TECHNIQUE: 5 mm images were taken through the abdomen and pelvis without the administration of nonionic intravenous contrast material. Oral contrast was not administered. Coronal and sagittal reformatted images were generated. This exam was performed according to our departmental dose optimization program which includes use of automated exposure control, adjustment of the mA and/or kV according to patient size and/or use of iterative reconstruction technique. FINDINGS: Lower chest: Small pericardial effusion. Bibasilar atelectasis and/or infiltrate with small bilateral pleural effusions. Abdomen: Liver and biliary system: Liver has an unremarkable noncontrast appearance. Prior cholecystectomy. Spleen: Unremarkable Pancreas: Unremarkable Adrenal glands: Unremarkable Kidneys, ureters, bladder: No hydronephrosis in either kidney. Stable 10 mm hyperdense lesion in the right kidney, possibly a hemorrhagic cyst. Ureters are unremarkable. Bladder is significantly distended. Lymph nodes: No lymphadenopathy Retroperitoneum, abdominal wall, peritoneal cavity: Small amount of pelvic free fluid. No free air. Tiny fat-containing periumbilical hernia. Mild diffuse edema of the body wall. Probable 3.4 cm sacral decubitus ulcer. Vessels: No abdominal aortic aneurysm. Calcified atherosclerotic plaque in the aorta and its branch vessels. Bowel: Colonic diverticulosis without evidence of diverticulitis. Appendix is dilated up to 8 mm and there is subtle adjacent infiltration/stranding. No abscess formation or perforation. No bowel obstruction. Pelvic organs: Prior hysterectomy. Bones: No destructive bony lesions. IMPRESSION: 1. Appendix is dilated up to 8 mm and there is subtle adjacent infiltration/stranding. This could represent a very early acute appendicitis. No abscess formation or perforation. 2. Urinary bladder is significantly distended. 3. Sacral decubitus ulcer. 4. Multifocal pneumonia with small bilateral pleural effusions. Signed by: Marshall Murrieta MD on 12/24/2018 2:00 PM Transcribed By: [employer] SIGNED <electronically signed by MARSHALL MURRIETA MD> [id number] MARSHALL MURRIETA MD December 26, 2018 2:22pm MARSHALL MURRIETA MD completed Patient: SHAKEEL SMITH MR#: [id number] : [address] ESE POWELL JR, MD [id number] Pt Location: [facility] Date/Time: 12/26/18 1047 Primary Care Physician: FERNANDO JAY Technologist(s): GARRETT PEACE Procedure(s): [id number] RAD/CHEST 1 VIEW Signed Procedure: CHEST 1 VIEW Exam Date: 12/26/2018 Ordering Provider: Lelia POWELL Clinical Indication: Pneumonia Comparison: 12/24/2018 CT chest Findings: Cardiomegaly. Aortic calcification. Left perihilar and retrocardiac subsegmental atelectasis and/or infiltrate. Mild interstitial prominence suggestive of mild edema. Faint opacities in the right midlung. Small bilateral pleural effusions. No pneumothorax. No acute osseous abnormality. Impression: 1. Bilateral pulmonary opacities consistent with comparison CT findings of multifocal pneumonia. 2. Mild interstitial prominence suggestive of mild edema. 3. Small bilateral pleural effusions. Signed by: Marshall Murrieta MD on 12/26/2018 2:22 PM Transcribed By: [employer] SIGNED <electronically signed by MARSHALL MURRIETA MD> 1422 [id number] MARSHALL MURRIETA MD Health Concerns No known health concerns documented Advance Directives Advance Directive Response Recorded Date/Time Advance Directives No July 10, 2014 6:33pm Advance Directive on File No December 24, 2018 11:40am Directive to Physicians/Living Will No July 10, 2014 6:33pm Health Care Proxy No July 10, 2014 6:33pm Organ Donor No July 10, 2014 6:33pm Medical Power of Music Box Mechanic No July 10, 2014 6:33pm Patient/Family Given Education Material R/T No December 24, 2018 11:40am Directives? Chief Complaint and Reason for Visit Chief Complaint MULTIFOCAL PNEUMONIA Reason for Visit Abdominal pain Diarrhea ESRD (end stage renal disease) Dizzy Encounters Encounter Location(s) Arrival/Admit Date Discharge/Depart Date Provider(s) Discharged [place] December 24, 2018 December 31, 2018 ANDRE [facility] 9:41am 3:30pm ESE Rowell MD Ctr Registered [place] December 17, 2018 MO NELSON MD [facility] 11:33am Ctr Registered [place] November 05 MO NELSON MD [facility] 2018 12:06pm Ctr Departed [place] November 03November 03, 2018 JAYDEN MENDEZ Emergency Room [facility] 2018 5:05pm 6:35pm Lelia SANTORO Ctr Recent Diagnosis Onset Date Abdominal pain Diarrhea ESRD (end stage renal disease) Dizzy Assessments Diagnosis Onset Date Resolution Status Abdominal pain Active Diarrhea Active ESRD (end stage renal disease) Active Dizzy Resolved Functional Status No Functional Status information available Goals No Goals Information Available Immunizations No Immunization Information Available Mental Status No Mental Status Information Available Medical Equipment No Medical Equipment Information available Insurance Providers Guarantor BartolomeSoniadonnie Calvin Address [address] [facility] [id number] Contact Info. Home Phone: Payer Policy Id Coverage Id Subscriber's Subscriber Effective Expiration Name Id Date Date Medicare [id number] Bartolome, [id number] Shakeel Calvin [place] [id number] [facility] [id number] [facility] Shakeel Calvin [place] Social History Smoking Status Status Date of Observation Never smoked tobacco (finding) December 24, 2018 11:40am Observation Status Observation Response Date of Response Hx Physical Abuse No December 24, 2018 11:40am Assigned Sex Female Vital Signs Vital Reading Result Collection Date/Time Hospital Discharge Instructions Additional Instructions Instructions Physician Documentation Garcia follow up instructions * If you have any questions or concerns, please contact [phone] and ask for the hospitalist on duty. If you are having a medical emergency, please report to the nearest emergency room in your area. * Access your patient portal or follow up with your PCP regarding any procedures or tests that have not yet been resulted. Follow up with: PCP Follow up appointment in: 1 day Activity on discharge: as tolerated Diet on discharge: cardiac Condition on discharge: stable
[2019-01-27 11:59] LABS: ALT/SGPT 28 U/L (12-78); AST/SGOT 29 U/L (15-37); Albumin 1.9 g/dL (3.4-5.0); Alkaline Phosphatase 148 U/L (45-117); BUN Blood Urea Nitrogen 103 mg/dL (7-18); Bicarbonate 25 mmol/L (21-32); Bilirubin Direct 0.1 mg/dL (0-0.2); Bilirubin Total 0.4 mg/dL (0.2-1.0); Glucose Level 210 mg/dL (74-106); Magnesium 2.2 mg/dL (1.8-2.4); NT PRO-BNP 11533 pg/mL (<125); Potassium 5.4 mmol/L (3.5-5.1); Protein, Total 7.1 g/dL (6.4-8.2); Sodium Level 141 mmol/L (136-145); Troponin (Emerg Dept Use Only) < 0.02 ng/mL (0.0-0.045)
--- NOTE | 2019-01-27 12:00 | ER ---
Nurse's Notes [facility] Name: Cory Mancuso Age: 68 yrs Sex: Female : 1950 Arrival Date: 01/27/2019 Time: 10:25 Bed 2 Private MD: Diagnosis: Abdominal tenderness;End stage renal disease;Anemia, unspecified;Hyperkalemia Presentation: 01/27 10:26 Presenting complaint: EMS states: Pt was here yesterday, transferred to have shunt jl7 cleaned out and is back today to have dialysis. Transition of care: patient was received from another setting of care ([facility]. Onset of symptoms was January 27, 2019. Risk Assessment: Do you want to hurt yourself or someone else? Patient reports no desire to harm self or others. Initial Sepsis Screen: Does the patient meet any 2 criteria? No. Patient's initial sepsis screen is negative. Does the patient have a suspected source of infection? No. Patient's initial sepsis screen is negative. Care prior to arrival: None. 10:26 Method Of Arrival: EMS: [id number] jl7 10:26 Acuity: SHAKILA 3 jl7 Historical: - Allergies: 10:39 tramadol; jl7 10:39 Narcan; jl7 10:39 PENTAZOCINE; jl7 - Home Meds: 10:39 aspirin 81 mg Oral chew [Active]; atorvastatin 40 mg oral tab 1 tab once daily jl7 [Active]; famotidine 20 mg Oral tab 1 tab once daily [Active]; Lasix 80 mg Oral tab 1 tab once daily [Active]; linaclotide oral 290 mcg oral 1 cap once daily [Active]; tamsulosin 0.4 mg oral cp24 1 cap once daily [Active]; linezolid 600 mg oral tab 1 tab every 12 hours [Active]; losartan 50 mg oral tab 1 tab 2 times per day [Active]; metoprolol tartrate 25 mg Oral tab 1 tab 2 times per day [Active]; clonidine HCl 0.2 mg Oral tab 1 tab 3 times per day [Active]; sevelamer HCl oral oral 1 tab 3 times per day [Active]; cyclobenzaprine 5 mg Oral tab [Active]; [place] 200-200-20 mg/5 mL oral susp [Active]; Tylenol #3 Oral [Active]; - PMHx: 10:39 CHF; Diabetes - NIDDM; Dialysis; High Cholesterol; Hypertension; 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 - Social history:: Smoking status: Patient/guardian denies using tobacco. - Ebola Screening: : No symptoms or risks identified at this time. - Family history:: not pertinent. Screenin:30 Abuse screen: Denies threats or abuse. Denies injuries from another. Nutritional jl7 screening: No deficits noted. Tuberculosis screening: No symptoms or risk factors identified. Fall Risk No fall in past 12 months (0 pts). Secondary diagnosis (15 points) impaired mobility, IV access (20 points). Ambulatory Aid- None/Bed Rest/Nurse Assist (0 pts). Gait- Normal/Bed Rest/Wheelchair (0 pts) Mental Status- Oriented to own ability (0 pts). Total Bañuelos Fall Scale indicates Low Risk Score (25-44 pts). Fall prevention measures have been instituted. Side Rails Up X 2 Placed close to Nursing Station Frequent Obs/Assesments occuring As available Patient and Family Educated on Fall Prevention Program and strategies. Assessment: 10:30 General: Appears in no apparent distress. uncomfortable, Behavior is calm, cooperative, jl7 appropriate for age. Pain: Complains of pain in epigastric area Pain does not radiate. Pain currently is 9 out of 10 on a pain scale. Quality of pain is described as burning, Is continuous. Neuro: Level of Consciousness is awake, alert, obeys commands, Oriented to person, place, time, situation. Cardiovascular: Heart tones present Patient's skin is warm and dry. Respiratory: Airway is patent Respiratory effort is even, unlabored, Respiratory pattern is regular, symmetrical. GI: Abdomen is round distended, Bowel sounds present X 4 quads. hyperactive in right upper quadrant, left upper quadrant, right lower quadrant and left lower quadrant Abd is soft Abdomen is tender to palpation X 4 quads. : No signs and/or symptoms were reported regarding the genitourinary system. EENT: No signs and/or symptoms were reported regarding the EENT system. Derm: Skin is dry, Skin is normal, Skin temperature is warm. 11:30 Reassessment: Patient appears in no apparent distress at this time. No changes from jl7 previously documented assessment. Patient and/or family updated on plan of care and expected duration. Pain level reassessed. Patient is alert, oriented x 3, equal unlabored respirations, skin warm/dry/pink. 12:30 Reassessment: Patient appears in no apparent distress at this time. No changes from jl7 previously documented assessment. Patient and/or family updated on plan of care and expected duration. Pain level reassessed. Patient is alert, oriented x 3, equal unlabored respirations, skin warm/dry/pink. 13:50 Reassessment: Attempted to call report, nurse unavailable. jl7 Vital Signs: 10:22 BP 167 / 90; Pulse 84; Resp 17 S; Temp 98.4(O); Pulse Ox 100% on R/A; Pain 9/10; jl7 11:00 BP 168 / 92; Pulse 74; Resp 16 S; Pulse Ox 100% on R/A; jl7 12:00 BP 170 / 89; Pulse 77; Resp 16 S; Pulse Ox 100% on R/A; jl7 13:00 BP 183 / 80; Pulse 65; Resp 16 S; Pulse Ox 100% on R/A; jl7 13:56 BP 129 / 67; Pulse 70; Resp 16 S; Pulse Ox 99% on R/A; jl7 ED Course: 10:22 Arm band placed on right wrist. jl7 10:25 Patient arrived in ED. jl7 10:27 Triage completed. jl7 10:27 Alexander Rios MD is Attending Physician. frankie 10:30 Patient has correct armband on for positive identification. Placed in gown. Bed in low jl7 position. Call light in reach. Side rails up X2. quality assurance monitor on. Pulse ox on. NIBP on. Warm blanket given. 10:44 Rosemarie Ortega, REGINA is Primary Nurse. jl7 10:46 EKG done, by pump house technician. reviewed by Alexander Rios MD. sm3 11:09 XRAY Chest (1 view) In Process Unspecified. EDMS 11:13 Initial lab(s) drawn, by wv, sent to lab. Inserted saline lock: 22 gauge in left jl7 forearm, using aseptic technique. Blood collected. 11:58 Nabeel Ca MD is Hospitalizing Provider. frankie 12:22 CT Abd/Pelvis - PO Contrast Only In Process Unspecified. EDMS 13:58 No provider procedures requiring assistance completed. Patient admitted, IV remains in jl7 place. intact, No redness/swelling at site. Administered Medications: 11:04 Drug: ProTONIX 40 mg Route: IVP; Site: left forearm; jl7 11:30 Follow up: Response: No adverse reaction; Pain is decreased jl7 11:06 Drug: Zofran 4 mg Route: IVP; Site: left forearm; jl7 11:30 Follow up: Response: No adverse reaction; Nausea is decreased jl7 11:08 Drug: morphine 2 mg Route: IVP; Site: left forearm; jl7 11:30 Follow up: Response: No adverse reaction; Pain is decreased jl7 13:45 Drug: Kayexalate 30 grams Route: PO; jl7 13:56 Follow up: Response: No adverse reaction jl7 Outcome: 11:59 Decision to Hospitalize by Provider. frankie 14:11 Admitted to Tele accompanied by tech, via stretcher, room 224, with chart, Report jl7 called to REGINA Zaman 14:11 Condition: stable 14:14 Discharge instructions given to patient, Instructed on the need for admit, Demonstrated jlDonald understanding of instructions. 14:14 Patient left the ED. jl7 Signatures: Dispatcher [employer] Alexander Estes MD MD cha Leal, Jahala, RN RN jl7 Kae Monahan sm3
--- NOTE | 2019-01-27 12:00 | EDPHYS ---
Physician Documentation [facility] Name: Cory Mancuso Age: 68 yrs Sex: Female : 1950 Arrival Date: 01/27/2019 Time: 10:25 Bed 2 Private MD: ED Physician Alexander Rios HPI: 01/27 11:51 This 68 yrs old Black Female presents to ER via EMS with complaints of Dialysis. frankie 11:51 The patient has an AV graft in the right bicep. Onset: The symptoms/episode frankie began/occurred 2 day(s) ago. The malfunction was discovered at home. sent for hyperkalemia, av fistula was evaluated yesterday. Dialysis schedule: . Severity of symptoms: At their worst the symptoms were mild in the emergency department the symptoms are unchanged. Historical: - Allergies: 10:39 tramadol; jl7 10:39 Narcan; jl7 10:39 PENTAZOCINE; jl7 - Home Meds: 10:39 aspirin 81 mg Oral chew [Active]; atorvastatin 40 mg oral tab 1 tab once daily jl7 [Active]; famotidine 20 mg Oral tab 1 tab once daily [Active]; Lasix 80 mg Oral tab 1 tab once daily [Active]; linaclotide oral 290 mcg oral 1 cap once daily [Active]; tamsulosin 0.4 mg oral cp24 1 cap once daily [Active]; linezolid 600 mg oral tab 1 tab every 12 hours [Active]; losartan 50 mg oral tab 1 tab 2 times per day [Active]; metoprolol tartrate 25 mg Oral tab 1 tab 2 times per day [Active]; clonidine HCl 0.2 mg Oral tab 1 tab 3 times per day [Active]; sevelamer HCl oral oral 1 tab 3 times per day [Active]; cyclobenzaprine 5 mg Oral tab [Active]; Clara-Lanta 200-200-20 mg/5 mL oral susp [Active]; Tylenol #3 Oral [Active]; - PMHx: 10:39 CHF; Diabetes - NIDDM; Dialysis; High Cholesterol; Hypertension; 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 - Social history:: Smoking status: Patient/guardian denies using tobacco. - Ebola Screening: : No symptoms or risks identified at this time. - Family history:: not pertinent. ROS: 11:51 Constitutional: Negative for fever, chills, and weight loss, Eyes: Negative for injury, frankie pain, redness, and discharge, ENT: Negative for injury, pain, and discharge, Neck: Negative for injury, pain, and swelling, Cardiovascular: Negative for chest pain, palpitations, and edema, Respiratory: Negative for shortness of breath, cough, wheezing, and pleuritic chest pain, Back: Negative for injury and pain, : Negative for injury, bleeding, discharge, and swelling, Skin: Negative for injury, rash, and discoloration, Neuro: Negative for headache, weakness, numbness, tingling, and seizure, Psych: Negative for depression, anxiety, suicide ideation, homicidal ideation, and hallucinations, Allergy/Immunology: Negative for hives, rash, and allergies, Endocrine: Negative for neck swelling, polydipsia, polyuria, polyphagia, and marked weight changes, Hematologic/Lymphatic: Negative for swollen nodes, abnormal bleeding, and unusual bruising. 11:51 Abdomen/GI: Positive for abdominal pain. Exam: 11:51 Constitutional: This is a well developed, well nourished patient who is awake, alert, frankie and in no acute distress. Head/Face: Normocephalic, atraumatic. Eyes: Pupils equal round and reactive to light, extra-ocular motions intact. Lids and lashes normal. Conjunctiva and sclera are non-icteric and not injected. Cornea within normal limits. Periorbital areas with no swelling, redness, or edema. ENT: Nares patent. No nasal discharge, no septal abnormalities noted. Tympanic membranes are normal and external auditory canals are clear. Oropharynx with no redness, swelling, or masses, exudates, or evidence of obstruction, uvula midline. Mucous membranes moist. Neck: Trachea midline, no thyromegaly or masses palpated, and no cervical lymphadenopathy. Supple, full range of motion without nuchal rigidity, or vertebral point tenderness. No Meningismus. Chest/axilla: Normal chest wall appearance and motion. Nontender with no deformity. No lesions are appreciated. Cardiovascular: Regular rate and rhythm with a normal S1 and S2. No gallops, murmurs, or rubs. Normal PMI, no JVD. No pulse deficits. Respiratory: Lungs have equal breath sounds bilaterally, clear to auscultation and percussion. No rales, rhonchi or wheezes noted. No increased work of breathing, no retractions or nasal flaring. Back: No spinal tenderness. No costovertebral tenderness. Full range of motion. Female : Normal external genitalia. Skin: Warm, dry with normal turgor. Normal color with no rashes, no lesions, and no evidence of cellulitis. Neuro: Awake and alert, GCS 15, oriented to person, place, time, and situation. Cranial nerves II-XII grossly intact. Motor strength 5/5 in all extremities. Sensory grossly intact. Cerebellar exam normal. Normal gait. Psych: Awake, alert, with orientation to person, place and time. Behavior, mood, and affect are within normal limits. 11:51 Abdomen/GI: Inspection: abdomen appears normal, Bowel sounds: normal, Palpation: mild abdominal tenderness, moderate abdominal tenderness, in the right upper quadrant, left upper quadrant, right lower quadrant and left lower quadrant, Liver: no appreciated palpable abnormalities, Hernia: not appreciated. Vital Signs: 10:22 BP 167 / 90; Pulse 84; Resp 17 S; Temp 98.4(O); Pulse Ox 100% on R/A; Pain 9/10; jl7 11:00 BP 168 / 92; Pulse 74; Resp 16 S; Pulse Ox 100% on R/A; jl7 12:00 BP 170 / 89; Pulse 77; Resp 16 S; Pulse Ox 100% on R/A; jl7 13:00 BP 183 / 80; Pulse 65; Resp 16 S; Pulse Ox 100% on R/A; jl7 13:56 BP 129 / 67; Pulse 70; Resp 16 S; Pulse Ox 99% on R/A; jl7 MDM: 10:27 Patient medically screened. [facility] 11:51 Data reviewed: vital signs, nurses notes, lab test result(s), EKG, radiologic studies, [facility] CT scan, plain films. 01/27 10:30 Order name: Basic Metabolic Panel; Complete Time: 12:29 [facility] 01/27 10:30 Order name: CBC with Diff; Complete Time: 11:41 [facility] 01/27 10:30 Order name: LFT's; Complete Time: 12:29 [facility] 01/27 10:30 Order name: Magnesium; Complete Time: 12:29 [facility] 01/27 10:30 Order name: NT PRO-BNP; Complete Time: 12:29 [facility] 01/27 10:30 Order name: PT-INR; Complete Time: 11:41 [facility] 01/27 10:30 Order name: Troponin (emerg Dept Use Only); Complete Time: 12:29 [facility] 01/27 10:30 Order name: XRAY Chest (1 view); Complete Time: 11:41 [facility] 01/27 10:30 Order name: EKG; Complete Time: 10:31 [facility] 01/27 10:44 Order name: CT Abd/Pelvis - PO Contrast Only [facility] 01/27 10:30 Order name: Cardiac monitoring; Complete Time: 11:12 [facility] 01/27 10:30 Order name: EKG - Nurse/Tech; Complete Time: 11:12 [facility] 01/27 10:30 Order name: IV Saline Lock; Complete Time: 11:12 [facility] 01/27 10:30 Order name: Labs collected and sent; Complete Time: 11:12 [facility] 01/27 10:30 Order name: O2 Per Protocol; Complete Time: 11:12 [facility] 01/27 10:30 Order name: O2 Sat Monitoring; Complete Time: 11:12 [facility] Administered Medications: 11:04 Drug: ProTONIX 40 mg Route: IVP; Site: left forearm; jl7 11:30 Follow up: Response: No adverse reaction; Pain is decreased jl7 11:06 Drug: Zofran 4 mg Route: IVP; Site: left forearm; jl7 11:30 Follow up: Response: No adverse reaction; Nausea is decreased jl7 11:08 Drug: morphine 2 mg Route: IVP; Site: left forearm; jl7 11:30 Follow up: Response: No adverse reaction; Pain is decreased jl7 13:45 Drug: Kayexalate 30 grams Route: PO; jl7 13:56 Follow up: Response: No adverse reaction jl7 Disposition: 01/27/19 11:59 Hospitalization ordered by Nabeel Ca for Inpatient Admission. Preliminary diagnosis are Abdominal tenderness, End stage renal disease, Anemia, unspecified, Hyperkalemia. - Bed requested for Telemetry/MedSurg (Inpatient). - Status is Inpatient Admission. jl7 - Condition is Fair. - Problem is new. - Symptoms have improved. UTI on Admission? No Signatures: Dispatcher [employer] Sheridan Tian, RN RN Alexander Ojeda MD MD cha Leal, Jahala, RN RN jl7 Corrections: (The following items were deleted from the chart) 12:00 11:59 Hospitalization Ordered by Nabeel Ca MD for Inpatient Admission. Preliminary [facility] diagnosis is Abdominal tenderness; End stage renal disease. Bed requested for Telemetry/MedSurg (Inpatient). Status is Inpatient Admission. Condition is Fair. Problem is new. Symptoms have improved. UTI on Admission? No. frankie 12:30 12:00 01/27/2019 11:59 Hospitalization Ordered by Nabeel Ca MD for Inpatient frankie Admission. Preliminary diagnosis is Abdominal tenderness; End stage renal disease; Anemia, unspecified. Bed requested for Telemetry/MedSurg (Inpatient). Status is Inpatient Admission. Condition is Fair. Problem is new. Symptoms have improved. UTI on Admission? No. frankie 13:24 12:30 01/27/2019 11:59 Hospitalization Ordered by Nabeel Ca MD for Inpatient dw Admission. Preliminary diagnosis is Abdominal tenderness; End stage renal disease; Anemia, unspecified; Hyperkalemia. Bed requested for Telemetry/MedSurg (Inpatient). Status is Inpatient Admission. Condition is Fair. Problem is new. Symptoms have improved. UTI on Admission? No. frankie 14:14 13:24 01/27/2019 11:59 Hospitalization Ordered by Nabeel Ca MD for Inpatient jl7 Admission. Preliminary diagnosis is Abdominal tenderness; End stage renal disease; Anemia, unspecified; Hyperkalemia. Bed requested for Telemetry/MedSurg (Inpatient). Status is Inpatient Admission. Condition is Fair. Problem is new. Symptoms have improved. UTI on Admission? No. dw
--- NOTE | 2019-01-27 12:35 | RAD REPORT ---
EXAM DESCRIPTION: CTAbdomen Pelvis W Contrast - 01/27/2019 12:22 pm CLINICAL HISTORY: Abdominal pain. ABD PAIN COMPARISON: Chest Single View dated 01/27/2019; Stone Protocol dated 08/31/2018 TECHNIQUE: Biphasic CT imaging of the abdomen and pelvis was performed with 100 ml non-ionic IV cont rast. All CT scans are performed using dose optimization technique as appropriate and may include automated exposure control or mA/KV adjustment according to patient size. FINDINGS: Opacities in both lung bases are present likely atelectasis. The heart is mildly enlarged. Noncontrast assessment of the liver demonstrates no evidence of focal mass or biliary dilatation. The spleen is normal in size. The pancreas is unremarkable. Bilateral adrenal masses again noted, larger on the left measuring 18 mm. These appear unchanged. No renal stone or hydronephrosis. No bowel obstruction, free air, free fluid or abscess. Mild anasarca is present. The appendix appears enlarged in size however no real periappendiceal inflammatory changes are present. The appendix dev ures between 11-12 mm in size. No evidence of significant lymphadenopathy. Heavy atherosclerosis. Osteopenia is noted. IMPRESSION: Generalized anasarca noted. No significant ascites. Thickened appendix in the right lower quadrant measuring up to 11-12 mm without surrounding inflammat ion. Advise correlation with right lower quadrant pain symptomology. Subsegmental atelectasis is seen in both posterior lung bases.
[2019-01-27] MEDS ORDERED: SOD POLYSTYREN SUL 15 GM/60 ML UCUP PO ONE (12:55)
[2019-01-27] MEDS ORDERED: SOD POLYSTYREN SUL 15 GM/60 ML UCUP ONE (13:42)
[2019-01-27] MEDS ORDERED: MANNITOL 25% 12.5 GM/50 ML VIAL IV PRN (14:17)
[2019-01-27] MEDS ORDERED: ACETAMINOPHEN 500 MG TAB PO PRN (14:17)
[2019-01-27] MEDS ORDERED: ONDANSETRON 4 MG/2 ML VIAL IV PRN (14:17)
[2019-01-27] MEDS ORDERED: NA CHLORIDE 0.9% 1,000 ML IV PRN (14:17)
[2019-01-27] MEDS ORDERED: ALBUMIN HUMAN 25% 50 ML IV SCH (15:00)
[2019-01-27] MEDS ORDERED: EPOETIN ALFA-EPBX 10,000 UNIT/ML VIAL SQ SCH (15:00)
[2019-01-27 15:10] VITALS: BMI 25.9
--- NOTE | 2019-01-27 16:32 | EKG ---
Test Date: 2019-01-27 Test Time: 10:21:39 Corduroy Brusher Operator: URIAH MEASUREMENT RESULTS: Intervals: Rate: 86 IL: 152 QRSD: 60 QT: 382 QTc: 457 [place]: P: 60 IL: 152 QRS: 65 T: -7 INTERPRETIVE STATEMENTS: Normal sinus rhythm Possible Anterior infarct, age undetermined Abnormal ECG No previous ECG available for comparison Electronically Signed On 01-27-19 16:30:13 REGENERATOR OPERATOR by Dain Campbell
[2019-01-27] MEDS ORDERED: HOME MED 1 EA UNK (Sevelamer Hcl 800 MG) PO SCH (17:00)
[2019-01-27] MEDS: METRONIDAZOLE 500mg IVPB 500 MG/100 ML BAG IV SCH (17:23)
[2019-01-27] MEDS ORDERED: CYCLOBENZAPRINE 10 MG TAB PO PRN (20:00)
[2019-01-27] MEDS ORDERED: EPOETIN ALFA 10,000 UNIT/ML VIAL SQ SCH (20:00)
--- NOTE | 2019-01-27 20:14 | P.CNS ---
Date of Consult: 01/27/19 Reason for Consult: ESRD Requesting Physician: Nabeel Ca Chief Complaint: Hyperkalemia History of Present Illness: 68 yo BF CKD, HTN presented to the ER from [facility] with hyperkalemia in the setting of missed HD on Saturday. Her last HD was on Saturday. She was recently discharged from [facility]. +Appetite 11:51 This 68 yrs old Black Female presents to ER via EMS with complaints of Dialysis. frankie 11:51 The patient has an AV graft in the right bicep. Onset: The symptoms/ episode frankie began/occurred 2 day(s) ago. The malfunction was discovered at home. sent for hyperkalemia, av fistula was evaluated yesterday. Dialysis schedule: . Severity of symptoms: At their worst the symptoms were mild in the emergency department the symptoms are unchanged. Allergies tramadol Adverse Reaction (Verified 01/27/19 14:01) Nausea/Vomiting Home medications list reviewed: Yes Home Medications: Aspirin [Adult Aspirin Regimen] 81 mg PO DAILY 01/27/19 Aspirin [Aspirin EC 81 MG] 81 mg PO DAILY 01/27/19 Atorvastatin Calcium 40 mg PO BEDTIME 01/27/19 Clonidine HCl [Catapres*] 0.2 mg PO TID 01/27/19 Codeine/APAP [Tylenol W/Codeine #3 tab] 1 tab PO Q6HP PRN 01/27/19 Cyclobenzaprine HCl [Flexeril] 5 mg PO TID PRN 01/27/19 Famotidine 20 mg PO DAILY 01/27/19 Furosemide 80 mg PO DAILY 01/27/19 Linaclotide [Linzess] 290 mcg PO DAILY 01/27/19 Linezolid 600 mg PO BID 01/27/19 Losartan Potassium 50 mg PO BID 01/27/19 Mag Hydrox/Aluminum Hyd/Simeth [Clara-Lanta Liquid] 30 ml PO QID PRN 01/27/19 Metoprolol Tartrate 25 mg PO BID 01/27/19 Multivit with Minerals No.55 [Centrum Flavor Burst Adult Chw] 100 mcg PO DAILY 01/27/19 Sevelamer HCl [Renagel] 800 mg PO TIDWM 01/27/19 Tamsulosin HCl 0.4 mg PO DAILY 01/27/19 - Past Medical/Surgical History Diabetic: Yes -: ESRD -: HTN -: CHF -: Hyperlipidemia -: paraplegia -: Dialysis -: Stage 4 scarum - Social History Alcohol use: No CD- Drugs: No Caffeine use: No Place of Residence: [place] Review of Systems 10-point ROS is otherwise unremarkable Respiratory: SOB with Excertion Cardiovascular: Edema Physical Examination Temp Pulse Resp BP Pulse Ox 97.1 F 70 18 180/79 H 100 01/27/19 16:00 01/27/19 16:00 01/27/19 16:00 01/27/19 16:00 01/27/19 16:00 General: In no apparent distress, Cooperative HEENT: Atraumatic Neck: Supple Respiratory: Clear to auscultation bilaterally Cardiovascular: Regular rate/rhythm Gastrointestinal: Soft and benign, Non-distended Musculoskeletal: No clubbing, No contractures Integumentary: No rashes, No cyanosis Neurological: Normal speech Laboratory Data (last 24 hrs) 01/27/19 11:00: PT 15.3 H, INR 1.31 01/27/19 11:00: WBC 7.6, Hgb 10.2 L, Hct 30.4 L, Plt Count 176 01/27/19 11:00: Sodium 141, Potassium 5.4 H, BUN 103 H, Creatinine 7.57 H*, Glucose 210 H, Magnesium 2.2, Total Bilirubin 0.4, AST 29, ALT 28, Alkaline Phosphatase 148 H Imagings Data: EXAM DESCRIPTION: RAD - Chest Single View - 01/27/2019 11:07 am CLINICAL HISTORY: COUGH Chest pain. COMPARISON: No comparisons FINDINGS: Portable technique limits examination quality. The lungs are underinflated with linear subsegmental atelectasis in both lower lobes. The heart is mildly enlarged in size. Right-sided venous catheter has tip in the right atrium. EXAM DESCRIPTION: CTAbdomen Pelvis W Contrast - 01/27/2019 12:22 pm CLINICAL HISTORY: Abdominal pain. ABD PAIN COMPARISON: Chest Single View dated 01/27/2019; Stone Protocol dated 08/31/2018 TECHNIQUE: Biphasic CT imaging of the abdomen and pelvis was performed with 100 ml non-ionic IV contrast. All CT scans are performed using dose optimization technique as appropriate and may include automated exposure control or mA/KV adjustment according to patient size. FINDINGS: Opacities in both lung bases are present likely atelectasis. The heart is mildly enlarged. Noncontrast assessment of the liver demonstrates no evidence of focal mass or biliary dilatation. The spleen is normal in size. The pancreas is unremarkable. Bilateral adrenal masses again noted, larger on the left measuring 18 mm. These appear unchanged. No renal stone or hydronephrosis. No bowel obstruction, free air, free fluid or abscess. Mild anasarca is present. The appendix appears enlarged in size however no real periappendiceal inflammatory changes are present. The appendix measures between 11-12 mm in size. No evidence of significant lymphadenopathy. Heavy atherosclerosis. Osteopenia is noted. IMPRESSION: Generalized anasarca noted. No significant ascites. Thickened appendix in the right lower quadrant measuring up to 11-12 mm without surrounding inflammation. Advise correlation with right lower quadrant pain symptomology. Subsegmental atelectasis is seen in both posterior lung bases. Conclusions/Impression: A/ ESRD on HD MWF. Hyperkalemia. HTN with CKD/ CHF. Diastolic CHF, chronic. DM II with CKD. DES/ Secondary HyperPTH. Atherosclerosis of aorta. Severe protein malnutrition. Enlarged Appendix. P/ Continue current POC and Medications. Acute HD ordered. Kayexalate as ordered. AVF ultrasound due to mass. Hematoma? Follow up with surgery. Encourage nutrition. Titrate insulin as needed. Restart home meds as indicated. No NSAIDs. AM labs. Daily weight. Thank you kindly for the consultation.
[2019-01-27] MEDS: cloNIDine HCL 0.1 MG TAB PO SCH (22:08)
[2019-01-27] MEDS: CIPROFLOXACIN 400mg IV 400 MG/200 ML BAG IV SCH (22:08)
[2019-01-27] MEDS: METOPROLOL TAR 25 MG TAB PO SCH (22:09)
[2019-01-27] MEDS: LOSARTAN POTASSIUM 50 MG TABLET PO SCH (22:09)
[2019-01-27] MEDS: ATORVASTATIN 40 MG TAB PO SCH (22:09)
[2019-01-27] MEDS: LINEZOLID 600 MG TAB PO SCH (22:15)
--- NOTE | 2019-01-27 22:17 | CON ---
Date of Consultation: 01/27/2019 Brief History Of Present Illness: Patient is a 68-year-old female who presents to t ER with trouble with her AV graft earlier in the day. She came with some concern of malfunction, hyperkalemia. Her fistula was apparently evaluated, but I am unsure of the outcomes of this dialysis interrogation. However, she presents here and is actively receiving dialysis during my exam and it is functioning well through that right AV fistula/graft. Past Medical History: Significant for diabetes; CHF; end-stage renal disease, on hemodialysis; high cholesterol; hypertension; MRSA; paraplegia; stage IV sacral ulcer. Past Surgical History.: She has had an AV fistula/graft placed in the right arm, appears to be brach iocephalic. Hysterectomy. She is unsure of any other surgery she has had before. Allergies: TRAMADOL, NARCAN, AND PENTAZOCINE. Home Medications: Aspirin, atorvastatin, Pepcid, Lasix, linaclotide, linezolid, losartan, metoprolol , clonidine, sevelamer, cyclobenzaprine, Clara-Lanta, Tylenol No.3. Social History: She denies using alcohol or recreational drug use for smoking. Review of Systems: 10-point review of systems other than HPI, she only has some mild right arm pain. Physical Examination: Vital Signs: At time of my examination, her BMI is 26, blood pressure 180/79, pulse 70, respiratory rate 18, temperature 97.1. General: She is awake, alert, and oriented. Psychiatric: She is appropriate and conversive, but has poor insight into her past medical history. HEENT: She is normocephalic. Sclerae anicteric. Mucous membranes are moist. Oropharynx is clear. Neck: Supple. No JVD. Chest: Normal expansion and excursion. Cardiovascular: Regular rate and rhythm. Pulmonary: Clear to auscultation bilaterally. Abdomen: Soft, nontender, nondistended. No rebound. No guarding. No peritoneal signs. She has we ll-healed surgical scar in the lower midline abdomen. Deep palpation at McBurney point produces no t enderness, no pain. She does have some fluidic nature of her abdomen consistent with possible ascite s. Extremities: She is currently receiving dialysis in the right upper extremity. Laboratory Data: She had a laboratory exam, which shows a white blood cell count of 7.6, hemoglobin is 10.2, hematocrit 30.4, platelet count is 176, neutrophils are 74%. PT 15.3, INR 1.3. Sodium 141, potassium 5.4, chloride 106, carbon dioxide 25, BUN 103, creatinine 7.5, glucose is 210, calcium 7.8 , magnesium 2.2, total bilirubin 0.4, direct component 0.1, AST 29, ALT 28, alkaline phosphatase 148. She had a CT scan for the abdomen and pelvis, officially read as generalized anasarca noted, no sig nificant ascites, thickened appendix in the right lower quadrant measuring up to 11 to 12 mm without surrounding inflammation. Advise correlation to right lower quadrant pain symptomatology, subsegment al atelectasis seen in both posterior lung bases. Assessment And Plan: This is a 68-year-old female, who presents with no signs or symptoms of abdomin al pain of any kind and denies any pain in the abdomen in her recent past at least in the last few mo nths. She denies having any symptoms with respect to abdominal symptomatology; and as such, I feel t he likelihood of her having an early appendicitis is low. Therefore, I recommend: 1.Continued medical management. 2.Antibiotic coverage. 3.Serial abdominal exams. 4.I will follow along with you. Should her condition change, we can consider reimaging versus possi ble laparoscopic appendectomy. I have explained the risks, benefits, and alternatives of the above s tated plan. Patient agrees to proceed as indicated. Thank you for this interesting consult. MARIPOSA/RADHA Voice ID: [id number] Report ID: [id number]
[2019-01-27] MEDS: HEPARIN 5000 UNIT/ML 1 ML VIAL SQ SCH (22:27)
[2019-01-27] MEDS: CODEINE 30MG/APAP 300MG TAB PO PRN (23:23)
[2019-01-28] MEDS: METRONIDAZOLE 500mg IVPB 500 MG/100 ML BAG IV SCH ×2 (00:31→09:00)
--- NOTE | 2019-01-28 01:33 | HP ---
Date of Admission: 01/27/2019 Consultants: Dr. Ashley with Nephrology. Chief Complaint: Abdominal pain, abnormal labs. Code Status: Full. History Of Present Illness: Patient is a 68-year-old female with past medical history of end-stage r enal disease, on dialysis Saturday, Saturday, and Saturday. Last dialysis session on Saturday. Patient r nicholas had AV fistula clot, which was treated at [facility]; however, has not received dial ysis since Saturday. Patient is a resident of [facility]. She also has diabetes, spinal cord injury with paralysis from the waist down. Patient was in her usual state of health until day of admission when the patient was found to have abnormal labs and therefore came into the ER for further evaluati on. Patient otherwise denies any fevers, chills, nausea, vomiting, chest pain, or shortness of breat h. When seen in the ER, she was awake, alert, oriented x3, did not appear to be any acute distress. Past Medical History: End-stage renal disease, on dialysis, diabetes mellitus type 2, [facility]. Surgical History: Cholecystectomy and hysterectomy. Social History: Denies any tobacco use or alcohol use. Patient has smoked marijuana in the past. Franklin hernandez is independent due to her spinal cord paralysis, resident of [facility]. Allergies: TO TRAMADOL. Medications: Reviewed. Family History: Diabetes and cancer runs on the mom's side. Review of Systems: Ten-point system reviewed, negative except as per HPI. Physical Examination: Vital Signs: Temperature 98.4, heart rate 84, blood pressure 167/90, respirations 17, O2 100% on maninder m air. General: Awake, alert, and oriented x3, elderly female, does not appear to be any acute distress. HEENT: Normocephalic, atraumatic. PERRLA. EOMI. Moist mucous membranes. Oropharynx is clear. Po or dentition. Conjunctivae are anicteric. Neck: Supple. No JVD. Trachea midline. CV: S1, S2. Regular rate and rhythm. Peripheral pulses present. Respiratory: Moving air well bilaterally. No wheezing or stridor. No use of accessory muscles. Gastrointestinal: Abdomen is soft, nontender, nondistended. Positive bowel sounds. Extremities: No clubbing or cyanosis. Patient has trace edema of the lower extremities. No calf te nderness. Neuro: The patient has paralysis below the waist due to spinal cord injury. Able to move upper extr emities. Speech is normal. Cranial nerves 2 through 12 intact grossly. SKIN: Patient has a sacral ulcer. Laboratory Data: Sodium 141, potassium 5.4, chloride 106, CO2 25, BUN 103, creatinine 7.57, glucose 210, calcium 7.8, magnesium 2.2, alkaline phosphatase 148. Troponin less than 0.02. BNP 11,533, alb umin 1.9. WBC 7.6, H and H 10.2 and 30.4, platelets 176, neutrophils 74%, INR 1.31. Imaging Studies: Chest x-ray personally reviewed shows lungs underinflated with linear subsegmental atelectasis in both lower lobes. Heart is mildly enlarged in size. Right-sided venous catheter has tip in the right atrium. CT scan of the abdomen and pelvis with contrast shows generalized anasarca, no significant ascites, thickened appendix in the right lower quadrant measuring up to 11-12 mm with out surrounding inflammation. Advise correlation with right lower quadrant pain symptomatology. Sub segmental atelectasis seen in both posterior lung bases. Assessment: A 68-year-old female with, 1.Hyperkalemia. We will give Kayexalate. Monitor. The patient needs to be dialyzed. 2.End-stage renal disease on hemodialysis Saturday, Saturday, Saturday. Patient has AV fistula graft w ith recently had apparent clot removed per patient's family member in [place]. Does have palpable thrill. Nephrology has been consulted. We will continue with dialysis as scheduled. 3.Sacral decubitus ulcer, present on admission. Patient is on linezolid. We will continue home med ications. Continue with wound care and offloading. 4.Abdominal pain. CT scan does show enlarged appendix. We will consult surgery for further evaluat ion for possible need for appendectomy. We will start on IV antibiotics for now for prophylaxis. 5.Spinal cord injury. Patient is paralyzed from the waist down. 6.Diabetes mellitus type 2. We will start on sliding scale insulin and monitor blood glucose levels . Plan: 1.Admit patient to Med-Surg, place as inpatient. 2.Deep vein thrombosis prophylaxis with heparin. 3.Admit patient as inpatient. Length of stay greater than 2 midnights. We will switch to air mattress. Change position every 2 ho juan. SCDs. WILLIAMSON/RADHA Voice ID: [id number]
[2019-01-28 06:26] LABS: Absolute Lymphocytes (CBC) 0.9 K/uL (0.7-4.9); Basophils % 0.9 % (0-1.3); Lymphocytes % 15.3 % (15.3-44.8); MPV 8.3 fL (7.6-11.3); RBC Red Blood Cell Count 3.32 M/uL (3.86-4.86)
[2019-01-28 06:48] LABS: Albumin 1.8 g/dL (3.4-5.0); Bilirubin Total 0.4 mg/dL (0.2-1.0); Magnesium 1.9 mg/dL (1.8-2.4); Phosphorus 7.5 mg/dL (2.5-4.9); Protein, Total 6.6 g/dL (6.4-8.2)
[2019-01-28] MEDS ORDERED: FUROSEMIDE 40 MG TABLET PO SCH (09:00)
[2019-01-28] MEDS ORDERED: FAMOTIDINE 20 MG TAB PO SCH (09:00)
[2019-01-28] MEDS ORDERED: VITAMIN D 5,000 UNIT CAP PO SCH (09:00)
[2019-01-28] MEDS ORDERED: ASPIRIN EC 81 MG TAB PO SCH (09:00)
[2019-01-28] MEDS ORDERED: CALCITROL 0.25 MCG CAP PO SCH (09:00)
[2019-01-28] MEDS ORDERED: HOME MED 1 EA UNK (Linaclotide [Linzess] 290 MCG) PO SCH (09:00)
[2019-01-28] MEDS: HEPARIN 5000 UNIT/ML 1 ML VIAL SQ SCH ×2 (09:00→20:13)
[2019-01-28] MEDS: CIPROFLOXACIN 400mg IV 400 MG/200 ML BAG IV SCH (09:00)
[2019-01-28] MEDS ORDERED: TAMSULOSIN 0.4 MG SR CAP PO SCH (09:00)
--- NOTE | 2019-01-28 09:43 | RAD REPORT ---
EXAM DESCRIPTION: US - Extremity Nonvascular Complete - 01/27/2019 10:43 pm CLINICAL HISTORY: Right arm mass COMPARISON: None FINDINGS: A 3.7 x 1 centimeter hypo to isoechoic mass is present within medial aspect of right upper extremity. The mass is avascular. IMPRESSION: 3.7 centimeter mass within the medial right upper arm may represent a hematoma. Follow-u p ultrasound in 4 weeks is recommended to assess stability/resolution
[2019-01-28] MEDS ORDERED: CIPROFLOXACIN 400mg IV 400 MG/200 ML BAG IV SCH (10:00)
[2019-01-28] MEDS: LOSARTAN POTASSIUM 50 MG TABLET PO SCH ×2 (10:05→20:12)
[2019-01-28] MEDS: METOPROLOL TAR 25 MG TAB PO SCH ×2 (10:05→20:12)
[2019-01-28] MEDS: cloNIDine HCL 0.1 MG TAB PO SCH ×3 (10:06→20:12)
[2019-01-28] MEDS: SEVELAMER CARBONATE 800 MG TABLET PO SCH ×3 (10:06→17:00)
[2019-01-28] MEDS: LINEZOLID 600 MG TAB PO SCH ×2 (10:07→20:11)
[2019-01-28] MEDS ORDERED: EPOETIN ALFA 10,000 UNIT/ML VIAL IV SCH (12:00)
--- NOTE | 2019-01-28 12:39 | P.PN ---
Subjective Date of Service: 01/28/19 Chief Complaint: Hyperkalemia Subjective: No new changes (Patient continues to deny any abdominal pain) Physical Examination - Vital Signs Temperature: 97.9 F Blood Pressure: 195/92 Pulse: 75 Respirations: 18 Pulse Ox (%): 99 - Physical Exam General: Alert, In no apparent distress, Cooperative Gastrointestinal: Soft and benign, Non-distended, No tenderness, No masses, No rebound, No guarding Assessment And Plan - Plan Dilated appendix incidentally noted on CT - Clinical exam benign - Repeat CT scan of abdomen and pelvis with PO contrast to evaluate for developing appendicitis - serial exams - continue medical management
--- NOTE | 2019-01-28 12:55 | RAD REPORT ---
EXAM DESCRIPTION: CT - Abdomen Pelvis Wo Contrast - 01/28/2019 12:39 pm CLINICAL HISTORY: Abdominal pain. abd pain, enlarged appendix COMPARISON: Abdomen Pelvis W Contrast dated 01/27/2019; Stone Protocol dated 08/31/2018 TECHNIQUE: CT imaging of the abdomen and pelvis was performed without contrast. Solid organ and vasc ular assessment is limited due to lack of IV contrast. All CT scans are performed using dose optimization technique as appropriate and may include automated exposure control or mA/KV adjustment according to patient size. FINDINGS: The opacities are present in both medial lung bases compatible with atelectasis.The heart is upper limit normal in size. The liver demonstrates no mass or significant biliary dilatation on a noncontrast study. The gallblad raymond appears absent.The spleen is mildly enlarged. The pancreas unremarkable. Thickening of the left a drenal gland is noted. The right adrenal gland is unremarkable. Kidneys demonstrate no stone or hydro nephrosis. No bowel obstruction, free air, free fluid or abscess. The appendix remains enlarged, measuring 10-1 1 mm, however feels with oral contrast indicating that appendicitis is not present. Aortoiliac athero sclerosis. Urinary bladder appears distended. Moderate generalized anasarca is seen. No acute fracture evident. IMPRESSION: The appendix appears enlarged, however, fills with oral contrast indicating that appendi citis is not present. Moderate anasarca. Triangular opacities in both lung bases most compatible with atelectasis. A limited non-contrast examination was performed as detailed.
[2019-01-28] MEDS ORDERED: Meropenem 500 MG in NA CHLORIDE 0.9% 100 ML IV SCH ×2 (14:00→17:00)
[2019-01-28] MEDS ORDERED: Meropenem 500 MG VIAL IV SCH (14:00)
--- NOTE | 2019-01-28 16:16 | PN ---
Date of Progress Note: 01/28/2019 Subjective: Patient seen and examined. She denies any complaints. She denies any abdominal pain. No shortness of breath at this time. Objective: Vital Signs: Have been reviewed and are stable. Blood pressure seems to be running high . General: She appears in no acute distress. HEENT: Atraumatic head. Lungs: Clear to auscultation. Abdomen: Soft, nontender. No rebound or guarding was noted. Skin: Sacral decubitus ulcer is noted. Extremities: Lower extremities did not show any evidence of edema. Laboratory Data: Showing BMP results consistent with ESRD. CBC showing stable hemoglobin of 9.5, he matocrit of 28, and platelet count of 160. Current Medications: Albumin with dialysis, atorvastatin, vitamin D, clonidine 0.2 mg 3 times a day, Flagyl 500 mg every 8 hours, losartan 50 mg b.i.d., metoprolol 25 mg b.i.d., Renvela with meals, santillan sulosin 0.4 mg a day, calcitriol 0.5 mcg once a day, atorvastatin 40 mg at bedtime, and baby aspirin. Patient has had an ultrasound of her extremities, which is showing evidence of a 3.7 cm mass in the r ight upper arm representing a hematoma and a followup ultrasound is recommended in 4 weeks. Impression: 1.End-stage renal disease, on dialysis. 2.Possible appendicitis. The patient is being evaluated by Dr. Huerta, but does not seem to have a ny clinically significant inflammation. CT scan findings have been reviewed. 3.Hyperkalemia has resolved. 4.Anasarca secondary to malnutrition. 5.Sacral decubitus ulcer. Continue wound care. Patient is on linezolid. 6.Hematoma noted in the upper extremity. It can be monitored at this time and arm can be used for d ialysis. Plan: Patient is overall clinically stable. We will plan for dialysis today per her regular schedul e. Continue to monitor abdominal pain. We will start her on Epogen for maintaining the anemia to pr event any blood transfusions and we will follow up closely. VV/MODL Voice ID: [id number] Report ID: [id number]
--- NOTE | 2019-01-28 17:56 | PN ---
Date of Progress Note: 01/28/2019 Subjective: Patient seen and examined. Chart reviewed and case discussed with RN and Dr. Huerta. Patient tolerating diet well, does have some slight abdominal pain. Medications: List reviewed. Physical Examination: Vital Signs: Temperature 97.9, heart rate 75, blood pressure 195/92, respirations 18, O2 99% on room air. General: Awake, alert, oriented x3, in some mild distress, ill-appearing female. CV: S1, S2. Regular rate and rhythm. Peripheral pulses present. Respiratory: Moving air well except at the bases some diminished breath sounds. Gastrointestinal: Abdomen is soft. Mild tenderness to palpation in the right lower quadrant. Patie nt seems to be having muscle spasms as well. Extremities: No clubbing, cyanosis. Patient has pedal edema. Neurologic: Nonfocal. Laboratory Data: Sodium 142, potassium 4, chloride 107, CO2 of 26, BUN 67, creatinine 5.4, glucose 1 93, calcium 8, phosphorus 7.5, magnesium 1.9, albumin 1.8. WBC 5.9, H and H 9.1, 28, platelets 160. Wound cultures from the sacrum are pending. Repeat CT scan abdomen and pelvis reviewed personally, shows appendix appears enlarged, however, fills with oral contrast indicating that appendicitis is no t present. Moderate anasarca triangular opacities in both lung bases, most compatible with atelectas is. Right arm ultrasound shows 3.7 cm mass within the medial right upper arm, may represent a hemato ma. Follow up ultrasound in 4 weeks recommended to assess stability, resolution. Assessment: 68-year-old female with: 1.Hyperkalemia, improved with dialysis and Kayexalate. We will continue to monitor. 2.End-stage renal disease, on hemodialysis Saturday, Saturday, and Saturday. The AV fistula is working properly. The ultrasound does show hematoma, which was discussed with Dr. Huerta who recommends fo llowup ultrasound. No intervention at this time. 3.Sacral decubitus ulcer, present on admission. Patient is on Zyvox and meropenem. We will obtain culture results from previous facility. We will repeat cultures here. Continue with wound care and offloading next right lower quadrant abdominal pain. Patient has enlarged appendix on CT. Repeat CT scan did not show changes no appendicitis. Dr. Huerta does not recommend any surgical intervention at this time. We will continue with IV antibiotics. 4.Spinal cord injury with paralysis. 5.Diabetes mellitus type 2. Continue sliding scale insulin and monitor blood glucose levels. Patie nt has complications including end-stage renal disease. 6.Deep vein thrombosis prophylaxis with heparin. Plan: Discharge once cleared by Surgery and Nephrology standpoint. /RADHA Voice ID: [id number] Report ID: [id number]
[2019-01-28] MEDS: ATORVASTATIN 40 MG TAB PO SCH (20:12)
[2019-01-28] MEDS: CODEINE 30MG/APAP 300MG TAB PO PRN (20:17)
[2019-01-28] MEDS ORDERED: JUVEN PACKET PO SCH (21:00)
[2019-01-28 22:56] VITALS: BP 138/61; TEMP 97.4; O2SAT 98
--- NOTE | 2019-01-31 21:13 | DS ---
Date of Discharge: 01/28/2019 Consultants: 1.Dr. Ashley with Nephrology. 2.Dr. Huerta with General Surgery. 3.Dr. Cat with Nephrology. Admitting Diagnoses: 1.Hyperkalemia. 2.End-stage renal disease, on hemodialysis. 3.Sacral decubitus ulcer, present on admission. 4.Acute abdominal pain. 5.Spinal cord injury, chronic, paralyzed from waist down. 6.Diabetes mellitus type 2. 7.Paraplegia. Discharge Diagnoses: 1.Hyperkalemia, corrected. 2.End-stage renal disease, on hemodialysis, stable. 3.Sacral decubitus ulcer secondary to infected with methicillin-resistant Staphylococcus aureus on Z yvox and meropenem. 4.Spinal cord injury with paralysis. 5.Paraplegia. 6.Diabetes mellitus type 2 with end-stage renal disease, non-insulin requiring. 7.Enlarged appendix. Hospital Course: Patient is a 68-year-old female with past medical history of end-stage renal diseas e, on dialysis Saturday, Saturday, Saturday, had a dialysis last on Saturday, had AV fistula clot treated at [facility] and missed her subsequent dialysis, comes in again for abdominal pain and abno rmal labs. Patient was found to have hyperkalemia. Repeat labs in the ER showed a potassium of 5.4. She was admitted to the hospital. CT scan of the abdomen was done for abdominal pain, showed thick ened appendix, which was 11-12 mm without any inflammation. Therefore, General Surgery was consulted for possible appendicitis. Dr. Huerta evaluated the patient, did not feel that this was appendicit is. The patient's pain resolved. She did have some muscle spasms in the abdomen. She was able to t olerate her diet. Repeat CT scan showed again enlarged appendix, but no appendicitis. Her AV fistul a was evaluated with a venous Doppler, showed 3.7 cm mass within the medial right upper arm, may repr esent hematoma. This was discussed with Dr. Huerta, felt to be from recent clot busting done at [facility]. Patient will need a repeat ultrasound in 3-4 weeks to ensure resolution. Does not require any surgical intervention at this point. Patient was also seen by Nephrology and dialysis was contin ued. She was then stable. Her pain had resolved. Her electrolytes were stable. She was able, tole rating her diet, did not have any further abdominal discomfort, was able to have bowel movement. She was then cleared for discharge and sent back to nursing facility. Medications: As per medication reconciliation list. Followup: Follow up with primary care physician in 2-3 days. Follow up with local company truck driver, Dr. Jessy wall in 2 weeks. Follow up with surgeon, Dr. Huerta in 2 weeks. Return to ER for worsening condition . Repeat CT abdomen in 2-4 weeks and repeat ultrasound of the upper extremity in 3-4 weeks as well. Diet: Renal. Activity: Fall precautions. For physical exam findings, please see progress note dictated on the day of discharge. Total time spent discharging the patient was 33 minutes. SHAHRIAR Voice ID: [id number] Report ID: [id number]
== END 2019-01-28 20:32 ==
LOC: ER 10:20 → INTOOBSV 12:51 → ERHOLD 12:51 → 2ND 14:08
PROVIDERS: ADMIT Family Medicine; ATTEND Family Medicine
DX: E87.5 Hyperkalemia (principal); I13.2 Hypertensive heart and chronic kidney disease with heart failure and with stage 5 chronic kidney disease, or end stage renal disease; E11.22 Type 2 diabetes mellitus with diabetic chronic kidney disease; N18.6 End stage renal disease; I50.32 Chronic diastolic (congestive) heart failure; E43 Unspecified severe protein-calorie malnutrition; Z68.26 Body mass index [BMI] 26.0-26.9, adult; Q43.8 Other specified congenital malformations of intestine; G82.20 Paraplegia, unspecified; L89.154 Pressure ulcer of sacral region, stage 4; A49.02 Methicillin resistant Staphylococcus aureus infection, unspecified site
CPT/HCPCS: 93005; 87070; 85025 ×2; 80048; 36415; 83735 ×2; 87205; 84100; 85610; 82947 ×5; 80076; 87077; 87186; 84484; 80053; 83880; 74176; 74177; 71045; 90935 ×2; 76881; 94760 ×3; 96375; 96374; 99285; J1644 ×3; C9113; J2270; J0583; J2250 ×2; P9047; J2405 ×2; J0744 ×2; G0378 ×3